=== PATIENT | male | born 1970 | race Caucasian/White ===

== ENCOUNTER 2019-03-22 09:17 | Emergency (ER) | payer BC ==
[2019-03-22] MEDS ORDERED: Sodium Chloride 0.9% 10 ML Syringe FLUSH PRN (09:53)
[2019-03-22] MEDS ORDERED: LORazepam 2 MG/ML SDV IVPUSH ONE ×3 (09:54→12:12)
[2019-03-22] MEDS ORDERED: MVI, Adult with Vitamin K 10 ML, Thiamine 200 MG, Folic Acid 1 MG, Magnesium Sulfate 2 ... IV ONE ×10 (09:54→10:00)
--- NOTE | 2019-03-22 09:57 | EDM.PDOCBH ---
ED HPI GENERAL MEDICAL PROBLEM - General Chief Complaint: Drug or Alcohol Abuse Stated Complaint: ALCOHOL WITHDRAWL Time Seen by Provider: 03/22/19 09:49 Source of Information: Reports: Patient, Family, RN Notes Reviewed History Limitations: Reports: No Limitations - History of Present Illness INITIAL COMMENTS - FREE TEXT/NARRATIVE: 48-year-old gentleman presents emergency department today asking for help with his alcohol, he quit drinking about 2 days ago he's now got tremors quite severe feels uncomfortable would like to go through detox, no nausea vomiting shortness of breath chest pain alcohol is fire ball whiskey Generalized Pain Score (Numeric/FACES): 5 - Related Data Allergies Allergy/AdvReac Type Severity Reaction Status Date / Time No Known Allergies Allergy Verified 07/19/14 08:44 Past Medical History Respiratory History: Reports: Pneumothorax Musculoskeletal History: Reports: Other (See Below) Other Musculoskeletal History: shaking unstaedy Neurological History: Reports: Other (See Below) Other Neuro History: ETOH withdrawl present Psychiatric History: Reports: Addiction, Anxiety, Other (See Below) Other Psychiatric History: ineffective coping Immunologic History: Reports: Other (See Below) Other Immunologic History: lymes? Social & Family History - Tobacco Use Smoking Status *Q: Current Every Day Smoker Years of Tobacco use: 35 Packs/Tins Daily: 1 - Caffeine Use Caffeine Use: Reports: Coffee - Alcohol Use Days Per Week of Alcohol Use: 7 Number of Drinks Per Day: 20 Total Drinks Per Week: 140 - Recreational Drug Use Recreational Drug Use: No ED ROS GENERAL - Review of Systems Review Of Systems: See Below Constitutional: Reports: Other (Tremors). Denies: Fever, Chills HEENT: Reports: No Symptoms Respiratory: Reports: No Symptoms Cardiovascular: Reports: No Symptoms GI/Abdominal: Reports: No Symptoms Neurological: Reports: Tremors ED EXAM, BEHAVIORAL HEALTH - Physical Exam Exam: See Below Exam Limited By: No Limitations General Appearance: Alert, Mild Distress Respiratory/Chest: No Respiratory Distress, Lungs Clear, Normal Breath Sounds, No Accessory Muscle Use, Chest Non-Tender Cardiovascular: Regular Rate, Rhythm, No Murmur GI/Abdominal: Soft, Tender (Generalized) COURSE, BEHAVIORAL HEALTH COMP - Course Vital Signs: Last Vital Signs Temp 97.9 F 03/22/19 09:30 Pulse 103 H 03/22/19 11:53 Resp 16 03/22/19 11:53 BP 156/81 H 03/22/19 11:53 Pulse Ox 98 03/22/19 11:53 Orders, Labs, Meds: Active Orders 24 hr Category Date Time Status Peripheral IV Care [RC] . DIRECTED Care 03/22/19 09:54 Active Lactated Ringers [Ringers, Lactated] 1,000 ml Med 03/22/19 12:24 Active IV BOLUS Sodium Chloride 0.9% [Saline Flush] Med 03/22/19 09:53 Active 10 ml FLUSH ASDIRECTED PRN Peripheral IV Insertion Adult [OM.PC] Urgent Oth 03/22/19 09:53 Ordered Medication Orders Lactated Ringer's (Ringers, Lactated) 1,000 mls @ 500 mls/hr IV BOLUS ONE Stop: 03/22/19 14:23 Last Admin: 03/22/19 12:26 Dose: 500 mls/hr Sodium Chloride (Saline Flush) 10 ml FLUSH ASDIRECTED PRN PRN Reason: Keep Vein Open Last Admin: 03/22/19 10:06 Dose: 10 ml Laboratory Tests 03/22/19 03/22/19 03/22/19 Range/Units 10:05 10:05 10:05 WBC 11.3 H (4.5-11.0) K/uL RBC 4.41 (4.30-5.90) M/uL Hgb 15.0 (12.0-15.0) g/dL Hct 42.9 (40.0-54.0) % MCV 97 (80-98) fL MCH 34 H (27-31) pg MCHC 35 (32-36) % Plt Count 78 L (150-400) K/uL Neut % (Auto) 89 H (36-66) % Lymph % (Auto) 5 L (24-44) % [place] % (Auto) 6 (2-6) % Eos % (Auto) 0 L (2-4) % Baso % (Auto) 0 (0-1) % PT (9.5-12.0) sec INR (0.80-1.20) Sodium 140 (140-148) mmol/L Potassium 3.4 L (3.6-5.2) mmol/L Chloride 100 (100-108) mmol/L Carbon Dioxide 26 (21-32) mmol/L Anion Gap 17.4 H (5.0-14.0) mmol/L BUN 6 L (7-18) mg/dL Creatinine 1.0 (0.8-1.3) mg/dL Est Cr Clr Drug Dosing 86.25 mL/min Estimated GFR (MDRD) > 60 (>60) Glucose 136 H (74-106) mg/dL Calcium 8.2 L (8.5-10.1) mg/dL Total Bilirubin 1.1 H D (0.2-1.0) mg/dL AST 69 H (15-37) U/L ALT 34 (12-78) U/L Alkaline Phosphatase 88 (46-116) U/L Total Protein 6.9 (6.4-8.2) g/dL Albumin 3.4 (3.4-5.0) g/dL Globulin 3.5 (2.3-3.5) g/dL Albumin/Globulin Ratio 1.0 L (1.2-2.2) Ethyl Alcohol 7 mg/dL 03/22/19 Range/Units 10:05 WBC (4.5-11.0) K/uL RBC (4.30-5.90) M/uL Hgb (12.0-15.0) g/dL Hct (40.0-54.0) % MCV (80-98) fL MCH (27-31) pg MCHC (32-36) % Plt Count (150-400) K/uL Neut % (Auto) (36-66) % Lymph % (Auto) (24-44) % [place] % (Auto) (2-6) % Eos % (Auto) (2-4) % Baso % (Auto) (0-1) % PT 11.0 (9.5-12.0) sec INR 1.02 (0.80-1.20) Sodium (140-148) mmol/L Potassium (3.6-5.2) mmol/L Chloride (100-108) mmol/L Carbon Dioxide (21-32) mmol/L Anion Gap (5.0-14.0) mmol/L BUN (7-18) mg/dL Creatinine (0.8-1.3) mg/dL Est Cr Clr Drug Dosing mL/min Estimated GFR (MDRD) (>60) Glucose (74-106) mg/dL Calcium (8.5-10.1) mg/dL Total Bilirubin (0.2-1.0) mg/dL AST (15-37) U/L ALT (12-78) U/L Alkaline Phosphatase (46-116) U/L Total Protein (6.4-8.2) g/dL Albumin (3.4-5.0) g/dL Globulin (2.3-3.5) g/dL Albumin/Globulin Ratio (1.2-2.2) Ethyl Alcohol mg/dL Medications Generic Name Dose Route Start Last Admin Trade Name Freq PRN Reason Stop Dose Admin Lactated Ringer's 1,000 mls @ 500 mls/hr 03/22/19 12:24 03/22/19 12:26 Ringers, Lactated IV 03/22/19 14:23 500 mls/hr BOLUS ONE Administration Sodium Chloride 10 ml 03/22/19 09:53 03/22/19 10:06 Saline Flush FLUSH 10 ml ASDIRECTED PRN Administration Keep Vein Open Discontinued Medications Generic Name Dose Route Start Last Admin Trade Name Freq PRN Reason Stop Dose Admin Multivitamins/Minerals 10 ml/ 1,016.2 mls @ 500 mls/hr 03/22/19 10:00 10:16 Thiamine HCl 200 mg/ Folic IV 03/22/19 12:01 500 mls/hr Acid 1 mg/ Magnesium Sulfate 2 ONETIME ONE Administration gm/ Dextrose/Lactated Ringer' s Lorazepam 2 mg 03/22/19 09:54 03/22/19 10:03 Ativan IVPUSH 03/22/19 09:55 2 mg ONETIME ONE Administration Lorazepam 2 mg 03/22/19 10:48 03/22/19 10:53 Ativan IVPUSH 03/22/19 10:49 2 mg ONETIME ONE Administration Lorazepam 2 mg 03/22/19 12:12 03/22/19 12:18 Ativan IVPUSH 03/22/19 12:13 2 mg ONETIME ONE Administration Departure - Departure Time of Disposition: 13:02 Disposition: DC/Tfer to Inpt Rehab Fac 62 Condition: Poor Clinical Impression: Delirium tremens, Alcohol abuse - Discharge Information Referrals: PCP,None [Primary Care Provider] - Forms: ED Department Discharge Additional Instructions: Please report to [facility] [place] facility for further treatment - My Orders Last 24 Hours: My Active Orders 03/22/19 09:53 Sodium Chloride 0.9% [Saline Flush] 10 ml FLUSH ASDIRECTED PRN Peripheral IV Insertion Adult [OM.PC] Urgent 03/22/19 09:54 Peripheral IV Care [RC] . DIRECTED 03/22/19 12:24 Lactated Ringers [Ringers, Lactated] 1,000 ml IV BOLUS - Assessment/Plan Last 24 Hours: My Active Orders 03/22/19 09:53 Sodium Chloride 0.9% [Saline Flush] 10 ml FLUSH ASDIRECTED PRN Peripheral IV Insertion Adult [OM.PC] Urgent 03/22/19 09:54 Peripheral IV Care [RC] . DIRECTED 03/22/19 12:24 Lactated Ringers [Ringers, Lactated] 1,000 ml IV BOLUS Plan: Assessment Acuity = acute Site and laterality = alcohol withdrawal with delirium tremens secondary to alcohol abuse Etiology = EtOH Manifestations = none Location of injury = Home Lab values = CBC unremarkable AST elevated 69 consistent elevated liver enzymes , INR is within normal limits alcohol is at 7 Plan His given a banana bag here in the emergency department as well as 6 mg Ativan did discuss case with the medical claims processor of the detoxification unit at [id number] recommend trial at detoxification facility before hospitalization recommend Valium, there will be transferred to [place] detoxification facility This note was dictated using [employer] voice recognition software please call with any questions on syntax or grammar.
[2019-03-22] MEDS ORDERED: Lactated Ringers 1,000 ML IV ONE ×2 (12:24→16:44)
[2019-03-22 14:31] VITALS: BP 164/86; PULSE 85
[2019-03-22] MEDS ORDERED: LORazepam 1 MG Tab PO ONE (17:27)
--- NOTE | 2019-03-22 17:47 | PCM.PN ---
- General Info Date of Service: 03/22/19 Admission Dx/Problem (Free Text): ER Visit. Brennan came today to the ER as he has been reducing his alcohol consumption and having DT's.. He was drinking 3.75 recently as trying to reduce his consumption. He normally was taking 750 Whisky daily. I had seen him this morning and couldn't walk and was not appropriate for admission to [facility] as he was unable to walk. It is now 5:30 PM and has improved so will be transferred to [facility] for treatment. Functional Status: Reports: Pain Controlled - Review of Systems General: Reports: Weakness, Fatigue HEENT: Reports: No Symptoms Pulmonary: Reports: No Symptoms Cardiovascular: Reports: No Symptoms Gastrointestinal: Reports: No Symptoms Genitourinary: Reports: No Symptoms Musculoskeletal: Reports: No Symptoms Skin: Reports: No Symptoms Neurological: Reports: No Symptoms Psychiatric: Reports: Anxiety, Other (DT's) - Patient Data Vitals - Most Recent: Last Vital Signs Temp 98.8 F 03/22/19 14:30 Pulse 85 03/22/19 14:30 Resp 16 03/22/19 11:53 BP 164/86 H 03/22/19 14:30 Pulse Ox 98 03/22/19 14:30 Weight - Most Recent: 148 lb 12.992 oz Lab Results Last 24 Hours: Laboratory Results - last 24 hr 03/22/19 03/22/19 03/22/19 Range/Units 10:05 10:05 10:05 WBC 11.3 H (4.5-11.0) K/uL RBC 4.41 (4.30-5.90) M/uL Hgb 15.0 (12.0-15.0) g/dL Hct 42.9 (40.0-54.0) % MCV 97 (80-98) fL MCH 34 H (27-31) pg MCHC 35 (32-36) % Plt Count 78 L (150-400) K/uL Neut % (Auto) 89 H (36-66) % Lymph % (Auto) 5 L (24-44) % [place] % (Auto) 6 (2-6) % Eos % (Auto) 0 L (2-4) % Baso % (Auto) 0 (0-1) % PT (9.5-12.0) sec INR (0.80-1.20) Sodium 140 (140-148) mmol/L Potassium 3.4 L (3.6-5.2) mmol/L Chloride 100 (100-108) mmol/L Carbon Dioxide 26 (21-32) mmol/L Anion Gap 17.4 H (5.0-14.0) mmol/L BUN 6 L (7-18) mg/dL Creatinine 1.0 (0.8-1.3) mg/dL Est Cr Clr Drug Dosing 86.25 mL/min Estimated GFR (MDRD) > 60 (>60) Glucose 136 H (74-106) mg/dL Calcium 8.2 L (8.5-10.1) mg/dL Total Bilirubin 1.1 H D (0.2-1.0) mg/dL AST 69 H (15-37) U/L ALT 34 (12-78) U/L Alkaline Phosphatase 88 (46-116) U/L Total Protein 6.9 (6.4-8.2) g/dL Albumin 3.4 (3.4-5.0) g/dL Globulin 3.5 (2.3-3.5) g/dL Albumin/Globulin Ratio 1.0 L (1.2-2.2) Ethyl Alcohol 7 mg/dL 03/22/19 Range/Units 10:05 WBC (4.5-11.0) K/uL RBC (4.30-5.90) M/uL Hgb (12.0-15.0) g/dL Hct (40.0-54.0) % MCV (80-98) fL MCH (27-31) pg MCHC (32-36) % Plt Count (150-400) K/uL Neut % (Auto) (36-66) % Lymph % (Auto) (24-44) % [place] % (Auto) (2-6) % Eos % (Auto) (2-4) % Baso % (Auto) (0-1) % PT 11.0 (9.5-12.0) sec INR 1.02 (0.80-1.20) Sodium (140-148) mmol/L Potassium (3.6-5.2) mmol/L Chloride (100-108) mmol/L Carbon Dioxide (21-32) mmol/L Anion Gap (5.0-14.0) mmol/L BUN (7-18) mg/dL Creatinine (0.8-1.3) mg/dL Est Cr Clr Drug Dosing mL/min Estimated GFR (MDRD) (>60) Glucose (74-106) mg/dL Calcium (8.5-10.1) mg/dL Total Bilirubin (0.2-1.0) mg/dL AST (15-37) U/L ALT (12-78) U/L Alkaline Phosphatase (46-116) U/L Total Protein (6.4-8.2) g/dL Albumin (3.4-5.0) g/dL Globulin (2.3-3.5) g/dL Albumin/Globulin Ratio (1.2-2.2) Ethyl Alcohol mg/dL Med Orders - Current: Current Medications Lactated Ringer's (Ringers, Lactated) 1,000 mls @ 125 mls/hr IV BOLUS ONE Stop: 03/23/19 00:43 Last Admin: 03/22/19 16:47 Dose: 125 mls/hr Sodium Chloride (Saline Flush) 10 ml FLUSH ASDIRECTED PRN PRN Reason: Keep Vein Open Last Admin: 03/22/19 10:06 Dose: 10 ml Discontinued Medications Diazepam (Valium) 5 mg IVPUSH ONETIME ONE Stop: 03/22/19 13:04 Last Admin: 03/22/19 13:19 Dose: 5 mg Multivitamins/Minerals 10 ml/Thiamine HCl 200 mg/ Folic Acid 1 mg/ Magnesium Sulfate 2 gm/ Dextrose/Lactated Ringer' s 1,016.2 mls @ 500 mls/hr IV ONETIME ONE Stop: 03/22/19 12:01 Last Admin: 03/22/19 10:16 Dose: 500 mls/hr Lactated Ringer's (Ringers, Lactated) 1,000 mls @ 500 mls/hr IV BOLUS ONE Stop: 03/22/19 14:23 Last Admin: 03/22/19 12:26 Dose: 500 mls/hr Lorazepam (Ativan) 2 mg IVPUSH ONETIME ONE Stop: 03/22/19 09:55 Last Admin: 03/22/19 10:03 Dose: 2 mg Lorazepam (Ativan) 2 mg IVPUSH ONETIME ONE Stop: 03/22/19 10:49 Last Admin: 03/22/19 10:53 Dose: 2 mg Lorazepam (Ativan) 2 mg IVPUSH ONETIME ONE Stop: 03/22/19 12:13 Last Admin: 03/22/19 12:18 Dose: 2 mg Lorazepam (Ativan) 2 mg PO ONETIME ONE Stop: 03/22/19 17:28 - Exam General: Alert, Oriented, Cooperative HEENT: Pupils Equal, Pupils Reactive Neck: Supple Lungs: Clear to Auscultation, Normal Respiratory Effort Cardiovascular: Regular Rate, Regular Rhythm GI/Abdominal Exam: Normal Bowel Sounds Back Exam: Normal Inspection Extremities: Normal Inspection Skin: Warm - Problem List Review Problem List Initiated/Reviewed/Updated: Yes - Plan Plan:: Assessment/Plan: #11. Alcoholism with DT's. I have arranged to have him admitted to [facility] rather than admitting him in the hospital. He has improved presently and stable. His liver is enlarged secondary to alc. #2. Thrombocytopenia: He is at 78,000. This will need to be followed until stabilized. #3. Hypertension: This needs to be followed and treated if it remains elevated.
== END 2019-03-22 18:20 ==
LOC: JP.ED 09:17
DX: F10.231 Alcohol dependence with withdrawal delirium (principal); F17.210 Nicotine dependence, cigarettes, uncomplicated
CPT/HCPCS: 36415; 80053; 85025; 85610; 96361; 96365; 96366; 96375; 96376; 99285-25; A9270-GY; G0480; J2060; J3360; J3411; J3475; J3490; J7042; J7120

== ENCOUNTER 2019-03-23 02:34 | Inpatient (IN) | payer BC ==
[~2019-03-23 02:34] MED LIST: Acetaminophen 325 MG Tab PO PRN; Acetaminophen 650 MG Supp RECTAL PRN; LORazepam 2 MG/ML SDV IM PRN; Sodium Chloride 0.9% 10 ML Syringe IV PRN; cloNIDine 0.1 MG Tab PO PRN
--- NOTE | 2019-03-23 02:42 | PCM.HP.2 ---
H&P History of Present Illness - General Date of Service: 03/23/19 Source of Information: Patient, EMS Notes Reviewed, Old Records History Limitations: Reports: Altered Mental Status, Intoxication - History of Present Illness Initial Comments - Free Text/Narative: Armaan is a 48 year old male who came to the ER yesterday and improved by 7 PM and thought he was stable enough to go the [facility]. He has fallen twice since he was there and the nurse is unable to care for him in his present state as he needs one to one care for his safety. He is being admitted for care until stable to may go into treatment. - Related Data Allergies/Adverse Reactions: Allergies Allergy/AdvReac Type Severity Reaction Status Date / Time No Known Allergies Allergy Verified 07/19/14 08:44 Home Medications: Home Meds NK [No Known Home Meds] 03/22/19 [History] Past Medical History Respiratory History: Reports: Pneumothorax Musculoskeletal History: Reports: Other (See Below) Other Musculoskeletal History: shaking unstaedy Neurological History: Reports: Other (See Below) Other Neuro History: ETOH withdrawl present Psychiatric History: Reports: Addiction, Anxiety, Other (See Below) Other Psychiatric History: ineffective coping Immunologic History: Reports: Other (See Below) Other Immunologic History: lymes? Social & Family History - Caffeine Use Caffeine Use: Reports: Coffee H&P Review of Systems - Review of Systems: Review Of Systems: See Below General: Reports: Weakness, Fatigue HEENT: Reports: No Symptoms Pulmonary: Reports: No Symptoms Cardiovascular: Reports: No Symptoms Gastrointestinal: Reports: No Symptoms Genitourinary: Reports: No Symptoms Musculoskeletal: Reports: No Symptoms Skin: Reports: No Symptoms Psychiatric: Reports: Hallucinations Neurological: Reports: Other (DT's) Hematologic/Lymphatic: Reports: No Symptoms Immunologic: Reports: No Symptoms Exam - Exam Exam: See Below - Exam General: Moderate Distress, Lethargic HEENT: PERRLA, Hearing Intact, Mucosa Moist & [place], Nares Patent, Normal Nasal Septum, Posterior Pharynx Clear, Conjunctiva Clear, EOMI, EACs Clear, TMs Clear Neck: Supple, Trachea Midline, 2 Lungs: Clear to Auscultation, Normal Respiratory Effort Cardiovascular: Regular Rate, Regular Rhythm GI/Abdominal Exam: Tender, Hepatomegaly Peripheral Pulses: 1+: Radial (L), Radial (R) Skin: Warm, Dry, Intact Neurological: Cranial Nerves Intact, Abnormal Gait Neuro Extensive - Mental Status: Inattentive Neuro Extensive - Motor, Sensory, Reflexes: CN II-XII Intact DTR: 1+: Bicep (L), Bicep (R) Psychiatric: Hallucinations, Withdrawal Symptoms Problem List Initiated/Reviewed/Updated: Yes Assessment/Plan Comment:: Assessment/Plan: #1. Alcoholism with DT's. Will admitted and monitor closely and give meds as needed. #2. HTN: Blood pressure is elevated and will monitor closely. #3. Thrombocytopenia: Will need to monitor. This is secondary to alcohol consumption.
[2019-03-23] MEDS ORDERED: Sodium Chloride 0.9% 10 ML Syringe FLUSH PRN (02:50)
[2019-03-23] MEDS ORDERED: Thiamine 200 MG/2 ML MDV IM ONE ×2 (03:45→09:00)
[2019-03-23] MEDS ORDERED: Thiamine 100 MG in Sodium Chloride 0.9% 100 ML IV ONE (03:45)
[2019-03-23] MEDS: LORazepam 2 MG/ML SDV IVPUSH PRN ×2 (04:04→06:20)
[2019-03-23] MEDS: Potassium Chloride 20 MEQ Tab.ER PO SCH ×2 (06:10→09:39)
[2019-03-23] MEDS: LORazepam 1 MG Tab PO PRN ×4 (08:08→18:50)
[2019-03-23] MEDS ORDERED: Ondansetron 4 MG Tab.DIS PO PRN (08:56)
[2019-03-23] MEDS ORDERED: Ondansetron 4 MG/2 ML SDV IVPUSH PRN (08:56)
--- NOTE | 2019-03-23 09:28 | PCM.PN ---
- General Info Date of Service: 03/23/19 Subjective Update: No acute events since admission. Patient is very somnolent at this time and does not provide any reliable history. He has been getting Ativan fairly regularly for his alcohol withdrawal. Vital signs have been stable. Nursing reports that he has been arousable and able to take pills. - Patient Data Vitals - Most Recent: Last Vital Signs Temp 36.6 C 03/23/19 02:54 Pulse Resp 16 03/23/19 06:00 BP 126/78 03/23/19 06:00 Pulse Ox 96 03/23/19 04:00 Weight - Most Recent: 72.575 kg I&O - Last 24 Hours: Intake & Output 03/22/19 03/23/19 03/23/19 22:59 06:59 14:59 Output Total 725 Balance -725 Lab Results Last 24 Hours: Laboratory Results - last 24 hr 03/23/19 03/23/19 03/23/19 Range/Units 04:15 04:15 08:53 WBC 6.4 (4.5-11.0) K/uL RBC 4.15 L (4.30-5.90) M/uL Hgb 13.9 (12.0-15.0) g/dL Hct 40.7 (40.0-54.0) % MCV 98 (80-98) fL MCH 34 H (27-31) pg MCHC 34 (32-36) % Plt Count 62 L (150-400) K/uL Neut % (Auto) 77 H (36-66) % Lymph % (Auto) 16 L (24-44) % [place] % (Auto) 7 H (2-6) % Eos % (Auto) 1 L (2-4) % Baso % (Auto) 0 (0-1) % Sodium 139 L (140-148) mmol/L Potassium 2.8 L* (3.6-5.2) mmol/L Chloride 101 (100-108) mmol/L Carbon Dioxide 28 (21-32) mmol/L Anion Gap 12.8 (5.0-14.0) mmol/L BUN 4 L (7-18) mg/dL Creatinine 0.8 (0.8-1.3) mg/dL Est Cr Clr Drug Dosing 112.92 mL/min Estimated GFR (MDRD) > 60 (>60) Glucose 123 H (74-106) mg/dL Calcium 8.3 L (8.5-10.1) mg/dL Magnesium 1.9 (1.8-2.4) mg/dL Total Bilirubin 1.1 H (0.2-1.0) mg/dL AST 59 H (15-37) U/L ALT 33 (12-78) U/L Alkaline Phosphatase 84 (46-116) U/L Total Protein 6.4 (6.4-8.2) g/dL Albumin 3.1 L (3.4-5.0) g/dL Globulin 3.3 (2.3-3.5) g/dL Albumin/Globulin Ratio 0.9 L (1.2-2.2) Med Orders - Current: Current Medications Acetaminophen (Tylenol) 650 mg PO Q4H PRN PRN Reason: Pain/Fever Clonidine HCl (Catapres) 0.2 mg PO Q2H PRN PRN Reason: BP>170/110 Gabapentin (Neurontin) 400 mg PO TID [place] Lorazepam (Ativan) 1 - 2 mg PO Q1H PRN; Protocol PRN Reason: CIWA/BP/HR Last Admin: 03/23/19 08:08 Dose: 2 mg Lorazepam (Ativan) 1 - 2 mg IVPUSH Q1H PRN; Protocol PRN Reason: CIWA/BP/HR Last Admin: 03/23/19 06:20 Dose: 2 mg Lorazepam (Ativan) 1 - 2 mg IM Q1H PRN; Protocol PRN Reason: CIWA/BP/HR Melatonin (Melatonin) 9 mg PO BEDTIME [facility] Ondansetron HCl (Zofran Odt) 4 mg PO Q4H PRN PRN Reason: Nausea/Vomiting Ondansetron HCl (Zofran) 4 mg IVPUSH Q4H PRN PRN Reason: Nausea/Vomiting Potassium Chloride (Klor-Con M20) 20 meq PO QID [facility] Stop: 03/23/19 11:00 Last Admin: 03/23/19 06:10 Dose: 20 meq Sodium Chloride (Saline Flush) 10 ml IV ASDIRECTED PRN PRN Reason: IV ACCESS Thiamine HCl (Vitamin B-1) 100 mg PO DAILY [facility] Stop: 03/25/19 09:01 Discontinued Medications Acetaminophen (Tylenol) 650 mg RECTAL Q4H PRN PRN Reason: ALCOHOL WITHDRAWAL PROTOCOL Sodium Chloride (Saline Flush) 10 ml FLUSH ASDIRECTED PRN PRN Reason: Keep Vein Open Thiamine HCl (Vitamin B-1) 100 mg IM ONETIME ONE Stop: 03/23/19 09:01 Last Admin: 03/23/19 08:31 Dose: 100 mg - Exam Quality Assessment: No: Supplemental Oxygen General: No Acute Distress, Lethargic. No: Alert Lungs: Clear to Auscultation, Normal Respiratory Effort Cardiovascular: Regular Rate, Regular Rhythm GI/Abdominal Exam: Normal Bowel Sounds, No Distention Extremities: No Pedal Edema. No: Increased Warmth Skin: Warm, Dry Psy/Mental Status: No: Alert, Agitated - Problem List Review Problem List Initiated/Reviewed/Updated: Yes - My Orders Last 24 Hours: My Active Orders 03/23/19 08:55 SCD [Sequential Compression Device] [OM.PC] Routine 03/23/19 08:56 Ondansetron [Zofran ODT] 4 mg PO Q4H PRN Ondansetron [Zofran] 4 mg IVPUSH Q4H PRN 03/23/19 09:00 Gabapentin [Neurontin] 400 mg PO TID 03/23/19 14:00 POTASSIUM,K [CHEM] Timed 03/23/19 21:00 Melatonin 9 mg PO BEDTIME 03/24/19 05:00 CBC W/O DIFF,HEMOGRAM [HEME] Timed (1) COMPREHENSIVE METABOLIC PN,CMP [CHEM] Timed - Plan Plan:: ASSESSMENT AND PLAN - Acute alcohol withdrawal with delirium tremens - currently lethargic. Receiving medications regularly. Vital signs have been stable. Thiamine and folate have been supplemented. -Continue lorazepam per the ciwaa protocol -Gabapentin 3 times daily -Melatonin at bedtime -Daily supplement of thiamine and folate -Discuss treatment options once he is more alert and interactive Hypokalemia - fairly impressive reduction in potassium, he has received some supplementation this morning. -Recheck potassium at 1400 and supplement as indicated Maintenance issues - - DVT prophylaxis - mechanical with thrombocytopenia - GI prophylaxis - PPI - Nutrition - regular diet - [place] catheter - not indicated Disposition - I would anticipate discharge home with outpatient follow-up versus inpatient treatment after the hospital stay Andrew Walker M.D.
[2019-03-23] MEDS: Gabapentin 400 MG Cap PO SCH ×3 (09:39→21:39)
[2019-03-23] MEDS: Nicotine 21 MG/24 Hr Patch TRDERM SCH (15:24)
[2019-03-23] MEDS ORDERED: Potassium Chloride 20 MEQ Tab.ER PO ONE (16:00)
[2019-03-23] MEDS ORDERED: Melatonin 3 MG Tab PO SCH (21:00)
[2019-03-24] MEDS ORDERED: Pantoprazole 40 MG Tab.CR PO SCH (07:30)
[2019-03-24 08:24] VITALS: BP 138/82; PULSE 99
[2019-03-24] MEDS ORDERED: Thiamine 100 MG Tab PO SCH (09:00)
--- NOTE | 2019-03-24 09:25 | PCM.DCSUM1 ---
Discharge Summary - Hospital Course Brief History: 48-year-old male with history of alcohol dependence and abuse who presented from detox with weakness, hallucinations and confusion. He was admitted for management of alcohol withdrawal with delirium tremens. Diagnosis: Stroke: No - Discharge Data Discharge Date: 03/24/19 Discharge Disposition: Home, Self-Care 01 Condition: Fair - Referral to Home Health Primary Care Physician: Damon Langley Sr, MD - Discharge Diagnosis/Problem(s) (1) Alcohol withdrawal delirium, acute, mixed level of activity SNOMED Code(s): 6979981, 136612219 ICD Code: F10.231 - ALCOHOL DEPENDENCE WITH WITHDRAWAL DELIRIUM Status: Acute (2) Tobacco dependence syndrome SNOMED Code(s): 97875727 ICD Code: F17.200 - NICOTINE DEPENDENCE, UNSPECIFIED, UNCOMPLICATED Status : Chronic - Patient Summary/Data Hospital Course: Armaan presented to the emergency room from detox with weakness resulting in multiple falls as well as hallucinations and confusion. He was admitted to the intensive care unit for management of delirium tremens with acute alcohol withdrawal. He received lorazepam via the protocol overnight. The morning after admission he was started on gabapentin per the alcohol withdrawal protocol. Lorazepam was continued. Throughout the day after admission he made some improvement. By the second morning after admission he is doing a fair amount better. He has not had any lorazepam in more than 12 hours. He does continue to have some tremors but has not been hallucinating. He is steady on his feet and has been up and walking around in the hallways. He has been able to tolerate a diet and feed himself. He is interested in going home at this point and I believe he is safe for outpatient management. He has a rule 25 scheduled for Friday, 6 days from now. He has family members will be checking on him and he has signed a contract with them that he will not drink and will be attending the rule 25 meeting. We did offer additional resources such as Alcoholics Anonymous and outpatient chemical dependency counseling but he is going to start with the rule 25 and go from there. Also noted during the hospital stay was hypo-kalemia which has improved with supplementation and his potassium level is now normal. - Patient Instructions Diet: Regular Diet as Tolerated Activity: As Tolerated Showering/Bathing: May Shower Notify Provider of: Increased Pain, Nausea and/or Vomiting Other/Special Instructions: 1. You have a Rule 25 assessment scheduled with [facility] [employer] on March 29 at 9 am. I strongly recommend that you attend this assessment as it will open doors for additional help as you recover from alcoholism. 2. If you are interested in quitting smoking [employer] has excellent information and you may also talk to your primary care provider. - Discharge Plan *PRESCRIPTION DRUG MONITORING PROGRAM REVIEWED*: Not Applicable *COPY OF PRESCRIPTION DRUG MONITORING REPORT IN PATIENT CIRILO: Not Applicable Home Medications: Home Meds NK [No Known Home Meds] 03/22/19 [History] Oxygen Therapy Mode: Room Air Patient Handouts: What You Need to Know About Alcohol Abuse and Dependence, Adult, Delirium Tremens - Discharge Summary/Plan Comment DC Time >30 min.: Yes - Patient Data Vitals - Most Recent: Last Vital Signs Temp 36.4 C 03/24/19 08:00 Pulse 99 03/24/19 08:00 Resp 22 H 03/24/19 08:00 BP 138/82 03/24/19 08:00 Pulse Ox 96 03/24/19 06:00 Weight - Most Recent: 72.5 kg I&O - Last 24 hours: Intake & Output 03/23/19 03/24/19 03/24/19 22:59 06:59 14:59 Intake Total 1250 750 Balance 1250 750 Lab Results - Last 24 hrs: Laboratory Results - last 24 hr 03/23/19 03/24/19 03/24/19 Range/Units 14:14 04:40 04:40 WBC 6.3 (4.5-11.0) K/uL RBC 4.43 (4.30-5.90) M/uL Hgb 14.7 (12.0-15.0) g/dL Hct 44.3 (40.0-54.0) % MCV 100 H (80-98) fL MCH 33 H (27-31) pg MCHC 33 (32-36) % Plt Count 65 L (150-400) K/uL Sodium 138 L (140-148) mmol/L Potassium 3.7 3.9 (3.6-5.2) mmol/L Chloride 104 (100-108) mmol/L Carbon Dioxide 27 (21-32) mmol/L Anion Gap 10.9 (5.0-14.0) mmol/L BUN 9 D (7-18) mg/dL Creatinine 0.9 (0.8-1.3) mg/dL Est Cr Clr Drug Dosing 100.04 mL/min Estimated GFR (MDRD) > 60 (>60) Glucose 118 H (74-106) mg/dL Calcium 9.0 (8.5-10.1) mg/dL Total Bilirubin 0.7 (0.2-1.0) mg/dL AST 53 H (15-37) U/L ALT 36 (12-78) U/L Alkaline Phosphatase 82 (46-116) U/L Total Protein 6.7 (6.4-8.2) g/dL Albumin 3.0 L (3.4-5.0) g/dL Globulin 3.7 H (2.3-3.5) g/dL Albumin/Globulin Ratio 0.8 L (1.2-2.2) Med Orders - Current: Current Medications Acetaminophen (Tylenol) 650 mg PO Q4H PRN PRN Reason: Pain/Fever Clonidine HCl (Catapres) 0.2 mg PO Q2H PRN PRN Reason: BP>170/110 Gabapentin (Neurontin) 400 mg PO TID [facility] Last Admin: 03/23/19 21:39 Dose: 400 mg Lorazepam (Ativan) 1 - 2 mg PO Q1H PRN; Protocol PRN Reason: CIWA/BP/HR Last Admin: 03/23/19 18:50 Dose: 2 mg Lorazepam (Ativan) 1 - 2 mg IVPUSH Q1H PRN; Protocol PRN Reason: CIWA/BP/HR Last Admin: 03/23/19 06:20 Dose: 2 mg Lorazepam (Ativan) 1 - 2 mg IM Q1H PRN; Protocol PRN Reason: CIWA/BP/HR Melatonin (Melatonin) 9 mg PO BEDTIME [facility] Last Admin: 03/23/19 21:39 Dose: 9 mg Nicotine (Habitrol) 21 mg TRDERM DAILY [facility] Last Admin: 03/23/19 15:24 Dose: 21 mg Ondansetron HCl (Zofran Odt) 4 mg PO Q4H PRN PRN Reason: Nausea/Vomiting Ondansetron HCl (Zofran) 4 mg IVPUSH Q4H PRN PRN Reason: Nausea/Vomiting Pantoprazole Sodium (Protonix) 40 mg PO DAILY@0730 [facility] Last Admin: 03/24/19 07:44 Dose: 40 mg Sodium Chloride (Saline Flush) 10 ml IV ASDIRECTED PRN PRN Reason: IV ACCESS Thiamine HCl (Vitamin B-1) 100 mg PO DAILY [facility] Stop: 03/25/19 09:01 Discontinued Medications Acetaminophen (Tylenol) 650 mg RECTAL Q4H PRN PRN Reason: ALCOHOL WITHDRAWAL PROTOCOL Potassium Chloride (Klor-Con M20) 20 meq PO QID [facility] Stop: 03/23/19 11:00 Last Admin: 03/23/19 09:39 Dose: 20 meq Potassium Chloride (Klor-Con M20) 40 meq PO ONETIME ONE Stop: 03/23/19 16:01 Last Admin: 03/23/19 15:24 Dose: 40 meq Sodium Chloride (Saline Flush) 10 ml FLUSH ASDIRECTED PRN PRN Reason: Keep Vein Open Thiamine HCl (Vitamin B-1) 100 mg IM ONETIME ONE Stop: 03/23/19 09:01 Last Admin: 03/23/19 08:31 Dose: 100 mg - Exam Quality Assessment: Denies: Supplemental Oxygen General: Reports: Alert, Oriented, Cooperative, No Acute Distress HEENT: Reports: Pupils Equal Lungs: Reports: Normal Respiratory Effort Cardiovascular: Reports: Regular Rate, Regular Rhythm GI/Abdominal Exam: Soft, No Distention Skin: Reports: Warm, Dry Neurological: Reports: Other (tremor) Psy/Mental Status: Reports: Alert, Normal Affect
[2019-03-24] MEDS: Gabapentin 400 MG Cap PO SCH (09:46)
[2019-03-24] MEDS: Nicotine 21 MG/24 Hr Patch TRDERM SCH (09:46)
== END 2019-03-24 10:14 | disposition home or self-care (01) | DRG 775 ==
LOC: JP.ICU 02:34
PROVIDERS: ADMIT Internal Medicine; ATTEND Internal Medicine
DX: F10.231 Alcohol dependence with withdrawal delirium (principal); F17.200 Nicotine dependence, unspecified, uncomplicated; R29.6 Repeated falls; F41.9 Anxiety disorder, unspecified; I10 Essential (primary) hypertension; D69.6 Thrombocytopenia, unspecified; E87.6 Hypokalemia
CPT/HCPCS: 36415; 80053; 83735; 84132; 85025; 85027; A9270-GY; J2060; J3411

== ENCOUNTER 2019-05-02 18:52 | Emergency (ER) | payer BC ==
[2019-05-02 19:12] VITALS: BP 145/82; PULSE 65
[2019-05-02] MEDS ORDERED: Thiamine 100 MG Tab PO ONE (19:53)
--- NOTE | 2019-05-02 19:54 | EDM.PDOC ---
ED HPI GENERAL MEDICAL PROBLEM - General Chief Complaint: Abdominal Pain Stated Complaint: FATIGUE, STOMACH & LEG CRAMPS Time Seen by Provider: 05/02/19 19:25 Source of Information: Reports: Patient, Family, Old Records, RN History Limitations: Reports: No Limitations - History of Present Illness INITIAL COMMENTS - FREE TEXT/NARRATIVE: 48 yo male was discharged from here about 5 weeks ago for DT's. When he left he was not to drink at all. He drank heavily more than once since leaving the hospital, the last time being about 3 days ago. After that day of heavy drinking he passed a black stool. Since then he has reduced his drinking considerably and his stools are loose, but not black. He has a hard time thinking straight and feels generally weak. He states he's lost 10 lbs since leaving the hospital. He is convinced that there is something wrong with him not related to his alcohol abuse so he comes here now. Onset: Gradual Duration: Day(s):, Getting Worse Location: Reports: Head (not thinking clearly), Abdomen (cramping) Quality: Reports: Other (no pain reported) Severity: Moderate Improves with: Reports: None Worsens with: Reports: Other (? additional ETOH consumption. ) Context: Reports: Other (See HPI) Associated Symptoms: Reports: Confusion (mild at times), Malaise, Weakness ( generalized), Other (loose stools, abdominal cramps, recent dark stools. ). Denies: Chest Pain, Cough, Diaphoresis, Fever/Chills, Headaches, Nausea/Vomiting , Rash, Seizure, Shortness of Breath, Syncope Treatments [employer]PUT[employer] TRA[employer]ER: Reports: Other (see below) (none) abd pain Pain Score (Numeric/FACES): 4 - Related Data Allergies Allergy/AdvReac Type Severity Reaction Status Date / Time No Known Allergies Allergy Verified 05/02/19 19:19 Home Meds: Home Meds NK [No Known Home Meds] 03/22/19 [History] Past Medical History Respiratory History: Reports: Pneumothorax Musculoskeletal History: Reports: Other (See Below) Other Musculoskeletal History: shaking unstaedy Neurological History: Reports: Other (See Below) Other Neuro History: ETOH withdrawl present Psychiatric History: Reports: Addiction, Anxiety, Other (See Below) Other Psychiatric History: ineffective coping Immunologic History: Reports: Other (See Below) Other Immunologic History: lymes? Social & Family History - Caffeine Use Caffeine Use: Reports: Coffee ED ROS GENERAL - Review of Systems Review Of Systems: See Below Constitutional: Reports: Malaise, Weakness (generalized), Weight Loss (10#) HEENT: Reports: No Symptoms Respiratory: Reports: No Symptoms Cardiovascular: Reports: Lightheadedness (at times). Denies: Chest Pain, Dyspnea on Exertion, Palpitations Endocrine: Reports: No Symptoms GI/Abdominal: Reports: Abdominal Pain (cramps), Black Stool (recent, not today) , Diarrhea (recently and today), Melena (3 days ago). Denies: Bloody Stool, Constipation, Distension, Hematemesis, Hematochezia, Nausea, Vomiting : Reports: No Symptoms Musculoskeletal: Reports: No Symptoms Skin: Reports: No Symptoms Neurological: Reports: Confusion (mild at times, memory very bad lately), Difficulty Walking (at times), Weakness (generalized). Denies: Dizziness, Headache, Numbness, Trouble Speaking, Gait Disturbance Psychiatric: Reports: No Symptoms ED EXAM, GENERAL - Physical Exam Exam: See Below Exam Limited By: No Limitations General Appearance: Alert, WD/WN Eye Exam: Bilateral Eye: Normal Inspection, PERRL Ears: Normal External Exam, Normal Canal, Hearing Grossly Normal Ear Exam: Bilateral Ear: Auricle Normal, Canal Normal, TM normal Nose: Normal Inspection, No Blood Throat/Mouth: Normal Inspection, Normal Lips, Normal Oropharynx, Normal Voice, No Airway Compromise Head: Atraumatic, Normocephalic Neck: Normal Inspection Respiratory/Chest: No Respiratory Distress, Lungs Clear, Normal Breath Sounds, No Accessory Muscle Use Cardiovascular: Regular Rate, Rhythm, No Edema GI/Abdominal: Normal Bowel Sounds, Soft, Non-Tender, No Distention, Hepatomegaly Back Exam: Normal Inspection. No: CVA Tenderness (R), CVA Tenderness (L) Extremities: Normal Inspection, Normal Range of Motion, Non-Tender, No Pedal Edema Neurological: Alert, Oriented, CN II-XII Intact, Normal Cognition, No Motor/ Sensory Deficits, Other (Has somewhat of a difficult time finishing his story for why he his here, is easily distracted, and then cannot remember what he said. ) Psychiatric: Normal Affect, Normal Mood Skin Exam: Warm, Dry, Intact, Normal Color, No Rash Course - Vital Signs Text/Narrative:: Was offered detox, he declined this offer. Last Recorded V/S: Last Vital Signs Temp 36.0 C 05/02/19 19:15 Pulse 65 05/02/19 19:15 Resp 16 05/02/19 19:15 BP 145/82 H 05/02/19 19:15 Pulse Ox 98 05/02/19 19:15 Orthostatic Blood Pressure [ 120/90 Standing] Orthostatic Blood Pressure [ 146/78 Sitting] Orthostatic Blood Pressure [ 146/85 Supine] - Orders/Labs/Meds Labs: Laboratory Tests 05/02/19 05/02/19 05/02/19 Range/Units 19:29 19:29 19:29 WBC 7.1 (4.5-11.0) K/uL RBC 4.89 (4.30-5.90) M/uL Hgb 16.1 H (12.0-15.0) g/dL Hct 46.7 (40.0-54.0) % MCV 96 (80-98) fL MCH 33 H (27-31) pg MCHC 35 (32-36) % Plt Count 138 L (150-400) K/uL Sodium 141 (140-148) mmol/L Potassium 3.8 (3.6-5.2) mmol/L Chloride 102 (100-108) mmol/L Carbon Dioxide 28 (21-32) mmol/L Anion Gap 14.8 H (5.0-14.0) mmol/L BUN 11 (7-18) mg/dL Creatinine 1.2 (0.8-1.3) mg/dL Est Cr Clr Drug Dosing 72.45 mL/min Estimated GFR (MDRD) > 60 (>60) Glucose 120 H (74-106) mg/dL Calcium 7.2 L D (8.5-10.1) mg/dL Total Bilirubin 1.5 H D (0.2-1.0) mg/dL AST 272 H D (15-37) U/L ALT 113 H (12-78) U/L Alkaline Phosphatase 110 (46-116) U/L Ammonia 32 (11-32) mmol/L Total Protein 6.4 (6.4-8.2) g/dL Albumin 2.9 L (3.4-5.0) g/dL Globulin 3.5 (2.3-3.5) g/dL Albumin/Globulin Ratio 0.8 L (1.2-2.2) TSH, Ultra Sensitive 1.856 (0.358-3.740) uIU/mL Urine Color (YELLOW) Urine Appearance (CLEAR) Urine pH (5.0-8.0) Ur Specific [place] (1.008-1.030) Urine Protein (NEGATIVE) mg/dL Urine Glucose (UA) (NEGATIVE) mg/dL Urine Ketones (NEGATIVE) mg/dL Urine Occult Blood (NEGATIVE) Urine Nitrite (NEGATIVE) Urine Bilirubin (NEGATIVE) Urine Urobilinogen (0.2-1.0) EU/dL Ur Leukocyte Esterase (NEGATIVE) Urine RBC (0-5) Urine WBC (0-5) Ur Epithelial Cells Amorphous Sediment Urine Bacteria Urine Mucus Urine Opiates Screen (NEGATIVE) Ur Oxycodone Screen (NEGATIVE) Urine Methadone Screen (NEGATIVE) Ur Propoxyphene Screen (NEGATIVE) Ur Barbiturates Screen (NEGATIVE) Ur Tricyclics Screen (NEGATIVE) Ur Phencyclidine Scrn (NEGATIVE) Ur Amphetamine Screen (NEGATIVE) U Methamphetamines Scrn (NEGATIVE) Urine MDMA Screen (NEGATIVE) U Benzodiazepines Scrn (NEGATIVE) U Cocaine Metab Screen (NEGATIVE) U Marijuana (THC) Screen (NEGATIVE) Ethyl Alcohol mg/dL 05/02/19 05/02/19 05/02/19 Range/Units 19:30 20:14 20:14 WBC (4.5-11.0) K/uL RBC (4.30-5.90) M/uL Hgb (12.0-15.0) g/dL Hct (40.0-54.0) % MCV (80-98) fL MCH (27-31) pg MCHC (32-36) % Plt Count (150-400) K/uL Sodium (140-148) mmol/L Potassium (3.6-5.2) mmol/L Chloride (100-108) mmol/L Carbon Dioxide (21-32) mmol/L Anion Gap (5.0-14.0) mmol/L BUN (7-18) mg/dL Creatinine (0.8-1.3) mg/dL Est Cr Clr Drug Dosing mL/min Estimated GFR (MDRD) (>60) Glucose (74-106) mg/dL Calcium (8.5-10.1) mg/dL Total Bilirubin (0.2-1.0) mg/dL AST (15-37) U/L ALT (12-78) U/L Alkaline Phosphatase (46-116) U/L Ammonia (11-32) mmol/L Total Protein (6.4-8.2) g/dL Albumin (3.4-5.0) g/dL Globulin (2.3-3.5) g/dL Albumin/Globulin Ratio (1.2-2.2) TSH, Ultra Sensitive (0.358-3.740) uIU/mL Urine Color Yellow (YELLOW) Urine Appearance Clear (CLEAR) Urine pH 6.5 (5.0-8.0) Ur Specific [place] 1.015 (1.008-1.030) Urine Protein Negative (NEGATIVE) mg/dL Urine Glucose (UA) Negative (NEGATIVE) mg/dL Urine Ketones Negative (NEGATIVE) mg/dL Urine Occult Blood Negative (NEGATIVE) Urine Nitrite Negative (NEGATIVE) Urine Bilirubin Negative (NEGATIVE) Urine Urobilinogen 2.0 H (0.2-1.0) EU/dL Ur Leukocyte Esterase Negative (NEGATIVE) Urine RBC Not seen (0-5) Urine WBC Not seen (0-5) Ur Epithelial Cells Rare Amorphous Sediment Not seen Urine Bacteria Rare Urine Mucus Not seen Urine Opiates Screen Negative (NEGATIVE) Ur Oxycodone Screen Negative (NEGATIVE) Urine Methadone Screen Negative (NEGATIVE) Ur Propoxyphene Screen Negative (NEGATIVE) Ur Barbiturates Screen Negative (NEGATIVE) Ur Tricyclics Screen Negative (NEGATIVE) Ur Phencyclidine Scrn Negative (NEGATIVE) Ur Amphetamine Screen Negative (NEGATIVE) U Methamphetamines Scrn Negative (NEGATIVE) Urine MDMA Screen Negative (NEGATIVE) U Benzodiazepines Scrn Negative (NEGATIVE) U Cocaine Metab Screen Negative (NEGATIVE) U Marijuana (THC) Screen Negative (NEGATIVE) Ethyl Alcohol 317 mg/dL Meds: Medications Discontinued Medications Generic Name Dose Route Start Last Admin Trade Name Freq PRN Reason Stop Dose Admin Thiamine HCl 100 mg 05/02/19 19:53 05/02/19 20:11 Vitamin B-1 PO 05/02/19 19:54 100 mg ONETIME ONE Administration Departure - Departure Time of Disposition: 21:04 Disposition: Home, Self-Care 01 Condition: Fair Clinical Impression: Chronic alcohol abuse Alcohol intoxication Qualifiers: Complication of substance-induced condition: with unspecified complication Qualified Code(s): F10.929 - Alcohol use, unspecified with intoxication, unspecified Alcoholic hepatitis Qualifiers: Ascites presence: without ascites Qualified Code(s): K70.10 - Alcoholic hepatitis without ascites - Discharge Information *PRESCRIPTION DRUG MONITORING PROGRAM REVIEWED*: No *COPY OF PRESCRIPTION DRUG MONITORING REPORT IN PATIENT CIRILO: No Instructions: Alcoholic Liver Disease, [id number] Referrals: PCP,None [Primary Care Provider] - Forms: ED Department Discharge Additional Instructions: No alcohol. Get established with a primary care provider. If you still feel like you are under the influence of alcohol even when you have not been drinking then see your doctor for an alcohol level. Return if you start having seriously ill effects from alcohol abstinence. Sepsis Event Note - Evaluation Sepsis Screening Result: No Definite Risk - Focused Exam Vital Signs: Vital Signs Temp Pulse Resp BP Pulse Ox 05/02/19 19:15 36.0 C 65 16 145/82 H 98 05/02/19 19:08 36.0 C 65 16 145/82 H 98 Date Exam was Performed: 05/02/19 Time Exam was Performed: 21:04
== END 2019-05-02 21:15 | disposition home or self-care (01) ==
LOC: JP.ED 18:52
DX: F10.229 Alcohol dependence with intoxication, unspecified (principal); Y90.8 Blood alcohol level of 240 mg/100 ml or more; K70.10 Alcoholic hepatitis without ascites
CPT/HCPCS: 36415; 80053; 80305; 80320; 81001; 82140; 84443; 85027; 99284; A9270; G0480

== ENCOUNTER 2019-07-20 19:48 | Inpatient (IN) | payer BC ==
[2019-07-20] MEDS ORDERED: LORazepam 2 MG/ML SDV IVPUSH ONE ×2 (20:13→22:12)
[2019-07-20] MEDS ORDERED: Pantoprazole 40 MG Vial IVPUSH ONE (20:27)
[2019-07-20] MEDS ORDERED: Sodium Chloride 0.9% 10 ML Syringe FLUSH PRN (20:27)
[2019-07-20] MEDS ORDERED: Lactated Ringers 1,000 ML IV ONE (20:28)
[2019-07-20] MEDS ORDERED: Ondansetron 4 MG/2 ML SDV IVPUSH ONE (20:28)
[2019-07-20] MEDS ORDERED: fentaNYL 100 MCG/2 ML SDV IVPUSH ONE (20:28)
[2019-07-20] MEDS ORDERED: Albuterol/Ipratropium 3.0-0.5 MG/3 ML Neb Soln NEB ONE (20:40)
--- NOTE | 2019-07-20 20:41 | EDM.PDOC ---
ED HPI GENERAL MEDICAL PROBLEM - General Chief Complaint: Gastrointestinal Problem Stated Complaint: VOMITING BLOOD BLACK STOOLS Time Seen by Provider: 07/20/19 20:22 Source of Information: Reports: Patient, Family, Old Records, RN Notes Reviewed History Limitations: Reports: No Limitations - History of Present Illness INITIAL COMMENTS - FREE TEXT/NARRATIVE: 48-year-old gentleman presents emergency department today complaint of vomiting blood and black tarry stools, he states he has had the symptoms for the last for 5 days significant nausea with the vomiting unable to keep any oral products down. He does have a history of extensive alcohol abuse and dependence was last admitted to hospital back in April 2019 at which time he had an EGD which demonstrated esophagitis no varices normal stomach periampullary diverticulum Lower Abdomen Pain Score (Numeric/FACES): 10 - Related Data Allergies Allergy/AdvReac Type Severity Reaction Status Date / Time No Known Allergies Allergy Verified 05/02/19 19:19 Home Meds: Home Meds Omeprazole 20 mg PO BID 07/20/19 [History] Past Medical History HEENT History: Reports: Impaired Vision Respiratory History: Reports: Pneumothorax Gastrointestinal History: Reports: Chronic Constipation, Chronic Diarrhea, Cirrhosis Musculoskeletal History: Reports: Other (See Below) Other Musculoskeletal History: shaking unstaedy Neurological History: Reports: Other (See Below) Other Neuro History: Past etoh withdrawal Psychiatric History: Reports: Addiction, Anxiety, Other (See Below) Other Psychiatric History: ineffective coping Immunologic History: Reports: Other (See Below) Other Immunologic History: lymes? - Infectious Disease History Infectious Disease History: Reports: Chicken Pox - Past Surgical History GI Surgical History: Reports: Cholecystectomy Social & Family History - Tobacco Use Smoking Status *Q: Current Every Day Smoker Years of Tobacco use: 35 Packs/Tins Daily: 1 Used Tobacco, but Quit: No Second Hand Smoke Exposure: Yes - Caffeine Use Caffeine Use: Reports: Coffee, Soda - Alcohol Use Days Per Week of Alcohol Use: 7 Number of Drinks Per Day: 15 Total Drinks Per Week: 105 - Recreational Drug Use Recreational Drug Use: No ED ROS GENERAL - Review of Systems Review Of Systems: See Below Constitutional: Reports: No Symptoms HEENT: Reports: No Symptoms Respiratory: Reports: No Symptoms Cardiovascular: Reports: Chest Pain GI/Abdominal: Reports: Abdominal Pain, Black Stool, Hematemesis, Nausea, Vomiting : Reports: No Symptoms ED EXAM, GI/ABD - Physical Exam Exam: See Below Text/Narrative:: General: Male, ill-appearing, alert and oriented x3 HEENT: head is atraumatic normocephalic, eyes pupils equal round reactive to light, sclera yellow and pale no conjunctivitis appreciated. Ears tympanic membranes clear and flores landmarks and light reflex are present bilaterally canals are clear. Nose no septal deviation, nares are clear, no blood present. Mouth mucosa is moist and pink mild erythema with candidiasis appreciated in the soft and hard palate, tongue is midline uvula is midline, dentition is intact. Neck: Supple no thyromegaly no tracheal deviation. Nodes: Cervical nodes subclavicular nodes nontender no palpable lymphadenopathy noted. Lungs: Decreased breath sounds with expiratory wheeze mid lower lung perez bilaterally CV: Regular rate and rhythm S1 and S2 appreciated no murmurs rubs or gallops noted. Abdomen: Soft, nontender, no palpable masses or organomegaly appreciated, no distention no guarding bowel sounds are present, [scars ]. Neuro: GCS 15 Skin: Warm and dry, intact Extremities: No lower extremity edema appreciated, pedal pulse is +2. Course - Vital Signs Last Recorded V/S: Last Vital Signs Temp 96.5 F L 07/20/19 20:24 Pulse 96 07/20/19 22:06 Resp 18 07/20/19 20:24 BP 150/81 H 07/20/19 22:06 Pulse Ox 98 07/20/19 20:59 - Orders/Labs/Meds Orders: Active Orders 24 hr Category Date Time Status Peripheral IV Care [RC] . DIRECTED Care 07/20/19 20:28 Active RT Aerosol Therapy [RC] ASDIRECTED Care 07/20/19 20:41 Active PATIENT RETYPE [BBK] Urgent Lab 07/20/19 20:31 Results TYPE AND SCREEN [BBK] Urgent Lab 07/20/19 20:31 Results Octreotide [SandoSTATIN] 500 mcg Med 07/20/19 22:00 Active Sodium Chloride 0.9% [Normal Saline] 497.5 ml IV Q10H Sodium Chloride 0.9% [Saline Flush] Med 07/20/19 20:27 Active 10 ml FLUSH ASDIRECTED PRN Peripheral IV Insertion Adult [OM.PC] Urgent Oth 07/20/19 20:27 Ordered Medication Orders Octreotide Acetate 500 mcg/ (Sodium Chloride) 500 mls @ 50 mls/hr IV Q10H GREYSON Last Admin: 07/20/19 22:05 Dose: 50 mcg/hr, 50 mls/hr Sodium Chloride (Saline Flush) 10 ml FLUSH ASDIRECTED PRN PRN Reason: Keep Vein Open Last Admin: 07/20/19 22:21 Dose: 10 ml Labs: Laboratory Tests 07/20/19 07/20/19 07/20/19 Range/Units 20:03 20:31 20:31 WBC 10.5 (4.5-11.0) K/uL RBC 3.89 L (4.30-5.90) M/uL Hgb 12.6 D (12.0-15.0) g/dL Hct 34.0 L (40.0-54.0) % MCV 87 (80-98) fL MCH 32 H (27-31) pg MCHC 37 H (32-36) % Plt Count 90 L (150-400) K/uL Neut % (Auto) 77 H (36-66) % Lymph % (Auto) 17 L (24-44) % [place] % (Auto) 6 (2-6) % Eos % (Auto) 0 L (2-4) % Baso % (Auto) 0 (0-1) % PT 16.2 H (9.5-12.0) sec INR 1.54 H (0.80-1.20) APTT 31.0 (27.0-36.0) sec Sodium (140-148) mmol/L Potassium (3.6-5.2) mmol/L Chloride (100-108) mmol/L Carbon Dioxide (21-32) mmol/L Anion Gap (5.0-14.0) mmol/L BUN (7-18) mg/dL Creatinine (0.8-1.3) mg/dL Est Cr Clr Drug Dosing mL/min Estimated GFR (MDRD) (>60) Glucose (74-106) mg/dL Calcium (8.5-10.1) mg/dL Total Bilirubin (0.2-1.0) mg/dL AST (15-37) U/L ALT (12-78) U/L Alkaline Phosphatase (46-116) U/L Ammonia (11-32) mmol/L Troponin I (0.000-0.056) ng/mL Total Protein (6.4-8.2) g/dL Albumin (3.4-5.0) g/dL Globulin (2.3-3.5) g/dL Albumin/Globulin Ratio (1.2-2.2) Ethyl Alcohol 64 mg/dL Blood Type Gel Antibody Screen 07/20/19 07/20/19 07/20/19 Range/Units 20:31 20:31 20:31 WBC (4.5-11.0) K/uL RBC (4.30-5.90) M/uL Hgb (12.0-15.0) g/dL Hct (40.0-54.0) % MCV (80-98) fL MCH (27-31) pg MCHC (32-36) % Plt Count (150-400) K/uL Neut % (Auto) (36-66) % Lymph % (Auto) (24-44) % [place] % (Auto) (2-6) % Eos % (Auto) (2-4) % Baso % (Auto) (0-1) % PT (9.5-12.0) sec INR (0.80-1.20) APTT (27.0-36.0) sec Sodium 132 L (140-148) mmol/L Potassium 3.4 L (3.6-5.2) mmol/L Chloride 94 L (100-108) mmol/L Carbon Dioxide 25 (21-32) mmol/L Anion Gap 16.4 H (5.0-14.0) mmol/L BUN 8 (7-18) mg/dL Creatinine 1.1 (0.8-1.3) mg/dL Est Cr Clr Drug Dosing 72.25 mL/min Estimated GFR (MDRD) > 60 (>60) Glucose 118 H (74-106) mg/dL Calcium 7.3 L (8.5-10.1) mg/dL Total Bilirubin 6.2 H D (0.2-1.0) mg/dL AST 137 H (15-37) U/L ALT 63 (12-78) U/L Alkaline Phosphatase 664 H D (46-116) U/L Ammonia 16 (11-32) mmol/L Troponin I (0.000-0.056) ng/mL Total Protein 5.9 L (6.4-8.2) g/dL Albumin 1.8 L (3.4-5.0) g/dL Globulin 4.1 H (2.3-3.5) g/dL Albumin/Globulin Ratio 0.4 L (1.2-2.2) Ethyl Alcohol mg/dL Blood Type A POSITIVE Gel Antibody Screen Negative 07/20/19 Range/Units 20:36 WBC (4.5-11.0) K/uL RBC (4.30-5.90) M/uL Hgb (12.0-15.0) g/dL Hct (40.0-54.0) % MCV (80-98) fL MCH (27-31) pg MCHC (32-36) % Plt Count (150-400) K/uL Neut % (Auto) (36-66) % Lymph % (Auto) (24-44) % [place] % (Auto) (2-6) % Eos % (Auto) (2-4) % Baso % (Auto) (0-1) % PT (9.5-12.0) sec INR (0.80-1.20) APTT (27.0-36.0) sec Sodium (140-148) mmol/L Potassium (3.6-5.2) mmol/L Chloride (100-108) mmol/L Carbon Dioxide (21-32) mmol/L Anion Gap (5.0-14.0) mmol/L BUN (7-18) mg/dL Creatinine (0.8-1.3) mg/dL Est Cr Clr Drug Dosing mL/min Estimated GFR (MDRD) (>60) Glucose (74-106) mg/dL Calcium (8.5-10.1) mg/dL Total Bilirubin (0.2-1.0) mg/dL AST (15-37) U/L ALT (12-78) U/L Alkaline Phosphatase (46-116) U/L Ammonia (11-32) mmol/L Troponin I < 0.017 (0.000-0.056) ng/mL Total Protein (6.4-8.2) g/dL Albumin (3.4-5.0) g/dL Globulin (2.3-3.5) g/dL Albumin/Globulin Ratio (1.2-2.2) Ethyl Alcohol mg/dL Blood Type Gel Antibody Screen Meds: Medications Generic Name Dose Route Start Last Admin Trade Name Osmar PRN Reason Stop Dose Admin Octreotide Acetate 500 mcg/ 500 mls @ 50 mls/hr 07/20/19 22:00 07/20/19 22:05 Sodium Chloride IV 50 mcg/hr Q10H GREYSON 50 mls/hr Administration 50 MCG/HR Sodium Chloride 10 ml 07/20/19 20:27 07/20/19 22:21 Saline Flush FLUSH 10 ml ASDIRECTED PRN Administration Keep Vein Open Discontinued Medications Generic Name Dose Route Start Last Admin Trade Name Osmar PRN Reason Stop Dose Admin Albuterol/Ipratropium 3 ml 07/20/19 20:40 07/20/19 20:55 Duoneb 3.0-0.5 Mg/3 Ml NEB 07/20/19 20:41 3 ml ONETIME ONE Administration Fentanyl 50 mcg 07/20/19 20:28 07/20/19 20:44 Sublimaze IVPUSH 07/20/19 20:29 50 mcg ONETIME ONE Administration Lactated Ringer's 1,000 mls @ 999 mls/hr 07/20/19 20:28 07/20/19 20:40 Ringers, Lactated IV 07/20/19 21:28 999 mls/hr BOLUS ONE Administration Lorazepam 1 mg 07/20/19 20:13 07/20/19 20:21 Ativan IVPUSH 07/20/19 20:14 1 mg ONETIME ONE Administration Lorazepam 1 mg 07/20/19 22:12 07/20/19 22:19 Ativan IVPUSH 07/20/19 22:13 1 mg ONETIME ONE Administration Octreotide Acetate 50 mcg 07/20/19 21:51 07/20/19 22:03 Sandostatin IVPUSH 07/20/19 21:52 50 mcg ONETIME ONE Administration Ondansetron HCl 4 mg 07/20/19 20:28 07/20/19 20:41 Zofran IVPUSH 07/20/19 20:29 4 mg ONETIME ONE Administration Pantoprazole Sodium 80 mg 07/20/19 20:27 07/20/19 20:46 Protonix Iv IVPUSH 07/20/19 20:28 80 mg .BOLUS ONE Administration Departure - Departure Time of Disposition: 22:24 Disposition: Admitted As Inpatient 66 Condition: Poor Clinical Impression: GI bleed Qualifiers: GI bleed type/associated pathology: unspecified gastrointestinal hemorrhage type Qualified Code(s): K92.2 - Gastrointestinal hemorrhage, unspecified - Discharge Information Referrals: Damon Langley Sr, MD [Primary Care Provider] - Forms: ED Department Discharge Sepsis Event Note - Evaluation Sepsis Screening Result: No Definite Risk - Focused Exam Vital Signs: Vital Signs Temp Pulse Resp BP Pulse Ox 07/20/19 22:06 96 150/81 H 07/20/19 21:40 105 H 138/85 07/20/19 20:59 137 H 151/86 H 98 07/20/19 20:24 96.5 F L 121 H 18 158/88 H 99 07/20/19 20:10 96.5 F L 121 H 18 158/88 H 99 Date Exam was Performed: 07/20/19 Time Exam was Performed: 22:22 - My Orders Last 24 Hours: My Active Orders 07/20/19 20:27 Sodium Chloride 0.9% [Saline Flush] 10 ml FLUSH ASDIRECTED PRN Peripheral IV Insertion Adult [OM.PC] Urgent 07/20/19 20:28 Peripheral IV Care [RC] . DIRECTED 07/20/19 20:31 PATIENT RETYPE [BBK] Urgent TYPE AND SCREEN [BBK] Urgent 07/20/19 20:41 RT Aerosol Therapy [RC] ASDIRECTED 07/20/19 22:00 Octreotide [SandoSTATIN] 500 mcg Sodium Chloride 0.9% [Normal Saline] 497.5 ml IV Q10H - Assessment/Plan Last 24 Hours: My Active Orders 07/20/19 20:27 Sodium Chloride 0.9% [Saline Flush] 10 ml FLUSH ASDIRECTED PRN Peripheral IV Insertion Adult [OM.PC] Urgent 07/20/19 20:28 Peripheral IV Care [RC] . DIRECTED 07/20/19 20:31 PATIENT RETYPE [BBK] Urgent TYPE AND SCREEN [BBK] Urgent 07/20/19 20:41 RT Aerosol Therapy [RC] ASDIRECTED 07/20/19 22:00 Octreotide [SandoSTATIN] 500 mcg Sodium Chloride 0.9% [Normal Saline] 497.5 ml IV Q10H Plan: Assessment Acuity = acute Site and laterality = GI bleed probable upper Etiology = probably related to EtOH Manifestations = jaundice Location of injury = Home Lab values = hemoglobin low normal at 12.6, INR elevated 1.54 sodium low at 134 consistent with hyponatremia potassium low at 3.4 consistent hypokalemia bilirubin elevated 6.2 consistent with hyperbilirubinemia AST 137 alk phos consistent with elevated liver enzymes alk phos elevated 664, troponin was negative alcohol level was 64 chest x-ray shows no acute process Plan Call discussed case Dr. Langley at [phone] he can agreed to come and evaluate the patient in the emergency department for admission This note was dictated using [employer] voice recognition software please call with any questions on syntax or grammar.
--- NOTE | 2019-07-20 21:13 | CRLCR ---
Indication: Chest pain. Technique: AP portable view of the chest. Comparison: April 17, 2016. Findings: The heart is normal in size. The lungs are clear. No infiltrate, pleural effusion, pneumothorax is identified. Impression: No acute cardiopulmonary process Dictated by Bing Payne MD @ Jul 20 2019 9:11PM Signed by Dr. Bing Payne @ Jul 20 2019 9:12PM
[2019-07-20] MEDS ORDERED: Octreotide 100 MCG/ML SDV IVPUSH ONE (21:51)
[2019-07-20] MEDS: Octreotide 500 MCG in Sodium Chloride 0.9% 497.5 ML IV SCH (22:05)
--- NOTE | 2019-07-20 22:42 | PCM.HP.2 ---
H&P History of Present Illness - General Date of Service: 07/20/19 Source of Information: Patient, Family - History of Present Illness Initial Comments - Free Text/Narative: Vomiting for 1 week and vomiting blood for 5 days. Unable to eat for 2 days. Tried alcohol this AM and through it up. Having DT's today. History daily for 3 months. Severe pain for 3 weeks. Vomiting up blood and passing black stools for 5 days. Pain has been 10/10 in the abd. Duration of Symptoms: Reports: Day(s): Location: Reports: Abdomen Associated Symptoms: Reports: Nausea/Vomiting Lower Abdomen Pain Score (Numeric/FACES): 10 - Related Data Allergies/Adverse Reactions: Allergies Allergy/AdvReac Type Severity Reaction Status Date / Time No Known Allergies Allergy Verified 07/21/19 01:05 Home Medications: Home Meds Omeprazole 20 mg PO BID 07/20/19 [History] Past Medical History HEENT History: Reports: Impaired Vision Respiratory History: Reports: Pneumothorax Gastrointestinal History: Reports: Chronic Constipation, Chronic Diarrhea, Cirrhosis Musculoskeletal History: Reports: Other (See Below) Other Musculoskeletal History: shaking unstaedy Neurological History: Reports: Other (See Below) Other Neuro History: Past etoh withdrawal Psychiatric History: Reports: Addiction, Anxiety, Other (See Below) Other Psychiatric History: ineffective coping Immunologic History: Reports: Other (See Below) Other Immunologic History: lymes? - Infectious Disease History Infectious Disease History: Reports: Chicken Pox - Past Surgical History GI Surgical History: Reports: Cholecystectomy Social & Family History - Tobacco Use Smoking Status *Q: Current Every Day Smoker Years of Tobacco use: 35 Packs/Tins Daily: 1 Used Tobacco, but Quit: No Second Hand Smoke Exposure: Yes - Caffeine Use Caffeine Use: Reports: Coffee, Soda - Alcohol Use Days Per Week of Alcohol Use: 7 Number of Drinks Per Day: 15 Total Drinks Per Week: 105 - Recreational Drug Use Recreational Drug Use: No H&P Review of Systems - Review of Systems: Review Of Systems: See Below General: Reports: Weakness, Weight Loss HEENT: Reports: No Symptoms Pulmonary: Reports: Shortness of Breath, Cough, Sputum Cardiovascular: Reports: Dyspnea on Exertion Gastrointestinal: Reports: Abdominal Pain, Decreased Appetite, Hematochezia, Melena, Nausea, Vomiting Genitourinary: Reports: No Symptoms Musculoskeletal: Reports: No Symptoms Skin: Reports: No Symptoms Psychiatric: Reports: No Symptoms Neurological: Reports: Weakness Exam - Exam Exam: See Below - Vital Signs Vital Signs: Last Vital Signs Temp 96.5 F L 07/20/19 20:24 Pulse 96 07/20/19 22:06 Resp 18 07/20/19 20:24 BP 150/81 H 07/20/19 22:06 Pulse Ox 98 07/20/19 20:59 Weight: 137 lb 2.04 oz - Exam General: Alert, Oriented, Cooperative, Moderate Distress HEENT: PERRLA, Conjunctiva Clear, Scleral Icterus Neck: Supple, Trachea Midline Lungs: Clear to Auscultation Cardiovascular: Regular Rate GI/Abdominal Exam: Guarding, Tender, Abnormal Bowel Sounds Extremities: Pedal Edema Peripheral Pulses: 1+: Radial (L), Radial (R) Neurological: Cranial Nerves Intact, Reflexes Equal Bilateral, Strength Equal Bilateral Neuro Extensive - Mental Status: Alert, Oriented x3, Normal Mood/Affect DTR: 1+: Bicep (L), Bicep (R) Psychiatric: Alert, Normal Affect - Patient Data Lab Results Last 24 hrs: Laboratory Results - last 24 hr 07/20/19 07/20/19 07/20/19 Range/Units 20:03 20:31 20:31 WBC 10.5 (4.5-11.0) K/uL RBC 3.89 L (4.30-5.90) M/uL Hgb 12.6 D (12.0-15.0) g/dL Hct 34.0 L (40.0-54.0) % MCV 87 (80-98) fL MCH 32 H (27-31) pg MCHC 37 H (32-36) % Plt Count 90 L (150-400) K/uL Neut % (Auto) 77 H (36-66) % Lymph % (Auto) 17 L (24-44) % Falls % (Auto) 6 (2-6) % Eos % (Auto) 0 L (2-4) % Baso % (Auto) 0 (0-1) % PT 16.2 H (9.5-12.0) sec INR 1.54 H (0.80-1.20) APTT 31.0 (27.0-36.0) sec Sodium (140-148) mmol/L Potassium (3.6-5.2) mmol/L Chloride (100-108) mmol/L Carbon Dioxide (21-32) mmol/L Anion Gap (5.0-14.0) mmol/L BUN (7-18) mg/dL Creatinine (0.8-1.3) mg/dL Est Cr Clr Drug Dosing mL/min Estimated GFR (MDRD) (>60) Glucose (74-106) mg/dL Calcium (8.5-10.1) mg/dL Total Bilirubin (0.2-1.0) mg/dL AST (15-37) U/L ALT (12-78) U/L Alkaline Phosphatase (46-116) U/L Ammonia (11-32) mmol/L Troponin I (0.000-0.056) ng/mL Total Protein (6.4-8.2) g/dL Albumin (3.4-5.0) g/dL Globulin (2.3-3.5) g/dL Albumin/Globulin Ratio (1.2-2.2) Ethyl Alcohol 64 mg/dL Blood Type Gel Antibody Screen 07/20/19 07/20/19 07/20/19 Range/Units 20:31 20:31 20:31 WBC (4.5-11.0) K/uL RBC (4.30-5.90) M/uL Hgb (12.0-15.0) g/dL Hct (40.0-54.0) % MCV (80-98) fL MCH (27-31) pg MCHC (32-36) % Plt Count (150-400) K/uL Neut % (Auto) (36-66) % Lymph % (Auto) (24-44) % Falls % (Auto) (2-6) % Eos % (Auto) (2-4) % Baso % (Auto) (0-1) % PT (9.5-12.0) sec INR (0.80-1.20) APTT (27.0-36.0) sec Sodium 132 L (140-148) mmol/L Potassium 3.4 L (3.6-5.2) mmol/L Chloride 94 L (100-108) mmol/L Carbon Dioxide 25 (21-32) mmol/L Anion Gap 16.4 H (5.0-14.0) mmol/L BUN 8 (7-18) mg/dL Creatinine 1.1 (0.8-1.3) mg/dL Est Cr Clr Drug Dosing 72.25 mL/min Estimated GFR (MDRD) > 60 (>60) Glucose 118 H (74-106) mg/dL Calcium 7.3 L (8.5-10.1) mg/dL Total Bilirubin 6.2 H D (0.2-1.0) mg/dL AST 137 H (15-37) U/L ALT 63 (12-78) U/L Alkaline Phosphatase 664 H D (46-116) U/L Ammonia 16 (11-32) mmol/L Troponin I (0.000-0.056) ng/mL Total Protein 5.9 L (6.4-8.2) g/dL Albumin 1.8 L (3.4-5.0) g/dL Globulin 4.1 H (2.3-3.5) g/dL Albumin/Globulin Ratio 0.4 L (1.2-2.2) Ethyl Alcohol mg/dL Blood Type A POSITIVE Gel Antibody Screen Negative 07/20/19 Range/Units 20:36 WBC (4.5-11.0) K/uL RBC (4.30-5.90) M/uL Hgb (12.0-15.0) g/dL Hct (40.0-54.0) % MCV (80-98) fL MCH (27-31) pg MCHC (32-36) % Plt Count (150-400) K/uL Neut % (Auto) (36-66) % Lymph % (Auto) (24-44) % Falls % (Auto) (2-6) % Eos % (Auto) (2-4) % Baso % (Auto) (0-1) % PT (9.5-12.0) sec INR (0.80-1.20) APTT (27.0-36.0) sec Sodium (140-148) mmol/L Potassium (3.6-5.2) mmol/L Chloride (100-108) mmol/L Carbon Dioxide (21-32) mmol/L Anion Gap (5.0-14.0) mmol/L BUN (7-18) mg/dL Creatinine (0.8-1.3) mg/dL Est Cr Clr Drug Dosing mL/min Estimated GFR (MDRD) (>60) Glucose (74-106) mg/dL Calcium (8.5-10.1) mg/dL Total Bilirubin (0.2-1.0) mg/dL AST (15-37) U/L ALT (12-78) U/L Alkaline Phosphatase (46-116) U/L Ammonia (11-32) mmol/L Troponin I < 0.017 (0.000-0.056) ng/mL Total Protein (6.4-8.2) g/dL Albumin (3.4-5.0) g/dL Globulin (2.3-3.5) g/dL Albumin/Globulin Ratio (1.2-2.2) Ethyl Alcohol mg/dL Blood Type Gel Antibody Screen Result Diagrams: 07/21/19 05:53 07/21/19 05:53 Sepsis Event Note - Evaluation Sepsis Screening Result: No Definite Risk - Focused Exam Vital Signs: Vital Signs Temp Pulse Resp BP Pulse Ox 07/20/19 22:06 96 150/81 H 07/20/19 21:40 105 H 138/85 07/20/19 20:59 137 H 151/86 H 98 07/20/19 20:24 96.5 F L 121 H 18 158/88 H 99 07/20/19 20:10 96.5 F L 121 H 18 158/88 H 99 Date Exam was Performed: 07/21/19 Time Exam was Performed: 17:58 Problem List Initiated/Reviewed/Updated: Yes Orders Last 24hrs: Active Orders 24 hr Category Date Time Status Peripheral IV Care [RC] . DIRECTED Care 07/20/19 20:28 Active RT Aerosol Therapy [RC] ASDIRECTED Care 07/20/19 20:41 Active PATIENT RETYPE [BBK] Urgent Lab 07/20/19 20:31 Results TYPE AND SCREEN [BBK] Urgent Lab 07/20/19 20:31 Results Octreotide [SandoSTATIN] 500 mcg Med 07/20/19 22:00 Active Sodium Chloride 0.9% [Normal Saline] 497.5 ml IV Q10H Sodium Chloride 0.9% [Saline Flush] Med 07/20/19 20:27 Active 10 ml FLUSH ASDIRECTED PRN Peripheral IV Insertion Adult [OM.PC] Urgent Oth 07/20/19 20:27 Ordered Medication Orders Octreotide Acetate 500 mcg/ (Sodium Chloride) 500 mls @ 50 mls/hr IV Q10H [facility] Last Admin: 07/20/19 22:05 Dose: 50 mcg/hr, 50 mls/hr Sodium Chloride (Saline Flush) 10 ml FLUSH ASDIRECTED PRN PRN Reason: Keep Vein Open Last Admin: 07/20/19 22:21 Dose: 10 ml Assessment/Plan Comment:: Assessment/Plan: #1. GI blood loss Vomiting and blood in stools. #2. 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 Alcoholism with DT's will treat. #4. Malnutrition: #5. HTN: treat if it remains elevated. #6. Nicotine addiction: Will start a patch #7. Hypo albuminemia: Will give albumin 38. Hyper bilirubinemia: Alcoholism #9. History of grade C esophagitis 04/2019 - Mortality Measure Prognosis:: Good
[2019-07-20] MEDS ORDERED: Ondansetron 4 MG Tab.DIS PO PRN (23:00)
[2019-07-20] MEDS ORDERED: Phytonadione 5 MG Tab PO ONE (23:11)
[2019-07-20] MEDS ORDERED: Albuterol/Ipratropium 3.0-0.5 MG/3 ML Neb Soln INH PRN (23:39)
[2019-07-20] MEDS ORDERED: LORazepam 2 MG/ML SDV IM PRN (23:39)
[2019-07-20] MEDS ORDERED: Aluminum Hydroxide/Magnesium Hydroxide/Simethicone Susp 30 ML Cup PO PRN (23:39)
[2019-07-21] MEDS ORDERED: Thiamine 100 MG Tab PO ONE
[2019-07-21] MEDS ORDERED: MVI, Adult with Vitamin K 10 ML in Sodium Chloride 0.9% 1,000 ML IV ONE ×2
[2019-07-21] MEDS: Nicotine 21 MG/24 Hr Patch TRDERM SCH ×2 (00:05→08:12)
[2019-07-21] MEDS: Sodium Chloride 0.9% 100 ML with Pantoprazole 80 MG IV SCH ×6 (00:48→19:58)
[2019-07-21] MEDS: LORazepam 2 MG/ML SDV IV PRN ×11 (01:32→23:47)
[2019-07-21] MEDS: Calcium Gluconate 1 GM in Sodium Chloride 0.9% 100 ML IV SCH ×3 (08:11→19:59)
[2019-07-21] MEDS: Folic Acid 1 MG Tab PO SCH (08:11)
[2019-07-21] MEDS: Sodium Chloride 0.9% 1,000 ML IV SCH ×2 (08:16→16:10)
[2019-07-21] MEDS: Octreotide 500 MCG in Sodium Chloride 0.9% 497.5 ML IV SCH ×2 (08:42→18:26)
[2019-07-21] MEDS: Multivitamins with Iron/Calcium/Folic Acid/Minerals Tab PO SCH (10:23)
[2019-07-21] MEDS: Thiamine 100 MG Tab PO SCH (10:24)
--- NOTE | 2019-07-21 18:05 | PCM.PN ---
- General Info Date of Service: 07/21/19 Functional Status: Reports: Pain Controlled - Review of Systems General: Reports: Weakness HEENT: Reports: No Symptoms Pulmonary: Reports: No Symptoms Cardiovascular: Reports: No Symptoms Gastrointestinal: Reports: Diarrhea Genitourinary: Reports: No Symptoms Musculoskeletal: Reports: No Symptoms Skin: Reports: No Symptoms Neurological: Reports: Trouble Speaking, Difficulty Walking, Weakness, Gait Disturbance Psychiatric: Reports: Agitation - Patient Data Vitals - Most Recent: Last Vital Signs Temp 97.7 F 07/21/19 08:00 Pulse 79 07/21/19 16:00 Resp 14 07/21/19 16:00 BP 134/80 07/21/19 16:00 Pulse Ox 97 07/21/19 16:00 Weight - Most Recent: 137 lb 2.04 oz I&O - Last 24 Hours: Intake & Output 07/21/19 07/21/19 07/21/19 06:59 14:59 22:59 Intake Total 1200 1340 Output Total 952 729 4908 Balance 550 370 -1000 Lab Results Last 24 Hours: Laboratory Results - last 24 hr 07/20/19 07/20/19 07/20/19 Range/Units 20:03 20:31 20:31 WBC 10.5 (4.5-11.0) K/uL RBC 3.89 L (4.30-5.90) M/uL Hgb 12.6 D (12.0-15.0) g/dL Hct 34.0 L (40.0-54.0) % MCV 87 (80-98) fL MCH 32 H (27-31) pg MCHC 37 H (32-36) % Plt Count 90 L (150-400) K/uL Neut % (Auto) 77 H (36-66) % Lymph % (Auto) 17 L (24-44) % [place] % (Auto) 6 (2-6) % Eos % (Auto) 0 L (2-4) % Baso % (Auto) 0 (0-1) % PT 16.2 H (9.5-12.0) sec INR 1.54 H (0.80-1.20) APTT 31.0 (27.0-36.0) sec Sodium (140-148) mmol/L Potassium (3.6-5.2) mmol/L Chloride (100-108) mmol/L Carbon Dioxide (21-32) mmol/L Anion Gap (5.0-14.0) mmol/L BUN (7-18) mg/dL Creatinine (0.8-1.3) mg/dL Est Cr Clr Drug Dosing mL/min Estimated GFR (MDRD) (>60) Glucose (74-106) mg/dL Calcium (8.5-10.1) mg/dL Total Bilirubin (0.2-1.0) mg/dL AST (15-37) U/L ALT (12-78) U/L Alkaline Phosphatase (46-116) U/L Ammonia (11-32) mmol/L Troponin I (0.000-0.056) ng/mL Total Protein (6.4-8.2) g/dL Albumin (3.4-5.0) g/dL Globulin (2.3-3.5) g/dL Albumin/Globulin Ratio (1.2-2.2) Ethyl Alcohol 64 mg/dL Blood Type Gel Antibody Screen 07/20/19 07/20/19 07/20/19 Range/Units 20:31 20:31 20:31 WBC (4.5-11.0) K/uL RBC (4.30-5.90) M/uL Hgb (12.0-15.0) g/dL Hct (40.0-54.0) % MCV (80-98) fL MCH (27-31) pg MCHC (32-36) % Plt Count (150-400) K/uL Neut % (Auto) (36-66) % Lymph % (Auto) (24-44) % [place] % (Auto) (2-6) % Eos % (Auto) (2-4) % Baso % (Auto) (0-1) % PT (9.5-12.0) sec INR (0.80-1.20) APTT (27.0-36.0) sec Sodium 132 L (140-148) mmol/L Potassium 3.4 L (3.6-5.2) mmol/L Chloride 94 L (100-108) mmol/L Carbon Dioxide 25 (21-32) mmol/L Anion Gap 16.4 H (5.0-14.0) mmol/L BUN 8 (7-18) mg/dL Creatinine 1.1 (0.8-1.3) mg/dL Est Cr Clr Drug Dosing 72.25 mL/min Estimated GFR (MDRD) > 60 (>60) Glucose 118 H (74-106) mg/dL Calcium 7.3 L (8.5-10.1) mg/dL Total Bilirubin 6.2 H D (0.2-1.0) mg/dL AST 137 H (15-37) U/L ALT 63 (12-78) U/L Alkaline Phosphatase 664 H D (46-116) U/L Ammonia 16 (11-32) mmol/L Troponin I (0.000-0.056) ng/mL Total Protein 5.9 L (6.4-8.2) g/dL Albumin 1.8 L (3.4-5.0) g/dL Globulin 4.1 H (2.3-3.5) g/dL Albumin/Globulin Ratio 0.4 L (1.2-2.2) Ethyl Alcohol mg/dL Blood Type A POSITIVE Gel Antibody Screen Negative 07/20/19 07/21/19 07/21/19 Range/Units 20:36 05:53 05:53 WBC 7.1 (4.5-11.0) K/uL RBC 3.23 L (4.30-5.90) M/uL Hgb 10.1 L D (12.0-15.0) g/dL Hct 28.9 L (40.0-54.0) % MCV 90 (80-98) fL MCH 31 (27-31) pg MCHC 35 (32-36) % Plt Count 63 L (150-400) K/uL Neut % (Auto) 77 H (36-66) % Lymph % (Auto) 17 L (24-44) % [place] % (Auto) 7 H (2-6) % Eos % (Auto) 0 L (2-4) % Baso % (Auto) 0 (0-1) % PT (9.5-12.0) sec INR (0.80-1.20) APTT (27.0-36.0) sec Sodium 136 L (140-148) mmol/L Potassium 3.6 (3.6-5.2) mmol/L Chloride 101 (100-108) mmol/L Carbon Dioxide 28 (21-32) mmol/L Anion Gap 10.6 (5.0-14.0) mmol/L BUN 6 L (7-18) mg/dL Creatinine 1.0 (0.8-1.3) mg/dL Est Cr Clr Drug Dosing 80.16 mL/min Estimated GFR (MDRD) > 60 (>60) Glucose 100 (74-106) mg/dL Calcium 6.7 L* (8.5-10.1) mg/dL Total Bilirubin (0.2-1.0) mg/dL AST (15-37) U/L ALT (12-78) U/L Alkaline Phosphatase (46-116) U/L Ammonia (11-32) mmol/L Troponin I < 0.017 (0.000-0.056) ng/mL Total Protein (6.4-8.2) g/dL Albumin (3.4-5.0) g/dL Globulin (2.3-3.5) g/dL Albumin/Globulin Ratio (1.2-2.2) Ethyl Alcohol mg/dL Blood Type Gel Antibody Screen 07/21/19 Range/Units 16:00 WBC (4.5-11.0) K/uL RBC (4.30-5.90) M/uL Hgb (12.0-15.0) g/dL Hct (40.0-54.0) % MCV (80-98) fL MCH (27-31) pg MCHC (32-36) % Plt Count (150-400) K/uL Neut % (Auto) (36-66) % Lymph % (Auto) (24-44) % [place] % (Auto) (2-6) % Eos % (Auto) (2-4) % Baso % (Auto) (0-1) % PT (9.5-12.0) sec INR (0.80-1.20) APTT (27.0-36.0) sec Sodium (140-148) mmol/L Potassium (3.6-5.2) mmol/L Chloride (100-108) mmol/L Carbon Dioxide (21-32) mmol/L Anion Gap (5.0-14.0) mmol/L BUN (7-18) mg/dL Creatinine (0.8-1.3) mg/dL Est Cr Clr Drug Dosing mL/min Estimated GFR (MDRD) (>60) Glucose (74-106) mg/dL Calcium 7.2 L (8.5-10.1) mg/dL Total Bilirubin (0.2-1.0) mg/dL AST (15-37) U/L ALT (12-78) U/L Alkaline Phosphatase (46-116) U/L Ammonia (11-32) mmol/L Troponin I (0.000-0.056) ng/mL Total Protein (6.4-8.2) g/dL Albumin (3.4-5.0) g/dL Globulin (2.3-3.5) g/dL Albumin/Globulin Ratio (1.2-2.2) Ethyl Alcohol mg/dL Blood Type Gel Antibody Screen [place] Results Last 24 Hours: Microbiology 07/21/19 09:17 Stool Occult Blood ([place]) - Final Stool / Feces Med Orders - Current: Current Medications Al Hydroxide/Mg Hydroxide (Mag-Al Plus) 30 ml PO Q6H PRN PRN Reason: DYSPEPSIA Albuterol/Ipratropium (Duoneb 3.0-0.5 Mg/3 Ml) 3 ml INH Q2H PRN PRN Reason: SHORTNESS OF BREATH Folic Acid (Folic Acid) 1 mg PO DAILY [facility] Last Admin: 07/21/19 08:11 Dose: 1 mg Octreotide Acetate 500 mcg/ (Sodium Chloride) 500 mls @ 50 mls/hr IV Q10H [facility] Last Admin: 07/21/19 08:42 Dose: 50 mcg/hr, 50 mls/hr Pantoprazole Sodium 80 mg/ (Sodium Chloride) 100 mls @ 10 mls/hr IV .Q10H [facility] Last Admin: 07/21/19 10:24 Dose: 10 mls/hr Sodium Chloride (Normal Saline) 1,000 mls @ 125 mls/hr IV ASDIRECTED [facility] Last Admin: 07/21/19 16:10 Dose: 125 mls/hr Multivitamins/Minerals 10 ml/ (Sodium Chloride) 1,010 mls @ 250 mls/hr IV Q24H [facility] Calcium Gluconate 1 gm/ Sodium (Chloride) 110 mls @ 100 mls/hr IV Q6H [facility] Last Admin: 07/21/19 13:11 Dose: 100 mls/hr Albumin Human (Albumin 25%) 25 gm in 100 mls @ 25 mls/hr IV ONETIME ONE Stop: 07/22/19 11:59 Lorazepam (Ativan) 0 mg PO ASDIRECTED PRN; Protocol PRN Reason: ETOH WITHDRAWAL Lorazepam (Ativan) 0 mg IV ASDIRECTED PRN; Protocol PRN Reason: ETOH WITHDRAWAL Last Admin: 07/21/19 16:51 Dose: 2 mg Lorazepam (Ativan) 0 mg IM ASDIRECTED PRN; Protocol PRN Reason: ETOH WITHDRAWAL Multivitamins/Minerals (Thera M Plus) 1 tab PO DAILY [facility] Last Admin: 07/21/19 10:23 Dose: 1 tab Nicotine (Habitrol) 21 mg TRDERM DAILY [facility] Last Admin: 07/21/19 08:12 Dose: 21 mg Ondansetron HCl (Zofran Odt) 4 mg PO Q6H PRN PRN Reason: Nausea able to take PO Last Admin: 07/21/19 13:15 Dose: 4 mg Sodium Chloride (Saline Flush) 10 ml FLUSH ASDIRECTED PRN PRN Reason: Keep Vein Open Last Admin: 07/20/19 22:21 Dose: 10 ml Thiamine HCl (Vitamin B-1) 100 mg PO DAILY [facility] Stop: 07/23/19 09:01 Last Admin: 07/21/19 10:24 Dose: 100 mg Discontinued Medications Albuterol/Ipratropium (Duoneb 3.0-0.5 Mg/3 Ml) 3 ml NEB ONETIME ONE Stop: 07/20/19 20:41 Last Admin: 07/20/19 20:55 Dose: 3 ml Fentanyl (Sublimaze) 50 mcg IVPUSH ONETIME ONE Stop: 07/20/19 20:29 Last Admin: 07/20/19 20:44 Dose: 50 mcg Lactated Ringer's (Ringers, Lactated) 1,000 mls @ 999 mls/hr IV BOLUS ONE Stop: 07/20/19 21:28 Last Admin: 07/20/19 20:40 Dose: 999 mls/hr Multivitamins/Minerals 10 ml/ (Sodium Chloride) 1,010 mls @ 250 mls/hr IV ONETIME ONE Stop: 07/21/19 04:02 Last Admin: 07/21/19 00:42 Dose: 250 mls/hr Albumin Human (Albumin 25%) 25 gm in 100 mls @ 25 mls/hr IV ONETIME ONE Stop: 07/21/19 11:59 Last Admin: 07/21/19 07:54 Dose: 25 mls/hr Lorazepam (Ativan) 1 mg IVPUSH ONETIME ONE Stop: 07/20/19 20:14 Last Admin: 07/20/19 20:21 Dose: 1 mg Lorazepam (Ativan) 1 mg IVPUSH ONETIME ONE Stop: 07/20/19 22:13 Last Admin: 07/20/19 22:19 Dose: 1 mg Octreotide Acetate (Sandostatin) 50 mcg IVPUSH ONETIME ONE Stop: 07/20/19 21:52 Last Admin: 07/20/19 22:03 Dose: 50 mcg Ondansetron HCl (Zofran) 4 mg IVPUSH ONETIME ONE Stop: 07/20/19 20:29 Last Admin: 07/20/19 20:41 Dose: 4 mg Pantoprazole Sodium (Protonix Iv) 80 mg IVPUSH .BOLUS ONE Stop: 07/20/19 20:28 Last Admin: 07/20/19 20:46 Dose: 80 mg Phytonadione (Mephyton) 10 mg PO ONETIME ONE Stop: 07/20/19 23:12 Last Admin: 07/21/19 00:47 Dose: 10 mg Thiamine HCl (Vitamin B-1) 100 mg PO ONETIME ONE Stop: 07/21/19 00:01 Last Admin: 07/21/19 00:47 Dose: 100 mg - Exam General: Oriented, Cooperative, Moderate Distress HEENT: Pupils Equal, Pupils Reactive, EOMI, Mucous Membr. Moist/[place] Neck: Supple Lungs: Clear to Auscultation Cardiovascular: Regular Rate GI/Abdominal Exam: Normal Bowel Sounds, Soft Back Exam: Normal Inspection Extremities: Normal Inspection Peripheral Pulses: 1+: Radial (L), Radial (R) Skin: Warm, Dry, Intact Psy/Mental Status: Anxious Sepsis Event Note - Evaluation Sepsis Screening Result: No Definite Risk - Focused Exam Vital Signs: Vital Signs Temp Pulse Resp BP Pulse Ox 07/21/19 16:00 79 14 134/80 97 07/21/19 14:00 88 18 140/89 07/21/19 12:00 90 18 145/91 H 96 07/21/19 10:00 76 16 148/89 H 98 07/21/19 08:00 97.7 F 92 16 127/79 98 Date Exam was Performed: 07/21/19 Time Exam was Performed: 18:00 - Problem List Review Problem List Initiated/Reviewed/Updated: Yes - My Orders Last 24 Hours: My Active Orders 07/20/19 23:00 Height and Weight [RC] DAILY Up ad [place] [RC] ASDIRECTED Up to Chair [RC] QID Ondansetron [Zofran ODT] 4 mg PO Q6H PRN Sodium Chloride 0.9% [Normal Saline] 1,000 ml IV ASDIRECTED Sodium Chloride 0.9% [Normal Saline] 100 ml Pantoprazole [ProTONIX IV] 80 mg IV 10 mls/hr Resuscitation Status Routine 07/20/19 23:01 Patient Status [ADT] Routine Oxygen Therapy [RC] PRN VTE/DVT Education [RC] Per Unit Routine Vital Signs [RC] Q2H 07/20/19 23:04 Intake and Output [RC] QSHIFT Sequential Compression Device [OM.PC] Per Unit Routine 07/20/19 23:15 Nicotine [Habitrol] 21 mg TRDERM DAILY 07/21/19 08:00 Calcium Gluconate 1 gm Sodium Chloride 0.9% [Normal Saline] 100 ml IV Q6H 07/21/19 21:00 MVI, Adult with Vitamin K [Infuvite Adult] 10 ml Sodium Chloride 0.9% [Normal Saline] 1,000 ml IV Q24H 07/21/19 Breakfast Clear Liquid Diet [DIET] 07/22/19 08:00 Albumin Human [Albumin 25%] 25 gm in 100 ml IV ONETIME - Plan Plan:: Assessment/Plan: #1. GI blood loss Vomiting No recent blood loss at the present. #2. 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 Alcoholism with DT's will treat. #4. Malnutrition: #5. HTN: continue with medicine #6. Nicotine addiction: Will continue with a patch #7. Hypo albuminemia: Will continue with albumin infusion 38. Hyper bilirubinemia: Alcoholism #9. History of grade C esophagitis 04/2019
[2019-07-21] MEDS ORDERED: MVI, Adult with Vitamin K 10 ML in Sodium Chloride 0.9% 1,000 ML IV SCH ×2 (21:00)
[2019-07-22] MEDS: LORazepam 2 MG/ML SDV IV PRN ×15 (01:07→23:16)
[2019-07-22] MEDS: Calcium Gluconate 1 GM in Sodium Chloride 0.9% 100 ML IV SCH ×2 (02:37→08:44)
[2019-07-22] MEDS: Octreotide 500 MCG in Sodium Chloride 0.9% 497.5 ML IV SCH (03:48)
[2019-07-22] MEDS: Sodium Chloride 0.9% 100 ML with Pantoprazole 80 MG IV SCH ×2 (04:57)
[2019-07-22] MEDS: Thiamine 100 MG Tab PO SCH (08:45)
[2019-07-22] MEDS: Folic Acid 1 MG Tab PO SCH (08:45)
[2019-07-22] MEDS: Multivitamins with Iron/Calcium/Folic Acid/Minerals Tab PO SCH (08:45)
[2019-07-22] MEDS: Nicotine 21 MG/24 Hr Patch TRDERM SCH (08:45)
[2019-07-22] MEDS ORDERED: Gabapentin 400 MG Cap PO ONE (10:30)
[2019-07-22] MEDS: Pantoprazole 40 MG Tab.CR PO SCH ×2 (12:01→16:13)
[2019-07-22] MEDS: Sodium Chloride 0.9% 1,000 ML IV SCH (13:26)
[2019-07-22] MEDS ORDERED: Haloperidol Lactate 5 MG/ML SDV ONE (14:30)
[2019-07-22] MEDS: Haloperidol Lactate 5 MG/ML SDV IVPUSH PRN ×3 (14:35→21:54)
--- NOTE | 2019-07-22 16:33 | PCM.PN ---
- General Info Date of Service: 07/22/19 Functional Status: Reports: Pain Controlled - Review of Systems General: Reports: No Symptoms, Weakness HEENT: Reports: No Symptoms Pulmonary: Reports: No Symptoms Cardiovascular: Reports: No Symptoms Gastrointestinal: Reports: No Symptoms Genitourinary: Reports: No Symptoms Musculoskeletal: Reports: No Symptoms Skin: Reports: No Symptoms Neurological: Reports: Confusion, Weakness Psychiatric: Reports: Confusion, Hallucinations - Patient Data Vitals - Most Recent: Last Vital Signs Temp 97.6 F 07/22/19 16:00 Pulse 75 07/22/19 16:00 Resp 15 07/22/19 16:00 BP 130/85 07/22/19 16:00 Pulse Ox 94 L 07/22/19 16:00 Weight - Most Recent: 133 lb 6 oz I&O - Last 24 Hours: Intake & Output 07/22/19 07/22/19 07/22/19 06:59 14:59 22:59 Intake Total 2279 Output Total 1125 500 600 Balance 1154 -500 -600 Lab Results Last 24 Hours: Laboratory Results - last 24 hr 07/22/19 07/22/19 Range/Units 05:30 05:30 PT 14.0 H (9.5-12.0) sec INR 1.32 H (0.80-1.20) Sodium 142 (140-148) mmol/L Potassium 3.8 (3.6-5.2) mmol/L Chloride 107 (100-108) mmol/L Carbon Dioxide 31 (21-32) mmol/L Anion Gap 3.8 L (5.0-14.0) mmol/L BUN 2 L D (7-18) mg/dL Creatinine 1.0 (0.8-1.3) mg/dL Est Cr Clr Drug Dosing 78.61 mL/min Estimated GFR (MDRD) > 60 (>60) Glucose 122 H (74-106) mg/dL Calcium 7.8 L (8.5-10.1) mg/dL Total Bilirubin 6.4 H (0.2-1.0) mg/dL AST 86 H (15-37) U/L ALT 44 (12-78) U/L Alkaline Phosphatase 471 H (46-116) U/L Total Protein 5.1 L (6.4-8.2) g/dL Albumin 1.8 L (3.4-5.0) g/dL Globulin 3.3 (2.3-3.5) g/dL Albumin/Globulin Ratio 0.6 L (1.2-2.2) Med Orders - Current: Current Medications Al Hydroxide/Mg Hydroxide (Mag-Al Plus) 30 ml PO Q6H PRN PRN Reason: DYSPEPSIA Albuterol/Ipratropium (Duoneb 3.0-0.5 Mg/3 Ml) 3 ml INH Q2H PRN PRN Reason: SHORTNESS OF BREATH Folic Acid (Folic Acid) 1 mg PO DAILY [facility] Last Admin: 07/22/19 08:45 Dose: 1 mg Gabapentin (Neurontin) 400 mg PO BID [facility] Gabapentin (Neurontin) 400 mg PO TID [facility] Haloperidol Lactate (Haldol) 2 - 5 mg IVPUSH Q2H PRN PRN Reason: Hallucinations Sodium Chloride (Normal Saline) 1,000 mls @ 125 mls/hr IV ASDIRECTED [facility] Last Admin: 07/22/19 13:26 Dose: 125 mls/hr Lorazepam (Ativan) 0 mg PO ASDIRECTED PRN; Protocol PRN Reason: ETOH WITHDRAWAL Lorazepam (Ativan) 0 mg IV ASDIRECTED PRN; Protocol PRN Reason: ETOH WITHDRAWAL Last Admin: 07/22/19 13:46 Dose: 2 mg Lorazepam (Ativan) 0 mg IM ASDIRECTED PRN; Protocol PRN Reason: ETOH WITHDRAWAL Multivitamins/Minerals (Thera M Plus) 1 tab PO DAILY [facility] Last Admin: 07/22/19 08:45 Dose: 1 tab Nicotine (Habitrol) 21 mg TRDERM DAILY [facility] Last Admin: 07/22/19 08:45 Dose: 21 mg Ondansetron HCl (Zofran Odt) 4 mg PO Q6H PRN PRN Reason: Nausea able to take PO Last Admin: 07/21/19 13:15 Dose: 4 mg Pantoprazole Sodium (Protonix) 40 mg PO BIDAC [facility] Last Admin: 07/22/19 16:13 Dose: 40 mg Sodium Chloride (Saline Flush) 10 ml FLUSH ASDIRECTED PRN PRN Reason: Keep Vein Open Last Admin: 07/20/19 22:21 Dose: 10 ml Thiamine HCl (Vitamin B-1) 100 mg PO DAILY [facility] Stop: 07/23/19 09:01 Last Admin: 07/22/19 08:45 Dose: 100 mg Discontinued Medications Albuterol/Ipratropium (Duoneb 3.0-0.5 Mg/3 Ml) 3 ml NEB ONETIME ONE Stop: 07/20/19 20:41 Last Admin: 07/20/19 20:55 Dose: 3 ml Fentanyl (Sublimaze) 50 mcg IVPUSH ONETIME ONE Stop: 07/20/19 20:29 Last Admin: 07/20/19 20:44 Dose: 50 mcg Gabapentin (Neurontin) 400 mg PO ONETIME ONE Stop: 07/22/19 10:31 Last Admin: 07/22/19 12:01 Dose: 400 mg Haloperidol Lactate (Haldol) 5 mg IVPUSH Q2H PRN PRN Reason: Hallucinations Last Admin: 07/22/19 14:36 Dose: 5 mg Haloperidol Lactate (Haldol) Confirm Administered Dose 5 mg .ROUTE .STK-MED ONE Stop: 07/22/19 14:31 Last Admin: 07/22/19 14:36 Dose: Not Given Lactated Ringer's (Ringers, Lactated) 1,000 mls @ 999 mls/hr IV BOLUS ONE Stop: 07/20/19 21:28 Last Admin: 07/20/19 20:40 Dose: 999 mls/hr Octreotide Acetate 500 mcg/ (Sodium Chloride) 500 mls @ 50 mls/hr IV Q10H [facility] Last Admin: 07/22/19 03:48 Dose: 50 mcg/hr, 50 mls/hr Pantoprazole Sodium 80 mg/ (Sodium Chloride) 100 mls @ 10 mls/hr IV .Q10H [facility] Last Admin: 07/22/19 04:57 Dose: 10 mls/hr Multivitamins/Minerals 10 ml/ (Sodium Chloride) 1,010 mls @ 250 mls/hr IV ONETIME ONE Stop: 07/21/19 04:02 Last Admin: 07/21/19 00:42 Dose: 250 mls/hr Multivitamins/Minerals 10 ml/ (Sodium Chloride) 1,010 mls @ 250 mls/hr IV Q24H [facility] Last Admin: 07/21/19 20:01 Dose: 250 mls/hr Albumin Human (Albumin 25%) 25 gm in 100 mls @ 25 mls/hr IV ONETIME ONE Stop: 07/21/19 11:59 Last Admin: 07/21/19 07:54 Dose: 25 mls/hr Calcium Gluconate 1 gm/ Sodium (Chloride) 110 mls @ 100 mls/hr IV Q6H [facility] Last Admin: 07/22/19 08:44 Dose: 100 mls/hr Albumin Human (Albumin 25%) 25 gm in 100 mls @ 25 mls/hr IV ONETIME ONE Stop: 07/22/19 11:59 Last Admin: 07/22/19 08:35 Dose: 25 mls/hr Lorazepam (Ativan) 1 mg IVPUSH ONETIME ONE Stop: 07/20/19 20:14 Last Admin: 07/20/19 20:21 Dose: 1 mg Lorazepam (Ativan) 1 mg IVPUSH ONETIME ONE Stop: 07/20/19 22:13 Last Admin: 07/20/19 22:19 Dose: 1 mg Octreotide Acetate (Sandostatin) 50 mcg IVPUSH ONETIME ONE Stop: 07/20/19 21:52 Last Admin: 07/20/19 22:03 Dose: 50 mcg Ondansetron HCl (Zofran) 4 mg IVPUSH ONETIME ONE Stop: 07/20/19 20:29 Last Admin: 07/20/19 20:41 Dose: 4 mg Pantoprazole Sodium (Protonix Iv) 80 mg IVPUSH .BOLUS ONE Stop: 07/20/19 20:28 Last Admin: 07/20/19 20:46 Dose: 80 mg Phytonadione (Mephyton) 10 mg PO ONETIME ONE Stop: 07/20/19 23:12 Last Admin: 07/21/19 00:47 Dose: 10 mg Thiamine HCl (Vitamin B-1) 100 mg PO ONETIME ONE Stop: 07/21/19 00:01 Last Admin: 07/21/19 00:47 Dose: 100 mg - Exam General: Moderate Distress, Sedated HEENT: Pupils Equal Neck: Supple Lungs: Clear to Auscultation Cardiovascular: Regular Rate GI/Abdominal Exam: Normal Bowel Sounds, Soft, No Abnormal Bruit Back Exam: Normal Inspection, Full Range of Motion Sepsis Event Note - Evaluation Sepsis Screening Result: No Definite Risk - Focused Exam Vital Signs: Vital Signs Temp Pulse Resp BP Pulse Ox 07/22/19 16:00 97.6 F 75 15 130/85 94 L 07/22/19 14:00 80 17 157/103 H 96 07/22/19 11:49 97.2 F 80 17 138/98 H 95 07/22/19 08:00 97.0 F 15 128/80 96 07/22/19 06:00 17 146/83 H 100 Date Exam was Performed: 07/22/19 Time Exam was Performed: 16:29 - Problem List Review Problem List Initiated/Reviewed/Updated: Yes - My Orders Last 24 Hours: My Active Orders 07/22/19 10:30 Pantoprazole [ProTONIX] 40 mg PO BIDAC 07/22/19 14:45 Haloperidol Lactate [Haldol] 2 - 5 mg IVPUSH Q2H PRN 07/23/19 09:00 Gabapentin [Neurontin] 400 mg PO BID 07/24/19 09:00 Gabapentin [Neurontin] 400 mg PO TID - Plan Plan:: Assessment/Plan: #1. GI blood loss Vomiting No recent blood loss at the present. #2. 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 Alcoholism with DT's will continue to treat have added Haldol. #4. Malnutrition: #5. HTN: continue with medicine #6. Nicotine addiction: Will continue with a patch #7. Hypo albuminemia: Will continue with albumin infusion 38. Hyper bilirubinemia: Alcoholism #9. History of grade C esophagitis 04/2019 Plan for an intervention tomorrow. He is in danger to himself.
[2019-07-23] MEDS: Sodium Chloride 0.9% 1,000 ML IV SCH ×2 (00:39→13:50)
[2019-07-23] MEDS: LORazepam 2 MG/ML SDV IV PRN ×8 (01:07→11:09)
[2019-07-23] MEDS: Haloperidol Lactate 5 MG/ML SDV IVPUSH PRN ×3 (03:18→10:44)
[2019-07-23] MEDS: Nicotine 21 MG/24 Hr Patch TRDERM SCH (09:40)
[2019-07-23] MEDS: Pantoprazole 40 MG Tab.CR PO SCH ×2 (10:42→17:15)
[2019-07-23] MEDS: Multivitamins with Iron/Calcium/Folic Acid/Minerals Tab PO SCH (10:43)
[2019-07-23] MEDS: Gabapentin 400 MG Cap PO SCH ×2 (10:43→20:01)
[2019-07-23] MEDS: Folic Acid 1 MG Tab PO SCH (10:43)
[2019-07-23] MEDS: Thiamine 100 MG Tab PO SCH (10:44)
--- NOTE | 2019-07-23 16:39 | PCM.PN ---
- General Info Date of Service: 07/23/19 Functional Status: Reports: Pain Controlled - Review of Systems General: Reports: Weakness HEENT: Reports: No Symptoms Pulmonary: Reports: No Symptoms Cardiovascular: Reports: No Symptoms Gastrointestinal: Reports: No Symptoms Genitourinary: Reports: No Symptoms Musculoskeletal: Reports: No Symptoms Skin: Reports: No Symptoms Neurological: Reports: Confusion, Weakness Psychiatric: Reports: Confusion, Hallucinations - Patient Data Vitals - Most Recent: Last Vital Signs Temp 97.4 F 07/23/19 15:17 Pulse 68 07/23/19 15:17 Resp 14 07/23/19 15:17 BP 110/71 07/23/19 15:17 Pulse Ox 97 07/23/19 15:17 Weight - Most Recent: 133 lb 3.437 oz I&O - Last 24 Hours: Intake & Output 07/23/19 07/23/19 07/23/19 06:59 14:59 22:59 Intake Total 1344 60 Output Total 300 300 Balance 1044 -240 Med Orders - Current: Current Medications Al Hydroxide/Mg Hydroxide (Mag-Al Plus) 30 ml PO Q6H PRN PRN Reason: DYSPEPSIA Albuterol/Ipratropium (Duoneb 3.0-0.5 Mg/3 Ml) 3 ml INH Q2H PRN PRN Reason: SHORTNESS OF BREATH Folic Acid (Folic Acid) 1 mg PO DAILY [facility] Last Admin: 07/23/19 10:43 Dose: 1 mg Gabapentin (Neurontin) 400 mg PO BID [facility] Stop: 07/23/19 22:00 Last Admin: 07/23/19 10:43 Dose: 400 mg Gabapentin (Neurontin) 400 mg PO TID [facility] Haloperidol Lactate (Haldol) 2 - 5 mg IVPUSH Q2H PRN PRN Reason: Hallucinations Last Admin: 07/23/19 10:44 Dose: 5 mg Sodium Chloride (Normal Saline) 1,000 mls @ 75 mls/hr IV ASDIRECTED [facility] Last Admin: 07/23/19 13:50 Dose: 75 mls/hr Lorazepam (Ativan) 0 mg PO ASDIRECTED PRN; Protocol PRN Reason: ETOH WITHDRAWAL Lorazepam (Ativan) 0 mg IV ASDIRECTED PRN; Protocol PRN Reason: ETOH WITHDRAWAL Last Admin: 07/23/19 11:09 Dose: 2 mg Lorazepam (Ativan) 0 mg IM ASDIRECTED PRN; Protocol PRN Reason: ETOH WITHDRAWAL Multivitamins/Minerals (Thera M Plus) 1 tab PO DAILY [facility] Last Admin: 07/23/19 10:43 Dose: 1 tab Nicotine (Habitrol) 21 mg TRDERM DAILY [facility] Last Admin: 07/23/19 09:40 Dose: 21 mg Ondansetron HCl (Zofran Odt) 4 mg PO Q6H PRN PRN Reason: Nausea able to take PO Last Admin: 07/21/19 13:15 Dose: 4 mg Pantoprazole Sodium (Protonix) 40 mg PO BIDAC [facility] Last Admin: 07/23/19 10:42 Dose: 40 mg Sodium Chloride (Saline Flush) 10 ml FLUSH ASDIRECTED PRN PRN Reason: Keep Vein Open Last Admin: 07/20/19 22:21 Dose: 10 ml Discontinued Medications Albuterol/Ipratropium (Duoneb 3.0-0.5 Mg/3 Ml) 3 ml NEB ONETIME ONE Stop: 07/20/19 20:41 Last Admin: 07/20/19 20:55 Dose: 3 ml Fentanyl (Sublimaze) 50 mcg IVPUSH ONETIME ONE Stop: 07/20/19 20:29 Last Admin: 07/20/19 20:44 Dose: 50 mcg Gabapentin (Neurontin) 400 mg PO ONETIME ONE Stop: 07/22/19 10:31 Last Admin: 07/22/19 12:01 Dose: 400 mg Haloperidol Lactate (Haldol) 5 mg IVPUSH Q2H PRN PRN Reason: Hallucinations Last Admin: 07/22/19 14:36 Dose: 5 mg Haloperidol Lactate (Haldol) Confirm Administered Dose 5 mg .ROUTE .STK-MED ONE Stop: 07/22/19 14:31 Last Admin: 07/22/19 14:36 Dose: Not Given Lactated Ringer's (Ringers, Lactated) 1,000 mls @ 999 mls/hr IV BOLUS ONE Stop: 07/20/19 21:28 Last Admin: 07/20/19 20:40 Dose: 999 mls/hr Octreotide Acetate 500 mcg/ (Sodium Chloride) 500 mls @ 50 mls/hr IV Q10H [facility] Last Admin: 07/22/19 03:48 Dose: 50 mcg/hr, 50 mls/hr Pantoprazole Sodium 80 mg/ (Sodium Chloride) 100 mls @ 10 mls/hr IV .Q10H [facility] Last Admin: 07/22/19 04:57 Dose: 10 mls/hr Sodium Chloride (Normal Saline) 1,000 mls @ 125 mls/hr IV ASDIRECTED [facility] Last Admin: 07/22/19 13:26 Dose: 125 mls/hr Multivitamins/Minerals 10 ml/ (Sodium Chloride) 1,010 mls @ 250 mls/hr IV ONETIME ONE Stop: 07/21/19 04:02 Last Admin: 07/21/19 00:42 Dose: 250 mls/hr Multivitamins/Minerals 10 ml/ (Sodium Chloride) 1,010 mls @ 250 mls/hr IV Q24H [facility] Last Admin: 07/21/19 20:01 Dose: 250 mls/hr Albumin Human (Albumin 25%) 25 gm in 100 mls @ 25 mls/hr IV ONETIME ONE Stop: 07/21/19 11:59 Last Admin: 07/21/19 07:54 Dose: 25 mls/hr Calcium Gluconate 1 gm/ Sodium (Chloride) 110 mls @ 100 mls/hr IV Q6H [facility] Last Admin: 07/22/19 08:44 Dose: 100 mls/hr Albumin Human (Albumin 25%) 25 gm in 100 mls @ 25 mls/hr IV ONETIME ONE Stop: 07/22/19 11:59 Last Admin: 07/22/19 08:35 Dose: 25 mls/hr Lorazepam (Ativan) 1 mg IVPUSH ONETIME ONE Stop: 07/20/19 20:14 Last Admin: 07/20/19 20:21 Dose: 1 mg Lorazepam (Ativan) 1 mg IVPUSH ONETIME ONE Stop: 07/20/19 22:13 Last Admin: 07/20/19 22:19 Dose: 1 mg Octreotide Acetate (Sandostatin) 50 mcg IVPUSH ONETIME ONE Stop: 07/20/19 21:52 Last Admin: 07/20/19 22:03 Dose: 50 mcg Ondansetron HCl (Zofran) 4 mg IVPUSH ONETIME ONE Stop: 07/20/19 20:29 Last Admin: 07/20/19 20:41 Dose: 4 mg Pantoprazole Sodium (Protonix Iv) 80 mg IVPUSH .BOLUS ONE Stop: 07/20/19 20:28 Last Admin: 07/20/19 20:46 Dose: 80 mg Phytonadione (Mephyton) 10 mg PO ONETIME ONE Stop: 07/20/19 23:12 Last Admin: 07/21/19 00:47 Dose: 10 mg Thiamine HCl (Vitamin B-1) 100 mg PO DAILY [facility] Stop: 07/23/19 09:01 Last Admin: 07/23/19 10:44 Dose: 100 mg Thiamine HCl (Vitamin B-1) 100 mg PO ONETIME ONE Stop: 07/21/19 00:01 Last Admin: 07/21/19 00:47 Dose: 100 mg - Exam General: Sedated HEENT: Pupils Equal, Pupils Reactive, EOMI, Mucous Membr. Moist/[place] Neck: Supple Lungs: Clear to Auscultation, Normal Respiratory Effort Cardiovascular: Regular Rate, Regular Rhythm Extremities: Normal Inspection Peripheral Pulses: 1+: Radial (L), Radial (R) Skin: Warm, Dry, Intact Psy/Mental Status: Hallucinations, Withdrawal Symptoms Sepsis Event Note - Evaluation Sepsis Screening Result: No Definite Risk - Focused Exam Vital Signs: Vital Signs Temp Pulse Resp BP Pulse Ox 07/23/19 15:17 97.4 F 68 14 110/71 97 07/23/19 14:00 70 15 111/72 97 07/23/19 12:00 97.6 F 68 15 117/76 98 07/23/19 10:00 17 90/58 L 96 07/23/19 08:20 97.2 F 77 15 127/58 L 97 07/23/19 05:00 71 15 115/82 Date Exam was Performed: 07/23/19 Time Exam was Performed: 16:34 - Problem List Review Problem List Initiated/Reviewed/Updated: Yes - My Orders Last 24 Hours: My Active Orders 07/22/19 16:40 Sodium Chloride 0.9% [Normal Saline] 1,000 ml IV ASDIRECTED 07/23/19 09:00 Gabapentin [Neurontin] 400 mg PO BID 07/24/19 09:00 Gabapentin [Neurontin] 400 mg PO TID - Plan Plan:: Assessment/Plan: #1. GI blood loss Vomiting upon admission non at present. #2. 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 Alcoholism with DT's will continue to treat have added Haldol. #4. Malnutrition: #5. HTN: continue with medicine #6. Nicotine addiction: Will continue with a patch #7. Hypo albuminemia: Will continue with albumin infusion 38. Hyper bilirubinemia: Alcoholism #9. History of grade C esophagitis 04/2019 Intervention completed. He is in danger to himself.
[2019-07-23] MEDS: LORazepam 1 MG Tab PO PRN ×2 (18:08→20:01)
[2019-07-24] MEDS: Sodium Chloride 0.9% 1,000 ML IV SCH (02:11)
[2019-07-24] MEDS: LORazepam 1 MG Tab PO PRN (02:11)
[2019-07-24] MEDS: Pantoprazole 40 MG Tab.CR PO SCH ×2 (07:50→17:14)
[2019-07-24] MEDS: Folic Acid 1 MG Tab PO SCH (08:30)
[2019-07-24] MEDS: Nicotine 21 MG/24 Hr Patch TRDERM SCH (08:31)
[2019-07-24] MEDS: Multivitamins with Iron/Calcium/Folic Acid/Minerals Tab PO SCH (08:31)
[2019-07-24] MEDS: Gabapentin 400 MG Cap PO SCH ×3 (08:31→21:09)
--- NOTE | 2019-07-24 14:02 | PCM.PN ---
- General Info Date of Service: 07/24/19 Functional Status: Reports: Pain Controlled - Review of Systems General: Reports: Weakness HEENT: Reports: No Symptoms Pulmonary: Reports: No Symptoms Cardiovascular: Reports: No Symptoms Gastrointestinal: Reports: No Symptoms Genitourinary: Reports: No Symptoms Musculoskeletal: Reports: No Symptoms Skin: Reports: No Symptoms Neurological: Reports: Trouble Speaking, Weakness Psychiatric: Reports: Confusion, Hallucinations - Patient Data Vitals - Most Recent: Last Vital Signs Temp 97.4 F 07/24/19 12:00 Pulse 96 07/24/19 12:00 Resp 19 07/24/19 12:00 BP 126/79 07/24/19 12:00 Pulse Ox 97 07/24/19 12:00 Weight - Most Recent: 133 lb 3.437 oz I&O - Last 24 Hours: Intake & Output 07/23/19 07/24/19 07/24/19 22:59 06:59 14:59 Intake Total 1295 240 Output Total 300 300 400 Balance 995 -60 -400 Lab Results Last 24 Hours: Laboratory Results - last 24 hr 07/24/19 07/24/19 Range/Units 05:40 05:40 WBC 5.8 (4.5-11.0) K/uL RBC 2.94 L (4.30-5.90) M/uL Hgb 9.3 L (12.0-15.0) g/dL Hct 27.8 L (40.0-54.0) % MCV 95 (80-98) fL MCH 32 H (27-31) pg MCHC 34 (32-36) % Plt Count 103 L (150-400) K/uL Neut % (Auto) 68 H (36-66) % Lymph % (Auto) 20 L (24-44) % [place] % (Auto) 9 H (2-6) % Eos % (Auto) 1 L (2-4) % Baso % (Auto) 1 (0-1) % Sodium 141 (140-148) mmol/L Potassium 3.2 L (3.6-5.2) mmol/L Chloride 108 (100-108) mmol/L Carbon Dioxide 28 (21-32) mmol/L Anion Gap 8.2 (5.0-14.0) mmol/L BUN 2 L (7-18) mg/dL Creatinine 1.0 (0.8-1.3) mg/dL Est Cr Clr Drug Dosing 76.37 mL/min Estimated GFR (MDRD) > 60 (>60) Glucose 110 H (74-106) mg/dL Calcium 7.4 L (8.5-10.1) mg/dL Total Bilirubin 3.0 H D (0.2-1.0) mg/dL AST 60 H (15-37) U/L ALT 42 (12-78) U/L Alkaline Phosphatase 334 H (46-116) U/L Total Protein 4.7 L (6.4-8.2) g/dL Albumin 1.8 L (3.4-5.0) g/dL Globulin 2.9 (2.3-3.5) g/dL Albumin/Globulin Ratio 0.6 L (1.2-2.2) Med Orders - Current: Current Medications Al Hydroxide/Mg Hydroxide (Mag-Al Plus) 30 ml PO Q6H PRN PRN Reason: DYSPEPSIA Albuterol/Ipratropium (Duoneb 3.0-0.5 Mg/3 Ml) 3 ml INH Q2H PRN PRN Reason: SHORTNESS OF BREATH Folic Acid (Folic Acid) 1 mg PO DAILY [facility] Last Admin: 07/24/19 08:30 Dose: 1 mg Gabapentin (Neurontin) 400 mg PO TID [facility] Last Admin: 07/24/19 08:31 Dose: 400 mg Haloperidol Lactate (Haldol) 2 - 5 mg IVPUSH Q2H PRN PRN Reason: Hallucinations Last Admin: 07/23/19 10:44 Dose: 5 mg Sodium Chloride (Normal Saline) 1,000 mls @ 75 mls/hr IV ASDIRECTED [facility] Last Admin: 07/24/19 02:11 Dose: 75 mls/hr Lorazepam (Ativan) 0 mg PO ASDIRECTED PRN; Protocol PRN Reason: ETOH WITHDRAWAL Last Admin: 07/24/19 02:11 Dose: 2 mg Lorazepam (Ativan) 0 mg IV ASDIRECTED PRN; Protocol PRN Reason: ETOH WITHDRAWAL Last Admin: 07/23/19 11:09 Dose: 2 mg Lorazepam (Ativan) 0 mg IM ASDIRECTED PRN; Protocol PRN Reason: ETOH WITHDRAWAL Multivitamins/Minerals (Thera M Plus) 1 tab PO DAILY [facility] Last Admin: 07/24/19 08:31 Dose: 1 tab Nicotine (Habitrol) 21 mg TRDERM DAILY [facility] Last Admin: 07/24/19 08:31 Dose: 21 mg Ondansetron HCl (Zofran Odt) 4 mg PO Q6H PRN PRN Reason: Nausea able to take PO Last Admin: 07/21/19 13:15 Dose: 4 mg Pantoprazole Sodium (Protonix) 40 mg PO BIDAC [facility] Last Admin: 07/24/19 07:50 Dose: 40 mg Sodium Chloride (Saline Flush) 10 ml FLUSH ASDIRECTED PRN PRN Reason: Keep Vein Open Last Admin: 07/20/19 22:21 Dose: 10 ml Discontinued Medications Albuterol/Ipratropium (Duoneb 3.0-0.5 Mg/3 Ml) 3 ml NEB ONETIME ONE Stop: 07/20/19 20:41 Last Admin: 07/20/19 20:55 Dose: 3 ml Fentanyl (Sublimaze) 50 mcg IVPUSH ONETIME ONE Stop: 07/20/19 20:29 Last Admin: 07/20/19 20:44 Dose: 50 mcg Gabapentin (Neurontin) 400 mg PO ONETIME ONE Stop: 07/22/19 10:31 Last Admin: 07/22/19 12:01 Dose: 400 mg Gabapentin (Neurontin) 400 mg PO BID [facility] Stop: 07/23/19 22:00 Last Admin: 07/23/19 20:01 Dose: 400 mg Haloperidol Lactate (Haldol) 5 mg IVPUSH Q2H PRN PRN Reason: Hallucinations Last Admin: 07/22/19 14:36 Dose: 5 mg Haloperidol Lactate (Haldol) Confirm Administered Dose 5 mg .ROUTE .STK-MED ONE Stop: 07/22/19 14:31 Last Admin: 07/22/19 14:36 Dose: Not Given Lactated Ringer's (Ringers, Lactated) 1,000 mls @ 999 mls/hr IV BOLUS ONE Stop: 07/20/19 21:28 Last Admin: 07/20/19 20:40 Dose: 999 mls/hr Octreotide Acetate 500 mcg/ (Sodium Chloride) 500 mls @ 50 mls/hr IV Q10H [facility] Last Admin: 07/22/19 03:48 Dose: 50 mcg/hr, 50 mls/hr Pantoprazole Sodium 80 mg/ (Sodium Chloride) 100 mls @ 10 mls/hr IV .Q10H [facility] Last Admin: 07/22/19 04:57 Dose: 10 mls/hr Sodium Chloride (Normal Saline) 1,000 mls @ 125 mls/hr IV ASDIRECTED [facility] Last Admin: 07/22/19 13:26 Dose: 125 mls/hr Multivitamins/Minerals 10 ml/ (Sodium Chloride) 1,010 mls @ 250 mls/hr IV ONETIME ONE Stop: 07/21/19 04:02 Last Admin: 07/21/19 00:42 Dose: 250 mls/hr Multivitamins/Minerals 10 ml/ (Sodium Chloride) 1,010 mls @ 250 mls/hr IV Q24H [facility] Last Admin: 07/21/19 20:01 Dose: 250 mls/hr Albumin Human (Albumin 25%) 25 gm in 100 mls @ 25 mls/hr IV ONETIME ONE Stop: 07/21/19 11:59 Last Admin: 07/21/19 07:54 Dose: 25 mls/hr Calcium Gluconate 1 gm/ Sodium (Chloride) 110 mls @ 100 mls/hr IV Q6H [facility] Last Admin: 07/22/19 08:44 Dose: 100 mls/hr Albumin Human (Albumin 25%) 25 gm in 100 mls @ 25 mls/hr IV ONETIME ONE Stop: 07/22/19 11:59 Last Admin: 07/22/19 08:35 Dose: 25 mls/hr Lorazepam (Ativan) 1 mg IVPUSH ONETIME ONE Stop: 07/20/19 20:14 Last Admin: 07/20/19 20:21 Dose: 1 mg Lorazepam (Ativan) 1 mg IVPUSH ONETIME ONE Stop: 07/20/19 22:13 Last Admin: 07/20/19 22:19 Dose: 1 mg Octreotide Acetate (Sandostatin) 50 mcg IVPUSH ONETIME ONE Stop: 07/20/19 21:52 Last Admin: 07/20/19 22:03 Dose: 50 mcg Ondansetron HCl (Zofran) 4 mg IVPUSH ONETIME ONE Stop: 07/20/19 20:29 Last Admin: 07/20/19 20:41 Dose: 4 mg Pantoprazole Sodium (Protonix Iv) 80 mg IVPUSH .BOLUS ONE Stop: 07/20/19 20:28 Last Admin: 07/20/19 20:46 Dose: 80 mg Phytonadione (Mephyton) 10 mg PO ONETIME ONE Stop: 07/20/19 23:12 Last Admin: 07/21/19 00:47 Dose: 10 mg Thiamine HCl (Vitamin B-1) 100 mg PO DAILY [facility] Stop: 07/23/19 09:01 Last Admin: 07/23/19 10:44 Dose: 100 mg Thiamine HCl (Vitamin B-1) 100 mg PO ONETIME ONE Stop: 07/21/19 00:01 Last Admin: 07/21/19 00:47 Dose: 100 mg - Exam General: Alert, Oriented HEENT: Pupils Equal, Pupils Reactive, EOMI, Mucous Membr. Moist/[place] Neck: Supple Lungs: Clear to Auscultation, Normal Respiratory Effort Cardiovascular: Regular Rate, Regular Rhythm GI/Abdominal Exam: Normal Bowel Sounds, Soft, Non-Tender, No Organomegaly, No Distention, No Abnormal Bruit, No Mass, Pelvis Stable Extremities: Normal Inspection, Normal Range of Motion, Non-Tender, No Pedal Edema, Normal Capillary Refill Peripheral Pulses: 1+: Radial (L), Radial (R) Skin: Warm, Dry, Intact Psy/Mental Status: Hallucinations, Withdrawal Symptoms Sepsis Event Note - Evaluation Sepsis Screening Result: No Definite Risk - Focused Exam Vital Signs: Vital Signs Temp Pulse Resp BP Pulse Ox 07/24/19 12:00 97.4 F 96 19 126/79 97 07/24/19 10:00 12 136/82 96 07/24/19 07:49 97.4 F 12 129/81 99 07/24/19 06:00 73 16 120/77 98 07/24/19 04:00 97.0 F 71 14 108/65 99 Date Exam was Performed: 07/25/19 Time Exam was Performed: 11:32 - Problem List Review Problem List Initiated/Reviewed/Updated: Yes - My Orders Last 24 Hours: My Active Orders 07/24/19 09:00 Gabapentin [Neurontin] 400 mg PO TID 07/24/19 Breakfast Soft Diet [DIET] - Plan Plan:: Assessment/Plan: #1. GI blood loss Stable without blood loss presently #2. 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 Alcoholism with DT's will continue to treat have added Haldol. #4. Malnutrition: #5. HTN: continue with medicine #6. Nicotine addiction: Will continue with a patch #7. Hypo albuminemia: Will continue with albumin infusion 38. Hyper bilirubinemia: Alcoholism #9. History of grade C esophagitis 04/2019 Intervention completed. He is in danger to himself. Will be going for treatment soon.
[2019-07-24] MEDS ORDERED: Potassium Chloride 20 MEQ Tab.ER PO ONE (14:30)
[2019-07-24] MEDS ORDERED: Sodium Chloride 0.9% 1,000 ML IV SCH (14:30)
[2019-07-25] MEDS: Pantoprazole 40 MG Tab.CR PO SCH ×2 (07:35→21:09)
[2019-07-25] MEDS: Gabapentin 400 MG Cap PO SCH ×3 (08:22→21:09)
[2019-07-25] MEDS: Nicotine 21 MG/24 Hr Patch TRDERM SCH (08:22)
[2019-07-25] MEDS: Multivitamins with Iron/Calcium/Folic Acid/Minerals Tab PO SCH (08:22)
[2019-07-25] MEDS: Folic Acid 1 MG Tab PO SCH (08:22)
--- NOTE | 2019-07-25 11:40 | PCM.PN ---
- General Info Date of Service: 07/25/19 - Patient Data Vitals - Most Recent: Last Vital Signs Temp 97.0 F 07/25/19 08:00 Pulse 75 07/25/19 10:00 Resp 14 07/25/19 10:00 BP 137/85 07/25/19 10:00 Pulse Ox 98 07/25/19 10:00 Weight - Most Recent: 133 lb 3.437 oz I&O - Last 24 Hours: Intake & Output 07/24/19 07/25/19 07/25/19 21:59 06:59 14:59 Intake Total 480 Output Total Balance 480 Med Orders - Current: Current Medications Al Hydroxide/Mg Hydroxide (Mag-Al Plus) 30 ml PO Q6H PRN PRN Reason: DYSPEPSIA Albuterol/Ipratropium (Duoneb 3.0-0.5 Mg/3 Ml) 3 ml INH Q2H PRN PRN Reason: SHORTNESS OF BREATH Folic Acid (Folic Acid) 1 mg PO DAILY [facility] Last Admin: 07/25/19 08:22 Dose: 1 mg Gabapentin (Neurontin) 400 mg PO TID [facility] Last Admin: 07/25/19 08:22 Dose: 400 mg Haloperidol Lactate (Haldol) 2 - 5 mg IVPUSH Q2H PRN PRN Reason: Hallucinations Last Admin: 07/23/19 10:44 Dose: 5 mg Sodium Chloride (Normal Saline) 1,000 mls @ 25 mls/hr IV ASDIRECTED [facility] Last Admin: 07/24/19 19:41 Dose: 25 mls/hr Albumin Human (Albumin 25%) 25 gm in 100 mls @ 25 mls/hr IV Q24H [facility] Last Admin: 07/24/19 15:13 Dose: 25 mls/hr Albumin Human (Albumin 25%) 25 gm in 100 mls @ 25 mls/hr IV Q24H [facility] Lorazepam (Ativan) 0 mg PO ASDIRECTED PRN; Protocol PRN Reason: ETOH WITHDRAWAL Last Admin: 07/24/19 02:11 Dose: 2 mg Lorazepam (Ativan) 0 mg IV ASDIRECTED PRN; Protocol PRN Reason: ETOH WITHDRAWAL Last Admin: 07/23/19 11:09 Dose: 2 mg Lorazepam (Ativan) 0 mg IM ASDIRECTED PRN; Protocol PRN Reason: ETOH WITHDRAWAL Multivitamins/Minerals (Thera M Plus) 1 tab PO DAILY [facility] Last Admin: 07/25/19 08:22 Dose: 1 tab Nicotine (Habitrol) 21 mg TRDERM DAILY [facility] Last Admin: 07/25/19 08:22 Dose: 21 mg Ondansetron HCl (Zofran Odt) 4 mg PO Q6H PRN PRN Reason: Nausea able to take PO Last Admin: 07/21/19 13:15 Dose: 4 mg Pantoprazole Sodium (Protonix) 40 mg PO BIDAC [facility] Last Admin: 07/25/19 07:35 Dose: 40 mg Sodium Chloride (Saline Flush) 10 ml FLUSH ASDIRECTED PRN PRN Reason: Keep Vein Open Last Admin: 07/20/19 22:21 Dose: 10 ml Discontinued Medications Albuterol/Ipratropium (Duoneb 3.0-0.5 Mg/3 Ml) 3 ml NEB ONETIME ONE Stop: 07/20/19 20:41 Last Admin: 07/20/19 20:55 Dose: 3 ml Fentanyl (Sublimaze) 50 mcg IVPUSH ONETIME ONE Stop: 07/20/19 20:29 Last Admin: 07/20/19 20:44 Dose: 50 mcg Gabapentin (Neurontin) 400 mg PO ONETIME ONE Stop: 07/22/19 10:31 Last Admin: 07/22/19 12:01 Dose: 400 mg Gabapentin (Neurontin) 400 mg PO BID [facility] Stop: 07/23/19 22:00 Last Admin: 07/23/19 20:01 Dose: 400 mg Haloperidol Lactate (Haldol) 5 mg IVPUSH Q2H PRN PRN Reason: Hallucinations Last Admin: 07/22/19 14:36 Dose: 5 mg Haloperidol Lactate (Haldol) Confirm Administered Dose 5 mg .ROUTE .STK-MED ONE Stop: 07/22/19 14:31 Last Admin: 07/22/19 14:36 Dose: Not Given Lactated Ringer's (Ringers, Lactated) 1,000 mls @ 999 mls/hr IV BOLUS ONE Stop: 07/20/19 21:28 Last Admin: 07/20/19 20:40 Dose: 999 mls/hr Octreotide Acetate 500 mcg/ (Sodium Chloride) 500 mls @ 50 mls/hr IV Q10H [facility] Last Admin: 07/22/19 03:48 Dose: 50 mcg/hr, 50 mls/hr Pantoprazole Sodium 80 mg/ (Sodium Chloride) 100 mls @ 10 mls/hr IV .Q10H [facility] Last Admin: 07/22/19 04:57 Dose: 10 mls/hr Sodium Chloride (Normal Saline) 1,000 mls @ 125 mls/hr IV ASDIRECTED [facility] Last Admin: 07/22/19 13:26 Dose: 125 mls/hr Multivitamins/Minerals 10 ml/ (Sodium Chloride) 1,010 mls @ 250 mls/hr IV ONETIME ONE Stop: 07/21/19 04:02 Last Admin: 07/21/19 00:42 Dose: 250 mls/hr Multivitamins/Minerals 10 ml/ (Sodium Chloride) 1,010 mls @ 250 mls/hr IV Q24H [facility] Last Admin: 07/21/19 20:01 Dose: 250 mls/hr Albumin Human (Albumin 25%) 25 gm in 100 mls @ 25 mls/hr IV ONETIME ONE Stop: 07/21/19 11:59 Last Admin: 07/21/19 07:54 Dose: 25 mls/hr Calcium Gluconate 1 gm/ Sodium (Chloride) 110 mls @ 100 mls/hr IV Q6H [facility] Last Admin: 07/22/19 08:44 Dose: 100 mls/hr Albumin Human (Albumin 25%) 25 gm in 100 mls @ 25 mls/hr IV ONETIME ONE Stop: 07/22/19 11:59 Last Admin: 07/22/19 08:35 Dose: 25 mls/hr Sodium Chloride (Normal Saline) 1,000 mls @ 75 mls/hr IV ASDIRECTED [facility] Last Admin: 07/24/19 02:11 Dose: 75 mls/hr Albumin Human (Albumin 25%) 25 gm in 100 mls @ 25 mls/hr IV Q24H [facility] Last Admin: 07/24/19 19:37 Dose: 25 mls/hr Lorazepam (Ativan) 1 mg IVPUSH ONETIME ONE Stop: 07/20/19 20:14 Last Admin: 07/20/19 20:21 Dose: 1 mg Lorazepam (Ativan) 1 mg IVPUSH ONETIME ONE Stop: 07/20/19 22:13 Last Admin: 03/03/20 22:19 Dose: 1 mg Octreotide Acetate (Sandostatin) 50 mcg IVPUSH ONETIME ONE Stop: 07/20/19 21:52 Last Admin: 07/20/19 22:03 Dose: 50 mcg Ondansetron HCl (Zofran) 4 mg IVPUSH ONETIME ONE Stop: 07/20/19 20:29 Last Admin: 07/20/19 20:41 Dose: 4 mg Pantoprazole Sodium (Protonix Iv) 80 mg IVPUSH .BOLUS ONE Stop: 07/20/19 20:28 Last Admin: 07/20/19 20:46 Dose: 80 mg Phytonadione (Mephyton) 10 mg PO ONETIME ONE Stop: 07/20/19 23:12 Last Admin: 07/21/19 00:47 Dose: 10 mg Potassium Chloride (Klor-Con M20) 20 meq PO ONETIME ONE Stop: 07/24/19 14:31 Last Admin: 07/24/19 14:50 Dose: 20 meq Thiamine HCl (Vitamin B-1) 100 mg PO DAILY [facility] Stop: 07/23/19 09:01 Last Admin: 07/23/19 10:44 Dose: 100 mg Thiamine HCl (Vitamin B-1) 100 mg PO ONETIME ONE Stop: 07/21/19 00:01 Last Admin: 07/21/19 00:47 Dose: 100 mg Sepsis Event Note - Evaluation Sepsis Screening Result: No Definite Risk - Focused Exam Vital Signs: Vital Signs Temp Pulse Resp BP Pulse Ox 07/25/19 10:00 75 14 137/85 98 07/25/19 08:00 97.0 F 84 14 148/84 H 97 07/25/19 06:00 69 17 144/83 H 07/25/19 04:00 97.9 F 81 16 148/76 H 98 07/25/19 00:00 98.0 F 81 12 130/75 Date Exam was Performed: 07/25/19 Time Exam was Performed: 11:40 - Problem List Review Problem List Initiated/Reviewed/Updated: Yes - My Orders Last 24 Hours: My Active Orders 07/24/19 14:30 Sodium Chloride 0.9% [Normal Saline] 1,000 ml IV ASDIRECTED 07/24/19 15:00 Albumin Human [Albumin 25%] 25 gm in 100 ml IV Q24H 07/25/19 10:30 Albumin Human [Albumin 25%] 25 gm in 100 ml IV Q24H 07/25/19 Breakfast Regular Diet [DIET] - Plan Plan:: Assessment/Plan: #1. GI blood loss Stable without blood loss presently #2. 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 Alcoholism with DT's will continue to treat have added Haldol. #4. Malnutrition: #5. HTN: continue with medicine #6. Nicotine addiction: Will continue with a patch #7. Hypo albuminemia: Will continue with albumin infusion 38. Hyper bilirubinemia: Alcoholism #9. History of grade C esophagitis 04/2019 Intervention completed. He is in danger to himself. Will be going for treatment soon. Will repeat blood evaluation tomorrow.
--- NOTE | 2019-07-25 11:40 | PCM.PN ---
- General Info Date of Service: 07/25/19 Functional Status: Reports: Pain Controlled - Review of Systems General: Reports: Weakness, Fatigue HEENT: Reports: No Symptoms Pulmonary: Reports: No Symptoms Cardiovascular: Reports: No Symptoms Gastrointestinal: Reports: No Symptoms Genitourinary: Reports: No Symptoms Musculoskeletal: Reports: No Symptoms Skin: Reports: No Symptoms Neurological: Reports: Tremors, Weakness, Gait Disturbance Psychiatric: Reports: Anxiety - Patient Data Vitals - Most Recent: Last Vital Signs Temp 97.0 F 07/25/19 08:00 Pulse 75 07/25/19 10:00 Resp 14 07/25/19 10:00 BP 137/85 07/25/19 10:00 Pulse Ox 98 07/25/19 10:00 Weight - Most Recent: 133 lb 3.437 oz I&O - Last 24 Hours: Intake & Output 07/24/19 07/25/19 07/25/19 21:59 06:59 14:59 Intake Total 480 Output Total Balance 480 Med Orders - Current: Current Medications Al Hydroxide/Mg Hydroxide (Mag-Al Plus) 30 ml PO Q6H PRN PRN Reason: DYSPEPSIA Albuterol/Ipratropium (Duoneb 3.0-0.5 Mg/3 Ml) 3 ml INH Q2H PRN PRN Reason: SHORTNESS OF BREATH Folic Acid (Folic Acid) 1 mg PO DAILY [facility] Last Admin: 07/25/19 08:22 Dose: 1 mg Gabapentin (Neurontin) 400 mg PO TID [facility] Last Admin: 07/25/19 08:22 Dose: 400 mg Haloperidol Lactate (Haldol) 2 - 5 mg IVPUSH Q2H PRN PRN Reason: Hallucinations Last Admin: 07/23/19 10:44 Dose: 5 mg Sodium Chloride (Normal Saline) 1,000 mls @ 25 mls/hr IV ASDIRECTED [facility] Last Admin: 07/24/19 19:41 Dose: 25 mls/hr Albumin Human (Albumin 25%) 25 gm in 100 mls @ 25 mls/hr IV Q24H [facility] Last Admin: 07/24/19 15:13 Dose: 25 mls/hr Albumin Human (Albumin 25%) 25 gm in 100 mls @ 25 mls/hr IV Q24H [facility] Lorazepam (Ativan) 0 mg PO ASDIRECTED PRN; Protocol PRN Reason: ETOH WITHDRAWAL Last Admin: 07/24/19 02:11 Dose: 2 mg Lorazepam (Ativan) 0 mg IV ASDIRECTED PRN; Protocol PRN Reason: ETOH WITHDRAWAL Last Admin: 07/23/19 11:09 Dose: 2 mg Lorazepam (Ativan) 0 mg IM ASDIRECTED PRN; Protocol PRN Reason: ETOH WITHDRAWAL Multivitamins/Minerals (Thera M Plus) 1 tab PO DAILY [facility] Last Admin: 07/25/19 08:22 Dose: 1 tab Nicotine (Habitrol) 21 mg TRDERM DAILY [facility] Last Admin: 07/25/19 08:22 Dose: 21 mg Ondansetron HCl (Zofran Odt) 4 mg PO Q6H PRN PRN Reason: Nausea able to take PO Last Admin: 07/21/19 13:15 Dose: 4 mg Pantoprazole [facility]) [facility] Last Admin: 07/25/19 07:35 Dose: 40 mg Sodium Chloride (Saline Flush) 10 ml FLUSH ASDIRECTED PRN PRN Reason: Keep Vein Open Last Admin: 07/20/19 22:21 Dose: 10 ml Discontinued Medications Albuterol/Ipratropium (Duoneb 3.0-0.5 Mg/3 Ml) 3 ml NEB ONETIME ONE Stop: 07/20/19 20:41 Last Admin: 07/20/19 20:55 Dose: 3 ml Fentanyl (Sublimaze) 50 mcg IVPUSH ONETIME ONE Stop: 07/20/19 20:29 Last Admin: 07/20/19 20:44 Dose: 50 mcg Gabapentin (Neurontin) 400 mg PO ONETIME ONE Stop: 07/22/19 10:31 Last Admin: 07/22/19 12:01 Dose: 400 mg Gabapentin (Neurontin) 400 mg PO BID [facility] Stop: 07/23/19 22:00 Last Admin: 07/23/19 20:01 Dose: 400 mg Haloperidol Lactate (Haldol) 5 mg IVPUSH Q2H PRN PRN Reason: Hallucinations Last Admin: 07/22/19 14:36 Dose: 5 mg Haloperidol Lactate (Haldol) Confirm Administered Dose 5 mg .ROUTE .STK-MED ONE Stop: 07/22/19 14:31 Last Admin: 07/22/19 14:36 Dose: Not Given Lactated Ringer's (Ringers, Lactated) 1,000 mls @ 999 mls/hr IV BOLUS ONE Stop: 07/20/19 21:28 Last Admin: 07/20/19 20:40 Dose: 999 mls/hr Octreotide Acetate 500 mcg/ (Sodium Chloride) 500 mls @ 50 mls/hr IV Q10H [facility] Last Admin: 07/22/19 03:48 Dose: 50 mcg/hr, 50 mls/hr Pantoprazole Sodium 80 mg/ (Sodium Chloride) 100 mls @ 10 mls/hr IV .Q10H [facility] Last Admin: 07/22/19 04:57 Dose: 10 mls/hr Sodium Chloride (Normal Saline) 1,000 mls @ 125 mls/hr IV ASDIRECTED [facility] Last Admin: 07/22/19 13:26 Dose: 125 mls/hr Multivitamins/Minerals 10 ml/ (Sodium Chloride) 1,010 mls @ 250 mls/hr IV ONETIME ONE Stop: 07/21/19 04:02 Last Admin: 07/21/19 00:42 Dose: 250 mls/hr Multivitamins/Minerals 10 ml/ (Sodium Chloride) 1,010 mls @ 250 mls/hr IV Q24H [facility] Last Admin: 07/21/19 20:01 Dose: 250 mls/hr Albumin Human (Albumin 25%) 25 gm in 100 mls @ 25 mls/hr IV ONETIME ONE Stop: 07/21/19 11:59 Last Admin: 07/21/19 07:54 Dose: 25 mls/hr Calcium Gluconate 1 gm/ Sodium (Chloride) 110 mls @ 100 mls/hr IV Q6H [facility] Last Admin: 07/22/19 08:44 Dose: 100 mls/hr Albumin Human (Albumin 25%) 25 gm in 100 mls @ 25 mls/hr IV ONETIME ONE Stop: 07/22/19 11:59 Last Admin: 07/22/19 08:35 Dose: 25 mls/hr Sodium Chloride (Normal Saline) 1,000 mls @ 75 mls/hr IV ASDIRECTED [facility] Last Admin: 07/24/19 02:11 Dose: 75 mls/hr Albumin Human (Albumin 25%) 25 gm in 100 mls @ 25 mls/hr IV Q24H [facility] Last Admin: 07/24/19 19:37 Dose: 25 mls/hr Lorazepam (Ativan) 1 mg IVPUSH ONETIME ONE Stop: 07/20/19 20:14 Last Admin: 07/20/19 20:21 Dose: 1 mg Lorazepam (Ativan) 1 mg IVPUSH ONETIME ONE Stop: 07/20/19 22:13 Last Admin: 07/20/19 22:19 Dose: 1 mg Octreotide Acetate (Sandostatin) 50 mcg IVPUSH ONETIME ONE Stop: 07/20/19 21:52 Last Admin: 07/20/19 22:03 Dose: 50 mcg Ondansetron HCl (Zofran) 4 mg IVPUSH ONETIME ONE Stop: 07/20/19 20:29 Last Admin: 07/20/19 20:41 Dose: 4 mg Pantoprazole Sodium (Protonix Iv) 80 mg IVPUSH .BOLUS ONE Stop: 07/20/19 20:28 Last Admin: 07/20/19 20:46 Dose: 80 mg Phytonadione (Mephyton) 10 mg PO ONETIME ONE Stop: 07/20/19 23:12 Last Admin: 07/21/19 00:47 Dose: 10 mg Potassium Chloride (Klor-Con M20) 20 meq PO ONETIME ONE Stop: 07/24/19 14:31 Last Admin: 07/24/19 14:50 Dose: 20 meq Thiamine HCl (Vitamin B-1) 100 mg PO DAILY [facility] Stop: 07/23/19 09:01 Last Admin: 07/23/19 10:44 Dose: 100 mg Thiamine HCl (Vitamin B-1) 100 mg PO ONETIME ONE Stop: 07/21/19 00:01 Last Admin: 07/21/19 00:47 Dose: 100 mg - Exam General: Oriented, Cooperative, Mild Distress HEENT: Pupils Equal, Pupils Reactive, EOMI, Mucous Membr. Moist/[place] Lungs: Clear to Auscultation, Normal Respiratory Effort Cardiovascular: Regular Rate, Regular Rhythm GI/Abdominal Exam: Normal Bowel Sounds, Soft Peripheral Pulses: 1+: Radial (L), Radial (R) Skin: Warm, Dry, Intact Psy/Mental Status: Withdrawal Symptoms Sepsis Event Note - Evaluation Sepsis Screening Result: No Definite Risk - Focused Exam Vital Signs: Vital Signs Temp Pulse Resp BP Pulse Ox 07/25/19 10:00 75 14 137/85 98 07/25/19 08:00 97.0 F 84 14 148/84 H 97 07/25/19 06:00 69 17 144/83 H 07/25/19 04:00 97.9 F 81 16 148/76 H 98 07/25/19 00:00 98.0 F 81 12 130/75 Date Exam was Performed: 07/25/19 Time Exam was Performed: 11:41 - Problem List Review Problem List Initiated/Reviewed/Updated: Yes - My Orders Last 24 Hours: My Active Orders 07/24/19 14:30 Sodium Chloride 0.9% [Normal Saline] 1,000 ml IV ASDIRECTED 07/24/19 15:00 Albumin Human [Albumin 25%] 25 gm in 100 ml IV Q24H 07/25/19 10:30 Albumin Human [Albumin 25%] 25 gm in 100 ml IV Q24H 07/25/19 Breakfast Regular Diet [DIET] - Plan Plan:: Assessment/Plan: #1. GI blood loss Stable without blood loss presently #2. 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 Alcoholism with DT's will continue to treat have added Haldol. #4. Malnutrition: #5. HTN: continue with medicine #6. Nicotine addiction: Will continue with a patch #7. Hypo albuminemia: Will continue with albumin infusion 38. Hyper bilirubinemia: Alcoholism #9. History of grade C esophagitis 04/2019 Intervention completed. He is in danger to himself. Will be going for treatment soon. Will repeat blood evaluation tomorrow.
[2019-07-26] MEDS: Nicotine 21 MG/24 Hr Patch TRDERM SCH ×2 (02:58→09:56)
[2019-07-26] MEDS: Pantoprazole 40 MG Tab.CR PO SCH ×2 (07:55→15:43)
[2019-07-26] MEDS: Gabapentin 400 MG Cap PO SCH ×3 (09:56→21:18)
[2019-07-26] MEDS: Folic Acid 1 MG Tab PO SCH (09:56)
[2019-07-26] MEDS: Multivitamins with Iron/Calcium/Folic Acid/Minerals Tab PO SCH (09:56)
--- NOTE | 2019-07-26 23:21 | PCM.PN ---
- General Info Date of Service: 07/26/19 Functional Status: Reports: Pain Controlled - Review of Systems General: Reports: Weakness HEENT: Reports: No Symptoms Pulmonary: Reports: No Symptoms Cardiovascular: Reports: No Symptoms Gastrointestinal: Reports: No Symptoms Genitourinary: Reports: No Symptoms Musculoskeletal: Reports: No Symptoms Skin: Reports: No Symptoms Neurological: Reports: Tremors, Difficulty Walking, Weakness, Gait Disturbance Psychiatric: Reports: Anxiety - Patient Data Vitals - Most Recent: Last Vital Signs Temp 100.8 F H 07/26/19 22:58 Pulse 110 H 07/26/19 22:18 Resp 16 07/26/19 22:18 BP 135/77 07/26/19 22:18 Pulse Ox 96 07/26/19 22:18 Weight - Most Recent: 133 lb 3.437 oz I&O - Last 24 Hours: Intake & Output 07/26/19 07/26/19 07/27/19 14:59 22:59 06:59 Intake Total 240 Output Total 575 775 Balance -575 -535 Lab Results Last 24 Hours: Laboratory Results - last 24 hr 07/26/19 07/26/19 Range/Units 05:20 05:20 WBC 7.0 (4.5-11.0) K/uL RBC 2.83 L (4.30-5.90) M/uL Hgb 8.7 L (12.0-15.0) g/dL Hct 27.7 L (40.0-54.0) % MCV 98 (80-98) fL MCH 31 (27-31) pg MCHC 31 L (32-36) % Plt Count 178 (150-400) K/uL Neut % (Auto) 62 (36-66) % Lymph % (Auto) 20 L (24-44) % [place] % (Auto) 15 H (2-6) % Eos % (Auto) 1 L (2-4) % Baso % (Auto) 2 H (0-1) % Sodium 143 (140-148) mmol/L Potassium 4.2 (3.6-5.2) mmol/L Chloride 105 (100-108) mmol/L Carbon Dioxide 29 (21-32) mmol/L Anion Gap 8.9 (5.0-14.0) mmol/L BUN 2 L (7-18) mg/dL Creatinine 1.0 (0.8-1.3) mg/dL Est Cr Clr Drug Dosing 76.37 mL/min Estimated GFR (MDRD) > 60 (>60) Glucose 204 H (74-106) mg/dL Calcium 8.3 L (8.5-10.1) mg/dL Total Bilirubin 1.8 H (0.2-1.0) mg/dL AST 36 (15-37) U/L ALT 35 (12-78) U/L Alkaline Phosphatase 238 H (46-116) U/L Total Protein 5.6 L (6.4-8.2) g/dL Albumin 2.9 L (3.4-5.0) g/dL Globulin 2.7 (2.3-3.5) g/dL Albumin/Globulin Ratio 1.1 L (1.2-2.2) Med Orders - Current: Current Medications Al Hydroxide/Mg Hydroxide (Mag-Al Plus) 30 ml PO Q6H PRN PRN Reason: DYSPEPSIA Albuterol/Ipratropium (Duoneb 3.0-0.5 Mg/3 Ml) 3 ml INH Q2H PRN PRN Reason: SHORTNESS OF BREATH Folic Acid (Folic Acid) 1 mg PO DAILY [facility] Last Admin: 07/26/19 09:56 Dose: 1 mg Gabapentin (Neurontin) 400 mg PO TID [facility] Last Admin: 07/26/19 21:18 Dose: 400 mg Haloperidol Lactate (Haldol) 2 - 5 mg IVPUSH Q2H PRN PRN Reason: Hallucinations Last Admin: 07/23/19 10:44 Dose: 5 mg Sodium Chloride (Normal Saline) 1,000 mls @ 25 mls/hr IV ASDIRECTED [facility] Last Admin: 07/24/19 19:41 Dose: 25 mls/hr Lorazepam (Ativan) 0 mg PO ASDIRECTED PRN; Protocol PRN Reason: ETOH WITHDRAWAL Last Admin: 07/24/19 02:11 Dose: 2 mg Lorazepam (Ativan) 0 mg IV ASDIRECTED PRN; Protocol PRN Reason: ETOH WITHDRAWAL Last Admin: 07/23/19 11:09 Dose: 2 mg Lorazepam (Ativan) 0 mg IM ASDIRECTED PRN; Protocol PRN Reason: ETOH WITHDRAWAL Multivitamins/Minerals (Thera M Plus) 1 tab PO DAILY [facility] Last Admin: 07/26/19 09:56 Dose: 1 tab Nicotine (Habitrol) 21 mg TRDERM DAILY [facility] Last Admin: 07/26/19 09:56 Dose: 21 mg Ondansetron HCl (Zofran Odt) 4 mg PO Q6H PRN PRN Reason: Nausea able to take PO Last Admin: 07/21/19 13:15 Dose: 4 mg Pantoprazole Sodium (Protonix) 40 mg PO BIDAC [facility] Last Admin: 07/26/19 15:43 Dose: 40 mg Sodium Chloride (Saline Flush) 10 ml FLUSH ASDIRECTED PRN PRN Reason: Keep Vein Open Last Admin: 07/20/19 22:21 Dose: 10 ml Discontinued Medications Albuterol/Ipratropium (Duoneb 3.0-0.5 Mg/3 Ml) 3 ml NEB ONETIME ONE Stop: 07/20/19 20:41 Last Admin: 07/20/19 20:55 Dose: 3 ml Fentanyl (Sublimaze) 50 mcg IVPUSH ONETIME ONE Stop: 07/20/19 20:29 Last Admin: 07/20/19 20:44 Dose: 50 mcg Gabapentin (Neurontin) 400 mg PO ONETIME ONE Stop: 07/22/19 10:31 Last Admin: 07/22/19 12:01 Dose: 400 mg Gabapentin (Neurontin) 400 mg PO BID [facility] Stop: 07/23/19 22:00 Last Admin: 07/23/19 20:01 Dose: 400 mg Haloperidol Lactate (Haldol) 5 mg IVPUSH Q2H PRN PRN Reason: Hallucinations Last Admin: 07/22/19 14:36 Dose: 5 mg Haloperidol Lactate (Haldol) Confirm Administered Dose 5 mg .ROUTE .STK-MED ONE Stop: 07/22/19 14:31 Last Admin: 07/22/19 14:36 Dose: Not Given Lactated Ringer's (Ringers, Lactated) 1,000 mls @ 999 mls/hr IV BOLUS ONE Stop: 07/20/19 21:28 Last Admin: 07/20/19 20:40 Dose: 999 mls/hr Octreotide Acetate 500 mcg/ (Sodium Chloride) 500 mls @ 50 mls/hr IV Q10H [facility] Last Admin: 07/22/19 03:48 Dose: 50 mcg/hr, 50 mls/hr Pantoprazole Sodium 80 mg/ (Sodium Chloride) 100 mls @ 10 mls/hr IV .Q10H [facility] Last Admin: 07/22/19 04:57 Dose: 10 mls/hr Sodium Chloride (Normal Saline) 1,000 mls @ 125 mls/hr IV ASDIRECTED [facility] Last Admin: 07/22/19 13:26 Dose: 125 mls/hr Multivitamins/Minerals 10 ml/ (Sodium Chloride) 1,010 mls @ 250 mls/hr IV ONETIME ONE Stop: 07/21/19 04:02 Last Admin: 07/21/19 00:42 Dose: 250 mls/hr Multivitamins/Minerals 10 ml/ (Sodium Chloride) 1,010 mls @ 250 mls/hr IV Q24H [facility] Last Admin: 07/21/19 20:01 Dose: 250 mls/hr Albumin Human (Albumin 25%) 25 gm in 100 mls @ 25 mls/hr IV ONETIME ONE Stop: 07/21/19 11:59 Last Admin: 07/21/19 07:54 Dose: 25 mls/hr Calcium Gluconate 1 gm/ Sodium (Chloride) 110 mls @ 100 mls/hr IV Q6H [facility] Last Admin: 07/22/19 08:44 Dose: 100 mls/hr Albumin Human (Albumin 25%) 25 gm in 100 mls @ 25 mls/hr IV ONETIME ONE Stop: 07/22/19 11:59 Last Admin: 07/22/19 08:35 Dose: 25 mls/hr Sodium Chloride (Normal Saline) 1,000 mls @ 75 mls/hr IV ASDIRECTED [facility] Last Admin: 07/24/19 02:11 Dose: 75 mls/hr Albumin Human (Albumin 25%) 25 gm in 100 mls @ 25 mls/hr IV Q24H [facility] Last Admin: 07/25/19 15:52 Dose: 25 mls/hr Albumin Human (Albumin 25%) 25 gm in 100 mls @ 25 mls/hr IV Q24H [facility] Last Admin: 07/24/19 19:37 Dose: 25 mls/hr Albumin Human (Albumin 25%) 25 gm in 100 mls @ 25 mls/hr IV Q24H [facility] Stop: 07/26/19 15:00 Last Admin: 07/26/19 09:56 Dose: 25 mls/hr Lorazepam (Ativan) 1 mg IVPUSH ONETIME ONE Stop: 07/20/19 20:14 Last Admin: 07/20/19 20:21 Dose: 1 mg Lorazepam (Ativan) 1 mg IVPUSH ONETIME ONE Stop: 07/20/19 22:13 Last Admin: 07/20/19 22:19 Dose: 1 mg Octreotide Acetate (Sandostatin) 50 mcg IVPUSH ONETIME ONE Stop: 07/20/19 21:52 Last Admin: 07/20/19 22:03 Dose: 50 mcg Ondansetron HCl (Zofran) 4 mg IVPUSH ONETIME ONE Stop: 07/20/19 20:29 Last Admin: 07/20/19 20:41 Dose: 4 mg Pantoprazole Sodium (Protonix Iv) 80 mg IVPUSH .BOLUS ONE Stop: 07/20/19 20:28 Last Admin: 07/20/19 20:46 Dose: 80 mg Phytonadione (Mephyton) 10 mg PO ONETIME ONE Stop: 07/20/19 23:12 Last Admin: 07/21/19 00:47 Dose: 10 mg Potassium Chloride (Klor-Con M20) 20 meq PO ONETIME ONE Stop: 07/24/19 14:31 Last Admin: 07/24/19 14:50 Dose: 20 meq Thiamine HCl (Vitamin B-1) 100 mg PO DAILY [facility] Stop: 07/23/19 09:01 Last Admin: 07/23/19 10:44 Dose: 100 mg Thiamine HCl (Vitamin B-1) 100 mg PO ONETIME ONE Stop: 07/21/19 00:01 Last Admin: 07/21/19 00:47 Dose: 100 mg - Exam General: Alert, Oriented HEENT: Pupils Equal, Pupils Reactive, EOMI, Mucous Membr. Moist/[place] Neck: Supple Lungs: Clear to Auscultation, Normal Respiratory Effort Cardiovascular: Regular Rate, Regular Rhythm GI/Abdominal Exam: Soft Back Exam: Normal Inspection, Full Range of Motion Extremities: Normal Inspection Skin: Warm, Dry, Intact Psy/Mental Status: Withdrawal Symptoms Sepsis Event Note - Evaluation Sepsis Screening Result: No Definite Risk - Focused Exam Vital Signs: Vital Signs Temp Pulse Resp BP Pulse Ox 07/26/19 22:58 100.8 F H 07/26/19 22:18 101.3 F H 110 H 16 135/77 96 07/26/19 18:46 98.9 F 102 H 16 143/88 H 94 L 07/26/19 15:40 98.0 F 97 16 128/78 100 07/26/19 15:00 98.6 F 99 15 131/77 99 07/26/19 12:00 98.7 F 12 112/65 97 Date Exam was Performed: 07/26/19 Time Exam was Performed: 23:16 - Problem List Review Problem List Initiated/Reviewed/Updated: Yes - My Orders Last 24 Hours: My Active Orders 07/26/19 13:07 Consult to Physical Therapy [PT Evaluation and Treatment] [CONS] Routine 07/26/19 13:09 Transfer Patient (Change bed) [ADT] Routine - Plan Plan:: Assessment/Plan: #1. GI blood loss Stable without blood loss presently- Resolved blood loss but still has anemia #2. 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 Alcoholism with DT's improving. #4. Malnutrition: #5. HTN: continue with medicine #6. Nicotine addiction: Will continue with a patch #7. Hypo albuminemia: Will continue with albumin infusion 38. Hyper bilirubinemia: Alcoholism #9. History of grade C esophagitis 04/2019 Intervention completed. He is in danger to himself. a rule 25 was done today and my advice from social security specialist is that if he leaves and does not go into treatment then he'll be forced into treatment by the court system. I'll be discharging him as soon as I feel that he is medically stable. He understands that if he does start to consume alcohol that will force him into treatment immediately and it will be a commitment.
[2019-07-27] MEDS: Pantoprazole 40 MG Tab.CR PO SCH (07:28)
[2019-07-27] MEDS: Folic Acid 1 MG Tab PO SCH (09:31)
[2019-07-27] MEDS: Nicotine 21 MG/24 Hr Patch TRDERM SCH (09:31)
[2019-07-27] MEDS: Multivitamins with Iron/Calcium/Folic Acid/Minerals Tab PO SCH (09:32)
[2019-07-27] MEDS: Gabapentin 400 MG Cap PO SCH ×2 (09:32→13:24)
[2019-07-27 12:20] VITALS: BP 115/65; PULSE 93
--- NOTE | 2019-07-27 14:11 | PCM.PN ---
- General Info Date of Service: 07/27/19 Functional Status: Reports: Pain Controlled - Review of Systems General: Reports: Weakness HEENT: Reports: No Symptoms Pulmonary: Reports: No Symptoms Cardiovascular: Reports: No Symptoms Gastrointestinal: Reports: No Symptoms Genitourinary: Reports: No Symptoms Musculoskeletal: Reports: No Symptoms Skin: Reports: No Symptoms Neurological: Reports: No Symptoms, Difficulty Walking, Weakness Psychiatric: Reports: No Symptoms - Patient Data Vitals - Most Recent: Last Vital Signs Temp 97.5 F 07/27/19 12:20 Pulse 93 07/27/19 12:20 Resp 16 07/27/19 12:20 BP 115/65 07/27/19 12:20 Pulse Ox 100 07/27/19 12:20 Weight - Most Recent: 128 lb 11.2 oz I&O - Last 24 Hours: Intake & Output 07/26/19 07/27/19 07/27/19 22:59 06:59 14:59 Intake Total 240 240 Output Total 775 300 Balance -535 -60 Med Orders - Current: Current Medications Al Hydroxide/Mg Hydroxide (Mag-Al Plus) 30 ml PO Q6H PRN PRN Reason: DYSPEPSIA Albuterol/Ipratropium (Duoneb 3.0-0.5 Mg/3 Ml) 3 ml INH Q2H PRN PRN Reason: SHORTNESS OF BREATH Folic Acid (Folic Acid) 1 mg PO DAILY [facility] Last Admin: 07/27/19 09:31 Dose: 1 mg Gabapentin (Neurontin) 400 mg PO TID [facility] Last Admin: 07/27/19 13:24 Dose: 400 mg Haloperidol Lactate (Haldol) 2 - 5 mg IVPUSH Q2H PRN PRN Reason: Hallucinations Last Admin: 07/23/19 10:44 Dose: 5 mg Lorazepam (Ativan) 0 mg PO ASDIRECTED PRN; Protocol PRN Reason: ETOH WITHDRAWAL Last Admin: 07/24/19 02:11 Dose: 2 mg Lorazepam (Ativan) 0 mg IV ASDIRECTED PRN; Protocol PRN Reason: ETOH WITHDRAWAL Last Admin: 07/23/19 11:09 Dose: 2 mg Lorazepam (Ativan) 0 mg IM ASDIRECTED PRN; Protocol PRN Reason: ETOH WITHDRAWAL Multivitamins/Minerals (Thera M Plus) 1 tab PO DAILY [facility] Last Admin: 07/27/19 09:32 Dose: 1 tab Nicotine (Habitrol) 21 mg TRDERM DAILY [facility] Last Admin: 07/27/19 09:31 Dose: 21 mg Ondansetron HCl (Zofran Odt) 4 mg PO Q6H PRN PRN Reason: Nausea able to take PO Last Admin: 07/21/19 13:15 Dose: 4 mg Pantoprazole Sodium (Protonix) 40 mg PO BIDAC [facility] Last Admin: 07/27/19 07:28 Dose: 40 mg Sodium Chloride (Saline Flush) 10 ml FLUSH ASDIRECTED PRN PRN Reason: Keep Vein Open Last Admin: 07/20/19 22:21 Dose: 10 ml Discontinued Medications Albuterol/Ipratropium (Duoneb 3.0-0.5 Mg/3 Ml) 3 ml NEB ONETIME ONE Stop: 07/20/19 20:41 Last Admin: 07/20/19 20:55 Dose: 3 ml Fentanyl (Sublimaze) 50 mcg IVPUSH ONETIME ONE Stop: 07/20/19 20:29 Last Admin: 07/20/19 20:44 Dose: 50 mcg Gabapentin (Neurontin) 400 mg PO ONETIME ONE Stop: 07/22/19 10:31 Last Admin: 07/22/19 12:01 Dose: 400 mg Gabapentin (Neurontin) 400 mg PO BID [facility] Stop: 07/23/19 22:00 Last Admin: 07/23/19 20:01 Dose: 400 mg Haloperidol Lactate (Haldol) 5 mg IVPUSH Q2H PRN PRN Reason: Hallucinations Last Admin: 07/22/19 14:36 Dose: 5 mg Haloperidol Lactate (Haldol) Confirm Administered Dose 5 mg .ROUTE .STK-MED ONE Stop: 07/22/19 14:31 Last Admin: 07/22/19 14:36 Dose: Not Given Lactated Ringer's (Ringers, Lactated) 1,000 mls @ 999 mls/hr IV BOLUS ONE Stop: 07/20/19 21:28 Last Admin: 07/20/19 20:40 Dose: 999 mls/hr Octreotide Acetate 500 mcg/ (Sodium Chloride) 500 mls @ 50 mls/hr IV Q10H [facility] Last Admin: 07/22/19 03:48 Dose: 50 mcg/hr, 50 mls/hr Pantoprazole Sodium 80 mg/ (Sodium Chloride) 100 mls @ 10 mls/hr IV .Q10H [facility] Last Admin: 07/22/19 04:57 Dose: 10 mls/hr Sodium Chloride (Normal Saline) 1,000 mls @ 125 mls/hr IV ASDIRECTED [facility] Last Admin: 07/22/19 13:26 Dose: 125 mls/hr Multivitamins/Minerals 10 ml/ (Sodium Chloride) 1,010 mls @ 250 mls/hr IV ONETIME ONE Stop: 07/21/19 04:02 Last Admin: 07/21/19 00:42 Dose: 250 mls/hr Multivitamins/Minerals 10 ml/ (Sodium Chloride) 1,010 mls @ 250 mls/hr IV Q24H [facility] Last Admin: 07/21/19 20:01 Dose: 250 mls/hr Albumin Human (Albumin 25%) 25 gm in 100 mls @ 25 mls/hr IV ONETIME ONE Stop: 07/21/19 11:59 Last Admin: 07/21/19 07:54 Dose: 25 mls/hr Calcium Gluconate 1 gm/ Sodium (Chloride) 110 mls @ 100 mls/hr IV Q6H [facility] Last Admin: 07/22/19 08:44 Dose: 100 mls/hr Albumin Human (Albumin 25%) 25 gm in 100 mls @ 25 mls/hr IV ONETIME ONE Stop: 07/22/19 11:59 Last Admin: 07/22/19 08:35 Dose: 25 mls/hr Sodium Chloride (Normal Saline) 1,000 mls @ 75 mls/hr IV ASDIRECTED [facility] Last Admin: 07/24/19 02:11 Dose: 75 mls/hr Sodium Chloride (Normal Saline) 1,000 mls @ 25 mls/hr IV ASDIRECTED [facility] Last Admin: 07/24/19 19:41 Dose: 25 mls/hr Albumin Human (Albumin 25%) 25 gm in 100 mls @ 25 mls/hr IV Q24H [facility] Last Admin: 07/25/19 15:52 Dose: 25 mls/hr Albumin Human (Albumin 25%) 25 gm in 100 mls @ 25 mls/hr IV Q24H [facility] Last Admin: 07/24/19 19:37 Dose: 25 mls/hr Albumin Human (Albumin 25%) 25 gm in 100 mls @ 25 mls/hr IV Q24H [facility] Stop: 07/26/19 15:00 Last Admin: 07/26/19 09:56 Dose: 25 mls/hr Lorazepam (Ativan) 1 mg IVPUSH ONETIME ONE Stop: 07/20/19 20:14 Last Admin: 07/20/19 20:21 Dose: 1 mg Lorazepam (Ativan) 1 mg IVPUSH ONETIME ONE Stop: 07/20/19 22:13 Last Admin: 07/20/19 22:19 Dose: 1 mg Octreotide Acetate (Sandostatin) 50 mcg IVPUSH ONETIME ONE Stop: 07/20/19 21:52 Last Admin: 07/20/19 22:03 Dose: 50 mcg Ondansetron HCl (Zofran) 4 mg IVPUSH ONETIME ONE Stop: 07/20/19 20:29 Last Admin: 07/20/19 20:41 Dose: 4 mg Pantoprazole Sodium (Protonix Iv) 80 mg IVPUSH .BOLUS ONE Stop: 07/20/19 20:28 Last Admin: 07/20/19 20:46 Dose: 80 mg Phytonadione (Mephyton) 10 mg PO ONETIME ONE Stop: 07/20/19 23:12 Last Admin: 07/21/19 00:47 Dose: 10 mg Potassium Chloride (Klor-Con M20) 20 meq PO ONETIME ONE Stop: 07/24/19 14:31 Last Admin: 07/24/19 14:50 Dose: 20 meq Thiamine HCl (Vitamin B-1) 100 mg PO DAILY [facility] Stop: 07/23/19 09:01 Last Admin: 07/23/19 10:44 Dose: 100 mg Thiamine HCl (Vitamin B-1) 100 mg PO ONETIME ONE Stop: 07/21/19 00:01 Last Admin: 07/21/19 00:47 Dose: 100 mg - Exam General: Alert, Oriented HEENT: Pupils Equal, Pupils Reactive, EOMI, Mucous Membr. Moist/[place] Neck: Supple Lungs: Clear to Auscultation, Normal Respiratory Effort Cardiovascular: Regular Rate, Regular Rhythm GI/Abdominal Exam: Normal Bowel Sounds, Soft, Non-Tender, No Organomegaly, No Distention, No Abnormal Bruit, No Mass, Pelvis Stable (Male) Exam: No Hernia, Normal Inspection, Normal Prostate, Circumcised Back Exam: Normal Inspection, Full Range of Motion Extremities: Normal Inspection, Normal Range of Motion, Non-Tender, No Pedal Edema, Normal Capillary Refill Peripheral Pulses: 1+: Radial (L), Radial (R) Skin: Warm, Dry, Intact Neurological: No New Focal Deficit Psy/Mental Status: Alert, Normal Affect, Normal Mood Sepsis Event Note - Evaluation Sepsis Screening Result: No Definite Risk - Focused Exam Vital Signs: Vital Signs Temp Pulse Resp BP Pulse Ox 07/27/19 12:20 97.5 F 93 16 115/65 100 07/27/19 07:37 96.6 F L 92 18 95/55 L 95 07/27/19 02:21 98.4 F 93 16 118/69 96 Date Exam was Performed: 07/27/19 Time Exam was Performed: 14:06 - Problem List Review Problem List Initiated/Reviewed/Updated: Yes - My Orders Last 24 Hours: My Active Orders 07/26/19 13:07 Consult to Physical Therapy [PT Evaluation and Treatment] [CONS] Routine 07/26/19 13:09 Transfer Patient (Change bed) [ADT] Routine - Plan Plan:: Assessment/Plan: #1. GI blood loss Stable without blood loss presently- Resolved blood loss but still has anemia #2. 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 Alcoholism with DT's improving. #4. Malnutrition: #5. HTN: continue with medicine #6. Nicotine addiction: Will continue with a patch #7. Hypo albuminemia: Will continue with albumin infusion 38. Hyper bilirubinemia: Alcoholism #9. History of grade C esophagitis 04/2019 Intervention completed. He is in danger to himself. a rule 25 was done. If he does not go into treatment or uses alcohol then he'll be forced into treatment by the court system. Home today.
--- NOTE | 2019-07-27 14:18 | PCM.DCSUM1 ---
Discharge Summary - Hospital Course Free Text/Narrative:: Admitted from [facility] having DT's. He has a history of alcohol use in the past. Brief History: Alc. usuage and in DT's. Diagnosis: Stroke: No - Discharge Data Discharge Date: 07/27/19 Discharge Disposition: Home, Self-Care 01 Condition: Stable - Referral to Home Health Primary Care Physician: Damon Langley Sr, MD - Patient Summary/Data Consults: Consultations 07/26/19 13:07 Consult to Physical Therapy [PT Evaluation and Treatment] [CONS] Routine Please Evaluate and Treat. PT Reason for Consult: Strengthening Special Instructions: weakness following gi bleed and etoh withdrawal This query below is only for informational purposes and is not editable. Admission Diagnosis/Problem: Bleeding Hospital Course: Had a prolonged treatment for DT's requiring medication including Haldol to help him with withdrawals. A commitment has been filed and a rule 25 is completed. - Patient Instructions Diet: Heart Healthy Diet Diet, Other: No alc. Activity: As Tolerated - Discharge Plan *PRESCRIPTION DRUG MONITORING PROGRAM REVIEWED*: No *COPY OF PRESCRIPTION DRUG MONITORING REPORT IN PATIENT CIRILO: No Prescriptions/Med Rec: Gabapentin [Neurontin] 200 mg PO DAILY 3 Days #3 ml Home Medications: Home Meds Gabapentin [Neurontin] 200 mg PO DAILY 3 Days #3 ml 07/27/19 [Rx] Forms: ED Department Discharge Referrals: Damon Langley Sr, MD [Primary Care Provider] - - Discharge Summary/Plan Comment DC Time >30 min.: No Discharge Summary/Plan Comment: Assessment/Plan: #1. GI blood loss Stable without blood loss presently- Resolved blood loss but still has anemia #2. 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 Alcoholism with DT's improving. #4. Malnutrition: #5. HTN: continue with medicine #6. Nicotine addiction: Will continue with a patch #7. Hypo albuminemia: Will continue with albumin infusion 38. Hyper bilirubinemia: Alcoholism #9. History of grade C esophagitis 04/2019 Intervention completed. He is in danger to himself. a rule 25 was done. If he does not go into treatment or uses alcohol then he'll be forced into treatment by the court system. Home today. - Patient Data Vitals - Most Recent: Last Vital Signs Temp 97.5 F 07/27/19 12:20 Pulse 93 07/27/19 12:20 Resp 16 07/27/19 12:20 BP 115/65 07/27/19 12:20 Pulse Ox 100 07/27/19 12:20 Weight - Most Recent: 128 lb 11.2 oz I&O - Last 24 hours: Intake & Output 07/26/19 07/27/19 07/27/19 22:59 06:59 14:59 Intake Total 240 240 Output Total 775 300 Balance -535 -60 Med Orders - Current: Current Medications Al Hydroxide/Mg Hydroxide (Mag-Al Plus) 30 ml PO Q6H PRN PRN Reason: DYSPEPSIA Albuterol/Ipratropium (Duoneb 3.0-0.5 Mg/3 Ml) 3 ml INH Q2H PRN PRN Reason: SHORTNESS OF BREATH Folic Acid (Folic Acid) 1 mg PO DAILY [facility] Last Admin: 07/27/19 09:31 Dose: 1 mg Gabapentin (Neurontin) 400 mg PO TID [facility] Last Admin: 07/27/19 13:24 Dose: 400 mg Haloperidol Lactate (Haldol) 2 - 5 mg IVPUSH Q2H PRN PRN Reason: Hallucinations Last Admin: 07/23/19 10:44 Dose: 5 mg Lorazepam (Ativan) 0 mg PO ASDIRECTED PRN; Protocol PRN Reason: ETOH WITHDRAWAL Last Admin: 07/24/19 02:11 Dose: 2 mg Lorazepam (Ativan) 0 mg IV ASDIRECTED PRN; Protocol PRN Reason: ETOH WITHDRAWAL Last Admin: 07/23/19 11:09 Dose: 2 mg Lorazepam (Ativan) 0 mg IM ASDIRECTED PRN; Protocol PRN Reason: ETOH WITHDRAWAL Multivitamins/Minerals (Thera M Plus) 1 tab PO DAILY [facility] Last Admin: 07/27/19 09:32 Dose: 1 tab Nicotine (Habitrol) 21 mg TRDERM DAILY [facility] Last Admin: 07/27/19 09:31 Dose: 21 mg Ondansetron HCl (Zofran Odt) 4 mg PO Q6H PRN PRN Reason: Nausea able to take PO Last Admin: 07/21/19 13:15 Dose: 4 mg Pantoprazole Sodium (Protonix) 40 mg PO BIDAC [facility] Last Admin: 07/27/19 07:28 Dose: 40 mg Sodium Chloride (Saline Flush) 10 ml FLUSH ASDIRECTED PRN PRN Reason: Keep Vein Open Last Admin: 07/20/19 22:21 Dose: 10 ml Discontinued Medications Albuterol/Ipratropium (Duoneb 3.0-0.5 Mg/3 Ml) 3 ml NEB ONETIME ONE Stop: 07/20/19 20:41 Last Admin: 07/20/19 20:55 Dose: 3 ml Fentanyl (Sublimaze) 50 mcg IVPUSH ONETIME ONE Stop: 07/20/19 20:29 Last Admin: 07/20/19 20:44 Dose: 50 mcg Gabapentin (Neurontin) 400 mg PO ONETIME ONE Stop: 07/22/19 10:31 Last Admin: 07/22/19 12:01 Dose: 400 mg Gabapentin (Neurontin) 400 mg PO BID [facility] Stop: 07/23/19 22:00 Last Admin: 07/23/19 20:01 Dose: 400 mg Haloperidol Lactate (Haldol) 5 mg IVPUSH Q2H PRN PRN Reason: Hallucinations Last Admin: 07/22/19 14:36 Dose: 5 mg Haloperidol Lactate (Haldol) Confirm Administered Dose 5 mg .ROUTE .STK-MED ONE Stop: 07/22/19 14:31 Last Admin: 07/22/19 14:36 Dose: Not Given Lactated Ringer's (Ringers, Lactated) 1,000 mls @ 999 mls/hr IV BOLUS ONE Stop: 07/20/19 21:28 Last Admin: 07/20/19 20:40 Dose: 999 mls/hr Octreotide Acetate 500 mcg/ (Sodium Chloride) 500 mls @ 50 mls/hr IV Q10H [facility] Last Admin: 07/22/19 03:48 Dose: 50 mcg/hr, 50 mls/hr Pantoprazole Sodium 80 mg/ (Sodium Chloride) 100 mls @ 10 mls/hr IV .Q10H [facility] Last Admin: 07/22/19 04:57 Dose: 10 mls/hr Sodium Chloride (Normal Saline) 1,000 mls @ 125 mls/hr IV ASDIRECTED [facility] Last Admin: 07/22/19 13:26 Dose: 125 mls/hr Multivitamins/Minerals 10 ml/ (Sodium Chloride) 1,010 mls @ 250 mls/hr IV ONETIME ONE Stop: 07/21/19 04:02 Last Admin: 07/21/19 00:42 Dose: 250 mls/hr Multivitamins/Minerals 10 ml/ (Sodium Chloride) 1,010 mls @ 250 mls/hr IV Q24H [facility] Last Admin: 07/21/19 20:01 Dose: 250 mls/hr Albumin Human (Albumin 25%) 25 gm in 100 mls @ 25 mls/hr IV ONETIME ONE Stop: 07/21/19 11:59 Last Admin: 07/21/19 07:54 Dose: 25 mls/hr Calcium Gluconate 1 gm/ Sodium (Chloride) 110 mls @ 100 mls/hr IV Q6H [facility] Last Admin: 07/22/19 08:44 Dose: 100 mls/hr Albumin Human (Albumin 25%) 25 gm in 100 mls @ 25 mls/hr IV ONETIME ONE Stop: 07/22/19 11:59 Last Admin: 07/22/19 08:35 Dose: 25 mls/hr Sodium Chloride (Normal Saline) 1,000 mls @ 75 mls/hr IV ASDIRECTED [facility] Last Admin: 07/24/19 02:11 Dose: 75 mls/hr Sodium Chloride (Normal Saline) 1,000 mls @ 25 mls/hr IV ASDIRECTED [facility] Last Admin: 07/24/19 19:41 Dose: 25 mls/hr Albumin Human (Albumin 25%) 25 gm in 100 mls @ 25 mls/hr IV Q24H [facility] Last Admin: 07/25/19 15:52 Dose: 25 mls/hr Albumin Human (Albumin 25%) 25 gm in 100 mls @ 25 mls/hr IV Q24H [facility] Last Admin: 07/24/19 19:37 Dose: 25 mls/hr Albumin Human (Albumin 25%) 25 gm in 100 mls @ 25 mls/hr IV Q24H [facility] Stop: 07/26/19 15:00 Last Admin: 07/26/19 09:56 Dose: 25 mls/hr Lorazepam (Ativan) 1 mg IVPUSH ONETIME ONE Stop: 07/20/19 20:14 Last Admin: 07/20/19 20:21 Dose: 1 mg Lorazepam (Ativan) 1 mg IVPUSH ONETIME ONE Stop: 07/20/19 22:13 Last Admin: 07/20/19 22:19 Dose: 1 mg Octreotide Acetate (Sandostatin) 50 mcg IVPUSH ONETIME ONE Stop: 07/20/19 21:52 Last Admin: 07/20/19 22:03 Dose: 50 mcg Ondansetron HCl (Zofran) 4 mg IVPUSH ONETIME ONE Stop: 07/20/19 20:29 Last Admin: 07/20/19 20:41 Dose: 4 mg Pantoprazole Sodium (Protonix Iv) 80 mg IVPUSH .BOLUS ONE Stop: 07/20/19 20:28 Last Admin: 07/20/19 20:46 Dose: 80 mg Phytonadione (Mephyton) 10 mg PO ONETIME ONE Stop: 07/20/19 23:12 Last Admin: 07/21/19 00:47 Dose: 10 mg Potassium Chloride (Klor-Con M20) 20 meq PO ONETIME ONE Stop: 07/24/19 14:31 Last Admin: 07/24/19 14:50 Dose: 20 meq Thiamine HCl (Vitamin B-1) 100 mg PO DAILY [facility] Stop: 07/23/19 09:01 Last Admin: 07/23/19 10:44 Dose: 100 mg Thiamine HCl (Vitamin B-1) 100 mg PO ONETIME ONE Stop: 07/21/19 00:01 Last Admin: 07/21/19 00:47 Dose: 100 mg
== END 2019-07-27 14:30 | disposition home or self-care (01) | DRG 775 ==
LOC: JP.ED 19:48 → JP.ICU 23:00 → JP.MS 07-26 15:46
PROVIDERS: ADMIT Internal Medicine; ATTEND Internal Medicine
DX: F10.231 Alcohol dependence with withdrawal delirium (principal); K92.2 Gastrointestinal hemorrhage, unspecified; H54.7 Unspecified visual loss; F41.9 Anxiety disorder, unspecified; F17.210 Nicotine dependence, cigarettes, uncomplicated; K70.40 Alcoholic hepatic failure without coma; K92.1 Melena; E87.6 Hypokalemia; E87.1 Hypo-osmolality and hyponatremia; E46 Unspecified protein-calorie malnutrition; I10 Essential (primary) hypertension; E80.6 Other disorders of bilirubin metabolism; E88.09 Other disorders of plasma-protein metabolism, not elsewhere classified; D50.0 Iron deficiency anemia secondary to blood loss (chronic); K70.30 Alcoholic cirrhosis of liver without ascites; Z90.49 Acquired absence of other specified parts of digestive tract; Z79.899 Other long term (current) drug therapy; Z68.1 Body mass index [BMI] 19.9 or less, adult
CPT/HCPCS: 36415; 71045; 80048; 80053; 80307; 82140; 82272; 82310; 84484; 85025; 85610; 85730; 86850; 86900; 86901; 94640; 96361; 96374; 96375; 96376; 99285-25; A9270-GY; C9113; J0610; J1630; J2060; J2354; J2405; J3010; J7030; J7040; J7050; J7120; J7620-GY; P9047

== ENCOUNTER 2019-08-05 11:49 | Inpatient (IN) | payer BC ==
--- NOTE | 2019-08-05 12:27 | PCM.HP.2 ---
H&P History of Present Illness - General Date of Service: 08/05/19 Admit Problem/Dx: Admission Diagnosis/Problem Admission Diagnosis/Problem Delirium Source of Information: Patient, Family History Limitations: Reports: No Limitations - History of Present Illness Initial Comments - Free Text/Narative: Brennan has been drinking alc. for the last 5 days. Today he started to vomit blood. His girlfriend called and admitted him to the ICU as he goes into DT's and difficult to withdraw without extended time and high dose of medicine. Last time we had to use Haldol, Valium and Ativan. Onset of Symptoms: Reports: Gradual Duration of Symptoms: Reports: Day(s): Location: Reports: Generalized Associated Symptoms: Reports: Weakness - Related Data Allergies/Adverse Reactions: Allergies Allergy/AdvReac Type Severity Reaction Status Date / Time No Known Allergies Allergy Verified 07/21/19 01:05 Home Medications: Home Meds Gabapentin [Neurontin] 200 mg PO DAILY 3 Days #3 ml 07/27/19 [Rx] Past Medical History HEENT History: Reports: Impaired Vision Respiratory History: Reports: Pneumothorax Gastrointestinal History: Reports: Chronic Constipation, Chronic Diarrhea, Cirrhosis Other Gastrointestinal History: diverticulitis Musculoskeletal History: Reports: Other (See Below) Other Musculoskeletal History: shaking unstaedy Neurological History: Reports: Other (See Below) Other Neuro History: Past etoh withdrawal Psychiatric History: Reports: Addiction, Anxiety, Other (See Below) Other Psychiatric History: ineffective coping Hematologic History: Reports: Anemia Immunologic History: Reports: Other (See Below) Other Immunologic History: lymes? - Infectious Disease History Infectious Disease History: Reports: Chicken Pox - Past Surgical History GI Surgical History: Reports: Cholecystectomy Social & Family History - Tobacco Use Smoking Status *Q: Current Every Day Smoker Years of Tobacco use: 35 Packs/Tins Daily: 1 Used Tobacco, but Quit: No Second Hand Smoke Exposure: No - Caffeine Use Caffeine Use: Reports: Coffee - Alcohol Use Days Per Week of Alcohol Use: 7 Number of Drinks Per Day: 6 Total Drinks Per Week: 42 Date of Last Drink: 08/05/19 Time of Last Drink: 12:00 - Recreational Drug Use Recreational Drug Use: No H&P Review of Systems - Review of Systems: Review Of Systems: See Below General: Reports: Weakness HEENT: Reports: No Symptoms Pulmonary: Reports: No Symptoms Cardiovascular: Reports: No Symptoms Gastrointestinal: Reports: No Symptoms Genitourinary: Reports: No Symptoms Musculoskeletal: Reports: No Symptoms Skin: Reports: No Symptoms Exam - Exam Exam: See Below - Vital Signs Vital Signs: Last Vital Signs Temp 97.4 F 08/05/19 12:04 Pulse 93 08/05/19 12:04 Resp 11 L 08/05/19 12:04 BP 125/62 08/05/19 12:04 Pulse Ox 100 08/05/19 12:04 Weight: 288 lb 12.889 oz - Exam General: Alert, Oriented, 4 HEENT: PERRLA, Hearing Intact, Mucosa Moist & [place], Nares Patent, Normal Nasal Septum, Posterior Pharynx Clear, Conjunctiva Clear, EOMI, EACs Clear, TMs Clear Neck: Supple, Trachea Midline, 2 Lungs: Clear to Auscultation, Normal Respiratory Effort GI/Abdominal Exam: Normal Bowel Sounds, Soft, Non-Tender, No Organomegaly, No Distention, No Abnormal Bruit, No Mass, Pelvis Stable Back Exam: Normal Inspection, Full Range of Motion, NT Extremities: Normal Inspection Peripheral Pulses: 1+: Radial (L), Radial (R) Skin: Warm, Dry, Intact Neuro Extensive - Mental Status: Alert, Oriented x3 DTR: 1+: Bicep (L), Bicep (R) Psychiatric: Alert, Normal Affect, Normal Mood Sepsis Event Note - Focused Exam Vital Signs: Vital Signs Temp Pulse Resp BP Pulse Ox 08/05/19 12:04 97.4 F 93 11 L 125/62 100 Date Exam was Performed: 08/05/19 Time Exam was Performed: 12:21 Problem List Initiated/Reviewed/Updated: Yes Orders Last 24hrs: Active Orders 24 hr Category Date Time Status Patient Status [ADT] Routine ADT 08/05/19 12:06 Ordered Cardiac Monitoring [RC] .As Directed Care 08/05/19 12:17 Ordered Intake and Output [RC] QSHIFT Care 08/05/19 12:17 Ordered Oxygen Therapy [RC] PRN Care 08/05/19 12:06 Ordered Up to Chair [RC] QID Care 08/05/19 12:05 Ordered VTE/DVT Education [RC] Per Unit Routine Care 08/05/19 12:06 Ordered Vital Signs [RC] Q4H Care 08/05/19 12:06 Ordered Regular Diet [DIET] Diet 08/05/19 Dinner Ordered Chest 2V [CR] Routine Exams 08/05/19 12:05 Ordered CBC WITH AUTO DIFF [HEME] Routine Lab 08/05/19 12:05 Ordered COMPREHENSIVE METABOLIC PN,CMP [CHEM] Routine Lab 08/05/19 12:05 Ordered INR,PT,PROTHROMBIN TIME [COAG] Routine Lab 08/05/19 12:05 Ordered UA W/MICROSCOPIC [URIN] Routine Lab 08/05/19 12:05 Ordered Resuscitation Status Routine Resus Stat 08/05/19 12:05 Ordered Assessment/Plan Comment:: Assessment/Plan: #1. Alcoholism with impending DT's. Will start on medication will give meds as needed. #2. GI blood loss: Plt drop with the alcohol intake. Blood evaluation pending. #3. Nicotine addiction: Will start a patch. #4. Thrombocytopenia: Count pending,. #5. Hyper bilirubinemia; Secondary to alc. intake with liver dysfunction. #6. Hepatitis C: #7. HTN:
[2019-08-05] MEDS ORDERED: Sodium Chloride 0.9% 10 ML Syringe FLUSH PRN ×2 (12:51)
[2019-08-05] MEDS: Nicotine 21 MG/24 Hr Patch TRDERM SCH (12:59)
[2019-08-05] MEDS: Gabapentin 400 MG Cap PO SCH ×2 (12:59→20:29)
[2019-08-05] MEDS ORDERED: LORazepam 2 MG/ML SDV IV PRN (13:00)
[2019-08-05] MEDS: LORazepam 1 MG Tab PO PRN ×5 (13:40→21:40)
[2019-08-05] MEDS: Thiamine 100 MG Tab PO SCH (14:18)
[2019-08-05] MEDS: Folic Acid 1 MG Tab PO SCH (14:18)
[2019-08-05] MEDS: Pantoprazole 40 MG Tab.CR PO SCH (16:40)
[2019-08-05] MEDS: Carbamide Peroxide 6.5% Otic Soln 15 ML Bottle EARBOTH SCH (20:30)
[2019-08-05] MEDS ORDERED: Haloperidol Lactate 5 MG/ML SDV IVPUSH PRN (23:15)
[2019-08-05] MEDS: Haloperidol Lactate 5 MG/ML SDV IVPUSH PRN (23:27)
[2019-08-06] MEDS: Haloperidol Lactate 5 MG/ML SDV IVPUSH PRN (05:12)
[2019-08-06] MEDS: Pantoprazole 40 MG Tab.CR PO SCH (08:25)
[2019-08-06] MEDS: Thiamine 100 MG Tab PO SCH (08:30)
[2019-08-06] MEDS: Gabapentin 400 MG Cap PO SCH ×3 (08:30→21:49)
[2019-08-06] MEDS: Nicotine 21 MG/24 Hr Patch TRDERM SCH (08:31)
[2019-08-06] MEDS: LORazepam 1 MG Tab PO PRN ×5 (08:31→23:25)
[2019-08-06] MEDS: Folic Acid 1 MG Tab PO SCH (08:31)
[2019-08-06] MEDS: Carbamide Peroxide 6.5% Otic Soln 15 ML Bottle EARBOTH SCH ×2 (08:32→21:49)
--- NOTE | 2019-08-06 10:05 | CR ---
CHEST: 2 view CLINICAL HISTORY:Check for infiltrate COMPARISON:07/20/2019 FINDINGS: There is a small defined density near the cardiac apex on the PA film.. There is some density in the infrahilar region posteriorly as well as over the cardiac silhouette on the lateral. Impression: New left lower lung density may represent the left lower lobe or lingular infiltrate. Short-term follow-up recommended until clear
[2019-08-06] MEDS: cefTRIAXone 1 GM in Sodium Chloride 0.9% 50 ML IV SCH (11:06)
--- NOTE | 2019-08-06 17:20 | PCM.PN ---
- General Info Date of Service: 08/06/19 Functional Status: Reports: Pain Controlled - Review of Systems General: Reports: Weakness HEENT: Reports: No Symptoms Pulmonary: Reports: No Symptoms Cardiovascular: Reports: No Symptoms Gastrointestinal: Reports: No Symptoms Genitourinary: Reports: No Symptoms Musculoskeletal: Reports: No Symptoms Neurological: Reports: Difficulty Walking, Weakness, Gait Disturbance Psychiatric: Reports: Hallucinations - Patient Data Vitals - Most Recent: Last Vital Signs Temp 98.2 F 08/06/19 16:00 Pulse 109 H 08/06/19 16:00 Resp 17 08/06/19 16:00 BP 136/80 08/06/19 16:00 Pulse Ox 98 08/06/19 16:00 Weight - Most Recent: 288 lb 12.889 oz I&O - Last 24 Hours: Intake & Output 08/06/19 08/06/19 08/06/19 06:59 14:59 22:59 Intake Total 770 240 Output Total 750 Balance 770 -510 Lab Results Last 24 Hours: Laboratory Results - last 24 hr 08/05/19 08/06/19 08/06/19 Range/Units 21:54 06:00 06:00 WBC 7.7 (4.5-11.0) K/uL RBC 3.10 L (4.30-5.90) M/uL Hgb 9.8 L (12.0-15.0) g/dL Hct 30.2 L (40.0-54.0) % MCV 97 (80-98) fL MCH 32 H (27-31) pg MCHC 33 (32-36) % Plt Count 462 H (150-400) K/uL Sodium 139 L (140-148) mmol/L Potassium 3.7 (3.6-5.2) mmol/L Chloride 105 (100-108) mmol/L Carbon Dioxide 24 (21-32) mmol/L Anion Gap 13.7 (5.0-14.0) mmol/L BUN 8 (7-18) mg/dL Creatinine 1.1 (0.8-1.3) mg/dL Est Cr Clr Drug Dosing 81.23 mL/min Estimated GFR (MDRD) > 60 (>60) Glucose 91 (74-106) mg/dL Calcium 7.4 L (8.5-10.1) mg/dL Total Bilirubin 0.8 (0.2-1.0) mg/dL AST 52 H (15-37) U/L ALT 40 (12-78) U/L Alkaline Phosphatase 138 H (46-116) U/L Total Protein 5.4 L (6.4-8.2) g/dL Albumin 2.3 L (3.4-5.0) g/dL Globulin 3.1 (2.3-3.5) g/dL Albumin/Globulin Ratio 0.7 L (1.2-2.2) Urine Color Yellow (YELLOW) Urine Appearance Slightly cloudy A (CLEAR) Urine pH 8.0 (5.0-8.0) Ur Specific [place] 1.020 (1.008-1.030) Urine Protein 30 H (NEGATIVE) mg/dL Urine Glucose (UA) Negative (NEGATIVE) mg/dL Urine Ketones Negative (NEGATIVE) mg/dL Urine Occult Blood Negative (NEGATIVE) Urine Nitrite Negative (NEGATIVE) Urine Bilirubin Negative (NEGATIVE) Urine Urobilinogen 1.0 (0.2-1.0) EU/dL Ur Leukocyte Esterase Negative (NEGATIVE) Urine RBC 0-5 (0-5) Urine WBC 0-5 (0-5) Ur Epithelial Cells Not seen Amorphous Sediment Not seen Urine Bacteria Few Urine Mucus Many Med Orders - Current: Current Medications Carbamide Perox/Anhydrous Glycerin (Debrox 6.5% Otic Soln) 0 ml EARBOTH BID [facility] Last Admin: 08/06/19 08:32 Dose: 1 drop Folic Acid (Folic Acid) 1 mg PO DAILY [facility] Last Admin: 08/06/19 08:31 Dose: 1 mg Gabapentin (Neurontin) 400 mg PO TID [facility] Last Admin: 08/06/19 13:47 Dose: 400 mg Haloperidol Lactate (Haldol) 1 - 3 mg IVPUSH Q1H PRN PRN Reason: Anxiety Last Admin: 08/06/19 05:12 Dose: 2 mg Ceftriaxone Sodium 1 gm/ (Sodium Chloride) 50 mls @ 100 mls/hr IV Q24H [facility] Last Admin: 08/06/19 11:06 Dose: 100 mls/hr Lorazepam (Ativan) 0 mg IV ASDIRECTED PRN; Protocol PRN Reason: ETOH WITHDRAWAL Last Admin: 08/06/19 00:14 Dose: 1 mg Lorazepam (Ativan) 0 mg PO ASDIRECTED PRN; Protocol PRN Reason: ETOH WITHDRAWAL Last Admin: 08/06/19 16:09 Dose: 1 mg Nicotine (Habitrol) 21 mg TRDERM DAILY [facility] Last Admin: 08/06/19 08:31 Dose: 21 mg Pantoprazole Sodium (Protonix) 40 mg PO DAILY@0730 [facility] Last Admin: 08/06/19 08:25 Dose: 40 mg Sodium Chloride (Saline Flush) 10 ml FLUSH ASDIRECTED PRN PRN Reason: Keep Vein Open Last Admin: 08/05/19 13:41 Dose: 10 ml Thiamine HCl (Vitamin B-1) 100 mg PO DAILY [facility] Last Admin: 08/06/19 08:30 Dose: 100 mg Discontinued Medications Haloperidol Lactate (Haldol) 103 mg IVPUSH Q1H PRN PRN Reason: Anxiety Sepsis Event Note - Evaluation Sepsis Screening Result: No Definite Risk - Focused Exam Vital Signs: Vital Signs Temp Pulse Resp BP Pulse Ox 08/06/19 16:00 98.2 F 109 H 17 136/80 98 08/06/19 14:00 98.2 F 101 H 18 140/81 99 08/06/19 12:00 99.2 F 93 14 125/67 98 08/06/19 10:00 93 16 120/67 91 L 08/06/19 08:00 98.7 F 101 H 15 115/65 99 08/06/19 06:00 92 16 132/80 97 Date Exam was Performed: 08/06/19 Time Exam was Performed: 17:16 - Problem List Review Problem List Initiated/Reviewed/Updated: Yes - My Orders Last 24 Hours: My Active Orders 08/05/19 18:00 Vital Signs [RC] Q2H 08/05/19 21:00 Carbamide Peroxide [Debrox 6.5% Otic Soln] 0 ml EARBOTH BID 08/05/19 23:18 Haloperidol Lactate [Haldol] 1 - 3 mg IVPUSH Q1H PRN 08/05/19 Dinner Regular Diet [DIET] 08/06/19 10:25 Dietary Supplements [RC] BIDMEALS 08/06/19 11:00 cefTRIAXone [Rocephin] 1 gm Sodium Chloride 0.9% [Normal Saline] 50 ml IV Q24H - Plan Plan:: Assessment/Plan: #1. Alcoholism with DT's. Will continue with Meds for Dt's #2. GI blood loss: Hb drop with the alcohol intake. #3. Nicotine addiction: Will continue with a patch. #4. Thrombocytopenia: Not low this visit. Was elevted yesterday and is dropping presently. #5. Hyper bilirubinemia; Secondary to alc. intake with liver dysfunction. #6. Hepatitis C: #7. HTN:
[2019-08-07] MEDS: Pantoprazole 40 MG Tab.CR PO SCH (09:20)
[2019-08-07] MEDS: Carbamide Peroxide 6.5% Otic Soln 15 ML Bottle EARBOTH SCH ×2 (09:20→21:33)
[2019-08-07] MEDS: Gabapentin 400 MG Cap PO SCH ×3 (09:21→21:33)
[2019-08-07] MEDS: Nicotine 21 MG/24 Hr Patch TRDERM SCH ×2 (09:21→11:31)
[2019-08-07] MEDS: Thiamine 100 MG Tab PO SCH (09:21)
[2019-08-07] MEDS: Folic Acid 1 MG Tab PO SCH (09:21)
[2019-08-07] MEDS: cefTRIAXone 1 GM in Sodium Chloride 0.9% 50 ML IV SCH (11:02)
[2019-08-07] MEDS: LORazepam 1 MG Tab PO PRN ×3 (12:12→21:33)
[2019-08-08] MEDS: LORazepam 1 MG Tab PO PRN (05:16)
[2019-08-08 06:04] VITALS: PULSE 88
[2019-08-08] MEDS: Pantoprazole 40 MG Tab.CR PO SCH (07:40)
[2019-08-08] MEDS: Folic Acid 1 MG Tab PO SCH (09:04)
[2019-08-08] MEDS: Gabapentin 400 MG Cap PO SCH (09:04)
[2019-08-08] MEDS: Carbamide Peroxide 6.5% Otic Soln 15 ML Bottle EARBOTH SCH (09:04)
[2019-08-08] MEDS: Nicotine 21 MG/24 Hr Patch TRDERM SCH (09:05)
[2019-08-08] MEDS: Thiamine 100 MG Tab PO SCH (09:05)
[2019-08-08 10:09] VITALS: BP 130/81
--- NOTE | 2019-08-08 10:59 | PCM.PN ---
- General Info Date of Service: 08/07/19 Functional Status: Reports: Pain Controlled - Review of Systems General: Reports: Weakness HEENT: Reports: No Symptoms Pulmonary: Reports: No Symptoms Cardiovascular: Reports: No Symptoms Gastrointestinal: Reports: No Symptoms Genitourinary: Reports: No Symptoms Musculoskeletal: Reports: No Symptoms Skin: Reports: No Symptoms Neurological: Reports: Weakness Psychiatric: Reports: Anxiety - Patient Data Vitals - Most Recent: Last Vital Signs Temp 98 F 08/08/19 07:51 Pulse 88 08/08/19 05:55 Resp 16 08/08/19 10:00 BP 130/81 08/08/19 10:00 Pulse Ox 98 08/08/19 07:51 Weight - Most Recent: 288 lb 12.889 oz I&O - Last 24 Hours: Intake & Output 08/07/19 08/08/19 08/08/19 22:59 06:59 14:59 Output Total 300 Balance -300 Med Orders - Current: Current Medications Carbamide Perox/Anhydrous Glycerin (Debrox 6.5% Otic Soln) 0 ml EARBOTH BID [facility] Last Admin: 08/08/19 09:04 Dose: 1 drop Folic Acid (Folic Acid) 1 mg PO DAILY [facility] Last Admin: 08/08/19 09:04 Dose: 1 mg Gabapentin (Neurontin) 400 mg PO TID [facility] Last Admin: 08/08/19 09:04 Dose: 400 mg Haloperidol Lactate (Haldol) 1 - 3 mg IVPUSH Q1H PRN PRN Reason: Anxiety Last Admin: 08/06/19 05:12 Dose: 2 mg Ceftriaxone Sodium 1 gm/ (Sodium Chloride) 50 mls @ 100 mls/hr IV Q24H [facility] Last Admin: 08/07/19 11:02 Dose: 100 mls/hr Lorazepam (Ativan) 0 mg IV ASDIRECTED PRN; Protocol PRN Reason: ETOH WITHDRAWAL Last Admin: 08/06/19 00:14 Dose: 1 mg Lorazepam (Ativan) 0 mg PO ASDIRECTED PRN; Protocol PRN Reason: ETOH WITHDRAWAL Last Admin: 08/08/19 05:16 Dose: 1 mg Nicotine (Habitrol) 21 mg TRDERM DAILY [facility] Last Admin: 08/08/19 09:05 Dose: 21 mg Pantoprazole Sodium (Protonix) 40 mg PO DAILY@0730 [facility] Last Admin: 08/08/19 07:40 Dose: 40 mg Sodium Chloride (Saline Flush) 10 ml FLUSH ASDIRECTED PRN PRN Reason: Keep Vein Open Last Admin: 08/05/19 13:41 Dose: 10 ml Thiamine HCl (Vitamin B-1) 100 mg PO DAILY [facility] Last Admin: 08/08/19 09:05 Dose: 100 mg Discontinued Medications Haloperidol Lactate (Haldol) 103 mg IVPUSH Q1H PRN PRN Reason: Anxiety - Exam General: Alert, Oriented HEENT: Pupils Equal, Pupils Reactive, EOMI, Mucous Membr. Moist/[place] Neck: Supple Lungs: Clear to Auscultation, Normal Respiratory Effort Cardiovascular: Regular Rate, Regular Rhythm GI/Abdominal Exam: Normal Bowel Sounds, Soft, Non-Tender, No Organomegaly, No Distention, No Abnormal Bruit, No Mass, Pelvis Stable Back Exam: Normal Inspection, Full Range of Motion Extremities: No Pedal Edema Peripheral Pulses: 1+: Radial (L), Radial (R) Skin: Warm, Dry, Intact Neurological: No New Focal Deficit Psy/Mental Status: Withdrawal Symptoms Sepsis Event Note - Evaluation Sepsis Screening Result: No Definite Risk - Focused Exam Vital Signs: Vital Signs Temp Pulse Resp BP Pulse Ox 08/08/19 10:00 16 130/81 08/08/19 07:51 98 F 16 134/84 98 08/08/19 05:55 88 21 H 125/80 97 08/08/19 04:00 83 14 112/72 98 08/08/19 02:00 97.9 F 93 20 133/81 97 08/08/19 00:00 87 13 121/75 99 Date Exam was Performed: 08/08/19 Time Exam was Performed: 10:53 - Problem List Review Problem List Initiated/Reviewed/Updated: Yes - Plan Plan:: Assessment/Plan: #1. Alcoholism with DT's. Will continue with Meds for Dt's #2. GI blood loss: Hb drop with the alcohol intake. #3. Nicotine addiction: Will continue with a patch. #4. Thrombocytopenia: Not low this visit. Was elevated yesterday and is dropping presently. #5. Hyper bilirubinemia; Secondary to alc. intake with liver dysfunction. #6. Hepatitis C: #7. HTN: elevated today 130's.. #8. Pneumonia: There is a new infiltrate on the left lung which is new from last week. I started him on Rocephin yesterday.
[2019-08-08] MEDS ORDERED: Azithromycin 250 MG Tab PO SCH (11:30)
--- NOTE | 2019-08-08 11:48 | PCM.PN ---
- General Info Date of Service: 08/08/19 Functional Status: Reports: Pain Controlled - Review of Systems General: Reports: Weakness HEENT: Reports: No Symptoms Pulmonary: Reports: No Symptoms Cardiovascular: Reports: No Symptoms Gastrointestinal: Reports: No Symptoms Genitourinary: Reports: No Symptoms Musculoskeletal: Reports: No Symptoms Skin: Reports: No Symptoms Neurological: Reports: No Symptoms Psychiatric: Reports: No Symptoms - Patient Data Vitals - Most Recent: Last Vital Signs Temp 98 F 08/08/19 07:51 Pulse 88 08/08/19 05:55 Resp 16 08/08/19 10:00 BP 130/81 08/08/19 10:00 Pulse Ox 98 08/08/19 07:51 Weight - Most Recent: 288 lb 12.889 oz I&O - Last 24 Hours: Intake & Output 08/07/19 08/08/19 08/08/19 22:59 06:59 14:59 Output Total 300 Balance -300 Lab Results Last 24 Hours: Laboratory Results - last 24 hr 08/08/19 08/08/19 Range/Units 11:02 11:02 WBC 9.0 (4.5-11.0) K/uL RBC 3.60 L (4.30-5.90) M/uL Hgb 11.2 L (12.0-15.0) g/dL Hct 36.0 L (40.0-54.0) % MCV 100 H (80-98) fL MCH 31 (27-31) pg MCHC 31 L (32-36) % Plt Count 359 (150-400) K/uL Neut % (Auto) 70 H (36-66) % Lymph % (Auto) 22 L (24-44) % [place] % (Auto) 5 (2-6) % Eos % (Auto) 3 (2-4) % Baso % (Auto) 0 (0-1) % Sodium 141 (140-148) mmol/L Potassium 4.3 (3.6-5.2) mmol/L Chloride 104 (100-108) mmol/L Carbon Dioxide 26 (21-32) mmol/L Anion Gap 10.6 (5.0-14.0) mmol/L BUN 7 (7-18) mg/dL Creatinine 1.0 (0.8-1.3) mg/dL Est Cr Clr Drug Dosing 89.36 mL/min Estimated GFR (MDRD) > 60 (>60) Glucose 129 H (74-106) mg/dL Calcium 8.1 L (8.5-10.1) mg/dL Total Bilirubin 0.7 (0.2-1.0) mg/dL AST 32 (15-37) U/L ALT 35 (12-78) U/L Alkaline Phosphatase 157 H (46-116) U/L Total Protein 6.6 (6.4-8.2) g/dL Albumin 2.6 L (3.4-5.0) g/dL Globulin 4.0 H (2.3-3.5) g/dL Albumin/Globulin Ratio 0.7 L (1.2-2.2) Med Orders - Current: Current Medications Carbamide Perox/Anhydrous Glycerin (Debrox 6.5% Otic Soln) 0 ml EARBOTH BID [facility] Last Admin: 08/08/19 09:04 Dose: 1 drop Folic Acid (Folic Acid) 1 mg PO DAILY [facility] Last Admin: 08/08/19 09:04 Dose: 1 mg Gabapentin (Neurontin) 400 mg PO TID [facility] Last Admin: 08/08/19 09:04 Dose: 400 mg Haloperidol Lactate (Haldol) 1 - 3 mg IVPUSH Q1H PRN PRN Reason: Anxiety Last Admin: 08/06/19 05:12 Dose: 2 mg Ceftriaxone Sodium 1 gm/ (Sodium Chloride) 50 mls @ 100 mls/hr IV Q24H [facility] Last Admin: 08/07/19 11:02 Dose: 100 mls/hr Lorazepam (Ativan) 0 mg IV ASDIRECTED PRN; Protocol PRN Reason: ETOH WITHDRAWAL Last Admin: 08/06/19 00:14 Dose: 1 mg Lorazepam (Ativan) 0 mg PO ASDIRECTED PRN; Protocol PRN Reason: ETOH WITHDRAWAL Last Admin: 08/08/19 05:16 Dose: 1 mg Nicotine (Habitrol) 21 mg TRDERM DAILY [facility] Last Admin: 08/08/19 09:05 Dose: 21 mg Pantoprazole Sodium (Protonix) 40 mg PO DAILY@0730 [facility] Last Admin: 08/08/19 07:40 Dose: 40 mg Sodium Chloride (Saline Flush) 10 ml FLUSH ASDIRECTED PRN PRN Reason: Keep Vein Open Last Admin: 08/05/19 13:41 Dose: 10 ml Thiamine HCl (Vitamin B-1) 100 mg PO DAILY [facility] Last Admin: 08/08/19 09:05 Dose: 100 mg Discontinued Medications Haloperidol Lactate (Haldol) 103 mg IVPUSH Q1H PRN PRN Reason: Anxiety - Exam General: Alert, Oriented HEENT: Pupils Equal, Pupils Reactive, EOMI, Mucous Membr. Moist/[place] Neck: Supple Lungs: Clear to Auscultation, Normal Respiratory Effort Cardiovascular: Regular Rate, Regular Rhythm GI/Abdominal Exam: Normal Bowel Sounds, Soft, Non-Tender, No Organomegaly, No Distention, No Abnormal Bruit, No Mass, Pelvis Stable (Male) Exam: No Hernia, Normal Inspection, Normal Prostate, Circumcised Back Exam: Normal Inspection, Full Range of Motion Extremities: Normal Inspection, Normal Range of Motion, Non-Tender, No Pedal Edema, Normal Capillary Refill Peripheral Pulses: 1+: Radial (L), Radial (R) Skin: Warm, Dry, Intact Neurological: No New Focal Deficit Psy/Mental Status: Alert, Anxious Sepsis Event Note - Evaluation Sepsis Screening Result: No Definite Risk - Focused Exam Vital Signs: Vital Signs Temp Pulse Resp BP Pulse Ox 08/08/19 10:00 16 130/81 08/08/19 07:51 98 F 16 134/84 98 08/08/19 05:55 88 21 H 125/80 97 08/08/19 04:00 83 14 112/72 98 08/08/19 02:00 97.9 F 93 20 133/81 97 08/08/19 00:00 87 13 121/75 99 Date Exam was Performed: 08/08/19 Time Exam was Performed: 11:43 - Problem List Review Problem List Initiated/Reviewed/Updated: Yes - My Orders Last 24 Hours: My Active Orders 08/08/19 11:42 Ready for Discharge [RC] PER UNIT ROUTINE - Plan Plan:: Assessment/Plan: #1. Alcoholism with DT's. Dt's resolved will discharge home. #2. GI blood loss: Hb stable 11.2. #3. Nicotine addiction: #4. Thrombocytopenia: Normal at time of discharge 359,000. #5. Hyper bilirubinemia; Normal at 0.7. #6. Hepatitis C: #7. HTN: elevated today 130's.. #8. Pneumonia: There is a new infiltrate on the left lung which is new from last week. I started him on Zithromax Z-cristela. Home today. He understands that if he drinks his girl friend will call the police and I will sign a commitment as he is in danger to himself.
[2019-08-08] MEDS: cefTRIAXone 1 GM in Sodium Chloride 0.9% 50 ML IV SCH (11:54)
--- NOTE | 2019-08-08 11:55 | PCM.DCSUM1 ---
Discharge Summary - Hospital Course Brief History: History of alcohol consumption and started to vomit blood today and came in for detox as he has been drinking a significant amount of alcohol. Diagnosis: Stroke: No - Discharge Data Discharge Date: 08/08/19 Discharge Disposition: Home, Self-Care 01 Condition: Good - Referral to Home Health Primary Care Physician: Damon Langley Sr, MD - Patient Summary/Data Hospital Course: He was given medicine to help him as he was in DT's. He brought up blood only for the first day. His plts. were elevated this visit. Hb stabilized at 11.2 at the time of discharge. - Patient Instructions Diet: Heart Healthy Diet Activity: As Tolerated - Discharge Plan *PRESCRIPTION DRUG MONITORING PROGRAM REVIEWED*: No *COPY OF PRESCRIPTION DRUG MONITORING REPORT IN PATIENT CIRILO: No Home Medications: Home Meds NK [No Known Home Meds] 08/05/19 [History] Patient Handouts: Gastrointestinal Bleeding, [id number] - Discharge Summary/Plan Comment DC Time >30 min.: No Discharge Summary/Plan Comment: Assessment/Plan: #1. Alcoholism with DT's. Dt's resolved will discharge home. #2. GI blood loss: Hb stable 11.2. #3. Nicotine addiction: #4. Thrombocytopenia: Normal at time of discharge 359,000. #5. Hyper bilirubinemia; Normal at 0.7. #6. Hepatitis C: #7. HTN: elevated today 130's.. #8. Pneumonia: There is a new infiltrate on the left lung which is new from last week. I started him on Zithromax Z-cristela. Home today. He understands that if he drinks his girl friend will call the police and I will sign a commitment as he is in danger to himself. - General Info Date of Service: 08/08/19 Functional Status: Reports: Pain Controlled - Review of Systems General: Reports: Weakness HEENT: Reports: No Symptoms Pulmonary: Reports: No Symptoms Cardiovascular: Reports: No Symptoms Gastrointestinal: Reports: No Symptoms Genitourinary: Reports: No Symptoms Musculoskeletal: Reports: No Symptoms Skin: Reports: No Symptoms Neurological: Reports: No Symptoms Psychiatric: Reports: No Symptoms - Patient Data Vitals - Most Recent: Last Vital Signs Temp 98 F 08/08/19 07:51 Pulse 88 08/08/19 05:55 Resp 16 08/08/19 10:00 BP 130/81 08/08/19 10:00 Pulse Ox 98 08/08/19 07:51 Weight - Most Recent: 288 lb 12.889 oz I&O - Last 24 hours: Intake & Output 08/07/19 08/08/19 08/08/19 22:59 06:59 14:59 Output Total 300 Balance -300 Lab Results - Last 24 hrs: Laboratory Results - last 24 hr 08/08/19 08/08/19 Range/Units 11:02 11:02 WBC 9.0 (4.5-11.0) K/uL RBC 3.60 L (4.30-5.90) M/uL Hgb 11.2 L (12.0-15.0) g/dL Hct 36.0 L (40.0-54.0) % MCV 100 H (80-98) fL MCH 31 (27-31) pg MCHC 31 L (32-36) % Plt Count 359 (150-400) K/uL Neut % (Auto) 70 H (36-66) % Lymph % (Auto) 22 L (24-44) % [place] % (Auto) 5 (2-6) % Eos % (Auto) 3 (2-4) % Baso % (Auto) 0 (0-1) % Sodium 141 (140-148) mmol/L Potassium 4.3 (3.6-5.2) mmol/L Chloride 104 (100-108) mmol/L Carbon Dioxide 26 (21-32) mmol/L Anion Gap 10.6 (5.0-14.0) mmol/L BUN 7 (7-18) mg/dL Creatinine 1.0 (0.8-1.3) mg/dL Est Cr Clr Drug Dosing 89.36 mL/min Estimated GFR (MDRD) > 60 (>60) Glucose 129 H (74-106) mg/dL Calcium 8.1 L (8.5-10.1) mg/dL Total Bilirubin 0.7 (0.2-1.0) mg/dL AST 32 (15-37) U/L ALT 35 (12-78) U/L Alkaline Phosphatase 157 H (46-116) U/L Total Protein 6.6 (6.4-8.2) g/dL Albumin 2.6 L (3.4-5.0) g/dL Globulin 4.0 H (2.3-3.5) g/dL Albumin/Globulin Ratio 0.7 L (1.2-2.2) Med Orders - Current: Current Medications Carbamide Perox/Anhydrous Glycerin (Debrox 6.5% Otic Soln) 0 ml EARBOTH BID [facility] Last Admin: 08/08/19 09:04 Dose: 1 drop Folic Acid (Folic Acid) 1 mg PO DAILY [facility] Last Admin: 08/08/19 09:04 Dose: 1 mg Gabapentin (Neurontin) 400 mg PO TID [facility] Last Admin: 08/08/19 09:04 Dose: 400 mg Haloperidol Lactate (Haldol) 1 - 3 mg IVPUSH Q1H PRN PRN Reason: Anxiety Last Admin: 08/06/19 05:12 Dose: 2 mg Ceftriaxone Sodium 1 gm/ (Sodium Chloride) 50 mls @ 100 mls/hr IV Q24H [facility] Last Admin: 08/07/19 11:02 Dose: 100 mls/hr Lorazepam (Ativan) 0 mg IV ASDIRECTED PRN; Protocol PRN Reason: ETOH WITHDRAWAL Last Admin: 08/06/19 00:14 Dose: 1 mg Lorazepam (Ativan) 0 mg PO ASDIRECTED PRN; Protocol PRN Reason: ETOH WITHDRAWAL Last Admin: 08/08/19 05:16 Dose: 1 mg Nicotine (Habitrol) 21 mg TRDERM DAILY [facility] Last Admin: 08/08/19 09:05 Dose: 21 mg Pantoprazole Sodium (Protonix) 40 mg PO DAILY@0730 [facility] Last Admin: 08/08/19 07:40 Dose: 40 mg Sodium Chloride (Saline Flush) 10 ml FLUSH ASDIRECTED PRN PRN Reason: Keep Vein Open Last Admin: 08/05/19 13:41 Dose: 10 ml Thiamine HCl (Vitamin B-1) 100 mg PO DAILY [facility] Last Admin: 08/08/19 09:05 Dose: 100 mg Discontinued Medications Haloperidol Lactate (Haldol) 103 mg IVPUSH Q1H PRN PRN Reason: Anxiety - Exam General: Reports: Alert, Oriented HEENT: Reports: Pupils Equal, Pupils Reactive, EOMI, Mucous Membr. Moist/[place] Neck: Reports: Supple Lungs: Reports: Clear to Auscultation, Normal Respiratory Effort Cardiovascular: Reports: Regular Rate, Regular Rhythm GI/Abdominal Exam: Normal Bowel Sounds, Soft, Non-Tender, No Organomegaly, No Distention, No Abnormal Bruit, No Mass, Pelvis Stable Back Exam: Reports: Normal Inspection Extremities: Normal Inspection, Normal Range of Motion, Non-Tender, No Pedal Edema, Normal Capillary Refill Skin: Reports: Warm, Dry, Intact Neurological: Reports: No New Focal Deficit Psy/Mental Status: Reports: Alert, Anxious
== END 2019-08-08 11:55 | disposition home or self-care (01) | DRG 775 ==
LOC: JP.ICU 11:49
PROVIDERS: ADMIT Internal Medicine; ATTEND Internal Medicine
DX: F10.231 Alcohol dependence with withdrawal delirium (principal); J18.9 Pneumonia, unspecified organism; H54.7 Unspecified visual loss; K59.09 Other constipation; K52.9 Noninfective gastroenteritis and colitis, unspecified; K74.60 Unspecified cirrhosis of liver; F41.9 Anxiety disorder, unspecified; D64.9 Anemia, unspecified; F17.210 Nicotine dependence, cigarettes, uncomplicated; D69.6 Thrombocytopenia, unspecified; I10 Essential (primary) hypertension; B19.20 Unspecified viral hepatitis C without hepatic coma; K92.2 Gastrointestinal hemorrhage, unspecified; Z90.49 Acquired absence of other specified parts of digestive tract
CPT/HCPCS: 36415; 71046; 71046-26; 80053; 81001; 85025; 85027; 85610; A9270-GY; J0696; J1630; J2060; J7050

== ENCOUNTER 2019-08-27 11:17 | Inpatient (IN) | payer BC ==
[2019-08-27] MEDS ORDERED: Thiamine 100 MG Tab PO ONE (12:25)
--- NOTE | 2019-08-27 13:56 | PCM.HP.2 ---
H&P History of Present Illness - General Date of Service: 08/27/19 Admit Problem/Dx: Admission Diagnosis/Problem Admission Diagnosis/Problem Abdominal pain Source of Information: Patient History Limitations: Reports: No Limitations - History of Present Illness Onset of Symptoms: Reports: Gradual Symptom Onset Date: 08/23/19 Location: Reports: Abdomen Severity: Moderate Worsens with: Reports: Eating Associated Symptoms: Reports: Nausea/Vomiting 4 Pain Score (Numeric/FACES): 3 - Related Data Allergies/Adverse Reactions: Allergies Allergy/AdvReac Type Severity Reaction Status Date / Time No Known Allergies Allergy Verified 08/27/19 11:41 Home Medications: Home Meds NK [No Known Home Meds] 08/05/19 [History] Past Medical History HEENT History: Reports: Impaired Vision Respiratory History: Reports: Pneumothorax Other Respiratory History: pneumonia Gastrointestinal History: Reports: Chronic Constipation, Chronic Diarrhea, Cirrhosis Other Gastrointestinal History: diverticulitis Musculoskeletal History: Reports: Other (See Below) Other Musculoskeletal History: shaking unstaedy Neurological History: Reports: Other (See Below) Other Neuro History: Past etoh withdrawal Psychiatric History: Reports: Addiction, Anxiety, Other (See Below) Other Psychiatric History: ineffective coping Hematologic History: Reports: Anemia Immunologic History: Reports: Other (See Below) Other Immunologic History: lymes? - Infectious Disease History Infectious Disease History: Reports: Chicken Pox - Past Surgical History GI Surgical History: Reports: Cholecystectomy Social & Family History - Tobacco Use Smoking Status *Q: Current Every Day Smoker Years of Tobacco use: 35 Packs/Tins Daily: 1 Used Tobacco, but Quit: No Second Hand Smoke Exposure: No - Caffeine Use Caffeine Use: Reports: Coffee - Alcohol Use Days Per Week of Alcohol Use: 7 Number of Drinks Per Day: 7 Total Drinks Per Week: 49 Date of Last Drink: 08/26/19 Time of Last Drink: 23:00 - Recreational Drug Use Recreational Drug Use: No H&P Review of Systems - Review of Systems: Review Of Systems: See Below General: Reports: Weakness, Weight Loss HEENT: Reports: No Symptoms Pulmonary: Reports: No Symptoms Cardiovascular: Reports: No Symptoms Gastrointestinal: Reports: Abdominal Pain, Nausea, Vomiting Genitourinary: Reports: No Symptoms Musculoskeletal: Reports: No Symptoms Skin: Reports: No Symptoms Psychiatric: Reports: Anxiety Exam - Exam Exam: See Below - Vital Signs Vital Signs: Last Vital Signs Temp 98.1 F 08/27/19 13:31 Pulse 66 08/27/19 13:12 Resp 16 08/27/19 13:31 BP 139/76 08/27/19 13:31 Pulse Ox 99 08/27/19 13:31 Weight: 133 lb 9.6 oz - Exam General: Alert, Oriented, 4 HEENT: PERRLA, Hearing Intact, Mucosa Moist & Narciso Pena, Nares Patent, Normal Nasal Septum, Posterior Pharynx Clear, Conjunctiva Clear, EOMI, EACs Clear, TMs Clear Neck: Supple, Trachea Midline, 2 Cardiovascular: Regular Rate, Regular Rhythm GI/Abdominal Exam: Tender, Other (Pain to palpation over the pancreas area.) Extremities: Normal Inspection, Normal Range of Motion, Non-Tender, No Pedal Edema, Normal Capillary Refill Peripheral Pulses: 1+: Radial (L), Radial (R) - Patient Data Lab Results Last 24 hrs: Laboratory Results - last 24 hr 08/27/19 08/27/19 08/27/19 Range/Units 12:33 12:33 12:33 WBC 6.5 (4.5-11.0) K/uL RBC 4.28 L (4.30-5.90) M/uL Hgb 12.8 (12.0-15.0) g/dL Hct 39.7 L (40.0-54.0) % MCV 93 (80-98) fL MCH 30 (27-31) pg MCHC 32 (32-36) % Plt Count 319 (150-400) K/uL Sodium 140 (140-148) mmol/L Potassium 3.5 L (3.6-5.2) mmol/L Chloride 103 (100-108) mmol/L Carbon Dioxide 25 (21-32) mmol/L Anion Gap 15.5 H (5.0-14.0) mmol/L BUN 6 L (7-18) mg/dL Creatinine 1.0 (0.8-1.3) mg/dL Est Cr Clr Drug Dosing 77.39 mL/min Estimated GFR (MDRD) > 60 (>60) Glucose 137 H (74-106) mg/dL Calcium 7.4 L (8.5-10.1) mg/dL Total Bilirubin 0.5 (0.2-1.0) mg/dL AST 68 H D (15-37) U/L ALT 52 (12-78) U/L Alkaline Phosphatase 114 (46-116) U/L Total Protein 5.9 L (6.4-8.2) g/dL Albumin 2.4 L (3.4-5.0) g/dL Globulin 3.5 (2.3-3.5) g/dL Albumin/Globulin Ratio 0.7 L (1.2-2.2) Ethyl Alcohol 249 mg/dL Result Diagrams: 08/27/19 12:33 08/27/19 12:33 Sepsis Event Note - Evaluation Sepsis Screening Result: No Definite Risk - Focused Exam Vital Signs: Vital Signs Temp Pulse Pulse Resp BP BP Pulse Ox 08/27/19 13:31 98.1 F 16 139/76 99 08/27/19 13:12 66 17 139/76 99 08/27/19 11:58 98.9 F 93 14 145/93 H 97 Date Exam was Performed: 08/27/19 Time Exam was Performed: 14:09 Problem List Initiated/Reviewed/Updated: Yes Orders Last 24hrs: Active Orders 24 hr Category Date Time Status Patient Status [ADT] Routine ADT 08/27/19 13:43 Ordered Cardiac Monitoring [RC] .As Directed Care 08/27/19 13:45 Ordered Height and Weight [RC] DAILY Care 08/27/19 13:43 Ordered Intake and Output [RC] QSHIFT Care 08/27/19 13:45 Ordered May Shower [RC] ASDIRECTED Care 08/27/19 13:43 Ordered Oxygen Therapy [RC] PRN Care 08/27/19 13:43 Ordered Up ad Mackenzie [RC] ASDIRECTED Care 08/27/19 13:43 Ordered Up to Chair [RC] QID Care 08/27/19 13:43 Ordered VTE/DVT Education [RC] Per Unit Routine Care 08/27/19 13:43 Ordered Vital Signs [RC] Q4H Care 08/27/19 13:43 Ordered Abdomen w wo Cont [CT] Routine Exams 08/27/19 13:48 Ordered AMYLASE [CHEM] Routine Lab 08/27/19 13:40 Ordered INR,PT,PROTHROMBIN TIME [COAG] Routine Lab 08/27/19 13:43 Ordered LIPASE [CHEM] Routine Lab 08/27/19 13:40 Ordered Resuscitation Status Routine Resus Stat 08/27/19 13:43 Ordered Assessment/Plan Comment:: Assessment/Plan: #1. Abdominal Pain: Expect Acute pancreatitis labs and x- rays pending. Will hold NPO until Dx. complete. #2. Alcoholism with DT's: Will treat with Meds to control. Alc. level 2.49 #3. Nicotine dependence: Will begin a patch #4. History of Thrombopenia. Count pending.
[2019-08-27] MEDS ORDERED: LORazepam 2 MG/ML SDV IV SCH (14:00)
[2019-08-27] MEDS ORDERED: Iopamidol 612 MG/ML 100 ML Bottle IV PRN (14:05)
[2019-08-27] MEDS ORDERED: Sodium Chloride 0.9% 10 ML Syringe FLUSH PRN (14:05)
[2019-08-27] MEDS: Sodium Chloride 0.9% 1,000 ML IV SCH ×2 (14:29→22:46)
[2019-08-27] MEDS: Acetaminophen/HYDROcodone 325-5 MG Tab PO PRN (14:34)
[2019-08-27] MEDS: LORazepam 1 MG Tab PO SCH ×2 (14:34→22:45)
[2019-08-27] MEDS: Nicotine 21 MG/24 Hr Patch TRDERM SCH (14:34)
--- NOTE | 2019-08-27 15:08 | CT ---
Abdomen w wo Cont CLINICAL HISTORY: Abdominal pain, rule out pancreatitis COMPARISON: None TECHNIQUE: Transverse scans were obtained from the base of the lungs to the iliac crest repeat images obtained before and following IV infusion of iodinated contrast. Auto dose reduction and iteritive recontruction technique enployed. FINDINGS: The lung bases are clear. The liver shows no mass or biliary dilatation there is a subcapsular low-attenuation area along the medial margin of the right lobe of the liver. This measures 2.7 x 1.6 x 4.1 cm. This could represent a subcapsular fluid collection. Mass is felt less likely. Patient has had a previous cholecystectomy. The spleen has a normal size and shape. The pancreas contains a low-attenuation focus in the pancreatic tail. This measures 1.5 1.2 x 1.3 cm. This is nonspecific. Solid neoplasm is not excluded. The adrenal glands appear normal bilaterally. The kidneys show no mass stones or hydronephrosis. The ureters have normal contour. The aorta has a normal contour. There is no suspicious retroperitoneal adenopathy. There is generalized small bowel distention. There is some small bowel thickening in the left abdomen with some small bowel wall enhancement. This is felt to represent some enteritis. IMPRESSION: 1.5 x 1.2 x 1.3 cm low-attenuation lesion in the tail of the pancreas. This may represent solid neoplasm or complex cyst. Curvilinear subcapsular low-attenuation collection in the medial right lobe of the liver. This may be from old subcapsular fluid collection possibly hematoma. Generalized small bowel distention with some small bowel wall thickening in the left abdomen. Abdominal ultrasound is recommended on a nonemergent basis to evaluate the pancreas and subcapsular collection in the right lobe of the liver
[2019-08-28] MEDS: Acetaminophen/HYDROcodone 325-5 MG Tab PO PRN ×4 (01:43→22:44)
[2019-08-28] MEDS: Sodium Chloride 0.9% 1,000 ML IV SCH ×2 (06:26→13:51)
[2019-08-28] MEDS: Nicotine 21 MG/24 Hr Patch TRDERM SCH (08:08)
[2019-08-28] MEDS: LORazepam 1 MG Tab PO SCH ×2 (08:08→22:44)
--- NOTE | 2019-08-28 09:52 | PCM.PN ---
- General Info Date of Service: 08/28/19 Functional Status: Reports: Pain Controlled - Review of Systems General: Reports: Weakness Pulmonary: Reports: No Symptoms Gastrointestinal: Reports: Abdominal Pain, Diarrhea Genitourinary: Reports: No Symptoms Musculoskeletal: Reports: No Symptoms Skin: Reports: No Symptoms - Patient Data Vitals - Most Recent: Last Vital Signs Temp 98.2 F 08/28/19 08:00 Pulse 78 08/28/19 08:00 Resp 14 08/28/19 08:00 BP 145/87 H 08/28/19 08:00 Pulse Ox 99 08/28/19 08:00 Weight - Most Recent: 133 lb 9.6 oz I&O - Last 24 Hours: Intake & Output 08/27/19 08/28/19 08/28/19 22:59 06:59 14:59 Intake Total 418 3388 Output Total 800 175 Balance 418 2588 -175 Lab Results Last 24 Hours: Laboratory Results - last 24 hr 08/27/19 08/27/19 08/27/19 Range/Units 12:16 12:33 12:33 WBC 6.5 (4.5-11.0) K/uL RBC 4.28 L (4.30-5.90) M/uL Hgb 12.8 (12.0-15.0) g/dL Hct 39.7 L (40.0-54.0) % MCV 93 (80-98) fL MCH 30 (27-31) pg MCHC 32 (32-36) % Plt Count 319 (150-400) K/uL PT (9.5-12.0) sec INR (0.80-1.20) Sodium 140 (140-148) mmol/L Potassium 3.5 L (3.6-5.2) mmol/L Chloride 103 (100-108) mmol/L Carbon Dioxide 25 (21-32) mmol/L Anion Gap 15.5 H (5.0-14.0) mmol/L BUN 6 L (7-18) mg/dL Creatinine 1.0 (0.8-1.3) mg/dL Est Cr Clr Drug Dosing 77.39 mL/min Estimated GFR (MDRD) > 60 (>60) Glucose 137 H (74-106) mg/dL Calcium 7.4 L (8.5-10.1) mg/dL Total Bilirubin 0.5 (0.2-1.0) mg/dL AST 68 H D (15-37) U/L ALT 52 (12-78) U/L Alkaline Phosphatase 114 (46-116) U/L Total Protein 5.9 L (6.4-8.2) g/dL Albumin 2.4 L (3.4-5.0) g/dL Globulin 3.5 (2.3-3.5) g/dL Albumin/Globulin Ratio 0.7 L (1.2-2.2) Amylase 39 (25-115) U/L Lipase 51 L (73-393) U/L Ethyl Alcohol mg/dL 08/27/19 08/27/19 Range/Units 12:33 13:52 WBC (4.5-11.0) K/uL RBC (4.30-5.90) M/uL Hgb (12.0-15.0) g/dL Hct (40.0-54.0) % MCV (80-98) fL MCH (27-31) pg MCHC (32-36) % Plt Count (150-400) K/uL PT 14.5 H (9.5-12.0) sec INR 1.37 H (0.80-1.20) Sodium (140-148) mmol/L Potassium (3.6-5.2) mmol/L Chloride (100-108) mmol/L Carbon Dioxide (21-32) mmol/L Anion Gap (5.0-14.0) mmol/L BUN (7-18) mg/dL Creatinine (0.8-1.3) mg/dL Est Cr Clr Drug Dosing mL/min Estimated GFR (MDRD) (>60) Glucose (74-106) mg/dL Calcium (8.5-10.1) mg/dL Total Bilirubin (0.2-1.0) mg/dL AST (15-37) U/L ALT (12-78) U/L Alkaline Phosphatase (46-116) U/L Total Protein (6.4-8.2) g/dL Albumin (3.4-5.0) g/dL Globulin (2.3-3.5) g/dL Albumin/Globulin Ratio (1.2-2.2) Amylase (25-115) U/L Lipase (73-393) U/L Ethyl Alcohol 249 mg/dL Med Orders - Current: Current Medications Hydrocodone Bitart/Acetaminophen ([place]aty 325-5 Mg) 1 tab PO Q6H PRN PRN Reason: Abdominal Pain Last Admin: 08/28/19 08:08 Dose: 1 tab Sodium Chloride (Normal Saline) 1,000 mls @ 125 mls/hr IV ASDIRECTED [facility] Last Admin: 08/28/19 06:26 Dose: 125 mls/hr Lorazepam (Ativan) 0 mg IV ASDIRECTED [facility]; Protocol Lorazepam (Ativan) 0 mg PO ASDIRECTED [facility]; Protocol Last Admin: 08/28/19 08:08 Dose: 1 mg Nicotine (Habitrol) 21 mg TRDERM DAILY [facility] Last Admin: 08/28/19 08:08 Dose: 21 mg Discontinued Medications Sodium Chloride (Normal Saline) 70 mls @ 3 mls/sec IV ONETIME ONE Stop: 08/27/19 14:06 Last Admin: 08/27/19 19:47 Dose: 3 mls/sec Iopamidol (Isovue-300 (61%)) 90 ml IV . DIRECTED PRN PRN Reason: RADIOLOGY EXAM Stop: 08/27/19 14:06 Sodium Chloride (Saline Flush) 10 ml FLUSH ONETIME PRN PRN Reason: PER RADIOLOGY PROTOCOL Stop: 08/27/19 14:06 Thiamine HCl (Vitamin B-1) 100 mg PO ONETIME ONE Stop: 08/27/19 12:26 Last Admin: 08/27/19 14:47 Dose: Not Given - Exam General: Alert, Oriented HEENT: Pupils Equal, Pupils Reactive, EOMI, Mucous Membr. Moist/[place] Lungs: Clear to Auscultation, Normal Respiratory Effort Cardiovascular: Regular Rate, Regular Rhythm GI/Abdominal Exam: Normal Bowel Sounds, Soft, No Organomegaly, No Distention, No Abnormal Bruit, No Mass, Pelvis Stable, Other (Mild pain over the pancreas area) Sepsis Event Note - Evaluation Sepsis Screening Result: No Definite Risk - Focused Exam Vital Signs: Vital Signs Temp Pulse Resp BP Pulse Ox 08/28/19 08:00 98.2 F 78 14 145/87 H 99 08/28/19 06:00 97.7 F 14 140/86 99 08/28/19 04:00 18 162/72 H 96 08/28/19 02:00 17 135/79 92 L 08/28/19 00:00 98.1 F 17 137/80 08/27/19 22:00 18 139/79 90 L Date Exam was Performed: 08/28/19 Time Exam was Performed: 09:46 - Problem List Review Problem List Initiated/Reviewed/Updated: Yes - My Orders Last 24 Hours: My Active Orders 08/27/19 13:43 Patient Status [ADT] Routine Height and Weight [RC] DAILY May Shower [RC] ASDIRECTED Oxygen Therapy [RC] PRN Up ad Mackenzie [RC] ASDIRECTED Up to Chair [RC] QID Vital Signs [RC] Q2H Resuscitation Status Routine 08/27/19 13:45 Cardiac Monitoring [RC] Q6H Intake and Output [RC] QSHIFT 08/27/19 13:56 Notify Provider [RC] PRN 08/27/19 14:00 LORazepam [Ativan] See Protocol IV ASDIRECTED LORazepam [Ativan] See Protocol PO ASDIRECTED 08/27/19 14:11 Acetaminophen/HYDROcodone [[place]aty 325-5 MG] 1 tab PO Q6H PRN 08/27/19 14:15 Nicotine [Habitrol] 21 mg TRDERM DAILY Sodium Chloride 0.9% [Normal Saline] 1,000 ml IV ASDIRECTED 08/27/19 Dinner Regular Diet [DIET] - Plan Plan:: Assessment/Plan: #1. Abdominal Pain: Acute pancreatitis not confirmed. There is a area of concern in the pancreas. Will do an ultrasound later. #2. Alcoholism with DT's: Will continue with meds and add Gabapentin. #3. Nicotine dependence: Will begin a patch .
[2019-08-28] MEDS: Lisinopril 10 MG Tab PO SCH (10:24)
[2019-08-28] MEDS: Gabapentin 100 MG Cap PO SCH ×2 (13:20→21:31)
--- NOTE | 2019-08-29 08:48 | PCM.PN ---
- General Info Date of Service: 08/29/19 Functional Status: Reports: Pain Controlled - Review of Systems General: Reports: Weakness HEENT: Reports: No Symptoms Pulmonary: Reports: No Symptoms Cardiovascular: Reports: No Symptoms Gastrointestinal: Reports: Abdominal Pain, Other (pain 07/26) Genitourinary: Reports: No Symptoms Musculoskeletal: Reports: No Symptoms Psychiatric: Reports: Anxiety - Patient Data Vitals - Most Recent: Last Vital Signs Temp 98.2 F 08/29/19 08:00 Pulse 78 08/28/19 08:00 Resp 15 08/29/19 08:00 BP 142/92 H 08/29/19 08:00 Pulse Ox 99 08/29/19 08:00 Weight - Most Recent: 133 lb 9.6 oz I&O - Last 24 Hours: Intake & Output 08/28/19 08/29/19 08/29/19 22:59 06:59 14:59 Intake Total 1535 640 Output Total 950 300 225 Balance 585 340 -225 Med Orders - Current: Current Medications Hydrocodone Bitart/Acetaminophen ([place] 325-5 Mg) 1 tab PO Q6H PRN PRN Reason: Abdominal Pain Last Admin: 08/28/19 22:44 Dose: 1 tab Gabapentin (Neurontin) 100 mg PO TID [facility] Last Admin: 08/28/19 21:31 Dose: 100 mg Lisinopril (Prinivil) 10 mg PO DAILY [facility] Last Admin: 08/28/19 10:24 Dose: Not Given Lorazepam (Ativan) 0 mg IV ASDIRECTED [facility]; Protocol Lorazepam (Ativan) 0 mg PO ASDIRECTED [facility]; Protocol Last Admin: 08/28/19 22:44 Dose: 1 mg Nicotine (Habitrol) 21 mg TRDERM DAILY [facility] Last Admin: 08/28/19 08:08 Dose: 21 mg Discontinued Medications Sodium Chloride (Normal Saline) 70 mls @ 3 mls/sec IV ONETIME ONE Stop: 08/27/19 14:06 Last Admin: 08/27/19 19:47 Dose: 3 mls/sec Sodium Chloride (Normal Saline) 1,000 mls @ 125 mls/hr IV ASDIRECTED [facility] Last Admin: 08/28/19 13:51 Dose: 125 mls/hr Iopamidol (Isovue-300 (61%)) 90 ml IV . DIRECTED PRN PRN Reason: RADIOLOGY EXAM Stop: 08/27/19 14:06 Sodium Chloride (Saline Flush) 10 ml FLUSH ONETIME PRN PRN Reason: PER RADIOLOGY PROTOCOL Stop: 08/27/19 14:06 Thiamine HCl (Vitamin B-1) 100 mg PO ONETIME ONE Stop: 08/27/19 12:26 Last Admin: 08/27/19 14:47 Dose: Not Given - Exam General: Alert HEENT: Pupils Equal, Pupils Reactive, EOMI, Mucous Membr. Moist/[place] Neck: Supple Lungs: Clear to Auscultation, Normal Respiratory Effort Cardiovascular: Regular Rate, Regular Rhythm GI/Abdominal Exam: Tender Peripheral Pulses: 1+: Radial (L), Radial (R) Skin: Warm, Dry, Intact Neurological: No New Focal Deficit Sepsis Event Note - Evaluation Sepsis Screening Result: No Definite Risk - Focused Exam Vital Signs: Vital Signs Temp Resp BP Pulse Ox 08/29/19 08:00 98.2 F 15 142/92 H 99 08/29/19 06:00 98.1 F 13 126/85 08/29/19 04:00 14 124/81 95 08/29/19 02:00 13 140/90 96 08/29/19 00:00 98 F 12 145/96 H 97 08/28/19 22:00 17 150/65 H 97 Date Exam was Performed: 08/29/19 Time Exam was Performed: 08:45 - Problem List Review Problem List Initiated/Reviewed/Updated: Yes - My Orders Last 24 Hours: My Active Orders 08/28/19 10:00 lisinopriL [Prinivil] 10 mg PO DAILY 08/28/19 14:00 Gabapentin [Neurontin] 100 mg PO TID 08/28/19 18:11 Convert IV to Saline Lock [OM.PC] Routine - Plan Plan:: Assessment/Plan: #1. Abdominal Pain: Acute pancreatitis not confirmed. There is a area of concern in the pancreas. Will do an ultrasound tomorrow. #2. Alcoholism with DT's: Will continue with meds. #3. Nicotine dependence: Will continue with the patch. .
[2019-08-29] MEDS: Lisinopril 10 MG Tab PO SCH (08:51)
[2019-08-29] MEDS: Gabapentin 100 MG Cap PO SCH ×3 (08:51→21:17)
[2019-08-29] MEDS: Nicotine 21 MG/24 Hr Patch TRDERM SCH (08:51)
--- NOTE | 2019-08-29 10:40 | CRLUS ---
INDICATION: Abdominal pain. COMPARISON: CT abdomen and pelvis 08/27/2019 TECHNIQUE: Ultrasound images of the right upper quadrant were obtained. FINDINGS: Liver: In the right lobe of the liver, there is a well-circumscribed echogenic mass, with isoechoic through transmission and measures 1.9 x 1.4 x 2.1 centimeters consistent with a benign cavernous hemangioma. In the posterior right lobe of the liver, there is a well-circumscribed hypoechoic mass, with increased through transmission and measures 1.9 x 2.1 x 2.2 centimeters, consistent with a cyst, seen on the prior CT. Remaining portion of the liver demonstrate normal echotexture. Gallbladder: Surgically absent. Common bile duct: 4 mm. Pancreas: In the tail of the pancreas is a 1.5 x 1.7 x 1.5 centimeter hypoechoic mass. This corresponds to a low-attenuation mass seen on the prior CT 08/27/2019. There is no evidence of pancreatic duct dilatation. Right kidney: There is no hydronephrosis or mass. IMPRESSION: 1. Hypoechoic well-circumscribed mass in the tail of pancreas, 1.7 centimeters. This is the mass previously seen on CT 08/27/2019. Differential diagnosis includes adenocarcinoma, as well as scarring or postinflammatory change. 2. Benign cavernous hemangioma right lobe of the liver. 3. Benign cyst right lobe of the liver. Dictated by Osito Pillai MD @ Aug 29 2019 10:30AM Signed by Dr. Osito Pillai @ Aug 29 2019 10:38AM
[2019-08-29] MEDS: Acetaminophen/HYDROcodone 325-5 MG Tab PO PRN ×2 (13:55→21:57)
[2019-08-29] MEDS: LORazepam 1 MG Tab PO SCH ×2 (16:54→21:57)
[2019-08-30 07:58] VITALS: PULSE 83
[2019-08-30] MEDS: Nicotine 21 MG/24 Hr Patch TRDERM SCH (08:31)
[2019-08-30] MEDS: Lisinopril 10 MG Tab PO SCH (08:33)
[2019-08-30 08:34] VITALS: BP 128/62
[2019-08-30] MEDS: Gabapentin 100 MG Cap PO SCH (08:34)
--- NOTE | 2019-08-30 10:36 | PCM.PN ---
- General Info Date of Service: 08/30/19 Subjective Update: He has no complaints and wants to go home. Functional Status: Reports: Pain Controlled - Review of Systems General: Reports: Weakness HEENT: Reports: No Symptoms Pulmonary: Reports: No Symptoms Cardiovascular: Reports: No Symptoms Gastrointestinal: Reports: No Symptoms Genitourinary: Reports: No Symptoms Musculoskeletal: Reports: No Symptoms Skin: Reports: No Symptoms Neurological: Reports: No Symptoms Psychiatric: Reports: No Symptoms - Patient Data Vitals - Most Recent: Last Vital Signs Temp 97.6 F 08/30/19 07:57 Pulse 83 08/30/19 07:57 Resp 15 08/30/19 07:57 BP 128/62 08/30/19 08:33 Pulse Ox 97 08/30/19 06:00 Weight - Most Recent: 133 lb 9.602 oz I&O - Last 24 Hours: Intake & Output 08/29/19 08/30/19 08/30/19 22:59 06:59 14:59 Intake Total 1800 Output Total 100 Balance 1700 Med Orders - Current: Current Medications Hydrocodone Bitart/Acetaminophen ([place] 325-5 Mg) 1 tab PO Q6H PRN PRN Reason: Abdominal Pain Last Admin: 08/29/19 21:57 Dose: 1 tab Gabapentin (Neurontin) 100 mg PO TID [facility] Last Admin: 08/30/19 08:34 Dose: 100 mg Lisinopril (Prinivil) 10 mg PO DAILY [facility] Last Admin: 08/30/19 08:33 Dose: 10 mg Lorazepam (Ativan) 0 mg IV ASDIRECTED [facility]; Protocol Lorazepam (Ativan) 0 mg PO ASDIRECTED [facility]; Protocol Last Admin: 08/29/19 21:57 Dose: 1 mg Nicotine (Habitrol) 21 mg TRDERM DAILY [facility] Last Admin: 08/30/19 08:31 Dose: 21 mg Discontinued Medications Sodium Chloride (Normal Saline) 70 mls @ 3 mls/sec IV ONETIME ONE Stop: 08/27/19 14:06 Last Admin: 08/27/19 19:47 Dose: 3 mls/sec Sodium Chloride (Normal Saline) 1,000 mls @ 125 mls/hr IV ASDIRECTED [facility] Last Admin: 08/28/19 13:51 Dose: 125 mls/hr Iopamidol (Isovue-300 (61%)) 90 ml IV . DIRECTED PRN PRN Reason: RADIOLOGY EXAM Stop: 08/27/19 14:06 Sodium Chloride (Saline Flush) 10 ml FLUSH ONETIME PRN PRN Reason: PER RADIOLOGY PROTOCOL Stop: 08/27/19 14:06 Thiamine HCl (Vitamin B-1) 100 mg PO ONETIME ONE Stop: 08/27/19 12:26 Last Admin: 08/27/19 14:47 Dose: Not Given - Exam General: Alert, Oriented HEENT: Pupils Equal, Pupils Reactive, EOMI, Mucous Membr. Moist/[place] Neck: Supple Lungs: Clear to Auscultation, Normal Respiratory Effort Cardiovascular: Regular Rate, Regular Rhythm GI/Abdominal Exam: Tender Back Exam: Normal Inspection, Full Range of Motion Extremities: Normal Inspection, Normal Range of Motion, Non-Tender, No Pedal Edema, Normal Capillary Refill Sepsis Event Note - Evaluation Sepsis Screening Result: No Definite Risk - Focused Exam Vital Signs: Vital Signs Temp Pulse Resp BP BP Pulse Ox 08/30/19 08:33 128/62 08/30/19 07:57 97.6 F 83 15 08/30/19 06:00 17 126/82 97 08/30/19 04:00 97.8 F 14 111/71 98 08/30/19 02:00 13 115/74 08/30/19 00:00 14 119/81 98 Date Exam was Performed: 08/30/19 Time Exam was Performed: 10:25 - Problem List Review Problem List Initiated/Reviewed/Updated: Yes - Plan Plan:: Assessment/Plan: #1. Abdominal Pain: Acute pancreatitis not confirmed. Areas in pancreas is a cyst. #2. Alcoholism with DT's: resolved. #3. Nicotine dependence: Will continue with the patch. Will discharge home. Would like him to go to therapy but he has a deductible and he refuses to pay the money for treatment. .
--- NOTE | 2019-08-30 10:43 | PCM.DCSUM1 ---
Discharge Summary - Hospital Course Brief History: Started to drink alcohol again and came in because of abd pain with neasea and vomiting. Diagnosis: Stroke: No Modified [place] Scale: No Symptoms at All Modified [place] Scale Score: 0 - Discharge Data Discharge Date: 08/30/19 Discharge Disposition: Home, Self-Care 01 Condition: Stable - Referral to Home Health Primary Care Physician: Damon Langley Sr, MD - Patient Summary/Data Hospital Course: Medicine was given for DT's. The abd pain caused by alcohol and has a cyst in the liver and pancreas. DT's have resolved and will be discharged home today. - Patient Instructions Diet: Heart Healthy Diet Diet, Other: No ALCOHOL Activity: As Tolerated - Discharge Plan Home Medications: Home Meds lisinopriL [Prinivil] 10 mg PO DAILY tablet 08/30/19 [Rx] Forms: ED Department Discharge Referrals: Damon Langley Sr, MD [Primary Care Provider] - - Discharge Summary/Plan Comment DC Time >30 min.: Yes - General Info Date of Service: 08/30/19 Functional Status: Reports: Pain Controlled - Review of Systems General: Reports: No Symptoms HEENT: Reports: No Symptoms Pulmonary: Reports: No Symptoms Cardiovascular: Reports: No Symptoms Gastrointestinal: Reports: No Symptoms Genitourinary: Reports: No Symptoms Musculoskeletal: Reports: No Symptoms Skin: Reports: No Symptoms Neurological: Reports: No Symptoms Psychiatric: Reports: Anxiety - Patient Data Vitals - Most Recent: Last Vital Signs Temp 97.6 F 08/30/19 07:57 Pulse 83 08/30/19 07:57 Resp 15 08/30/19 07:57 BP 128/62 08/30/19 08:33 Pulse Ox 97 08/30/19 06:00 Weight - Most Recent: 133 lb 9.602 oz I&O - Last 24 hours: Intake & Output 08/29/19 08/30/19 08/30/19 22:59 06:59 14:59 Intake Total 1800 Output Total 100 Balance 1700 Med Orders - Current: Current Medications Hydrocodone Bitart/Acetaminophen ([place] 325-5 Mg) 1 tab PO Q6H PRN PRN Reason: Abdominal Pain Last Admin: 08/29/19 21:57 Dose: 1 tab Gabapentin (Neurontin) 100 mg PO TID [facility] Last Admin: 08/30/19 08:34 Dose: 100 mg Lisinopril (Prinivil) 10 mg PO DAILY [facility] Last Admin: 08/30/19 08:33 Dose: 10 mg Lorazepam (Ativan) 0 mg IV ASDIRECTED [facility]; Protocol Lorazepam (Ativan) 0 mg PO ASDIRECTED [facility]; Protocol Last Admin: 08/29/19 21:57 Dose: 1 mg Nicotine (Habitrol) 21 mg TRDERM DAILY [facility] Last Admin: 08/30/19 08:31 Dose: 21 mg Discontinued Medications Sodium Chloride (Normal Saline) 70 mls @ 3 mls/sec IV ONETIME ONE Stop: 08/27/19 14:06 Last Admin: 08/27/19 19:47 Dose: 3 mls/sec Sodium Chloride (Normal Saline) 1,000 mls @ 125 mls/hr IV ASDIRECTED [facility] Last Admin: 08/28/19 13:51 Dose: 125 mls/hr Iopamidol (Isovue-300 (61%)) 90 ml IV . DIRECTED PRN PRN Reason: RADIOLOGY EXAM Stop: 08/27/19 14:06 Sodium Chloride (Saline Flush) 10 ml FLUSH ONETIME PRN PRN Reason: PER RADIOLOGY PROTOCOL Stop: 08/27/19 14:06 Thiamine HCl (Vitamin B-1) 100 mg PO ONETIME ONE Stop: 08/27/19 12:26 Last Admin: 08/27/19 14:47 Dose: Not Given - Exam General: Reports: Alert, Oriented HEENT: Reports: Pupils Equal, Pupils Reactive, EOMI, Mucous Membr. Moist/[place] Neck: Reports: Supple Lungs: Reports: Clear to Auscultation, Normal Respiratory Effort Cardiovascular: Reports: Regular Rate, Regular Rhythm GI/Abdominal Exam: Normal Bowel Sounds, Soft, Non-Tender, No Organomegaly, No Distention, No Abnormal Bruit, No Mass, Pelvis Stable Back Exam: Reports: Normal Inspection, Full Range of Motion Extremities: Normal Inspection, Normal Range of Motion, Non-Tender, No Pedal Edema, Normal Capillary Refill Skin: Reports: Warm, Dry, Intact Neurological: Reports: No New Focal Deficit Psy/Mental Status: Reports: Alert, Normal Affect, Normal Mood
== END 2019-08-30 11:09 | disposition home or self-care (01) | DRG 775 ==
LOC: JP.ED 11:17 → JP.ICU 12:37
PROVIDERS: ADMIT Internal Medicine; ATTEND Internal Medicine
DX: F10.231 Alcohol dependence with withdrawal delirium (principal); K76.89 Other specified diseases of liver; K86.2 Cyst of pancreas; H54.7 Unspecified visual loss; K59.09 Other constipation; F41.9 Anxiety disorder, unspecified; F17.210 Nicotine dependence, cigarettes, uncomplicated; Y90.8 Blood alcohol level of 240 mg/100 ml or more; Z87.01 Personal history of pneumonia (recurrent); Z90.49 Acquired absence of other specified parts of digestive tract
CPT/HCPCS: 36415; 74170; 74170-26; 76705; 80053; 80307; 82150; 83690; 85027; 85610; 99284-25; A9270-GY; J7030; J7050

== ENCOUNTER 2019-10-03 13:34 | Inpatient (IN) | payer BC ==
--- NOTE | 2019-10-03 14:21 | PCM.HP.2 ---
H&P History of Present Illness - General Date of Service: 10/03/19 Source of Information: Patient History Limitations: Reports: No Limitations - History of Present Illness Initial Comments - Free Text/Narative: Had 30 days of sobriety and started drinking after a golf game and now can't stop. He has a history of seizures and called and wanted admission to stop alc. consumption again. Onset of Symptoms: Reports: Gradual Duration of Symptoms: Reports: Chronic - Related Data Allergies/Adverse Reactions: Allergies Allergy/AdvReac Type Severity Reaction Status Date / Time No Known Allergies Allergy Verified 08/27/19 11:41 Home Medications: Home Meds lisinopriL [Prinivil] 10 mg PO DAILY tablet 08/30/19 [Rx] Past Medical History HEENT History: Reports: Impaired Vision Respiratory History: Reports: Pneumothorax Other Respiratory History: pneumonia Gastrointestinal History: Reports: Chronic Constipation, Chronic Diarrhea, Cirrhosis Other Gastrointestinal History: diverticulitis Musculoskeletal History: Reports: Other (See Below) Other Musculoskeletal History: shaking unsteady Neurological History: Reports: Other (See Below) Other Neuro History: Past etoh withdrawal Psychiatric History: Reports: Addiction, Anxiety, Other (See Below) Other Psychiatric History: ineffective coping Hematologic History: Reports: Anemia Immunologic History: Reports: Other (See Below) Other Immunologic History: lymes? - Infectious Disease History Infectious Disease History: Reports: Other (See Below) Other Infectious Disease History: alcoholic hepatitis - Past Surgical History HEENT Surgical History: Reports: None Respiratory Surgical History: Reports: None GI Surgical History: Reports: Cholecystectomy Social & Family History - Tobacco Use Smoking Status *Q: Current Every Day Smoker Years of Tobacco use: 30 Packs/Tins Daily: 1 - Caffeine Use Caffeine Use: Reports: Coffee - Alcohol Use Days Per Week of Alcohol Use: 7 Number of Drinks Per Day: 10 Total Drinks Per Week: 70 - Recreational Drug Use Recreational Drug Use: No H&P Review of Systems - Review of Systems: Review Of Systems: See Below General: Reports: Weakness, Other (tremors secondary to alcohol) HEENT: Reports: No Symptoms Pulmonary: Reports: No Symptoms Cardiovascular: Reports: No Symptoms Gastrointestinal: Reports: Nausea Genitourinary: Reports: No Symptoms Musculoskeletal: Reports: No Symptoms Skin: Reports: No Symptoms Psychiatric: Reports: Other (withdrawls) Hematologic/Lymphatic: Reports: No Symptoms Immunologic: Reports: No Symptoms Exam - Exam Exam: See Below - Vital Signs Vital Signs: Last Vital Signs Temp 97.8 F 10/03/19 13:56 Pulse Resp 16 10/03/19 13:56 BP 119/66 10/03/19 13:56 Pulse Ox 99 10/03/19 13:56 Weight: 145 lb - Exam General: Alert, Oriented, 4 HEENT: PERRLA, Hearing Intact, Mucosa Moist & [place], Nares Patent, Normal Nasal Septum, Posterior Pharynx Clear, Conjunctiva Clear, EOMI, EACs Clear, TMs Clear Neck: Supple Lungs: Clear to Auscultation Cardiovascular: Regular Rate, Regular Rhythm GI/Abdominal Exam: Normal Bowel Sounds, Soft, Non-Tender, No Organomegaly, No Distention, No Abnormal Bruit, No Mass, Pelvis Stable (Male) Exam: No Hernia, Normal Inspection, Normal Prostate, Circumcised Extremities: Normal Inspection, Normal Range of Motion, Non-Tender, No Pedal Edema, Normal Capillary Refill Peripheral Pulses: 1+: Radial (L), Radial (R) Skin: Warm, Dry, Intact Neuro Extensive - Mental Status: Alert, Oriented x3, Memory Intact DTR: 1+: Bicep (L), Bicep (R) Psychiatric: Alert, Normal Mood, Anxious Sepsis Event Note - Focused Exam Vital Signs: Vital Signs Temp Resp BP Pulse Ox 10/03/19 13:56 97.8 F 16 119/66 99 Date Exam was Performed: 10/03/19 Time Exam was Performed: 14:16 Problem List Initiated/Reviewed/Updated: Yes Assessment/Plan Comment:: Assessment/Plan: #1. Alcoholism with emending seizures. Will start the protocol for alc. with Ativan and Folic acid vit. supplement. #2. History of HTN: Stable presently. Will start meds if pressure elevates. #3. History of pancreatitis: Stable presently. Labs pending.
[2019-10-03] MEDS ORDERED: LORazepam 2 MG/ML SDV IV PRN (14:30)
[2019-10-03] MEDS: Dextrose 5%-0.9% NaCl 1,000 ML IV SCH ×2 (14:30→22:05)
[2019-10-03] MEDS: Gabapentin 400 MG Cap PO SCH ×2 (15:34→22:02)
[2019-10-03] MEDS: Folic Acid 1 MG Tab PO SCH (15:34)
[2019-10-03] MEDS: Thiamine 100 MG Tab PO SCH (15:35)
[2019-10-03] MEDS: Pantoprazole 40 MG Tab.CR PO SCH (15:57)
[2019-10-03] MEDS: Nicotine 21 MG/24 Hr Patch TRDERM PRN (18:27)
[2019-10-03] MEDS: LORazepam 1 MG Tab PO PRN ×2 (18:27→22:02)
[2019-10-04] MEDS: LORazepam 1 MG Tab PO PRN ×6 (02:48→22:00)
[2019-10-04] MEDS: Gabapentin 400 MG Cap PO SCH ×3 (05:38→22:00)
[2019-10-04] MEDS: Dextrose 5%-0.9% NaCl 1,000 ML IV SCH ×2 (05:46→13:31)
[2019-10-04] MEDS: Nicotine 21 MG/24 Hr Patch TRDERM PRN (07:24)
[2019-10-04] MEDS: Folic Acid 1 MG Tab PO SCH ×2 (07:25→09:16)
[2019-10-04] MEDS: Thiamine 100 MG Tab PO SCH ×2 (07:25→09:16)
[2019-10-04] MEDS: Pantoprazole 40 MG Tab.CR PO SCH (07:25)
[2019-10-04] MEDS ORDERED: Nicotine 14 MG/24 Hr Patch TRDERM SCH (09:00)
--- NOTE | 2019-10-04 11:41 | PCM.PN ---
- General Info Date of Service: 10/04/19 Functional Status: Reports: Pain Controlled - Review of Systems General: Reports: Weakness Neurological: Reports: Confusion, Gait Disturbance Psychiatric: Reports: Hallucinations - Patient Data Vitals - Most Recent: Last Vital Signs Temp 98.2 F 10/04/19 10:00 Pulse 91 10/04/19 10:00 Resp 21 H 10/04/19 10:00 BP 148/92 H 10/04/19 10:00 Pulse Ox 97 10/04/19 10:00 Weight - Most Recent: 145 lb I&O - Last 24 Hours: Intake & Output 10/03/19 10/04/19 10/04/19 22:59 06:59 14:59 Intake Total 694 2718 Output Total 200 1350 750 Balance 494 1368 -750 Lab Results Last 24 Hours: Laboratory Results - last 24 hr 10/03/19 10/03/19 10/03/19 Range/Units 14:25 14:25 14:25 WBC 6.4 (4.5-11.0) K/uL RBC 4.33 (4.30-5.90) M/uL Hgb 13.2 (12.0-15.0) g/dL Hct 39.6 L (40.0-54.0) % MCV 92 (80-98) fL MCH 31 (27-31) pg MCHC 33 (32-36) % Plt Count 96 L (150-400) K/uL Neut % (Auto) 64 (36-66) % Lymph % (Auto) 27 (24-44) % [place] % (Auto) 8 H (2-6) % Eos % (Auto) 0 L (2-4) % Baso % (Auto) 0 (0-1) % PT 11.6 (9.5-12.0) sec INR 1.08 (0.80-1.20) Sodium 139 L (140-148) mmol/L Potassium 3.5 L (3.6-5.2) mmol/L Chloride 99 L (100-108) mmol/L Carbon Dioxide 24 (21-32) mmol/L Anion Gap 19.5 H (5.0-14.0) mmol/L BUN 8 (7-18) mg/dL Creatinine 0.9 (0.8-1.3) mg/dL Est Cr Clr Drug Dosing 92.36 mL/min Estimated GFR (MDRD) > 60 (>60) Glucose 100 (74-106) mg/dL Calcium 7.6 L (8.5-10.1) mg/dL Magnesium 1.8 (1.8-2.4) mg/dL Total Bilirubin 0.7 (0.2-1.0) mg/dL AST 184 H D (15-37) U/L ALT 91 H (12-78) U/L Alkaline Phosphatase 123 H (46-116) U/L Total Protein 6.4 (6.4-8.2) g/dL Albumin 3.1 L (3.4-5.0) g/dL Globulin 3.3 (2.3-3.5) g/dL Albumin/Globulin Ratio 0.9 L (1.2-2.2) Amylase 44 (25-115) U/L Lipase 56 L (73-393) U/L Urine Color (YELLOW) Urine Appearance (CLEAR) Urine pH (5.0-8.0) Ur Specific [place] (1.008-1.030) Urine Protein (NEGATIVE) mg/dL Urine Glucose (UA) (NEGATIVE) mg/dL Urine Ketones (NEGATIVE) mg/dL Urine Occult Blood (NEGATIVE) Urine Nitrite (NEGATIVE) Urine Bilirubin (NEGATIVE) Urine Urobilinogen (0.2-1.0) EU/dL Ur Leukocyte Esterase (NEGATIVE) Urine RBC (0-5) Urine WBC (0-5) Ur Epithelial Cells Amorphous Sediment Urine Bacteria Urine Mucus Ethyl Alcohol mg/dL 10/03/19 10/03/19 Range/Units 14:25 23:02 WBC (4.5-11.0) K/uL RBC (4.30-5.90) M/uL Hgb (12.0-15.0) g/dL Hct (40.0-54.0) % MCV (80-98) fL MCH (27-31) pg MCHC (32-36) % Plt Count (150-400) K/uL Neut % (Auto) (36-66) % Lymph % (Auto) (24-44) % [place] % (Auto) (2-6) % Eos % (Auto) (2-4) % Baso % (Auto) (0-1) % PT (9.5-12.0) sec INR (0.80-1.20) Sodium (140-148) mmol/L Potassium (3.6-5.2) mmol/L Chloride (100-108) mmol/L Carbon Dioxide (21-32) mmol/L Anion Gap (5.0-14.0) mmol/L BUN (7-18) mg/dL Creatinine (0.8-1.3) mg/dL Est Cr Clr Drug Dosing mL/min Estimated GFR (MDRD) (>60) Glucose (74-106) mg/dL Calcium (8.5-10.1) mg/dL Magnesium (1.8-2.4) mg/dL Total Bilirubin (0.2-1.0) mg/dL AST (15-37) U/L ALT (12-78) U/L Alkaline Phosphatase (46-116) U/L Total Protein (6.4-8.2) g/dL Albumin (3.4-5.0) g/dL Globulin (2.3-3.5) g/dL Albumin/Globulin Ratio (1.2-2.2) Amylase (25-115) U/L Lipase (73-393) U/L Urine Color Yellow (YELLOW) Urine Appearance Clear (CLEAR) Urine pH 6.5 (5.0-8.0) Ur Specific [place] 1.025 (1.008-1.030) Urine Protein 30 H (NEGATIVE) mg/dL Urine Glucose (UA) Negative (NEGATIVE) mg/dL Urine Ketones Trace H (NEGATIVE) mg/dL Urine Occult Blood Negative (NEGATIVE) Urine Nitrite Negative (NEGATIVE) Urine Bilirubin Negative (NEGATIVE) Urine Urobilinogen 1.0 (0.2-1.0) EU/dL Ur Leukocyte Esterase Negative (NEGATIVE) Urine RBC 0-5 (0-5) Urine WBC 0-5 (0-5) Ur Epithelial Cells Few Amorphous Sediment Few Urine Bacteria Few Urine Mucus Few Ethyl Alcohol 397 mg/dL Med Orders - Current: Current Medications Folic Acid (Folic Acid) 1 mg PO DAILY [facility] Last Admin: 10/04/19 09:16 Dose: Not Given Gabapentin (Neurontin) 400 mg PO Q8H [facility] Stop: 10/07/19 14:01 Last Admin: 10/04/19 05:38 Dose: 400 mg Dextrose/Sodium Chloride (Dextrose 5%-Normal Saline) 1,000 mls @ 125 mls/hr IV ASDIRECTED [facility] Last Admin: 10/04/19 05:46 Dose: 125 mls/hr Lorazepam (Ativan) 0 mg IV ASDIRECTED PRN; Protocol PRN Reason: ETOH WITHDRAWAL Lorazepam (Ativan) 0 mg PO ASDIRECTED PRN; Protocol PRN Reason: ETOH WITHDRAWAL Last Admin: 10/04/19 10:03 Dose: 1 mg Nicotine (Habitrol) 21 mg TRDERM DAILY PRN PRN Reason: NICOTINE WITHDRAWAL Last Admin: 10/04/19 07:24 Dose: 21 mg Pantoprazole Sodium (Protonix) 40 mg PO DAILY@0730 [facility] Last Admin: 10/04/19 07:25 Dose: 40 mg Thiamine HCl (Vitamin B-1) 100 mg PO DAILY [facility] Last Admin: 10/04/19 09:16 Dose: Not Given - Exam General: Alert, Oriented Neck: Supple Lungs: Clear to Auscultation, Normal Respiratory Effort Cardiovascular: Regular Rate, Regular Rhythm GI/Abdominal Exam: Normal Bowel Sounds, Soft, Non-Tender, No Organomegaly, No Distention, No Abnormal Bruit, No Mass, Pelvis Stable Extremities: Normal Inspection, Normal Range of Motion, Non-Tender, No Pedal Edema, Normal Capillary Refill Peripheral Pulses: 1+: Radial (L), Radial (R) Skin: Warm, Dry, Intact Psy/Mental Status: Hallucinations, Withdrawal Symptoms Sepsis Event Note - Evaluation Sepsis Screening Result: No Definite Risk - Focused Exam Vital Signs: Vital Signs Temp Pulse Resp BP Pulse Ox 10/04/19 10:00 98.2 F 91 21 H 148/92 H 97 10/04/19 07:16 98.1 F 97 18 156/90 H 95 10/04/19 06:00 19 150/92 H 98 10/04/19 04:00 98.6 F 18 146/85 H 98 10/04/19 02:00 18 141/81 H 96 10/04/19 00:00 98.1 F 17 142/81 H 96 Date Exam was Performed: 10/04/19 Time Exam was Performed: 11:36 - Problem List Review Problem List Initiated/Reviewed/Updated: Yes - My Orders Last 24 Hours: My Active Orders 10/03/19 14:00 Gabapentin [Neurontin] 400 mg PO Q8H 10/03/19 14:19 CIWAA Assessment [RC] Q1H Cardiac Monitoring [RC] Q6H Notify Provider [RC] PRN Seizure Precautions [OM.PC] Routine 10/03/19 14:25 Resuscitation Status Routine 10/03/19 14:26 Patient Status [ADT] Routine Vital Signs [RC] Q2H 10/03/19 14:27 Intake and Output [RC] QSHIFT 10/03/19 14:30 Dextrose 5%-0.9% NaCl [Dextrose 5%-Normal Saline] 1,000 ml IV ASDIRECTED Folic Acid 1 mg PO DAILY LORazepam [Ativan] See Protocol IV ASDIRECTED PRN LORazepam [Ativan] See Protocol PO ASDIRECTED PRN Nicotine [Habitrol] 21 mg TRDERM DAILY PRN Pantoprazole [ProTONIX] 40 mg PO DAILY@0730 Thiamine [Vitamin B-1] 100 mg PO DAILY 10/03/19 Dinner Regular Diet [DIET] - Plan Plan:: Assessment/Plan: #1. Alcoholism with emending seizures. Continues with alc. withdraw. Liver test elevated. Lipase normal #2. History of HTN: Stable presently. Will start meds if pressure elevates. #3. History of pancreatitis: Stable presently. Lipase normal.
[2019-10-04] MEDS: Potassium Chloride 20 MEQ Tab.ER PO SCH (13:20)
[2019-10-05] MEDS: Gabapentin 400 MG Cap PO SCH (05:45)
[2019-10-05] MEDS: Pantoprazole 40 MG Tab.CR PO SCH (08:00)
[2019-10-05] MEDS: Thiamine 100 MG Tab PO SCH (08:00)
[2019-10-05] MEDS: Potassium Chloride 20 MEQ Tab.ER PO SCH (08:00)
[2019-10-05] MEDS: Folic Acid 1 MG Tab PO SCH (08:00)
--- NOTE | 2019-10-05 10:48 | PCM.PN ---
- General Info Date of Service: 10/05/19 Functional Status: Reports: Pain Controlled - Review of Systems General: Reports: Weakness HEENT: Reports: No Symptoms Pulmonary: Reports: No Symptoms Cardiovascular: Reports: No Symptoms Gastrointestinal: Reports: Abdominal Pain Genitourinary: Reports: No Symptoms Musculoskeletal: Reports: No Symptoms Skin: Reports: No Symptoms Neurological: Reports: No Symptoms Psychiatric: Reports: No Symptoms - Patient Data Vitals - Most Recent: Last Vital Signs Temp 96.6 F L 10/05/19 08:00 Pulse 102 H 10/05/19 08:00 Resp 16 10/05/19 08:00 BP 143/95 H 10/05/19 08:00 Pulse Ox 99 10/05/19 08:00 Weight - Most Recent: 145 lb I&O - Last 24 Hours: Intake & Output 10/04/19 10/05/19 10/05/19 22:59 06:59 14:59 Intake Total 1250 1080 Output Total 750 1625 160 Balance 500 -545 -160 Lab Results Last 24 Hours: Laboratory Results - last 24 hr 10/05/19 10/05/19 Range/Units 05:00 05:00 WBC 5.9 (4.5-11.0) K/uL RBC 4.11 L (4.30-5.90) M/uL Hgb 12.3 (12.0-15.0) g/dL Hct 38.8 L (40.0-54.0) % MCV 94 (80-98) fL MCH 30 (27-31) pg MCHC 32 (32-36) % Plt Count 50 L (150-400) K/uL Neut % (Auto) 74 H (36-66) % Lymph % (Auto) 18 L (24-44) % [place] % (Auto) 6 (2-6) % Eos % (Auto) 2 (2-4) % Baso % (Auto) 0 (0-1) % Sodium 137 L (140-148) mmol/L Potassium 3.3 L (3.6-5.2) mmol/L Chloride 100 (100-108) mmol/L Carbon Dioxide 29 (21-32) mmol/L Anion Gap 11.3 (5.0-14.0) mmol/L BUN 2 L D (7-18) mg/dL Creatinine 0.9 (0.8-1.3) mg/dL Est Cr Clr Drug Dosing 92.36 mL/min Estimated GFR (MDRD) > 60 (>60) Glucose 113 H (74-106) mg/dL Calcium 8.6 (8.5-10.1) mg/dL Total Bilirubin 0.7 (0.2-1.0) mg/dL AST 180 H (15-37) U/L ALT 113 H (12-78) U/L Alkaline Phosphatase 125 H (46-116) U/L Total Protein 6.4 (6.4-8.2) g/dL Albumin 2.9 L (3.4-5.0) g/dL Globulin 3.5 (2.3-3.5) g/dL Albumin/Globulin Ratio 0.8 L (1.2-2.2) Med Orders - Current: Current Medications Folic Acid (Folic Acid) 1 mg PO DAILY [facility] Last Admin: 10/05/19 08:00 Dose: 1 mg Gabapentin (Neurontin) 400 mg PO Q8H [facility] Stop: 10/07/19 14:01 Last Admin: 10/05/19 05:45 Dose: 400 mg Lorazepam (Ativan) 0 mg IV ASDIRECTED PRN; Protocol PRN Reason: ETOH WITHDRAWAL Lorazepam (Ativan) 0 mg PO ASDIRECTED PRN; Protocol PRN Reason: ETOH WITHDRAWAL Last Admin: 10/04/19 22:00 Dose: 1 mg Nicotine (Habitrol) 21 mg TRDERM DAILY PRN PRN Reason: NICOTINE WITHDRAWAL Last Admin: 10/04/19 07:24 Dose: 21 mg Pantoprazole Sodium (Protonix) 40 mg PO DAILY@0730 [facility] Last Admin: 10/05/19 08:00 Dose: 40 mg Potassium Chloride (Klor-Con M20) 20 meq PO DAILY [facility] Last Admin: 10/05/19 08:00 Dose: 20 meq Thiamine HCl (Vitamin B-1) 100 mg PO DAILY [facility] Last Admin: 10/05/19 08:00 Dose: 100 mg Discontinued Medications Dextrose/Sodium Chloride (Dextrose 5%-Normal Saline) 1,000 mls @ 125 mls/hr IV ASDIRECTED [facility] Last Admin: 10/04/19 13:31 Dose: 125 mls/hr - Exam General: Alert, Oriented HEENT: Pupils Equal, Pupils Reactive, EOMI, Mucous Membr. Moist/[place] Neck: Supple Lungs: Clear to Auscultation, Normal Respiratory Effort Cardiovascular: Regular Rate, Regular Rhythm GI/Abdominal Exam: Tender Back Exam: Normal Inspection, Full Range of Motion Extremities: Normal Inspection, Normal Range of Motion, Non-Tender, No Pedal Edema, Normal Capillary Refill Peripheral Pulses: 1+: Radial (L), Radial (R) Skin: Warm, Dry, Intact Neurological: No New Focal Deficit Sepsis Event Note - Evaluation Sepsis Screening Result: No Definite Risk - Focused Exam Vital Signs: Vital Signs Temp Pulse Resp BP Pulse Ox 10/05/19 08:00 96.6 F L 102 H 16 143/95 H 99 10/05/19 06:00 16 150/91 H 98 10/05/19 04:00 97.1 F 16 139/99 H 97 10/05/19 02:00 15 121/67 98 10/05/19 00:00 98.1 F 20 134/86 98 Date Exam was Performed: 10/05/19 Time Exam was Performed: 10:45 - Problem List Review Problem List Initiated/Reviewed/Updated: Yes - My Orders Last 24 Hours: My Active Orders 10/04/19 11:45 Potassium Chloride [Klor-Con M20] 20 meq PO DAILY 10/05/19 10:44 Ready for Discharge [RC] PER UNIT ROUTINE - Plan Plan:: Assessment/Plan: #1. Alcoholism Stable presently. Will discharge home. #2. History of HTN: Stable presently. Continue with meds as home. #3. History of pancreatitis: Stable presently. Lipase normal. Will discharge home one meds including K+
--- NOTE | 2019-10-05 10:53 | PCM.DCSUM1 ---
Discharge Summary - Hospital Course Brief History: History of alc. use again with a history of seizures. Admitted for treatment. Diagnosis: Stroke: No - Discharge Data Discharge Date: 10/05/19 Discharge Disposition: Home, Self-Care 01 Condition: Good - Referral to Home Health Primary Care Physician: Damon Langley Sr, MD - Patient Summary/Data Hospital Course: Meds given for withdrawal and did well however did have hallucinations while in the ICU. - Patient Instructions Diet: Heart Healthy Diet Diet, Other: No alcohol Activity: As Tolerated - Discharge Plan *PRESCRIPTION DRUG MONITORING PROGRAM REVIEWED*: No *COPY OF PRESCRIPTION DRUG MONITORING REPORT IN PATIENT CIRILO: No Home Medications: Home Meds lisinopriL [Prinivil] 10 mg PO DAILY tablet 08/30/19 [Rx] Potassium Chloride [Klor-Con M20] 20 meq PO DAILY tab.er 10/05/19 [Rx] - Discharge Summary/Plan Comment DC Time >30 min.: Yes Discharge Summary/Plan Comment: Assessment/Plan: #1. Alcoholism Stable presently. Will discharge home. #2. History of HTN: Stable presently. Continue with meds as home. #3. History of pancreatitis: Stable presently. Lipase normal. Will discharge home one meds including K+ - General Info Date of Service: 10/05/19 Subjective Update: Doing well off alcohol and wanting to go home. Functional Status: Reports: Pain Controlled - Review of Systems General: Reports: Weakness HEENT: Reports: No Symptoms Pulmonary: Reports: No Symptoms Cardiovascular: Reports: No Symptoms Gastrointestinal: Reports: Abdominal Pain Genitourinary: Reports: No Symptoms Musculoskeletal: Reports: No Symptoms Skin: Reports: No Symptoms Neurological: Reports: No Symptoms Psychiatric: Reports: No Symptoms - Patient Data Vitals - Most Recent: Last Vital Signs Temp 96.6 F L 10/05/19 08:00 Pulse 102 H 10/05/19 08:00 Resp 16 10/05/19 08:00 BP 143/95 H 10/05/19 08:00 Pulse Ox 99 10/05/19 08:00 Weight - Most Recent: 145 lb I&O - Last 24 hours: Intake & Output 10/04/19 10/05/19 10/05/19 22:59 06:59 14:59 Intake Total 1250 1080 Output Total 750 1625 160 Balance 500 -545 -160 Lab Results - Last 24 hrs: Laboratory Results - last 24 hr 10/05/19 10/05/19 Range/Units 05:00 05:00 WBC 5.9 (4.5-11.0) K/uL RBC 4.11 L (4.30-5.90) M/uL Hgb 12.3 (12.0-15.0) g/dL Hct 38.8 L (40.0-54.0) % MCV 94 (80-98) fL MCH 30 (27-31) pg MCHC 32 (32-36) % Plt Count 50 L (150-400) K/uL Neut % (Auto) 74 H (36-66) % Lymph % (Auto) 18 L (24-44) % [place] % (Auto) 6 (2-6) % Eos % (Auto) 2 (2-4) % Baso % (Auto) 0 (0-1) % Sodium 137 L (140-148) mmol/L Potassium 3.3 L (3.6-5.2) mmol/L Chloride 100 (100-108) mmol/L Carbon Dioxide 29 (21-32) mmol/L Anion Gap 11.3 (5.0-14.0) mmol/L BUN 2 L D (7-18) mg/dL Creatinine 0.9 (0.8-1.3) mg/dL Est Cr Clr Drug Dosing 92.36 mL/min Estimated GFR (MDRD) > 60 (>60) Glucose 113 H (74-106) mg/dL Calcium 8.6 (8.5-10.1) mg/dL Total Bilirubin 0.7 (0.2-1.0) mg/dL AST 180 H (15-37) U/L ALT 113 H (12-78) U/L Alkaline Phosphatase 125 H (46-116) U/L Total Protein 6.4 (6.4-8.2) g/dL Albumin 2.9 L (3.4-5.0) g/dL Globulin 3.5 (2.3-3.5) g/dL Albumin/Globulin Ratio 0.8 L (1.2-2.2) Med Orders - Current: Current Medications Folic Acid (Folic Acid) 1 mg PO DAILY [facility] Last Admin: 10/05/19 08:00 Dose: 1 mg Gabapentin (Neurontin) 400 mg PO Q8H [facility] Stop: 10/07/19 14:01 Last Admin: 10/05/19 05:45 Dose: 400 mg Lorazepam (Ativan) 0 mg IV ASDIRECTED PRN; Protocol PRN Reason: ETOH WITHDRAWAL Lorazepam (Ativan) 0 mg PO ASDIRECTED PRN; Protocol PRN Reason: ETOH WITHDRAWAL Last Admin: 10/04/19 22:00 Dose: 1 mg Nicotine (Habitrol) 21 mg TRDERM DAILY PRN PRN Reason: NICOTINE WITHDRAWAL Last Admin: 10/04/19 07:24 Dose: 21 mg Pantoprazole Sodium (Protonix) 40 mg PO DAILY@0730 [facility] Last Admin: 10/05/19 08:00 Dose: 40 mg Potassium Chloride (Klor-Con M20) 20 meq PO DAILY [facility] Last Admin: 10/05/19 08:00 Dose: 20 meq Thiamine HCl (Vitamin B-1) 100 mg PO DAILY [facility] Last Admin: 10/05/19 08:00 Dose: 100 mg Discontinued Medications Dextrose/Sodium Chloride (Dextrose 5%-Normal Saline) 1,000 mls @ 125 mls/hr IV ASDIRECTED [facility] Last Admin: 10/04/19 13:31 Dose: 125 mls/hr - Exam General: Reports: Alert, Oriented HEENT: Reports: Pupils Equal, Pupils Reactive, EOMI, Mucous Membr. Moist/[place] Neck: Reports: Supple Lungs: Reports: Clear to Auscultation, Normal Respiratory Effort Cardiovascular: Reports: Regular Rate, Regular Rhythm GI/Abdominal Exam: Tender Extremities: Normal Inspection, Normal Range of Motion, Non-Tender, No Pedal Edema, Normal Capillary Refill Skin: Reports: Warm, Dry, Intact Neurological: Reports: No New Focal Deficit
[2019-10-05 12:28] VITALS: BP 131/94; PULSE 97
== END 2019-10-05 12:00 | disposition home or self-care (01) | DRG 775 ==
LOC: JP.ICU 13:34
PROVIDERS: ADMIT Internal Medicine; ATTEND Internal Medicine
DX: F10.239 Alcohol dependence with withdrawal, unspecified (principal); R44.3 Hallucinations, unspecified; I10 Essential (primary) hypertension; K59.09 Other constipation; F17.200 Nicotine dependence, unspecified, uncomplicated; F41.9 Anxiety disorder, unspecified; D64.9 Anemia, unspecified; R56.9 Unspecified convulsions; Z79.899 Other long term (current) drug therapy; Z87.01 Personal history of pneumonia (recurrent)
CPT/HCPCS: 36415; 80053; 80307; 81001; 82150; 83690; 83735; 85025; 85610; A9270-GY

== ENCOUNTER 2020-01-07 17:59 | Inpatient (IN) | payer SELFPAY ==
--- NOTE | 2020-01-07 18:56 | PCM.HP.2 ---
H&P History of Present Illness - General Date of Service: 01/07/20 Admit Problem/Dx: Admission Diagnosis/Problem Admission Diagnosis/Problem Alcoholism Source of Information: Patient History Limitations: Reports: No Limitations - History of Present Illness Initial Comments - Free Text/Narative: Has started to drink alcohol 2 weeks ago 750 daily then started to to have GI b lood loss for the last 2 days. He has a history of alcoholism with DT's in the past. His last drink was just before coming to the hospital. Duration of Symptoms: Reports: Day(s): Associated Symptoms: Reports: Weakness - Related Data Allergies/Adverse Reactions: Allergies Allergy/AdvReac Type Severity Reaction Status Date / Time No Known Allergies Allergy Verified 08/27/19 11:41 Home Medications: Home Meds lisinopriL [Prinivil] 10 mg PO DAILY tablet 08/30/19 [Rx] Potassium Chloride [Klor-Con M20] 20 meq PO DAILY tab.er 10/05/19 [Rx] Past Medical History HEENT History: Reports: Impaired Vision Respiratory History: Reports: Pneumothorax Other Respiratory History: pneumonia Gastrointestinal History: Reports: Chronic Constipation, Chronic Diarrhea, Cirrhosis Other Gastrointestinal History: diverticulitis Musculoskeletal History: Reports: Other (See Below) Other Musculoskeletal History: shaking unsteady Neurological History: Reports: Other (See Below) Other Neuro History: Past etoh withdrawal Psychiatric History: Reports: Addiction, Anxiety, Other (See Below) Other Psychiatric History: ineffective coping Hematologic History: Reports: Anemia Immunologic History: Reports: Other (See Below) Other Immunologic History: lymes? - Infectious Disease History Infectious Disease History: Reports: Other (See Below) Other Infectious Disease History: alcoholic hepatitis - Past Surgical History HEENT Surgical History: Reports: None Respiratory Surgical History: Reports: None GI Surgical History: Reports: Cholecystectomy Social & Family History - Caffeine Use Caffeine Use: Reports: Coffee H&P Review of Systems - Review of Systems: Review Of Systems: See Below General: Reports: Weakness Pulmonary: Reports: Shortness of Breath Cardiovascular: Reports: Dyspnea on Exertion Gastrointestinal: Reports: Decreased Appetite, Hematochezia Genitourinary: Reports: No Symptoms Musculoskeletal: Reports: No Symptoms Neurological: Reports: Confusion, Trouble Speaking, Difficulty Walking, Weakness, Gait Disturbance Exam - Exam Exam: See Below - Exam General: Oriented, Cooperative, Moderate Distress HEENT: PERRLA, Hearing Intact, Mucosa Moist & [place], Nares Patent, Normal Nasal Septum, Posterior Pharynx Clear, Conjunctiva Clear, EOMI, EACs Clear, TMs Clear Neck: Supple, Trachea Midline, 2 Lungs: Clear to Auscultation, Normal Respiratory Effort Cardiovascular: Regular Rate, Regular Rhythm GI/Abdominal Exam: Normal Bowel Sounds, Soft, Non-Tender, No Organomegaly, No Distention, No Abnormal Bruit, No Mass, Pelvis Stable Peripheral Pulses: 1+: Radial (L), Radial (R) Skin: Warm, Dry, Intact Neurological: Cranial Nerves Intact, Reflexes Equal Bilateral, Strength Equal Bilateral Neuro Extensive - Mental Status: Oriented x3 Neuro Extensive - Motor, Sensory, Reflexes: CN II-XII Intact DTR: 1+: Bicep (L), Bicep (R) Psychiatric: Withdrawal Symptoms Problem List Initiated/Reviewed/Updated: Yes Orders Last 24hrs: Active Orders 24 hr Category Date Time Status Patient Status [ADT] Routine ADT 01/07/20 18:37 Ordered Ambulate [RC] ASDIRECTED Care 01/07/20 18:37 Ordered CIWAA Assessment [RC] Q1H Care 01/07/20 18:47 Ordered Cardiac Monitoring [RC] .As Directed Care 01/07/20 18:40 Ordered Cardiac Monitoring [RC] .As Directed Care 01/07/20 18:47 Ordered Height and Weight [RC] DAILY Care 01/07/20 18:37 Ordered Intake and Output [RC] QSHIFT Care 01/07/20 18:40 Ordered Notify Provider [RC] PRN Care 01/07/20 18:47 Ordered Oxygen Therapy [RC] PRN Care 01/07/20 18:37 Ordered Up ad Mackenzie [RC] ASDIRECTED Care 01/07/20 18:37 Ordered VTE/DVT Education [RC] Per Unit Routine Care 01/07/20 18:37 Ordered Vital Signs [RC] Q4H Care 01/07/20 18:37 Ordered AMMONIA VENOUS [CHEM] Routine Lab 01/07/20 18:47 Ordered Blood Alcohol [ETHANOL BLOOD MEDICAL] [CHEM] Stat Lab 01/07/20 18:28 Received CBC WITH AUTO DIFF [HEME] Stat Lab 01/07/20 18:28 Received COMPREHENSIVE METABOLIC PN,CMP [CHEM] Stat Lab 01/07/20 18:28 Received Dextrose 5%-Normal Saline with KCl 20 mEq @ 150 mL/Hr ( Med 01/07/20 18:45 Ordered 1000 mL) Dextrose 5%-0.9% NaCl with KCl [D5 NS with 20 mEq KCl] 1,000 ml IV ASDIRECTED Folic Acid Med 01/08/20 09:00 Ordered 1 mg PO DAILY Gabapentin [Neurontin] Med 01/07/20 19:00 Ordered 400 mg PO Q8H LORazepam [Ativan] Med 01/07/20 19:00 Ordered See Protocol IV ASDIRECTED LORazepam [Ativan] Med 01/07/20 19:00 Ordered See Protocol PO ASDIRECTED Pantoprazole [ProTONIX IV] Med 01/08/20 09:00 Ordered 40 mg IV DAILY Thiamine [Vitamin B-1] Med 01/08/20 09:00 Ordered 100 mg PO DAILY Resuscitation Status Routine Resus Stat 01/07/20 18:37 Ordered Medication Orders Potassium Chloride/Dextrose/Sod Cl (D5 Ns With 20 Meq Kcl) 1,000 mls @ 150 mls/hr IV ASDIRECTED [facility] Stop: 01/08/20 02:46 Assessment/Plan Comment:: Assessment/Plan: #1. Alcoholism with Delirium Tremors: Will start on the protocol with Ativan and routine meds. Alc. level 472 #2. Dehydration: Will give IV Fluids #3. Hypokalemia: K 3.4 will replace with IV K+ #4. Alc. liver disease: AST 131
[2020-01-07] MEDS: Dextrose 5%-0.9% NaCl with KCl 1,000 ML IV SCH (19:04)
[2020-01-07] MEDS: LORazepam 2 MG/ML SDV IV SCH ×2 (19:53→22:49)
[2020-01-07] MEDS: Gabapentin 400 MG Cap PO SCH (20:01)
[2020-01-07] MEDS: Nicotine 21 MG/24 Hr Patch TRDERM SCH (20:49)
[2020-01-07] MEDS: LORazepam 1 MG Tab PO SCH (21:24)
[2020-01-08] MEDS: LORazepam 2 MG/ML SDV IV SCH ×10 (01:05→21:41)
[2020-01-08] MEDS: Dextrose 5%-0.9% NaCl with KCl 1,000 ML IV SCH ×2 (01:41→14:09)
[2020-01-08] MEDS: Gabapentin 400 MG Cap PO SCH ×3 (04:16→18:03)
[2020-01-08] MEDS: Folic Acid 1 MG Tab PO SCH (08:04)
[2020-01-08] MEDS: Nicotine 21 MG/24 Hr Patch TRDERM SCH (08:04)
[2020-01-08] MEDS: Pantoprazole 40 MG Vial IV SCH (08:05)
[2020-01-08] MEDS: Thiamine 100 MG Tab PO SCH (08:06)
--- NOTE | 2020-01-08 09:00 | PCM.PN ---
- General Info Date of Service: 01/08/20 Functional Status: Reports: Pain Controlled - Review of Systems General: Reports: Weakness HEENT: Reports: No Symptoms Pulmonary: Reports: No Symptoms Cardiovascular: Reports: No Symptoms Gastrointestinal: Reports: Abdominal Pain Genitourinary: Reports: No Symptoms Musculoskeletal: Reports: No Symptoms Psychiatric: Reports: Anxiety - Patient Data Vitals - Most Recent: Last Vital Signs Temp 98.5 F 01/08/20 08:00 Pulse 96 01/08/20 08:00 Resp 22 H 01/08/20 08:00 BP 135/78 01/08/20 08:00 Pulse Ox 93 L 01/08/20 08:00 Weight - Most Recent: 137 lb 12.623 oz I&O - Last 24 Hours: Intake & Output 01/07/20 01/08/20 01/08/20 22:59 06:59 14:59 Intake Total 1462 Output Total 300 Balance 1162 Lab Results Last 24 Hours: Laboratory Results - last 24 hr 01/07/20 01/07/20 01/07/20 Range/Units 18:28 18:28 18:28 WBC 7.8 (4.5-11.0) K/uL RBC 4.70 (4.30-5.90) M/uL Hgb 14.6 D (12.0-15.0) g/dL Hct 44.6 (40.0-54.0) % MCV 95 (80-98) fL MCH 31 (27-31) pg MCHC 33 (32-36) % Plt Count 120 L (150-400) K/uL Neut % (Auto) 69 H (36-66) % Lymph % (Auto) 23 L (24-44) % [place] % (Auto) 8 H (2-6) % Eos % (Auto) 0 L (2-4) % Baso % (Auto) 1 (0-1) % Sodium 142 (140-148) mmol/L Potassium 3.4 L (3.6-5.2) mmol/L Chloride 103 (100-108) mmol/L Carbon Dioxide 24 (21-32) mmol/L Anion Gap 18.4 H (5.0-14.0) mmol/L BUN 6 L D (7-18) mg/dL Creatinine 0.9 (0.8-1.3) mg/dL Est Cr Clr Drug Dosing TNP Estimated GFR (MDRD) > 60 (>60) Glucose 101 (74-106) mg/dL Calcium 7.9 L (8.5-10.1) mg/dL Total Bilirubin 0.5 (0.2-1.0) mg/dL AST 131 H (15-37) U/L ALT 50 (12-78) U/L Alkaline Phosphatase 187 H (46-116) U/L Ammonia (11-32) mmol/L Total Protein 7.0 (6.4-8.2) g/dL Albumin 3.2 L (3.4-5.0) g/dL Globulin 3.8 H (2.3-3.5) g/dL Albumin/Globulin Ratio 0.8 L (1.2-2.2) Ethyl Alcohol 472 mg/dL 01/07/20 Range/Units 18:54 WBC (4.5-11.0) K/uL RBC (4.30-5.90) M/uL Hgb (12.0-15.0) g/dL Hct (40.0-54.0) % MCV (80-98) fL MCH (27-31) pg MCHC (32-36) % Plt Count (150-400) K/uL Neut % (Auto) (36-66) % Lymph % (Auto) (24-44) % [place] % (Auto) (2-6) % Eos % (Auto) (2-4) % Baso % (Auto) (0-1) % Sodium (140-148) mmol/L Potassium (3.6-5.2) mmol/L Chloride (100-108) mmol/L Carbon Dioxide (21-32) mmol/L Anion Gap (5.0-14.0) mmol/L BUN (7-18) mg/dL Creatinine (0.8-1.3) mg/dL Est Cr Clr Drug Dosing Estimated GFR (MDRD) (>60) Glucose (74-106) mg/dL Calcium (8.5-10.1) mg/dL Total Bilirubin (0.2-1.0) mg/dL AST (15-37) U/L ALT (12-78) U/L Alkaline Phosphatase (46-116) U/L Ammonia 10 L (11-32) mmol/L Total Protein (6.4-8.2) g/dL Albumin (3.4-5.0) g/dL Globulin (2.3-3.5) g/dL Albumin/Globulin Ratio (1.2-2.2) Ethyl Alcohol mg/dL Med Orders - Current: Current Medications Folic Acid (Folic Acid) 1 mg PO DAILY [facility] Last Admin: 01/08/20 08:04 Dose: 1 mg Documented by: Gabapentin (Neurontin) 400 mg PO Q8H [facility] Stop: 01/11/20 19:01 Last Admin: 01/08/20 04:16 Dose: Not Given Documented by: Potassium Chloride/Dextrose/Sod Cl (D5 Ns With 20 Meq Kcl) 1,000 mls @ 100 mls/hr IV ASDIRECTED [facility] Lorazepam (Ativan) 0 mg PO ASDIRECTED [facility]; Protocol Last Admin: 01/07/20 21:24 Dose: 1 mg Documented by: Lorazepam (Ativan) 0 mg IV ASDIRECTED [facility]; Protocol Last Admin: 01/08/20 07:55 Dose: 2 mg Documented by: Nicotine (Habitrol) 21 mg TRDERM DAILY [facility] Last Admin: 01/08/20 08:04 Dose: 21 mg Documented by: Pantoprazole Sodium (Protonix Iv) 40 mg IV DAILY [facility] Last Admin: 01/08/20 08:05 Dose: 40 mg Documented by: Thiamine HCl (Vitamin B-1) 100 mg PO DAILY [facility] Last Admin: 01/08/20 08:06 Dose: 100 mg Documented by: Discontinued Medications Potassium Chloride/Dextrose/Sod Cl (D5 Ns With 20 Meq Kcl) 1,000 mls @ 150 mls/hr IV ASDIRECTED [facility] Stop: 01/08/20 02:46 Last Admin: 01/08/20 01:41 Dose: 100 mls/hr Documented by: - Exam General: Oriented, Cooperative, Mild Distress HEENT: Pupils Equal, Pupils Reactive, EOMI, Mucous Membr. Moist/[place] Neck: Supple Lungs: Clear to Auscultation, Normal Respiratory Effort Cardiovascular: Regular Rate, Regular Rhythm GI/Abdominal Exam: Tender Back Exam: Normal Inspection, Full Range of Motion Peripheral Pulses: 1+: Radial (L), Radial (R) Skin: Warm, Dry, Intact Psy/Mental Status: Alert, Normal Affect, Normal Mood Sepsis Event Note - Evaluation Sepsis Screening Result: No Definite Risk - Focused Exam Vital Signs: Vital Signs Temp Pulse Resp BP Pulse Ox 01/08/20 08:00 98.5 F 96 22 H 135/78 93 L 01/08/20 06:00 100 22 H 133/76 01/08/20 05:00 88 15 139/85 92 L 01/08/20 04:00 88 14 130/81 92 L 01/08/20 03:00 97.7 F 87 16 122/77 92 L 01/08/20 02:00 85 14 120/72 91 L 01/08/20 01:00 85 16 134/85 94 L 01/08/20 00:00 88 14 126/67 89 L 01/07/20 23:00 97.4 F 86 15 130/74 89 L 01/07/20 22:00 84 16 128/78 94 L - Problem List Review Problem List Initiated/Reviewed/Updated: Yes - My Orders Last 24 Hours: My Active Orders 01/07/20 18:37 Patient Status [ADT] Routine Ambulate [RC] ASDIRECTED Height and Weight [RC] DAILY Oxygen Therapy [RC] PRN Up ad Mackenzie [RC] ASDIRECTED VTE/DVT Education [RC] Per Unit Routine Vital Signs [RC] Q1H Resuscitation Status Routine 01/07/20 18:40 Cardiac Monitoring [RC] Q6H Intake and Output [RC] QSHIFT 01/07/20 18:47 CIWAA Assessment [RC] Q1H Notify Provider [RC] PRN 01/07/20 19:00 Gabapentin [Neurontin] 400 mg PO Q8H LORazepam [Ativan] See Protocol IV ASDIRECTED LORazepam [Ativan] See Protocol PO ASDIRECTED 01/07/20 20:15 Nicotine [Habitrol] 21 mg TRDERM DAILY 01/08/20 07:45 Dextrose 5%-0.9% NaCl with KCl [D5 NS with 20 mEq KCl] 1,000 ml IV ASDIRECTED 01/08/20 08:59 CBC WITH AUTO DIFF [HEME] Routine COMPREHENSIVE METABOLIC PN,CMP [CHEM] Routine 01/08/20 09:00 Folic Acid 1 mg PO DAILY Pantoprazole [ProTONIX IV] 40 mg IV DAILY Thiamine [Vitamin B-1] 100 mg PO DAILY - Plan Plan:: Assessment/Plan: #1. Alcoholism with Delirium Tremors: Will continue with Ativan etc. #2. Dehydration: hydrated. #3. Hypokalemia: K 3.6 will replace with IV K+ #4. Alc. liver disease: AST 116 from 131 yesterday.
[2020-01-09] MEDS: LORazepam 2 MG/ML SDV IV SCH ×11 (00:07→22:26)
[2020-01-09] MEDS: Dextrose 5%-0.9% NaCl with KCl 1,000 ML IV SCH ×2 (00:10→14:30)
[2020-01-09] MEDS: Gabapentin 400 MG Cap PO SCH ×3 (03:01→18:05)
[2020-01-09] MEDS: Pantoprazole 40 MG Vial IV SCH (08:06)
[2020-01-09] MEDS: Folic Acid 1 MG Tab PO SCH (08:07)
[2020-01-09] MEDS: Thiamine 100 MG Tab PO SCH (08:07)
[2020-01-09] MEDS: Nicotine 21 MG/24 Hr Patch TRDERM SCH (08:14)
--- NOTE | 2020-01-09 08:20 | PCM.HP.2 ---
H&P History of Present Illness - General Date of Service: 01/07/20 Admit Problem/Dx: Admission Diagnosis/Problem Admission Diagnosis/Problem Alcoholism Source of Information: Patient History Limitations: Reports: No Limitations - Related Data Allergies/Adverse Reactions: Allergies Allergy/AdvReac Type Severity Reaction Status Date / Time No Known Allergies Allergy Verified 08/27/19 11:41 Home Medications: Home Meds lisinopriL [Prinivil] 10 mg PO DAILY tablet 08/30/19 [Rx] Potassium Chloride [Klor-Con M20] 20 meq PO DAILY tab.er 10/05/19 [Rx] Past Medical History HEENT History: Reports: Impaired Vision Respiratory History: Reports: Pneumothorax Other Respiratory History: pneumonia Gastrointestinal History: Reports: Chronic Constipation, Chronic Diarrhea, Cirrhosis Other Gastrointestinal History: diverticulitis Musculoskeletal History: Reports: Other (See Below) Other Musculoskeletal History: shaking unsteady Neurological History: Reports: Other (See Below) Other Neuro History: Past etoh withdrawal Psychiatric History: Reports: Addiction, Anxiety, Other (See Below) Other Psychiatric History: ineffective coping Hematologic History: Reports: Anemia Immunologic History: Reports: Other (See Below) Other Immunologic History: lymes? - Infectious Disease History Infectious Disease History: Reports: Other (See Below) Other Infectious Disease History: alcoholic hepatitis - Past Surgical History HEENT Surgical History: Reports: None Respiratory Surgical History: Reports: None GI Surgical History: Reports: Cholecystectomy Social & Family History - Tobacco Use Smoking Status *Q: Current Every Day Smoker Years of Tobacco use: 25 Packs/Tins Daily: 1 - Caffeine Use Caffeine Use: Reports: Coffee - Alcohol Use Days Per Week of Alcohol Use: 7 Number of Drinks Per Day: 10 Total Drinks Per Week: 70 Date of Last Drink: 01/07/20 Time of Last Drink: 17:00 - Recreational Drug Use Recreational Drug Use: No Exam - Exam Exam: See Below - Vital Signs Vital Signs: Last Vital Signs Temp 99.1 F 01/08/20 20:00 Pulse 88 01/09/20 06:00 Resp 13 01/09/20 06:00 BP 134/90 01/09/20 06:00 Pulse Ox 98 01/09/20 06:00 Weight: 137 lb 12.623 oz - Exam General: Oriented, Moderate Distress HEENT: PERRLA, EOMI Neck: Supple, Trachea Midline, 2 - Patient Data Lab Results Last 24 hrs: Laboratory Results - last 24 hr 01/08/20 01/08/20 Range/Units 09:15 09:15 WBC 7.0 (4.5-11.0) K/uL RBC 4.19 L (4.30-5.90) M/uL Hgb 13.3 (12.0-15.0) g/dL Hct 40.2 (40.0-54.0) % MCV 96 (80-98) fL MCH 32 H (27-31) pg MCHC 33 (32-36) % Plt Count 85 L (150-400) K/uL Neut % (Auto) 83 H (36-66) % Lymph % (Auto) 9 L (24-44) % [place] % (Auto) 8 H (2-6) % Eos % (Auto) 0 L (2-4) % Baso % (Auto) 0 (0-1) % Sodium 142 (140-148) mmol/L Potassium 3.6 (3.6-5.2) mmol/L Chloride 107 (100-108) mmol/L Carbon Dioxide 27 (21-32) mmol/L Anion Gap 7.7 (5.0-14.0) mmol/L BUN 7 (7-18) mg/dL Creatinine 0.8 (0.8-1.3) mg/dL Est Cr Clr Drug Dosing 98.74 mL/min Estimated GFR (MDRD) > 60 (>60) Glucose 151 H (74-106) mg/dL Calcium 7.7 L (8.5-10.1) mg/dL Total Bilirubin 0.5 (0.2-1.0) mg/dL AST 116 H (15-37) U/L ALT 43 (12-78) U/L Alkaline Phosphatase 164 H (46-116) U/L Total Protein 5.9 L (6.4-8.2) g/dL Albumin 2.7 L (3.4-5.0) g/dL Globulin 3.2 (2.3-3.5) g/dL Albumin/Globulin Ratio 0.8 L (1.2-2.2) Result Diagrams: 01/08/20 09:15 01/08/20 09:15 Sepsis Event Note - Evaluation Sepsis Screening Result: No Definite Risk - Focused Exam Vital Signs: Vital Signs Pulse Resp BP Pulse Ox 01/09/20 06:00 88 13 134/90 98 01/09/20 05:00 88 16 142/91 H 99 01/09/20 04:00 85 18 131/90 99 01/09/20 03:00 92 18 134/102 H 100 01/09/20 02:00 87 15 144/98 H 100 01/09/20 01:00 91 16 149/95 H 99 01/09/20 00:00 98 19 149/95 H 99 01/08/20 23:00 104 H 21 H 155/99 H 99 01/08/20 22:00 107 H 155/105 H 01/08/20 21:00 104 H 22 H 135/87 99 Orders Last 24hrs: Active Orders 24 hr Category Date Time Status Dextrose 5%-0.9% NaCl with KCl [D5 NS with 20 mEq KCl] Med 01/08/20 07:45 Active 1,000 ml IV ASDIRECTED Folic Acid Med 01/08/20 09:00 Active 1 mg PO DAILY Pantoprazole [ProTONIX IV] Med 01/08/20 09:00 Active 40 mg IV DAILY Thiamine [Vitamin B-1] Med 01/08/20 09:00 Active 100 mg PO DAILY Medication Orders Folic Acid (Folic Acid) 1 mg PO DAILY [facility] Last Admin: 01/09/20 08:07 Dose: 1 mg Documented by: Admin: 01/08/20 08:04 Dose: 1 mg Documented by: SUZANNE Gabapentin (Neurontin) 400 mg PO Q8H [facility] Stop: 01/11/20 19:01 Last Admin: 01/09/20 03:01 Dose: 400 mg Documented by: ANN-MARIE Admin: 01/08/20 18:03 Dose: 400 mg Documented by: Admin: 01/08/20 10:00 Dose: 400 mg Documented by: Admin: 01/08/20 04:16 Dose: Not Given Documented by: ANN-MARIE Admin: 01/07/20 20:01 Dose: 400 mg Documented by: ANN-MARIE Potassium Chloride/Dextrose/Sod Cl (D5 Ns With 20 Meq Kcl) 1,000 mls @ 100 mls/hr IV ASDIRECTED [facility] Last Admin: 01/09/20 00:10 Dose: 100 mls/hr Documented by: ANN-MARIE Infusion: 01/09/20 00:09 Dose: 100 mls/hr Documented by: ANN-MARIE Admin: 01/08/20 14:09 Dose: 100 mls/hr Documented by: SUZANNE Lorazepam (Ativan) 0 mg PO ASDIRECTED [facility]; Protocol Last Admin: 01/07/20 21:24 Dose: 1 mg Documented by: ANN-MARIE Lorazepam (Ativan) 0 mg IV ASDIRECTED [facility]; Protocol Last Admin: 01/09/20 05:00 Dose: 2 mg Documented by: ANN-MARIE Admin: 01/09/20 03:02 Dose: 2 mg Documented by: ANN-MARIE Admin: 01/09/20 00:07 Dose: 2 mg Documented by: ANN-MARIE Admin: 01/08/20 21:41 Dose: 2 mg Documented by: ANN-MARIE Admin: 01/08/20 19:23 Dose: 2 mg Documented by: ANN-MARIE Admin: 01/08/20 15:36 Dose: 2 mg Documented by: Admin: 01/08/20 14:09 Dose: 2 mg Documented by: Admin: 01/08/20 11:49 Dose: 2 mg Documented by: Admin: 01/08/20 07:55 Dose: 2 mg Documented by: Admin: 01/08/20 05:38 Dose: 2 mg Documented by: ANN-MARIE Admin: 01/08/20 03:09 Dose: 2 mg Documented by: ANN-MARIE Admin: 01/08/20 01:05 Dose: 2 mg Documented by: ANN-MARIE Admin: 01/07/20 22:49 Dose: 2 mg Documented by: Admin: 01/07/20 19:53 Dose: 2 mg Documented by: ANN-MARIE Nicotine (Habitrol) 21 mg TRDERM DAILY [facility] Last Admin: 01/09/20 08:14 Dose: 21 mg Documented by: Admin: 01/08/20 08:04 Dose: 21 mg Documented by: Admin: 01/07/20 20:49 Dose: 21 mg Documented by: ANN-MARIE Pantoprazole Sodium (Protonix Iv) 40 mg IV DAILY [facility] Last Admin: 01/09/20 08:06 Dose: 40 mg Documented by: Admin: 01/08/20 08:05 Dose: 40 mg Documented by: SUZANNE Thiamine HCl (Vitamin B-1) 100 mg PO DAILY [facility] Last Admin: 01/09/20 08:07 Dose: 100 mg Documented by: Admin: 01/08/20 08:06 Dose: 100 mg Documented by: SUZANNE Assessment/Plan Comment:: Assessment/Plan: #1. Alcoholism with Delirium Tremors: Will start on the protocol with Ativan and routine meds. Alc. level 472 #2. Dehydration: Will give IV Fluids #3. Hypokalemia: K 3.4 will replace with IV K+ #4. Alc. liver disease: AST 131
--- NOTE | 2020-01-09 08:31 | PCM.PN ---
- General Info Date of Service: 01/09/20 Functional Status: Reports: Pain Controlled - Review of Systems General: Reports: Weakness, Fatigue HEENT: Reports: No Symptoms Pulmonary: Reports: No Symptoms Cardiovascular: Reports: No Symptoms Gastrointestinal: Reports: Abdominal Pain Genitourinary: Reports: No Symptoms Musculoskeletal: Reports: No Symptoms Skin: Reports: No Symptoms Neurological: Reports: No Symptoms Psychiatric: Reports: No Symptoms - Patient Data Vitals - Most Recent: Last Vital Signs Temp 99.1 F 01/08/20 20:00 Pulse 88 01/09/20 06:00 Resp 13 01/09/20 06:00 BP 134/90 01/09/20 06:00 Pulse Ox 98 01/09/20 06:00 Weight - Most Recent: 137 lb 12.623 oz I&O - Last 24 Hours: Intake & Output 01/08/20 01/09/20 01/09/20 22:59 06:59 14:59 Intake Total 1170 1620 Output Total 1225 1750 Balance -55 -130 Lab Results Last 24 Hours: Laboratory Results - last 24 hr 01/08/20 01/08/20 Range/Units 09:15 09:15 WBC 7.0 (4.5-11.0) K/uL RBC 4.19 L (4.30-5.90) M/uL Hgb 13.3 (12.0-15.0) g/dL Hct 40.2 (40.0-54.0) % MCV 96 (80-98) fL MCH 32 H (27-31) pg MCHC 33 (32-36) % Plt Count 85 L (150-400) K/uL Neut % (Auto) 83 H (36-66) % Lymph % (Auto) 9 L (24-44) % [place] % (Auto) 8 H (2-6) % Eos % (Auto) 0 L (2-4) % Baso % (Auto) 0 (0-1) % Sodium 142 (140-148) mmol/L Potassium 3.6 (3.6-5.2) mmol/L Chloride 107 (100-108) mmol/L Carbon Dioxide 27 (21-32) mmol/L Anion Gap 7.7 (5.0-14.0) mmol/L BUN 7 (7-18) mg/dL Creatinine 0.8 (0.8-1.3) mg/dL Est Cr Clr Drug Dosing 98.74 mL/min Estimated GFR (MDRD) > 60 (>60) Glucose 151 H (74-106) mg/dL Calcium 7.7 L (8.5-10.1) mg/dL Total Bilirubin 0.5 (0.2-1.0) mg/dL AST 116 H (15-37) U/L ALT 43 (12-78) U/L Alkaline Phosphatase 164 H (46-116) U/L Total Protein 5.9 L (6.4-8.2) g/dL Albumin 2.7 L (3.4-5.0) g/dL Globulin 3.2 (2.3-3.5) g/dL Albumin/Globulin Ratio 0.8 L (1.2-2.2) Med Orders - Current: Current Medications Folic Acid (Folic Acid) 1 mg PO DAILY [facility] Last Admin: 01/09/20 08:07 Dose: 1 mg Documented by: Gabapentin (Neurontin) 400 mg PO Q8H [facility] Stop: 01/11/20 19:01 Last Admin: 01/09/20 03:01 Dose: 400 mg Documented by: Potassium Chloride/Dextrose/Sod Cl (D5 Ns With 20 Meq Kcl) 1,000 mls @ 100 mls/hr IV ASDIRECTED [facility] Last Admin: 01/09/20 00:10 Dose: 100 mls/hr Documented by: Lorazepam (Ativan) 0 mg PO ASDIRECTED [facility]; Protocol Last Admin: 01/07/20 21:24 Dose: 1 mg Documented by: Lorazepam (Ativan) 0 mg IV ASDIRECTED [facility]; Protocol Last Admin: 01/09/20 05:00 Dose: 2 mg Documented by: Nicotine (Habitrol) 21 mg TRDERM DAILY [facility] Last Admin: 01/09/20 08:14 Dose: 21 mg Documented by: Pantoprazole Sodium (Protonix Iv) 40 mg IV DAILY [facility] Last Admin: 01/09/20 08:06 Dose: 40 mg Documented by: Thiamine HCl (Vitamin B-1) 100 mg PO DAILY [facility] Last Admin: 01/09/20 08:07 Dose: 100 mg Documented by: Discontinued Medications Potassium Chloride/Dextrose/Sod Cl (D5 Ns With 20 Meq Kcl) 1,000 mls @ 150 mls/hr IV ASDIRECTED [facility] Stop: 01/08/20 02:46 Last Admin: 01/08/20 01:41 Dose: 100 mls/hr Documented by: - Exam General: Oriented, Cooperative, Moderate Distress HEENT: Pupils Equal, Pupils Reactive, EOMI, Mucous Membr. Moist/[place] Neck: Supple Lungs: Clear to Auscultation, Normal Respiratory Effort Cardiovascular: Regular Rate, Regular Rhythm GI/Abdominal Exam: Tender (Male) Exam: No Hernia, Normal Inspection, Normal Prostate, Circumcised Back Exam: Normal Inspection, Full Range of Motion Peripheral Pulses: 1+: Radial (L), Radial (R) Skin: Warm, Dry, Intact Psy/Mental Status: Alert, Normal Affect, Normal Mood Sepsis Event Note - Evaluation Sepsis Screening Result: No Definite Risk - Focused Exam Vital Signs: Vital Signs Pulse Resp BP Pulse Ox 01/09/20 06:00 88 13 134/90 98 01/09/20 05:00 88 16 142/91 H 99 01/09/20 04:00 85 18 131/90 99 01/09/20 03:00 92 18 134/102 H 100 01/09/20 02:00 87 15 144/98 H 100 01/09/20 01:00 91 16 149/95 H 99 01/09/20 00:00 98 19 149/95 H 99 01/08/20 23:00 104 H 21 H 155/99 H 99 01/08/20 22:00 107 H 155/105 H 01/08/20 21:00 104 H 22 H 135/87 99 - Problem List Review Problem List Initiated/Reviewed/Updated: Yes - My Orders Last 24 Hours: My Active Orders 01/08/20 07:45 Dextrose 5%-0.9% NaCl with KCl [D5 NS with 20 mEq KCl] 1,000 ml IV ASDIRECTED 01/08/20 09:00 Folic Acid 1 mg PO DAILY Pantoprazole [ProTONIX IV] 40 mg IV DAILY Thiamine [Vitamin B-1] 100 mg PO DAILY - Plan Plan:: Assessment/Plan: #1. Alcoholism with Delirium Tremors: Will continue with Ativan etc. #2. Dehydration: hydrated. #3. Hypokalemia: replacing #4. Alc. liver disease: AST 116 yesterday improving will repeat tomorrow.
[2020-01-09] MEDS ORDERED: Dextrose 5%-Lactated Ringers 1,000 ML IV SCH (10:30)
[2020-01-10] MEDS: Dextrose 5%-0.9% NaCl with KCl 1,000 ML IV SCH (00:47)
[2020-01-10] MEDS: LORazepam 1 MG Tab PO SCH ×4 (02:08→23:51)
[2020-01-10] MEDS: Gabapentin 400 MG Cap PO SCH ×3 (02:08→20:15)
[2020-01-10] MEDS: LORazepam 2 MG/ML SDV IV SCH (05:35)
[2020-01-10] MEDS: Thiamine 100 MG Tab PO SCH (08:10)
[2020-01-10] MEDS: Nicotine 21 MG/24 Hr Patch TRDERM SCH (08:10)
[2020-01-10] MEDS: Pantoprazole 40 MG Vial IV SCH (08:10)
[2020-01-10] MEDS: Folic Acid 1 MG Tab PO SCH (08:10)
[2020-01-10] MEDS ORDERED: Potassium Chloride 20 MEQ Tab.ER PO SCH (09:00)
[2020-01-10] MEDS: Potassium Chloride 20 MEQ Tab.ER PO SCH ×2 (09:01→17:02)
--- NOTE | 2020-01-10 19:50 | PCM.PN ---
- General Info Date of Service: 01/10/20 Functional Status: Reports: Pain Controlled - Review of Systems General: Reports: Weakness HEENT: Reports: No Symptoms Pulmonary: Reports: No Symptoms Cardiovascular: Reports: No Symptoms Gastrointestinal: Reports: Abdominal Pain Genitourinary: Reports: No Symptoms Musculoskeletal: Reports: No Symptoms Skin: Reports: No Symptoms Neurological: Reports: No Symptoms Psychiatric: Reports: No Symptoms, Anxiety - Patient Data Vitals - Most Recent: Last Vital Signs Temp 98 F 01/10/20 16:00 Pulse 102 H 01/10/20 01:00 Resp 20 01/10/20 18:00 BP 126/87 01/10/20 18:00 Pulse Ox 98 01/10/20 18:00 Weight - Most Recent: 135 lb 9.349 oz I&O - Last 24 Hours: Intake & Output 01/10/20 01/10/20 01/10/20 06:59 14:59 22:59 Intake Total 2024 Output Total 750 Balance 1274 Lab Results Last 24 Hours: Laboratory Results - last 24 hr 01/10/20 01/10/20 Range/Units 04:35 04:35 WBC 5.8 (4.5-11.0) K/uL RBC 4.09 L (4.30-5.90) M/uL Hgb 13.1 (12.0-15.0) g/dL Hct 39.4 L (40.0-54.0) % MCV 96 (80-98) fL MCH 32 H (27-31) pg MCHC 33 (32-36) % Plt Count 69 L (150-400) K/uL Neut % (Auto) 75 H (36-66) % Lymph % (Auto) 16 L (24-44) % [place] % (Auto) 7 H (2-6) % Eos % (Auto) 2 (2-4) % Baso % (Auto) 0 (0-1) % Sodium 136 L (140-148) mmol/L Potassium 3.6 (3.6-5.2) mmol/L Chloride 103 (100-108) mmol/L Carbon Dioxide 27 (21-32) mmol/L Anion Gap 9.6 (5.0-14.0) mmol/L BUN 2 L D (7-18) mg/dL Creatinine 0.8 (0.8-1.3) mg/dL Est Cr Clr Drug Dosing 97.16 mL/min Estimated GFR (MDRD) > 60 (>60) Glucose 157 H (74-106) mg/dL Calcium 8.4 L (8.5-10.1) mg/dL Total Bilirubin 0.9 D (0.2-1.0) mg/dL AST 75 H (15-37) U/L ALT 44 (12-78) U/L Alkaline Phosphatase 178 H (46-116) U/L Total Protein 6.3 L (6.4-8.2) g/dL Albumin 2.7 L (3.4-5.0) g/dL Globulin 3.6 H (2.3-3.5) g/dL Albumin/Globulin Ratio 0.8 L (1.2-2.2) Med Orders - Current: Current Medications Folic Acid (Folic Acid) 1 mg PO DAILY [facility] Last Admin: 01/10/20 08:10 Dose: 1 mg Documented by: Gabapentin (Neurontin) 400 mg PO Q8H [facility] Stop: 01/11/20 19:01 Last Admin: 01/10/20 11:09 Dose: 400 mg Documented by: Potassium Chloride/Dextrose/Sod Cl (D5 Ns With 20 Meq Kcl) 1,000 mls @ 75 mls/hr IV ASDIRECTED [facility] Last Admin: 01/10/20 00:47 Dose: 75 mls/hr Documented by: Lorazepam (Ativan) 0 mg PO ASDIRECTED [facility]; Protocol Last Admin: 01/10/20 17:02 Dose: 2 mg Documented by: Lorazepam (Ativan) 0 mg IV ASDIRECTED [facility]; Protocol Last Admin: 01/10/20 05:35 Dose: 2 mg Documented by: Nicotine (Habitrol) 21 mg TRDERM DAILY [facility] Last Admin: 01/10/20 08:10 Dose: 21 mg Documented by: Pantoprazole Sodium (Protonix) 40 mg PO ACBREAKFAST [facility] Potassium Chloride (Klor-Con M20) 20 meq PO BIDMEALS [facility] Last Admin: 01/10/20 17:02 Dose: 20 meq Documented by: Thiamine HCl (Vitamin B-1) 100 mg PO DAILY [facility] Last Admin: 01/10/20 08:10 Dose: 100 mg Documented by: Discontinued Medications Potassium Chloride/Dextrose/Sod Cl (D5 Ns With 20 Meq Kcl) 1,000 mls @ 150 mls/hr IV ASDIRECTED [facility] Stop: 01/08/20 02:46 Last Admin: 01/08/20 01:41 Dose: 100 mls/hr Documented by: Potassium Chloride/Dextrose/Sod Cl (D5 Ns With 20 Meq Kcl) 1,000 mls @ 100 mls/hr IV ASDIRECTED [facility] Last Admin: 01/09/20 00:10 Dose: 100 mls/hr Documented by: Pantoprazole Sodium (Protonix Iv) 40 mg IV DAILY [facility] Last Admin: 01/10/20 08:10 Dose: 40 mg Documented by: - Exam General: Alert, Oriented HEENT: Pupils Equal, Pupils Reactive, EOMI, Mucous Membr. Moist/[place] Neck: Supple Lungs: Clear to Auscultation, Normal Respiratory Effort Cardiovascular: Regular Rate, Regular Rhythm GI/Abdominal Exam: Tender (Male) Exam: No Hernia, Normal Inspection, Normal Prostate, Circumcised Extremities: Normal Inspection, Normal Range of Motion, Non-Tender, No Pedal Edema, Normal Capillary Refill Peripheral Pulses: 1+: Radial (L), Radial (R) Skin: Warm, Dry, Intact Psy/Mental Status: Withdrawal Symptoms Sepsis Event Note - Evaluation Sepsis Screening Result: No Definite Risk - Focused Exam Vital Signs: Vital Signs Temp Resp BP Pulse Ox 01/10/20 18:00 20 126/87 98 01/10/20 16:00 98 F 20 143/93 H 95 01/10/20 14:00 12 131/83 98 01/10/20 12:00 98 F 18 130/88 99 01/10/20 10:00 14 130/89 98 01/10/20 08:00 98.6 F 16 133/86 98 - Problem List Review Problem List Initiated/Reviewed/Updated: Yes - My Orders Last 24 Hours: My Active Orders 01/10/20 Breakfast Advance Diet Instructions [DIET] 01/10/20 09:00 Potassium Chloride [Klor-Con M20] 20 meq PO BIDMEALS 01/11/20 05:11 BASIC METABOLIC PANEL,BMP [CHEM] Routine 01/11/20 07:30 Pantoprazole [ProTONIX] 40 mg PO ACBREAKFAST - Plan Plan:: Assessment/Plan: #1. Alcoholism with Delirium Tremors: Will continue with Ativan etc. #2. Dehydration: hydrated. #3. Hypokalemia: replacing #4. Alc. liver disease: AST 116 yesterday improving will repeat tomorrow.Plan home in the morning. K 3.6 today. will recheck in the morning.
[2020-01-11] MEDS: Gabapentin 400 MG Cap PO SCH (03:22)
[2020-01-11] MEDS ORDERED: Pantoprazole 40 MG Tab.CR PO SCH (07:30)
[2020-01-11] MEDS: Potassium Chloride 20 MEQ Tab.ER PO SCH (07:47)
[2020-01-11] MEDS: Thiamine 100 MG Tab PO SCH (08:00)
[2020-01-11] MEDS: Nicotine 21 MG/24 Hr Patch TRDERM SCH (08:00)
[2020-01-11] MEDS: Folic Acid 1 MG Tab PO SCH (08:00)
--- NOTE | 2020-01-11 08:05 | PCM.PN ---
- General Info Date of Service: 01/11/20 - Review of Systems General: Reports: Weakness HEENT: Reports: No Symptoms Pulmonary: Reports: No Symptoms Cardiovascular: Reports: No Symptoms Gastrointestinal: Reports: No Symptoms Genitourinary: Reports: No Symptoms Musculoskeletal: Reports: No Symptoms Neurological: Reports: No Symptoms Psychiatric: Reports: No Symptoms - Patient Data Vitals - Most Recent: Last Vital Signs Temp 97.8 F 01/11/20 00:00 Pulse 102 H 01/10/20 01:00 Resp 16 01/11/20 04:00 BP 147/91 H 01/11/20 04:00 Pulse Ox 98 01/11/20 04:00 Weight - Most Recent: 135 lb 9.349 oz I&O - Last 24 Hours: Intake & Output 01/10/20 01/11/20 01/11/20 22:59 06:59 14:59 Intake Total 840 Output Total 250 850 Balance -250 -10 Lab Results Last 24 Hours: Laboratory Results - last 24 hr 01/11/20 Range/Units 04:18 Sodium 139 L (140-148) mmol/L Potassium 4.2 (3.6-5.2) mmol/L Chloride 104 (100-108) mmol/L Carbon Dioxide 23 (21-32) mmol/L Anion Gap 16.2 H (5.0-14.0) mmol/L BUN 5 L D (7-18) mg/dL Creatinine 1.0 (0.8-1.3) mg/dL Est Cr Clr Drug Dosing 77.73 mL/min Estimated GFR (MDRD) > 60 (>60) Glucose 144 H (74-106) mg/dL Calcium 8.8 (8.5-10.1) mg/dL Med Orders - Current: Current Medications Folic Acid (Folic Acid) 1 mg PO DAILY [facility] Last Admin: 01/11/20 08:00 Dose: 1 mg Documented by: Gabapentin (Neurontin) 400 mg PO Q8H [facility] Stop: 01/11/20 19:01 Last Admin: 01/11/20 03:22 Dose: 400 mg Documented by: Potassium Chloride/Dextrose/Sod Cl (D5 Ns With 20 Meq Kcl) 1,000 mls @ 75 mls/hr IV ASDIRECTED [facility] Last Admin: 01/10/20 00:47 Dose: 75 mls/hr Documented by: Lorazepam (Ativan) 0 mg PO ASDIRECTED [facility]; Protocol Last Admin: 01/10/20 23:51 Dose: 2 mg Documented by: Lorazepam (Ativan) 0 mg IV ASDIRECTED [facility]; Protocol Last Admin: 01/10/20 05:35 Dose: 2 mg Documented by: Nicotine (Habitrol) 21 mg TRDERM DAILY [facility] Last Admin: 01/11/20 08:00 Dose: 21 mg Documented by: Pantoprazole Sodium (Protonix) 40 mg PO ACBREAKFAST [facility] Last Admin: 01/11/20 07:30 Dose: 40 mg Documented by: Potassium Chloride (Klor-Con M20) 20 meq PO BIDMEALS [facility] Last Admin: 01/11/20 07:47 Dose: 20 meq Documented by: Thiamine HCl (Vitamin B-1) 100 mg PO DAILY [facility] Last Admin: 01/11/20 08:00 Dose: 100 mg Documented by: Discontinued Medications Potassium Chloride/Dextrose/Sod Cl (D5 Ns With 20 Meq Kcl) 1,000 mls @ 150 mls/hr IV ASDIRECTED [facility] Stop: 01/08/20 02:46 Last Admin: 01/08/20 01:41 Dose: 100 mls/hr Documented by: Potassium Chloride/Dextrose/Sod Cl (D5 Ns With 20 Meq Kcl) 1,000 mls @ 100 mls/hr IV ASDIRECTED [facility] Last Admin: 01/09/20 00:10 Dose: 100 mls/hr Documented by: Pantoprazole Sodium (Protonix Iv) 40 mg IV DAILY [facility] Last Admin: 01/10/20 08:10 Dose: 40 mg Documented by: - Exam General: Alert, Oriented HEENT: Pupils Equal, Pupils Reactive, EOMI, Mucous Membr. Moist/[place] Neck: Supple Lungs: Clear to Auscultation, Normal Respiratory Effort Cardiovascular: Regular Rate, Regular Rhythm GI/Abdominal Exam: Tender (Male) Exam: No Hernia, Normal Inspection, Normal Prostate, Circumcised Back Exam: Normal Inspection, Full Range of Motion Extremities: Normal Inspection, Normal Range of Motion, Non-Tender, No Pedal Edema, Normal Capillary Refill Peripheral Pulses: 1+: Radial (L), Radial (R) Skin: Warm, Dry, Intact Neurological: No New Focal Deficit Psy/Mental Status: Withdrawal Symptoms Sepsis Event Note - Evaluation Sepsis Screening Result: No Definite Risk - Focused Exam Vital Signs: Vital Signs Temp Resp BP Pulse Ox 01/11/20 04:00 16 147/91 H 98 01/11/20 02:00 16 136/89 98 01/11/20 00:00 97.8 F 16 147/99 H 98 01/10/20 22:00 17 141/94 H 96 - Problem List Review Problem List Initiated/Reviewed/Updated: Yes - My Orders Last 24 Hours: My Active Orders 01/10/20 Breakfast Advance Diet Instructions [DIET] 01/10/20 09:00 Potassium Chloride [Klor-Con M20] 20 meq PO BIDMEALS 01/11/20 07:30 Pantoprazole [ProTONIX] 40 mg PO ACBREAKFAST 01/11/20 08:01 Ready for Discharge [RC] PER UNIT ROUTINE - Plan Plan:: Assessment/Plan: #1. Alcoholism with Delirium Tremors: Plan home today #2. Dehydration: Resolved #3. Hypokalemia: Resolved. #4. Alc. liver disease: Improving. K 4.2
--- NOTE | 2020-01-11 08:09 | PCM.DCSUM1 ---
Discharge Summary - Hospital Course HPI Initial Comments: Started drinking and then started to vomit blood and came in again to stop the DT's Diagnosis: Stroke: No - Discharge Data Discharge Date: 01/11/20 Discharge Disposition: Home, Self-Care 01 Condition: Good - Referral to Home Health Primary Care Physician: Damon Langley Sr, MD - Patient Summary/Data Hospital Course: Gradual improvement with Ativan and Neurontin to control the alc withdraw symptoms - Patient Instructions Diet: Heart Healthy Diet Activity: As Tolerated - Discharge Plan *PRESCRIPTION DRUG MONITORING PROGRAM REVIEWED*: No *COPY OF PRESCRIPTION DRUG MONITORING REPORT IN PATIENT CIRILO: No Home Medications: Home Meds lisinopriL [Prinivil] 10 mg PO DAILY tablet 08/30/19 [Rx] Potassium Chloride [Klor-Con M20] 20 meq PO DAILY [facility] 10/05/19 [Rx] - Discharge Summary/Plan Comment DC Time >30 min.: Yes Discharge Summary/Plan Comment: Assessment/Plan: #1. Alcoholism with Delirium Tremors: Plan home today #2. Dehydration: Resolved #3. Hypokalemia: Resolved. #4. Alc. liver disease: Improving. K 4.2 #5. HTN: Will restart Lisinopril - General Info Functional Status: Reports: Pain Controlled - Review of Systems General: Reports: Weakness HEENT: Reports: No Symptoms Pulmonary: Reports: No Symptoms Cardiovascular: Reports: No Symptoms Gastrointestinal: Reports: No Symptoms Genitourinary: Reports: No Symptoms Musculoskeletal: Reports: No Symptoms Skin: Reports: No Symptoms Neurological: Reports: Difficulty Walking, Weakness, Gait Disturbance - Patient Data Vitals - Most Recent: Last Vital Signs Temp 97.8 F 01/11/20 00:00 Pulse 102 H 01/10/20 01:00 Resp 16 01/11/20 04:00 BP 147/91 H 01/11/20 04:00 Pulse Ox 98 01/11/20 04:00 Weight - Most Recent: 135 lb 9.349 oz I&O - Last 24 hours: Intake & Output 01/10/20 01/11/20 01/11/20 22:59 06:59 14:59 Intake Total 840 Output Total 250 850 Balance -250 -10 Lab Results - Last 24 hrs: Laboratory Results - last 24 hr 01/11/20 Range/Units 04:18 Sodium 139 L (140-148) mmol/L Potassium 4.2 (3.6-5.2) mmol/L Chloride 104 (100-108) mmol/L Carbon Dioxide 23 (21-32) mmol/L Anion Gap 16.2 H (5.0-14.0) mmol/L BUN 5 L D (7-18) mg/dL Creatinine 1.0 (0.8-1.3) mg/dL Est Cr Clr Drug Dosing 77.73 mL/min Estimated GFR (MDRD) > 60 (>60) Glucose 144 H (74-106) mg/dL Calcium 8.8 (8.5-10.1) mg/dL Med Orders - Current: Current Medications Folic Acid (Folic Acid) 1 mg PO DAILY [facility] Last Admin: 01/11/20 08:00 Dose: 1 mg Documented by: Gabapentin (Neurontin) 400 mg PO Q8H [facility] Stop: 01/11/20 19:01 Last Admin: 01/11/20 03:22 Dose: 400 mg Documented by: Potassium Chloride/Dextrose/Sod Cl (D5 Ns With 20 Meq Kcl) 1,000 mls @ 75 mls/hr IV ASDIRECTED [facility] Last Admin: 01/10/20 00:47 Dose: 75 mls/hr Documented by: Lorazepam (Ativan) 0 mg PO ASDIRECTED [facility]; Protocol Last Admin: 01/10/20 23:51 Dose: 2 mg Documented by: Lorazepam (Ativan) 0 mg IV ASDIRECTED [facility]; Protocol Last Admin: 01/10/20 05:35 Dose: 2 mg Documented by: Nicotine (Habitrol) 21 mg TRDERM DAILY [facility] Last Admin: 01/11/20 08:00 Dose: 21 mg Documented by: Pantoprazole Sodium (Protonix) 40 mg PO ACBREAKFAST [facility] Last Admin: 01/11/20 07:30 Dose: 40 mg Documented by: Potassium Chloride (Klor-Con M20) 20 meq PO BIDMEALS [facility] Last Admin: 01/11/20 07:47 Dose: 20 meq Documented by: Thiamine HCl (Vitamin B-1) 100 mg PO DAILY [facility] Last Admin: 01/11/20 08:00 Dose: 100 mg Documented by: Discontinued Medications Potassium Chloride/Dextrose/Sod Cl (D5 Ns With 20 Meq Kcl) 1,000 mls @ 150 mls/hr IV ASDIRECTED [facility] Stop: 01/08/20 02:46 Last Admin: 01/08/20 01:41 Dose: 100 mls/hr Documented by: Potassium Chloride/Dextrose/Sod Cl (D5 Ns With 20 Meq Kcl) 1,000 mls @ 100 mls/hr IV ASDIRECTED [facility] Last Admin: 01/09/20 00:10 Dose: 100 mls/hr Documented by: Pantoprazole Sodium (Protonix Iv) 40 mg IV DAILY [facility] Last Admin: 01/10/20 08:10 Dose: 40 mg Documented by: - Exam General: Reports: Alert, Oriented HEENT: Reports: Pupils Equal, Pupils Reactive, EOMI, Mucous Membr. Moist/[place] Neck: Reports: Supple Lungs: Reports: Clear to Auscultation, Normal Respiratory Effort Cardiovascular: Reports: Regular Rate, Regular Rhythm GI/Abdominal Exam: Tender (Male) Exam: No Hernia, Normal Inspection, Normal Prostate, Circumcised Rectal (Males) Exam: Normal Exam, Normal Rectal Tone, Prostate Normal Back Exam: Reports: Normal Inspection, Full Range of Motion Extremities: Normal Inspection, Normal Range of Motion, Non-Tender, No Pedal Edema, Normal Capillary Refill Skin: Reports: Warm, Dry, Intact Wound/Incisions: Reports: Healing Well Neurological: Reports: No New Focal Deficit Psy/Mental Status: Reports: Withdrawal Symptoms
[2020-01-11 08:41] VITALS: BP 134/89; PULSE 83
== END 2020-01-11 09:10 | disposition home or self-care (01) | DRG 897 ==
LOC: JP.ICU 17:59
PROVIDERS: ADMIT Internal Medicine; ATTEND Internal Medicine
DX: F10.231 Alcohol dependence with withdrawal delirium (principal); E86.0 Dehydration; E87.6 Hypokalemia; K70.9 Alcoholic liver disease, unspecified; I10 Essential (primary) hypertension; H54.7 Unspecified visual loss; K59.09 Other constipation; K52.9 Noninfective gastroenteritis and colitis, unspecified; K74.60 Unspecified cirrhosis of liver; F41.9 Anxiety disorder, unspecified; D64.9 Anemia, unspecified; Z79.899 Other long term (current) drug therapy; Z90.49 Acquired absence of other specified parts of digestive tract
CPT/HCPCS: 36415; 80048; 80053; 80307; 82140; 85025; A9270-GY; C9113; J2060; J3480

== ENCOUNTER 2020-02-17 12:49 | Inpatient (IN) | payer SELFPAY ==
[2020-02-17] MEDS: Dextrose 5%-0.9% NaCl 1,000 ML IV SCH ×2 (14:30→23:12)
[2020-02-17] MEDS: Folic Acid 1 MG Tab PO SCH (15:30)
[2020-02-17] MEDS: Thiamine 100 MG Tab PO SCH (15:31)
[2020-02-17] MEDS: LORazepam 2 MG/ML SDV IV PRN ×4 (15:31→21:40)
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
[2020-02-18] MEDS: LORazepam 2 MG/ML SDV IV PRN ×11 (01:18→22:28)
[2020-02-18] MEDS: Dextrose 5%-0.9% NaCl 1,000 ML IV SCH ×2 (07:03→16:13)
[2020-02-18] MEDS: Haloperidol Lactate 5 MG/ML SDV IVPUSH PRN (07:56)
[2020-02-18] MEDS: Folic Acid 1 MG Tab PO SCH (09:42)
[2020-02-18] MEDS: Thiamine 100 MG Tab PO SCH (09:42)
[2020-02-18] MEDS: Potassium Chloride 20 MEQ, Lidocaine 1% 2 ML in Sodium Chloride 0.9% 100 ML IV SCH ×2 (09:58→11:47)
--- NOTE | 2020-02-18 13:58 | PCM.PN ---
- General Info Date of Service: 02/18/20 Functional Status: Reports: Pain Controlled - Review of Systems General: Reports: Weakness HEENT: Reports: No Symptoms Pulmonary: Reports: No Symptoms Cardiovascular: Reports: No Symptoms Gastrointestinal: Reports: Abdominal Pain Genitourinary: Reports: No Symptoms Musculoskeletal: Reports: No Symptoms Skin: Reports: No Symptoms Neurological: Reports: No Symptoms Psychiatric: Reports: No Symptoms - Patient Data Vitals - Most Recent: Last Vital Signs Temp 99.5 F 02/18/20 12:00 Pulse 85 02/18/20 12:00 Resp 14 02/18/20 12:00 BP 157/87 H 02/18/20 12:00 Pulse Ox 99 02/18/20 12:00 Weight - Most Recent: 136 lb 7.458 oz I&O - Last 24 Hours: Intake & Output 02/17/20 02/18/20 02/18/20 22:59 06:59 14:59 Intake Total 1168 1710 1220 Output Total 301 111 9815 Balance 1018 810 -305 Lab Results Last 24 Hours: Laboratory Results - last 24 hr 02/17/20 02/17/20 02/17/20 Range/Units 14:56 14:56 14:56 WBC 4.5 (4.5-11.0) K/uL RBC 4.17 L (4.30-5.90) M/uL Hgb 12.9 (12.0-15.0) g/dL Hct 38.9 L (40.0-54.0) % MCV 93 (80-98) fL MCH 31 (27-31) pg MCHC 33 (32-36) % Plt Count 97 L (150-400) K/uL Neut % (Auto) 71 H (36-66) % Lymph % (Auto) 17 L (24-44) % [place] % (Auto) 10 H (2-6) % Eos % (Auto) 0 L (2-4) % Baso % (Auto) 1 (0-1) % Sodium 142 (140-148) mmol/L Potassium 3.1 L (3.6-5.2) mmol/L Chloride 102 (100-108) mmol/L Carbon Dioxide 28 (21-32) mmol/L Anion Gap 15.1 H (5.0-14.0) mmol/L BUN 8 D (7-18) mg/dL Creatinine 1.0 (0.8-1.3) mg/dL Est Cr Clr Drug Dosing 78.23 mL/min Estimated GFR (MDRD) > 60 (>60) Glucose 111 H (74-106) mg/dL Calcium 8.0 L (8.5-10.1) mg/dL Total Bilirubin 0.3 D (0.2-1.0) mg/dL AST 158 H D (15-37) U/L ALT 72 (12-78) U/L Alkaline Phosphatase 156 H (46-116) U/L Total Protein 6.6 (6.4-8.2) g/dL Albumin 3.1 L (3.4-5.0) g/dL Globulin 3.5 (2.3-3.5) g/dL Albumin/Globulin Ratio 0.9 L (1.2-2.2) Ethyl Alcohol 411 mg/dL Med Orders - Current: Current Medications Folic Acid (Folic Acid) 1 mg PO DAILY [facility] Last Admin: 02/18/20 09:42 Dose: 1 mg Documented by: Haloperidol Lactate (Haldol) 2.5 mg IVPUSH Q4H PRN PRN Reason: Agitation Last Admin: 02/18/20 07:56 Dose: 2.5 mg Documented by: Dextrose/Sodium Chloride (Dextrose 5%-Normal Saline) 1,000 mls @ 75 mls/hr IV ASDIRECTED [facility] Last Admin: 02/18/20 07:03 Dose: 125 mls/hr Documented by: Potassium Chloride 20 meq/Lidocaine HCl 2 ml/ Sodium Chloride 112 mls @ 56 mls/hr IV Q2H [facility] Stop: 02/18/20 13:59 Last Admin: 02/18/20 11:47 Dose: 56 mls/hr Documented by: Lorazepam (Ativan) 0 mg IV ASDIRECTED PRN; Protocol PRN Reason: ETOH WITHDRAWAL Last Admin: 02/18/20 13:24 Dose: 2 mg Documented by: Lorazepam (Ativan) 0 mg PO ASDIRECTED PRN; Protocol PRN Reason: ETOH WITHDRAWAL Thiamine HCl (Vitamin B-1) 100 mg PO DAILY [facility] Last Admin: 02/18/20 09:42 Dose: 100 mg Documented by: - Exam General: Alert, Oriented HEENT: Pupils Equal, Pupils Reactive, EOMI, Mucous Membr. Moist/[place] Neck: Supple Lungs: Clear to Auscultation, Normal Respiratory Effort Cardiovascular: Regular Rate, Regular Rhythm GI/Abdominal Exam: Normal Bowel Sounds, Soft, Non-Tender, No Organomegaly, No Distention, No Abnormal Bruit, No Mass, Pelvis Stable Back Exam: Normal Inspection, Full Range of Motion Extremities: Normal Inspection, Normal Range of Motion, Non-Tender, No Pedal Edema, Normal Capillary Refill Skin: Warm, Dry, Intact Wound/Incisions: Healing Well Neurological: No New Focal Deficit Psy/Mental Status: Alert, Normal Affect, Normal Mood Sepsis Event Note - Evaluation Sepsis Screening Result: No Definite Risk - Focused Exam Vital Signs: Vital Signs Temp Pulse Resp BP Pulse Ox 02/18/20 12:00 99.5 F 85 14 157/87 H 99 02/18/20 10:00 96 16 135/84 98 02/18/20 08:00 99.3 F 96 16 151/82 H 98 02/18/20 06:00 98 19 151/87 H 99 02/18/20 04:00 97.6 F 113 H 17 150/84 H 99 02/18/20 02:00 108 H 21 H 147/86 H 98 - Problem List Review Problem List Initiated/Reviewed/Updated: Yes - My Orders Last 24 Hours: My Active Orders 02/17/20 14:00 Admission Status [Patient Status] [ADT] Routine 02/17/20 14:34 Haloperidol Lactate [Haldol] 2.5 mg IVPUSH Q4H PRN 02/17/20 14:40 Cardiac Monitoring [RC] Q6H Notify Provider [RC] PRN Seizure Precautions [OM.PC] Routine 02/17/20 14:45 Dextrose 5%-0.9% NaCl [Dextrose 5%-Normal Saline] 1,000 ml IV ASDIRECTED Folic Acid 1 mg PO DAILY LORazepam [Ativan] See Protocol IV ASDIRECTED PRN Thiamine [Vitamin B-1] 100 mg PO DAILY 02/17/20 14:50 Notify Provider [RC] PRN 02/17/20 15:00 CIWAA Assessment [RC] Q1H LORazepam [Ativan] See Protocol PO ASDIRECTED PRN 02/17/20 Dinner Regular Diet [DIET] 02/18/20 10:00 Potassium Chloride 20 meq Lidocaine 1% [Xylocaine 1%] 2 ml Sodium Chloride 0.9% [Normal Saline] 100 ml IV Q2H 02/19/20 05:00 BASIC METABOLIC PANEL,BMP [CHEM] Routine - Plan Plan:: Assessment/Plan: #1. Alcoholism with impending DT's. Stable on medication #2. Liver dysfunction: #3. First degree burn on penis and upper leg. #4. Hykolemia Treating.
[2020-02-18] MEDS: LORazepam 1 MG Tab PO PRN (18:35)
[2020-02-19] MEDS: LORazepam 2 MG/ML SDV IV PRN ×4 (01:10→10:13)
[2020-02-19] MEDS: Dextrose 5%-0.9% NaCl 1,000 ML IV SCH (04:55)
[2020-02-19] MEDS: Haloperidol Lactate 5 MG/ML SDV IVPUSH PRN (07:55)
[2020-02-19] MEDS: Folic Acid 1 MG Tab PO SCH (08:00)
[2020-02-19] MEDS: Thiamine 100 MG Tab PO SCH (08:00)
[2020-02-19] MEDS ORDERED: Azithromycin 250 MG Tab PO ONE (09:15)
[2020-02-19] MEDS: Silver Sulfadiazine 1% Crm 50 GM Tube TOP SCH ×2 (09:19→21:06)
[2020-02-19] MEDS: LORazepam 1 MG Tab PO PRN ×3 (13:54→21:10)
[2020-02-19] MEDS: Potassium Chloride 20 MEQ Tab.ER PO SCH ×2 (13:55→21:05)
--- NOTE | 2020-02-19 21:36 | PCM.PN ---
- General Info Date of Service: 02/19/20 Functional Status: Reports: Pain Controlled - Review of Systems General: Reports: Weakness HEENT: Reports: No Symptoms Pulmonary: Reports: No Symptoms Cardiovascular: Reports: No Symptoms Gastrointestinal: Reports: No Symptoms Genitourinary: Reports: No Symptoms Musculoskeletal: Reports: Leg Pain Skin: Reports: Rash Neurological: Reports: Difficulty Walking, Weakness Psychiatric: Reports: Hallucinations - Patient Data Vitals - Most Recent: Last Vital Signs Temp 97.2 F 02/19/20 16:00 Pulse 82 02/19/20 20:00 Resp 14 02/19/20 20:00 BP 116/70 02/19/20 20:00 Pulse Ox 97 02/19/20 20:00 Weight - Most Recent: 136 lb 7.458 oz I&O - Last 24 Hours: Intake & Output 02/19/20 02/19/20 02/19/20 06:59 14:59 22:59 Intake Total 879 880 772 Output Total 800 625 500 Balance 79 255 272 Lab Results Last 24 Hours: Laboratory Results - last 24 hr 02/19/20 Range/Units 04:45 Sodium 136 L (140-148) mmol/L Potassium 3.7 (3.6-5.2) mmol/L Chloride 101 (100-108) mmol/L Carbon Dioxide 27 (21-32) mmol/L Anion Gap 11.7 (5.0-14.0) mmol/L BUN 2 L D (7-18) mg/dL Creatinine 0.9 (0.8-1.3) mg/dL Est Cr Clr Drug Dosing 86.93 mL/min Estimated GFR (MDRD) > 60 (>60) Glucose 125 H (74-106) mg/dL Calcium 8.9 (8.5-10.1) mg/dL Med Orders - Current: Current Medications Azithromycin (Zithromax) 250 mg PO DAILY [facility] Stop: 02/23/20 09:01 Folic Acid (Folic Acid) 1 mg PO DAILY [facility] Last Admin: 02/19/20 08:00 Dose: 1 mg Documented by: Haloperidol Lactate (Haldol) 2.5 mg IVPUSH Q4H PRN PRN Reason: Agitation Last Admin: 02/19/20 07:55 Dose: 2.5 mg Documented by: Dextrose/Sodium Chloride (Dextrose 5%-Normal Saline) 1,000 mls @ 0 mls/hr IV ASDIRECTED [facility] Last Infusion: 02/19/20 12:50 Dose: 25 mls/hr Documented by: Lorazepam (Ativan) 0 mg IV ASDIRECTED PRN; Protocol PRN Reason: ETOH WITHDRAWAL Last Admin: 02/19/20 10:13 Dose: 2 mg Documented by: Lorazepam (Ativan) 0 mg PO ASDIRECTED PRN; Protocol PRN Reason: ETOH WITHDRAWAL Last Admin: 02/19/20 21:10 Dose: 2 mg Documented by: Potassium Chloride (Klor-Con M20) 20 meq PO BID [facility] Last Admin: 02/19/20 21:05 Dose: 20 meq Documented by: Silver Sulfadiazine (Silvadene 1% Cream 50 Gm) 0 gm TOP BID [facility] Last Admin: 02/19/20 21:06 Dose: 1 applic Documented by: Thiamine HCl (Vitamin B-1) 100 mg PO DAILY [facility] Last Admin: 02/19/20 08:00 Dose: 100 mg Documented by: Discontinued Medications Azithromycin (Zithromax) 500 mg PO ONETIME ONE Stop: 02/19/20 09:16 Last Admin: 02/19/20 09:20 Dose: 500 mg Documented by: Potassium Chloride 20 meq/Lidocaine HCl 2 ml/ Sodium Chloride 112 mls @ 56 mls /hr IV Q2H [facility] Stop: 02/18/20 13:59 Last Admin: 02/18/20 11:47 Dose: 56 mls/hr Documented by: - Exam General: Oriented, Cooperative, Mild Distress HEENT: Pupils Equal, Pupils Reactive, EOMI, Mucous Membr. Moist/[place] Neck: Supple Lungs: Clear to Auscultation, Normal Respiratory Effort Cardiovascular: Regular Rate, Regular Rhythm GI/Abdominal Exam: Normal Bowel Sounds, Soft, No Distention (Male) Exam: No Hernia, Normal Inspection, Normal Prostate, Circumcised, Other (is a burn on his penis as well as his upper leg these are healing) Back Exam: Normal Inspection, Full Range of Motion Extremities: Redness Peripheral Pulses: 1+: Radial (L), Radial (R) Skin: Warm, Dry, Intact Wound/Incisions: Healing Well Neurological: No New Focal Deficit Psy/Mental Status: Withdrawal Symptoms Sepsis Event Note - Evaluation Sepsis Screening Result: No Definite Risk - Focused Exam Vital Signs: Vital Signs Temp Pulse Resp BP Pulse Ox 02/19/20 20:00 82 14 116/70 97 02/19/20 18:00 98 15 141/90 H 98 02/19/20 16:00 97.2 F 99 18 147/87 H 96 02/19/20 13:53 110 H 17 135/85 100 02/19/20 12:00 97.6 F 106 H 16 146/92 H 99 02/19/20 10:00 108 H 18 128/90 100 - Problem List Review Problem List Initiated/Reviewed/Updated: Yes - My Orders Last 24 Hours: My Active Orders 02/19/20 09:15 Silver Sulfadiazine [Silvadene 1% Cream 50 GM] 0 gm TOP BID 02/19/20 12:45 Potassium Chloride [Klor-Con M20] 20 meq PO BID 02/20/20 05:11 COMPREHENSIVE METABOLIC PN,CMP [CHEM] Routine 02/20/20 09:00 Azithromycin [Zithromax] 250 mg PO DAILY - Plan Plan:: Assessment/Plan: #1. Alcoholism with impending DT's. Stable on medication he is having hallucinations controlled by medicine. #2. Liver dysfunction: we'll repeat blood tomorrow #3. First degree burn on penis and upper leg. Will start using Silvadene on the lesions #4. Hypokalemia resolved with potassium 3.7 today.I have given extra potassium to get it up to 4 and we'll plan to discharge tomorrow if he is stable. I also decreased the IV as he is eating well and taking fluids.
[2020-02-20] MEDS: Dextrose 5%-0.9% NaCl 1,000 ML IV SCH (04:38)
[2020-02-20] MEDS: LORazepam 1 MG Tab PO PRN ×4 (07:56→20:35)
[2020-02-20] MEDS: Folic Acid 1 MG Tab PO SCH (08:02)
[2020-02-20] MEDS: Potassium Chloride 20 MEQ Tab.ER PO SCH ×2 (08:02→20:17)
[2020-02-20] MEDS: Thiamine 100 MG Tab PO SCH (08:03)
[2020-02-20] MEDS: Silver Sulfadiazine 1% Crm 50 GM Tube TOP SCH ×2 (08:03→20:17)
[2020-02-20] MEDS: Azithromycin 250 MG Tab PO SCH (08:03)
--- NOTE | 2020-02-20 08:05 | PCM.PN ---
- General Info Date of Service: 02/20/20 Subjective Update: Wanting to go home but very unsteady and just had Ativan 2 mg 2 hrs. ago. - Review of Systems General: Reports: Weakness HEENT: Reports: No Symptoms Pulmonary: Reports: No Symptoms Cardiovascular: Reports: No Symptoms Gastrointestinal: Reports: No Symptoms Genitourinary: Reports: No Symptoms Musculoskeletal: Reports: No Symptoms Skin: Reports: No Symptoms Neurological: Reports: Trouble Speaking, Difficulty Walking, Weakness, Gait Disturbance Psychiatric: Reports: Hallucinations - Patient Data Vitals - Most Recent: Last Vital Signs Temp 97.5 F 02/20/20 04:00 Pulse 79 02/20/20 06:00 Resp 15 02/20/20 06:00 BP 167/112 H 02/20/20 06:00 Pulse Ox 99 02/19/20 22:00 Weight - Most Recent: 136 lb 7.458 oz I&O - Last 24 Hours: Intake & Output 02/19/20 02/20/20 02/20/20 22:59 06:59 14:59 Intake Total 772 496 Output Total 500 400 Balance 272 96 Lab Results Last 24 Hours: Laboratory Results - last 24 hr 02/20/20 Range/Units 05:14 Sodium 139 L (140-148) mmol/L Potassium 3.8 (3.6-5.2) mmol/L Chloride 104 (100-108) mmol/L Carbon Dioxide 26 (21-32) mmol/L Anion Gap 12.8 (5.0-14.0) mmol/L BUN 3 L (7-18) mg/dL Creatinine 0.8 (0.8-1.3) mg/dL Est Cr Clr Drug Dosing 97.79 mL/min Estimated GFR (MDRD) > 60 (>60) Glucose 116 H (74-106) mg/dL Calcium 8.9 (8.5-10.1) mg/dL Total Bilirubin 0.8 D (0.2-1.0) mg/dL AST 111 H (15-37) U/L ALT 80 H (12-78) U/L Alkaline Phosphatase 159 H (46-116) U/L Total Protein 7.0 (6.4-8.2) g/dL Albumin 3.1 L (3.4-5.0) g/dL Globulin 3.9 H (2.3-3.5) g/dL Albumin/Globulin Ratio 0.8 L (1.2-2.2) Med Orders - Current: Current Medications Azithromycin (Zithromax) 250 mg PO DAILY [facility] Stop: 02/23/20 09:01 Folic Acid (Folic Acid) 1 mg PO DAILY [facility] Last Admin: 02/19/20 08:00 Dose: 1 mg Documented by: Haloperidol Lactate (Haldol) 2.5 mg IVPUSH Q4H PRN PRN Reason: Agitation Last Admin: 02/19/20 07:55 Dose: 2.5 mg Documented by: Dextrose/Sodium Chloride (Dextrose 5%-Normal Saline) 1,000 mls @ 0 mls/hr IV ASDIRECTED [facility] Last Admin: 02/20/20 04:38 Dose: 25 mls/hr Documented by: Lorazepam (Ativan) 0 mg IV ASDIRECTED PRN; Protocol PRN Reason: ETOH WITHDRAWAL Last Admin: 02/19/20 10:13 Dose: 2 mg Documented by: Lorazepam (Ativan) 0 mg PO ASDIRECTED PRN; Protocol PRN Reason: ETOH WITHDRAWAL Last Admin: 02/19/20 21:10 Dose: 2 mg Documented by: Potassium Chloride (Klor-Con M20) 20 meq PO BID [facility] Last Admin: 02/19/20 21:05 Dose: 20 meq Documented by: Silver Sulfadiazine (Silvadene 1% Cream 50 Gm) 0 gm TOP BID [facility] Last Admin: 02/19/20 21:06 Dose: 1 applic Documented by: Thiamine HCl (Vitamin B-1) 100 mg PO DAILY [facility] Last Admin: 02/19/20 08:00 Dose: 100 mg Documented by: Discontinued Medications Azithromycin (Zithromax) 500 mg PO ONETIME ONE Stop: 02/19/20 09:16 Last Admin: 02/19/20 09:20 Dose: 500 mg Documented by: Potassium Chloride 20 meq/Lidocaine HCl 2 ml/ Sodium Chloride 112 mls @ 56 mls/hr IV Q2H [facility] Stop: 02/18/20 13:59 Last Admin: 02/18/20 11:47 Dose: 56 mls/hr Documented by: - Exam General: Oriented, Mild Distress HEENT: Pupils Equal, Pupils Reactive, EOMI, Mucous Membr. Moist/[place] Lungs: Clear to Auscultation Cardiovascular: Regular Rate, Regular Rhythm Extremities: Normal Inspection, Normal Range of Motion, Non-Tender, No Pedal Edema, Normal Capillary Refill Peripheral Pulses: 1+: Radial (L), Radial (R) Skin: Warm, Dry Wound/Incisions: Healing Well Psy/Mental Status: Anxious, Agitated Sepsis Event Note - Evaluation Sepsis Screening Result: No Definite Risk - Focused Exam Vital Signs: Vital Signs Temp Pulse Resp BP Pulse Ox 02/20/20 06:00 79 15 167/112 H 02/20/20 04:00 97.5 F 93 18 113/83 02/20/20 02:00 73 117/71 02/20/20 00:00 97.6 F 89 13 134/84 02/19/20 22:00 92 15 149/92 H 99 - Problem List Review Problem List Initiated/Reviewed/Updated: Yes - My Orders Last 24 Hours: My Active Orders 02/19/20 09:15 Silver Sulfadiazine [Silvadene 1% Cream 50 GM] 0 gm TOP BID 02/19/20 12:45 Potassium Chloride [Klor-Con M20] 20 meq PO BID 02/20/20 09:00 Azithromycin [Zithromax] 250 mg PO DAILY - Plan Plan:: Assessment/Plan: #1. Alcoholism with DT's. Not stable to go home. Will continue with meds. #2. Liver dysfunction: Elevated #3. First degree burn on penis and upper leg. Stable #4. Hypokalemia resolved with potassium 3.8 today.I have given extra potassium to get it up to 4 and we'll plan to discharge when stable.
[2020-02-20] MEDS: Haloperidol Lactate 5 MG/ML SDV IVPUSH PRN (11:32)
[2020-02-21 07:17] VITALS: BP 138/91; PULSE 92
[2020-02-21] MEDS: Folic Acid 1 MG Tab PO SCH (08:15)
[2020-02-21] MEDS: Potassium Chloride 20 MEQ Tab.ER PO SCH (08:15)
[2020-02-21] MEDS: Thiamine 100 MG Tab PO SCH (08:15)
[2020-02-21] MEDS: Azithromycin 250 MG Tab PO SCH (08:16)
[2020-02-21] MEDS: Silver Sulfadiazine 1% Crm 50 GM Tube TOP SCH (08:16)
--- NOTE | 2020-02-21 08:58 | PCM.PN ---
- General Info Date of Service: 02/21/20 Admission Dx/Problem (Free Text): Feeling well and walking without difficulty and wanting to go home. Mentally alert - Review of Systems General: Reports: Weakness HEENT: Reports: No Symptoms Pulmonary: Reports: No Symptoms Cardiovascular: Reports: No Symptoms Gastrointestinal: Reports: No Symptoms Genitourinary: Reports: No Symptoms Musculoskeletal: Reports: No Symptoms Skin: Reports: No Symptoms Neurological: Reports: No Symptoms Psychiatric: Reports: No Symptoms - Patient Data Vitals - Most Recent: Last Vital Signs Temp 97.5 F 02/21/20 07:16 Pulse 92 02/21/20 07:16 Resp 15 02/21/20 07:16 BP 138/91 H 02/21/20 07:16 Pulse Ox 98 02/21/20 07:16 Weight - Most Recent: 136 lb 7.458 oz I&O - Last 24 Hours: Intake & Output 02/20/20 02/21/20 02/21/20 22:59 06:59 14:59 Intake Total 275 240 Output Total 175 Balance 100 240 Med Orders - Current: Current Medications Azithromycin (Zithromax) 250 mg PO DAILY [facility] Stop: 02/23/20 09:01 Last Admin: 02/21/20 08:16 Dose: 250 mg Documented by: Folic Acid (Folic Acid) 1 mg PO DAILY [facility] Last Admin: 02/21/20 08:15 Dose: 1 mg Documented by: Haloperidol Lactate (Haldol) 2.5 mg IVPUSH Q4H PRN PRN Reason: Agitation Last Admin: 02/20/20 11:32 Dose: 2.5 mg Documented by: Dextrose/Sodium Chloride (Dextrose 5%-Normal Saline) 1,000 mls @ 0 mls/hr IV ASDIRECTED [facility] Last Admin: 02/20/20 04:38 Dose: 25 mls/hr Documented by: Lorazepam (Ativan) 0 mg IV ASDIRECTED PRN; Protocol PRN Reason: ETOH WITHDRAWAL Last Admin: 02/19/20 10:13 Dose: 2 mg Documented by: Lorazepam (Ativan) 0 mg PO ASDIRECTED PRN; Protocol PRN Reason: ETOH WITHDRAWAL Last Admin: 02/20/20 20:35 Dose: 2 mg Documented by: Potassium Chloride (Klor-Con M20) 20 meq PO BID [facility] Last Admin: 10/05/20 08:15 Dose: 20 meq Documented by: Silver Sulfadiazine (Silvadene 1% Cream 50 Gm) 0 gm TOP BID [facility] Last Admin: 02/21/20 08:16 Dose: 1 applic Documented by: Thiamine HCl (Vitamin B-1) 100 mg PO DAILY [facility] Last Admin: 02/21/20 08:15 Dose: 100 mg Documented by: Discontinued Medications Azithromycin (Zithromax) 500 mg PO ONETIME ONE Stop: 02/19/20 09:16 Last Admin: 02/19/20 09:20 Dose: 500 mg Documented by: Potassium Chloride 20 meq/Lidocaine HCl 2 ml/ Sodium Chloride 112 mls @ 56 mls/hr IV Q2H [facility] Stop: 02/18/20 13:59 Last Admin: 02/18/20 11:47 Dose: 56 mls/hr Documented by: - Exam General: Alert, Oriented HEENT: Pupils Equal, Pupils Reactive, EOMI, Mucous Membr. Moist/[place] Neck: Supple Lungs: Clear to Auscultation, Normal Respiratory Effort Cardiovascular: Regular Rate, Regular Rhythm (Male) Exam: No Hernia, Normal Inspection, Normal Prostate, Circumcised Back Exam: Normal Inspection, Full Range of Motion Extremities: Normal Inspection, Normal Range of Motion, Non-Tender, No Pedal Edema, Normal Capillary Refill Peripheral Pulses: 1+: Radial (L), Radial (R) Skin: Warm Wound/Incisions: Healing Well Neurological: No New Focal Deficit Psy/Mental Status: Alert, Normal Affect, Normal Mood Sepsis Event Note - Evaluation Sepsis Screening Result: No Definite Risk - Focused Exam Vital Signs: Vital Signs Temp Pulse Resp BP Pulse Ox 02/21/20 07:16 97.5 F 92 15 138/91 H 98 02/21/20 06:00 87 14 126/81 02/21/20 04:00 97.6 F 71 14 122/74 02/21/20 02:00 80 11 L 119/81 02/21/20 00:00 97.5 F 76 13 121/75 02/20/20 22:00 97 15 145/96 H 98 - Problem List Review Problem List Initiated/Reviewed/Updated: Yes - My Orders Last 24 Hours: My Active Orders 02/20/20 09:00 Azithromycin [Zithromax] 250 mg PO DAILY - Plan Plan:: Assessment/Plan: #1. Alcoholism with DT's. Stable to go home. #2. Liver dysfunction: Secondary to alc. consumption. #3. First degree burn on penis and upper leg almost healer #4. Hypokalemia resolved Home today.
--- NOTE | 2020-02-21 08:59 | PCM.DCSUM1 ---
Discharge Summary - Hospital Course Brief History: Admitted after his girlfriend called and requested help as he was drinking again and was starting to go into DT's This has been a recurrent problem of alcohol consumption. Diagnosis: Stroke: No Modified [place] Scale: No Symptoms at All Modified [place] Scale Score: 0 - Discharge Data Discharge Date: 02/21/20 Discharge Disposition: Home, Self-Care 01 Condition: Good - Referral to Home Health Primary Care Physician: Damon Langley Sr, - Patient Summary/Data Hospital Course: Admitted having DT's after consumption of alcohol for 1-2 weeks. While in the hospital gave him Ativan and Haldol and he responded well with the meds and is stable for discharge. He has liver dysfunction as noted with AST and ALT elevated. K was low and was corrected. - Patient Instructions Diet: Heart Healthy Diet Activity: As Tolerated - Discharge Plan Home Medications: Home Meds NK [No Known Home Meds] 02/17/20 [History] - Discharge Summary/Plan Comment DC Time >30 min.: No Discharge Summary/Plan Comment: Assessment/Plan: #1. Alcoholism with DT's. Stable to go home. #2. Liver dysfunction: Secondary to alc. consumption. #3. First degree burn on penis and upper leg almost healer #4. Hypokalemia resolved Home today. - General Info Date of Service: 02/21/20 Functional Status: Reports: Pain Controlled - Review of Systems General: Reports: No Symptoms HEENT: Reports: No Symptoms Pulmonary: Reports: No Symptoms Cardiovascular: Reports: No Symptoms Gastrointestinal: Reports: No Symptoms Genitourinary: Reports: No Symptoms Musculoskeletal: Reports: No Symptoms Skin: Reports: No Symptoms Neurological: Reports: No Symptoms Psychiatric: Reports: No Symptoms - Patient Data Vitals - Most Recent: Last Vital Signs Temp 97.5 F 02/21/20 07:16 Pulse 92 02/21/20 07:16 Resp 15 02/21/20 07:16 BP 138/91 H 02/21/20 07:16 Pulse Ox 98 02/21/20 07:16 Weight - Most Recent: 136 lb 7.458 oz I&O - Last 24 hours: Intake & Output 02/20/20 02/21/20 02/21/20 22:59 06:59 14:59 Intake Total 275 240 Output Total 175 Balance 100 240 Med Orders - Current: Current Medications Azithromycin (Zithromax) 250 mg PO DAILY [facility] Stop: 02/23/20 09:01 Last Admin: 02/21/20 08:16 Dose: 250 mg Documented by: Folic Acid (Folic Acid) 1 mg PO DAILY [facility] Last Admin: 02/21/20 08:15 Dose: 1 mg Documented by: Haloperidol Lactate (Haldol) 2.5 mg IVPUSH Q4H PRN PRN Reason: Agitation Last Admin: 02/20/20 11:32 Dose: 2.5 mg Documented by: Dextrose/Sodium Chloride (Dextrose 5%-Normal Saline) 1,000 mls @ 0 mls/hr IV ASDIRECTED [facility] Last Admin: 02/20/20 04:38 Dose: 25 mls/hr Documented by: Lorazepam (Ativan) 0 mg IV ASDIRECTED PRN; Protocol PRN Reason: ETOH WITHDRAWAL Last Admin: 02/19/20 10:13 Dose: 2 mg Documented by: Lorazepam (Ativan) 0 mg PO ASDIRECTED PRN; Protocol PRN Reason: ETOH WITHDRAWAL Last Admin: 02/20/20 20:35 Dose: 2 mg Documented by: Potassium Chloride (Klor-Con M20) 20 meq PO BID [facility] Last Admin: 02/21/20 08:15 Dose: 20 meq Documented by: Silver Sulfadiazine (Silvadene 1% Cream 50 Gm) 0 gm TOP BID [facility] Last Admin: 02/21/20 08:16 Dose: 1 applic Documented by: Thiamine HCl (Vitamin B-1) 100 mg PO DAILY [facility] Last Admin: 02/21/20 08:15 Dose: 100 mg Documented by: Discontinued Medications Azithromycin (Zithromax) 500 mg PO ONETIME ONE Stop: 02/19/20 09:16 Last Admin: 02/19/20 09:20 Dose: 500 mg Documented by: Potassium Chloride 20 meq/Lidocaine HCl 2 ml/ Sodium Chloride 112 mls @ 56 mls/hr IV Q2H [facility] Stop: 02/18/20 13:59 Last Admin: 02/18/20 11:47 Dose: 56 mls/hr Documented by: - Exam General: Reports: Alert, Oriented HEENT: Reports: Pupils Equal, Pupils Reactive, EOMI, Mucous Membr. Moist/[place] Neck: Reports: Supple Lungs: Reports: Clear to Auscultation, Normal Respiratory Effort Cardiovascular: Reports: Regular Rate, Regular Rhythm GI/Abdominal Exam: Normal Bowel Sounds, Soft, Non-Tender, No Organomegaly, No Distention, No Abnormal Bruit, No Mass, Pelvis Stable (Male) Exam: No Hernia, Normal Inspection, Normal Prostate, Circumcised Extremities: Normal Inspection, Normal Range of Motion, Non-Tender, No Pedal Edema, Normal Capillary Refill Skin: Reports: Warm, Dry, Intact Wound/Incisions: Reports: Healing Well Neurological: Reports: No New Focal Deficit Psy/Mental Status: Reports: Alert, Normal Affect, Normal Mood
== END 2020-02-21 09:30 | disposition home or self-care (01) | DRG 897 ==
LOC: JP.ICU 12:49
PROVIDERS: ADMIT Internal Medicine; ATTEND Internal Medicine
DX: F10.20 Alcohol dependence, uncomplicated (principal); K76.89 Other specified diseases of liver; E87.6 Hypokalemia; T21.1 Burn of first degree of trunk; T24.10 Burn of first degree of unspecified site of lower limb, except ankle and foot; H54.7 Unspecified visual loss; R41.0 Disorientation, unspecified
CPT/HCPCS: 36415; 80048; 80053; 80307; 85025; A9270-GY; J1630; J2001; J2060; J3480; J7050

== ENCOUNTER 2020-04-07 04:00 | Emergency (ER) | payer SELFPAY ==
--- NOTE | 2020-04-07 04:42 | EDM.PDOCBH ---
<Kaitlynn Lew - Last Filed: 04/07/20 06:26> ED HPI GENERAL MEDICAL PROBLEM - General Chief Complaint: Drug or Alcohol Abuse Stated Complaint: WITHDRAWL Time Seen by Provider: 04/07/20 04:41 Source of Information: Reports: Patient History Limitations: Reports: No Limitations - History of Present Illness INITIAL COMMENTS - FREE TEXT/NARRATIVE: pt arrived with tremors . She has numbness in the both hands and feet. He has been drinking 3/4 liter on a daily basis. Onset: Today, Other (pt began having the numbness. ) Duration: Hour(s): Location: Reports: Generalized Associated Symptoms: Reports: Weakness abd Pain Score (Numeric/FACES): 3 - Related Data Allergies Allergy/AdvReac Type Severity Reaction Status Date / Time No Known Allergies Allergy Verified 04/07/20 04:14 Home Meds: Home Meds Gabapentin [Neurontin] 300 mg PO TID #11 cap 04/07/20 [Rx] Past Medical History HEENT History: Reports: Impaired Vision Respiratory History: Reports: Pneumothorax Other Respiratory History: pneumonia Gastrointestinal History: Reports: Chronic Constipation, Chronic Diarrhea, Cirrhosis, Other (See Below) Other Gastrointestinal History: diverticulitis Musculoskeletal History: Reports: Other (See Below) Other Musculoskeletal History: shaking unsteady Neurological History: Reports: Other (See Below) Other Neuro History: Past etoh withdrawal Psychiatric History: Reports: Addiction, Anxiety, Other (See Below) Other Psychiatric History: ineffective coping Hematologic History: Reports: Anemia Immunologic History: Reports: Other (See Below) Other Immunologic History: lymes - Infectious Disease History Infectious Disease History: Reports: Chicken Pox, Other (See Below) Other Infectious Disease History: alcoholic hepatitis - Past Surgical History Respiratory Surgical History: Reports: Other (See Below) Other Respiratory Surgeries/Procedures: nodule in one lung per patient report. GI Surgical History: Reports: Cholecystectomy Social & Family History - Tobacco Use Tobacco Use Status *Q: Current Every Day Tobacco User Years of Tobacco use: 40 Packs/Tins Daily: 1 - Caffeine Use Caffeine Use: Reports: Coffee - Alcohol Use Date of Last Drink: 04/06/20 Time of Last Drink: 22:00 - Recreational Drug Use Recreational Drug Use: No ED ROS GENERAL - Review of Systems Review Of Systems: See Below Constitutional: Reports: Malaise, Weakness HEENT: Reports: No Symptoms Respiratory: Reports: No Symptoms Cardiovascular: Reports: No Symptoms Endocrine: Reports: No Symptoms GI/Abdominal: Reports: No Symptoms : Reports: No Symptoms Musculoskeletal: Reports: Other (numbness in all extremities. ) ED EXAM, BEHAVIORAL HEALTH - Physical Exam Exam: See Below Text/Narrative:: pt has a high etoh level and is very shakey at this time. He is complaining of upper abdomanl pain. He has a history of pancreatitis. He is complaining of numbness in his extremities. Exam Limited By: No Limitations General Appearance: Alert, Moderate Distress Ears: Normal TMs Nose: Normal Inspection Throat/Mouth: Normal Inspection Head: Atraumatic Neck: Normal Inspection Respiratory/Chest: No Accessory Muscle Use Cardiovascular: Regular Rate, Rhythm, Tachycardia GI/Abdominal: Tender, Other (pt is tender in the epigastric area. ) (Male) Exam: Deferred Rectal (Males) Exam: Deferred Back Exam: Normal Inspection Extremities: Normal Inspection Neurological: Alert, Normal Cognition, Oriented x 3 Psychiatric: Alert, Oriented COURSE, BEHAVIORAL HEALTH COMP - Course Medical Clearance: 04/07/20 06:23 pt is oeiented. He has elevated lipase. His ca is on the low side. He has a etoh of almost 3. He is being hydrated with 2 liters of fluid. 04/07/20 06:26 Departure - Departure Disposition: Home, Self-Care 01 Clinical Impression: Alcoholism, chronic Pancreatitis, alcoholic, acute Qualifiers: Acute pancreatitis complication: unspecified Qualified Code(s): K85.20 - Alcohol induced acute pancreatitis without necrosis or infection - Discharge Information Prescriptions: Gabapentin [Neurontin] 300 mg PO TID #11 cap Instructions: Alcohol Use Disorder, Pancreatitis Eating Plan Referrals: Damon Langley Sr, MD [Primary Care Provider] - Forms: ED Department Discharge Additional Instructions: Use your Ativan as needed for withdrawal symptoms, try the gabapentin you will take 300 mg 3 times a day for 3 days and then 300 mg twice a day on the fourth day this medication has been faxed to [facility], if your withdrawal plan does not work out please return to the emergency department for further treatment Sepsis Event Note (ED) - Evaluation Sepsis Screening Result: No Definite Risk <OfficerCale - Last Filed: 04/07/20 07:40> COURSE, BEHAVIORAL HEALTH COMP - Course Vital Signs: Last Vital Signs Temp 98.1 F 04/07/20 04:17 Pulse 90 04/07/20 06:08 Resp 14 04/07/20 06:08 BP 149/88 H 04/07/20 06:08 Pulse Ox 99 04/07/20 06:08 Orders, Labs, Meds: Active Orders 24 hr Category Date Time Status Sodium Chloride 0.9% [Normal Saline] 1,000 ml Med 04/07/20 05:00 Active IV ASDIRECTED Sodium Chloride 0.9% [Normal Saline] 1,000 ml Med 04/07/20 05:45 Active IV ASDIRECTED Medication Orders Sodium Chloride (Normal Saline) 1,000 mls @ 999 mls/hr IV ASDIRECTED GREYSON Last Admin: 04/07/20 05:08 Dose: 999 mls/hr Documented by: PAZ Sodium Chloride (Normal Saline) 1,000 mls @ 999 mls/hr IV ASDIRECTED GREYSON Last Admin: 04/07/20 06:09 Dose: 999 mls/hr Documented by: DAYANARA Laboratory Tests 04/07/20 04/07/20 04/07/20 Range/Units 04:50 04:50 04:50 WBC 6.1 (4.5-11.0) K/uL RBC 3.97 L (4.30-5.90) M/uL Hgb 12.7 (12.0-15.0) g/dL Hct 37.0 L (40.0-54.0) % MCV 93 (80-98) fL MCH 32 H (27-31) pg MCHC 34 (32-36) % Plt Count 60 L (150-400) K/uL Neut % (Auto) 82 H (36-66) % Lymph % (Auto) 7 L (24-44) % [place] % (Auto) 10 H (2-6) % Eos % (Auto) 0 L (2-4) % Baso % (Auto) 1 (0-1) % Sodium 139 L (140-148) mmol/L Potassium 3.4 L (3.6-5.2) mmol/L Chloride 101 (100-108) mmol/L Carbon Dioxide 25 (21-32) mmol/L Anion Gap 16.4 H (5.0-14.0) mmol/L BUN 7 D (7-18) mg/dL Creatinine 0.9 (0.8-1.3) mg/dL Est Cr Clr Drug Dosing 89.18 mL/min Estimated GFR (MDRD) > 60 (>60) Glucose 132 H (74-106) mg/dL Calcium 7.6 L (8.5-10.1) mg/dL Magnesium 1.8 (1.8-2.4) mg/dL Total Bilirubin 0.8 (0.2-1.0) mg/dL AST 99 H (15-37) U/L ALT 45 (12-78) U/L Alkaline Phosphatase 153 H (46-116) U/L Total Protein 6.0 L (6.4-8.2) g/dL Albumin 2.9 L (3.4-5.0) g/dL Globulin 3.1 (2.3-3.5) g/dL Albumin/Globulin Ratio 0.9 L (1.2-2.2) Amylase (25-115) U/L Lipase (73-393) U/L Urine Color (YELLOW) Urine Appearance (CLEAR) Urine pH (5.0-8.0) Ur Specific [place] (1.008-1.030) Urine Protein (NEGATIVE) mg/dL Urine Glucose (UA) (NEGATIVE) mg/dL Urine Ketones (NEGATIVE) mg/dL Urine Occult Blood (NEGATIVE) Urine Nitrite (NEGATIVE) Urine Bilirubin (NEGATIVE) Urine Urobilinogen (0.2-1.0) EU/dL Ur Leukocyte Esterase (NEGATIVE) Urine RBC (0-5) Urine WBC (0-5) Ur Epithelial Cells Amorphous Sediment Urine Bacteria Urine Mucus Ethyl Alcohol mg/dL 04/07/20 04/07/20 04/07/20 Range/Units 04:50 04:50 04:55 WBC (4.5-11.0) K/uL RBC (4.30-5.90) M/uL Hgb (12.0-15.0) g/dL Hct (40.0-54.0) % MCV (80-98) fL MCH (27-31) pg MCHC (32-36) % Plt Count (150-400) K/uL Neut % (Auto) (36-66) % Lymph % (Auto) (24-44) % [place] % (Auto) (2-6) % Eos % (Auto) (2-4) % Baso % (Auto) (0-1) % Sodium (140-148) mmol/L Potassium (3.6-5.2) mmol/L Chloride (100-108) mmol/L Carbon Dioxide (21-32) mmol/L Anion Gap (5.0-14.0) mmol/L BUN (7-18) mg/dL Creatinine (0.8-1.3) mg/dL Est Cr Clr Drug Dosing mL/min Estimated GFR (MDRD) (>60) Glucose (74-106) mg/dL Calcium (8.5-10.1) mg/dL Magnesium (1.8-2.4) mg/dL Total Bilirubin (0.2-1.0) mg/dL AST (15-37) U/L ALT (12-78) U/L Alkaline Phosphatase (46-116) U/L Total Protein (6.4-8.2) g/dL Albumin (3.4-5.0) g/dL Globulin (2.3-3.5) g/dL Albumin/Globulin Ratio (1.2-2.2) Amylase 177 H D (25-115) U/L Lipase 1152 H (73-393) U/L Urine Color (YELLOW) Urine Appearance (CLEAR) Urine pH (5.0-8.0) Ur Specific [place] (1.008-1.030) Urine Protein (NEGATIVE) mg/dL Urine Glucose (UA) (NEGATIVE) mg/dL Urine Ketones (NEGATIVE) mg/dL Urine Occult Blood (NEGATIVE) Urine Nitrite (NEGATIVE) Urine Bilirubin (NEGATIVE) Urine Urobilinogen (0.2-1.0) EU/dL Ur Leukocyte Esterase (NEGATIVE) Urine RBC (0-5) Urine WBC (0-5) Ur Epithelial Cells Amorphous Sediment Urine Bacteria Urine Mucus Ethyl Alcohol 283 mg/dL 04/07/20 Range/Units 06:36 WBC (4.5-11.0) K/uL RBC (4.30-5.90) M/uL Hgb (12.0-15.0) g/dL Hct (40.0-54.0) % MCV (80-98) fL MCH (27-31) pg MCHC (32-36) % Plt Count (150-400) K/uL Neut % (Auto) (36-66) % Lymph % (Auto) (24-44) % [place] % (Auto) (2-6) % Eos % (Auto) (2-4) % Baso % (Auto) (0-1) % Sodium (140-148) mmol/L Potassium (3.6-5.2) mmol/L Chloride (100-108) mmol/L Carbon Dioxide (21-32) mmol/L Anion Gap (5.0-14.0) mmol/L BUN (7-18) mg/dL Creatinine (0.8-1.3) mg/dL Est Cr Clr Drug Dosing mL/min Estimated GFR (MDRD) (>60) Glucose (74-106) mg/dL Calcium (8.5-10.1) mg/dL Magnesium (1.8-2.4) mg/dL Total Bilirubin (0.2-1.0) mg/dL AST (15-37) U/L ALT (12-78) U/L Alkaline Phosphatase (46-116) U/L Total Protein (6.4-8.2) g/dL Albumin (3.4-5.0) g/dL Globulin (2.3-3.5) g/dL Albumin/Globulin Ratio (1.2-2.2) Amylase (25-115) U/L Lipase (73-393) U/L Urine Color Yellow (YELLOW) Urine Appearance Slightly cloudy A (CLEAR) Urine pH 7.0 (5.0-8.0) Ur Specific [place] 1.020 (1.008-1.030) Urine Protein 30 H (NEGATIVE) mg/dL Urine Glucose (UA) Negative (NEGATIVE) mg/dL Urine Ketones Negative (NEGATIVE) mg/dL Urine Occult Blood Small H (NEGATIVE) Urine Nitrite Negative (NEGATIVE) Urine Bilirubin Negative (NEGATIVE) Urine Urobilinogen 1.0 (0.2-1.0) EU/dL Ur Leukocyte Esterase Negative (NEGATIVE) Urine RBC 0-5 (0-5) Urine WBC Not seen (0-5) Ur Epithelial Cells Not seen Amorphous Sediment Not seen Urine Bacteria Not seen Urine Mucus Not seen Ethyl Alcohol mg/dL Medications Generic Name Dose Route Start Last Admin Trade Name Freq PRN Reason Stop Dose Admin Sodium Chloride 1,000 mls @ 999 mls/hr 04/07/20 05:00 04/07/20 05:08 Normal Saline IV 999 mls/hr ASDIRECTED GREYSON Administration Sodium Chloride 1,000 mls @ 999 mls/hr 04/07/20 05:45 04/07/20 06:09 Normal Saline IV 999 mls/hr ASDIRECTED [facility] Administration Discontinued Medications Generic Name Dose Route Start Last Admin Trade Name Osmar PRN Reason Stop Dose Admin Hydromorphone HCl 0.5 mg 04/07/20 06:21 04/07/20 06:32 Dilaudid IVPUSH 04/07/20 06:22 0.5 mg ONETIME ONE Administration Lorazepam 0.5 mg 04/07/20 04:52 04/07/20 05:08 Ativan IVPUSH 04/07/20 04:53 0.5 mg ONETIME ONE Administration Lorazepam 1 mg 04/07/20 06:17 04/07/20 06:31 Ativan IVPUSH 04/07/20 06:18 1 mg ONETIME ONE Administration Lorazepam 2 mg 04/07/20 07:32 Ativan IVPUSH 04/07/20 07:33 ONETIME ONE Departure - Departure Time of Disposition: 07:38 Condition: Poor Sepsis Event Note (ED) - Focused Exam Vital Signs: Vital Signs Temp Pulse Resp BP Pulse Ox 04/07/20 06:08 90 14 149/88 H 99 04/07/20 04:17 98.1 F 84 18 146/91 H 99 04/07/20 04:14 98.1 F 84 18 146/91 H 99 - Assessment/Plan Plan: Took over care from Dr. Lew at 7 AM Assessment Acuity = acute Site and laterality = pancreatitis complicated patient with extensive history of alcohol abuse and dependence Etiology = EtOH Manifestations = tremors Location of injury = Home Lab values = platelets low at 60 consistent with thrombocytopenia potassium low at 3.4 consistent hypokalemia calcium low 10.6 consistent with hypocalcemia albumin low 2.9 consistent hypoalbuminemia lipase elevated 1152 consistent with pancreatitis type picture alcohol at 283 consistent with intoxication Plan Plan for this gentleman was admission for pancreatitis however the hospital is a red alert he does not want to be transferred anywhere he has decided to go home he says gabapentin has helped him in the past as well as Ativan therefore prescription for Ativan 1 mg p.o. 3 times daily as needed total #10 and also gabapentin protocol 300 mg p.o. 3 times daily x3 days and then on the fourth day twice daily 300 mg dosing this medication was faxed to [facility] he will receive a loading dose now. He states he is going to refrain from alcohol use This note was dictated using [employer] voice recognition software please call with any questions on syntax or grammar.
[2020-04-07] MEDS ORDERED: LORazepam 2 MG/ML SDV IVPUSH ONE ×3 (04:52→07:32)
[2020-04-07] MEDS ORDERED: Sodium Chloride 0.9% 1,000 ML IV SCH ×2 (05:00→05:45)
[2020-04-07] MEDS ORDERED: HYDROmorphone 0.5 MG/0.5 ML Syringe IVPUSH ONE (06:21)
[2020-04-07] MEDS ORDERED: Gabapentin 300 MG Cap PO ONE (07:38)
[2020-04-07 08:16] VITALS: BP 154/77; PULSE 91
== END 2020-04-07 08:17 | disposition home or self-care (01) ==
LOC: JP.ED 04:00
DX: K85.20 Alcohol induced acute pancreatitis without necrosis or infection (principal); F10.20 Alcohol dependence, uncomplicated; F17.210 Nicotine dependence, cigarettes, uncomplicated; R00.0 Tachycardia, unspecified; Y90.8 Blood alcohol level of 240 mg/100 ml or more
CPT/HCPCS: 36415; 80053; 80307; 81001; 82150; 83690; 83735; 85025; 96374; 96375; 96376; 99284; J1170; J2060; J7030

== ENCOUNTER 2020-06-24 17:07 | Inpatient (IN) | payer SELFPAY ==
[2020-06-24] MEDS ORDERED: LORazepam 1 MG Tab PO ONE (18:39)
--- NOTE | 2020-06-24 18:44 | EDM.PDOCBH ---
ED HPI GENERAL MEDICAL PROBLEM - General Chief Complaint: Drug or Alcohol Abuse Stated Complaint: VOMITING FOR 4 DAYS Time Seen by Provider: 06/24/20 18:25 Source of Information: Reports: Patient, Old Records History Limitations: Reports: No Limitations - History of Present Illness INITIAL COMMENTS - FREE TEXT/NARRATIVE: 49 yo male patient of Dr. Langley's presents with a complaint of alcohol withdrawal. Has not been able to keep anything down for about 4 days. Thinks his last ETOH was about 2 days ago. [place]itos has some blood in his sputum. Has known alcoholic liver dz. Says he has drank heavily since age 40 when his left him. No recent fevers or bloody stools/diarrhea. Has a small "growth" on his R testicle that he discovered a couple days ago that he is concerned about. Has shared none of this with Dr. Langley. Onset: Gradual Onset Date: 06/20/20 Duration: Day(s): (4), Getting Worse Location: Reports: Abdomen Quality: Reports: Other (no pain reported) Severity: Moderate Improves with: Reports: None Worsens with: Reports: Other (time) Context: Reports: Other (See HPI) Associated Symptoms: Reports: Cough, Nausea/Vomiting, Other (hemoptysis). 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 (see below) (none) - Related Data Allergies Allergy/AdvReac Type Severity Reaction Status Date / Time No Known Allergies Allergy Verified 06/24/20 17:31 Home Meds: Home Meds NK [No Known Home Meds] 06/24/20 [History] Past Medical History HEENT History: Reports: Impaired Vision Respiratory History: Reports: Pneumothorax Other Respiratory History: pneumonia Gastrointestinal History: Reports: Chronic Constipation, Chronic Diarrhea, Cirrhosis, Other (See Below) Other Gastrointestinal History: diverticulitis Musculoskeletal History: Reports: Other (See Below) Other Musculoskeletal History: shaking unsteady Neurological History: Reports: Other (See Below) Other Neuro History: Past etoh withdrawal Psychiatric History: Reports: Addiction, Anxiety, Other (See Below) Other Psychiatric History: ineffective coping Hematologic History: Reports: Anemia Immunologic History: Reports: Other (See Below) Other Immunologic History: lymes - Infectious Disease History Infectious Disease History: Reports: Chicken Pox, Other (See Below) Other Infectious Disease History: alcoholic hepatitis - Past Surgical History HEENT Surgical History: Reports: None Respiratory Surgical History: Reports: Other (See Below) Other Respiratory Surgeries/Procedures: nodule in one lung per patient report. GI Surgical History: Reports: Cholecystectomy Social & Family History - Tobacco Use Tobacco Use Status *Q: Current Every Day Tobacco User Years of Tobacco use: 25 Packs/Tins Daily: 1 - Caffeine Use Caffeine Use: Reports: Coffee ED ROS GENERAL - Review of Systems Review Of Systems: See Below Constitutional: Reports: No Symptoms HEENT: Reports: No Symptoms Respiratory: Reports: Cough, Hemoptysis. Denies: Shortness of Breath, Wheezing, Pleuritic Chest Pain Cardiovascular: Reports: No Symptoms Endocrine: Reports: No Symptoms GI/Abdominal: Reports: Nausea, Vomiting. Denies: Abdominal Pain, Black Stool, Bloody Stool, Constipation, Diarrhea, Distension, Flatus, Hematemesis, Hematochezia, Melena : Reports: No Symptoms, Other (? lump on R testicle) Musculoskeletal: Reports: No Symptoms Skin: Reports: No Symptoms Neurological: Reports: No Symptoms, Confusion, Dizziness, Headache, Tremors Psychiatric: Reports: Anxiety ED EXAM, BEHAVIORAL HEALTH - Physical Exam Exam: See Below Exam Limited By: No Limitations General Appearance: Alert, WD/WN, Mild Distress Eye Exam: Bilateral Eye: Conjunctival Injection, Normal Inspection Ears: Normal External Exam, Normal Canal, Hearing Grossly Normal, Normal TMs Nose: Normal Inspection, No Blood Throat/Mouth: Normal Inspection, Normal Lips, Normal Oropharynx, Normal Voice, No Airway Compromise Head: Atraumatic, Normocephalic Neck: Normal Inspection Respiratory/Chest: No Respiratory Distress, Lungs Clear, Normal Breath Sounds, No Accessory Muscle Use Cardiovascular: Regular Rate, Rhythm, No Edema GI/Abdominal: Normal Bowel Sounds, Soft, No Distention, Tender (RUQ mild). No: Non-Tender, Distended Back Exam: Normal Inspection. No: CVA Tenderness (R), CVA Tenderness (L) Extremities: Normal Inspection, Normal Range of Motion, Non-Tender, No Pedal Edema Neurological: Alert, Normal Mood/Affect, CN II-XII Intact, Normal Cognition, No Motor/Sensory Deficits, Oriented x 3, Tremor Psychiatric: Alert, Normal Affect, Normal Cognition, Normal Mood, Oriented Skin Exam: Warm, Dry, Intact, Normal color, No rash COURSE, BEHAVIORAL HEALTH COMP - Course Vital Signs: Last Vital Signs Temp 36.8 C 06/25/20 00:00 Pulse 99 06/25/20 04:00 Resp 16 06/25/20 04:00 BP 182/95 H 06/25/20 04:00 Pulse Ox 97 06/25/20 04:00 Orders, Labs, Meds: Active Orders 24 hr Category Date Time Status Chest 2V [CR] Stat Exams 06/24/20 18:42 Taken MVI, Adult with Vitamin K [Infuvite Adult] 10 ml Med 06/24/20 18:45 Active Thiamine [Vitamin B-1] 100 mg Folic Acid 1 mg Magnesium Sulfate [Magnesium Sulfate 50%] 3 gm Sodium Chloride 0.9% [Normal Saline] 1,000 ml IV ASDIRECTED Medication Orders Folic Acid (Folic Acid) 1 mg PO DAILY [facility] Gabapentin (Neurontin) 400 mg PO Q8H [facility] Last Admin: 06/25/20 05:34 Dose: 400 mg Documented by: Admin: 06/24/20 22:12 Dose: 400 mg Documented by: PAZ Multivitamins/Minerals 10 ml/Thiamine HCl 100 mg/ Folic Acid 1 mg/ Magnesium Sulfate 3 gm/ Sodium Chloride 1,017.2 mls @ 500 mls/hr IV ASDIRECTED [facility] Last Admin: 06/24/20 19:29 Dose: 500 mls/hr Documented by: DAYANARA Sodium Chloride (Normal Saline) 1,000 mls @ 125 mls/hr IV ASDIRECTED [facility] Last Admin: 06/24/20 22:00 Dose: 125 mls/hr Documented by: PAZ Lorazepam (Ativan) 1 - 3 mg IV ASDIRECTED PRN; Protocol PRN Reason: [facility] PROTOCOL Last Admin: 06/25/20 05:34 Dose: 2 mg Documented by: Admin: 06/25/20 03:19 Dose: 2 mg Documented by: Admin: 06/25/20 01:41 Dose: 2 mg Documented by: Admin: 06/24/20 23:25 Dose: 2 mg Documented by: PAZ Lorazepam (Ativan) 1 - 3 mg PO ASDIRECTED PRN; Protocol PRN Reason: [facility] PROTOC[facility] Last Admin: 06/24/20 22:11 Dose: 2 mg Documented by: PAZ Sodium Chloride (Saline Flush) 10 ml FLUSH ASDIRECTED PRN PRN Reason: Keep Vein Open Thiamine HCl (Vitamin B-1) 100 mg PO DAILY [facility] Laboratory Tests 06/24/20 06/24/20 06/24/20 Range/Units 18:48 18:51 18:51 WBC 9.0 (4.5-11.0) K/uL RBC 5.07 (4.30-5.90) M/uL Hgb 15.2 H D (12.0-15.0) g/dL Hct 45.1 (40.0-54.0) % MCV 89 (80-98) fL MCH 30 (27-31) pg MCHC 34 (32-36) % Plt Count 90 L (150-400) K/uL Sodium 142 (140-148) mmol/L Potassium 3.3 L (3.6-5.2) mmol/L Chloride 99 L (100-108) mmol/L Carbon Dioxide 28 (21-32) mmol/L Anion Gap 18.3 H (5.0-14.0) mmol/L BUN 12 D (7-18) mg/dL Creatinine 1.0 (0.8-1.3) mg/dL Est Cr Clr Drug Dosing 84.27 mL/min Estimated GFR (MDRD) > 60 (>60) Glucose 112 H (74-106) mg/dL Calcium 8.4 L (8.5-10.1) mg/dL Magnesium 2.0 (1.8-2.4) mg/dL Total Bilirubin 0.6 (0.2-1.0) mg/dL AST 64 H (15-37) U/L ALT 43 (12-78) U/L Alkaline Phosphatase 141 H (46-116) U/L Total Protein 7.1 (6.4-8.2) g/dL Albumin 3.4 (3.4-5.0) g/dL Globulin 3.7 H (2.3-3.5) g/dL Albumin/Globulin Ratio 0.9 L (1.2-2.2) Urine Color (YELLOW) Urine Appearance (CLEAR) Urine pH (5.0-8.0) Ur Specific [place] (1.008-1.030) Urine Protein (NEGATIVE) mg/dL Urine Glucose (UA) (NEGATIVE) mg/dL Urine Ketones (NEGATIVE) mg/dL Urine Occult Blood (NEGATIVE) Urine Nitrite (NEGATIVE) Urine Bilirubin (NEGATIVE) Urine Urobilinogen (0.2-1.0) EU/dL Ur Leukocyte Esterase (NEGATIVE) Urine RBC (0-5) Urine WBC (0-5) Ur Epithelial Cells Amorphous Sediment Urine Bacteria Urine Mucus Urine Opiates Screen (NEGATIVE) Ur Oxycodone Screen (NEGATIVE) Urine Methadone Screen (NEGATIVE) Ur Propoxyphene Screen (NEGATIVE) Ur Barbiturates Screen (NEGATIVE) Ur Tricyclics Screen (NEGATIVE) Ur Phencyclidine Scrn (NEGATIVE) Ur Amphetamine Screen (NEGATIVE) U Methamphetamines Scrn (NEGATIVE) Urine MDMA Screen (NEGATIVE) U Benzodiazepines Scrn (NEGATIVE) U Cocaine Metab Screen (NEGATIVE) U Marijuana (THC) Screen (NEGATIVE) 06/24/20 06/24/20 Range/Units 20:51 20:51 WBC (4.5-11.0) K/uL RBC (4.30-5.90) M/uL Hgb (12.0-15.0) g/dL Hct (40.0-54.0) % MCV (80-98) fL MCH (27-31) pg MCHC (32-36) % Plt Count (150-400) K/uL Sodium (140-148) mmol/L Potassium (3.6-5.2) mmol/L Chloride (100-108) mmol/L Carbon Dioxide (21-32) mmol/L Anion Gap (5.0-14.0) mmol/L BUN (7-18) mg/dL Creatinine (0.8-1.3) mg/dL Est Cr Clr Drug Dosing mL/min Estimated GFR (MDRD) (>60) Glucose (74-106) mg/dL Calcium (8.5-10.1) mg/dL Magnesium (1.8-2.4) mg/dL Total Bilirubin (0.2-1.0) mg/dL AST (15-37) U/L ALT (12-78) U/L Alkaline Phosphatase (46-116) U/L Total Protein (6.4-8.2) g/dL Albumin (3.4-5.0) g/dL Globulin (2.3-3.5) g/dL Albumin/Globulin Ratio (1.2-2.2) Urine Color Yellow (YELLOW) Urine Appearance Clear (CLEAR) Urine pH 7.0 (5.0-8.0) Ur Specific [place] 1.025 (1.008-1.030) Urine Protein 100 H (NEGATIVE) mg/dL Urine Glucose (UA) Negative (NEGATIVE) mg/dL Urine Ketones Trace H (NEGATIVE) mg/dL Urine Occult Blood Small H (NEGATIVE) Urine Nitrite Negative (NEGATIVE) Urine Bilirubin Negative (NEGATIVE) Urine Urobilinogen 1.0 (0.2-1.0) EU/dL Ur Leukocyte Esterase Negative (NEGATIVE) Urine RBC 0-5 (0-5) Urine WBC Not seen (0-5) Ur Epithelial Cells Rare Amorphous Sediment Occasional Urine Bacteria Rare Urine Mucus Occasional Urine Opiates Screen Negative (NEGATIVE) Ur Oxycodone Screen Negative (NEGATIVE) Urine Methadone Screen Negative (NEGATIVE) Ur Propoxyphene Screen Negative (NEGATIVE) Ur Barbiturates Screen Negative (NEGATIVE) Ur Tricyclics Screen Negative (NEGATIVE) Ur Phencyclidine Scrn Negative (NEGATIVE) Ur Amphetamine Screen Negative (NEGATIVE) U Methamphetamines Scrn Negative (NEGATIVE) Urine MDMA Screen Negative (NEGATIVE) U Benzodiazepines Scrn Negative (NEGATIVE) U Cocaine Metab Screen Negative (NEGATIVE) U Marijuana (THC) Screen Negative (NEGATIVE) Medications Generic Name Dose Route Start Last Admin Trade Name Freq PRN Reason Stop Dose Admin Folic Acid 1 mg 06/25/20 09:00 Folic Acid PO DAILY [facility] Gabapentin 400 mg 06/24/20 22:00 06/25/20 05:34 Neurontin PO 400 mg Q8H [facility] Administration Multivitamins/Minerals 10 ml/ 1,017.2 mls @ 500 mls/hr 06/24/20 18:45 06/24/20 19:29 Thiamine HCl 100 mg/ Folic IV 500 mls/hr Acid 1 mg/ Magnesium Sulfate 3 ASDIRECTED [facility] Administration gm/ Sodium Chloride Sodium Chloride 1,000 mls @ 125 mls/hr 06/24/20 21:15 06/24/20 22:00 Normal Saline IV 125 mls/hr ASDIRECTED [facility] Administration Lorazepam 1 - 3 mg 06/24/20 22:00 06/25/20 05:34 Ativan IV 2 mg ASDIRECTED PRN Administration [facility] PROTOCOL Protocol Lorazepam 1 - 3 mg 06/24/20 22:00 06/24/20 22:11 Ativan PO 2 mg ASDIRECTED PRN Administration [facility] PROTOCOL Protocol Sodium Chloride 10 ml 06/24/20 21:06 Saline Flush FLUSH ASDIRECTED PRN Keep Vein Open Thiamine HCl 100 mg 06/25/20 09:00 Vitamin B-1 PO DAILY [facility] Discontinued Medications Generic Name Dose Route Start Last Admin Trade Name Luisq PRN Reason Stop Dose Admin Lorazepam 1 mg 06/24/20 18:39 06/24/20 19:08 Ativan PO 06/24/20 18:40 1 mg ONETIME ONE Administration Lorazepam 1 mg 06/24/20 21:30 Ativan IV ASDIRECTED [facility] Protocol Lorazepam 0 mg 06/24/20 21:30 Ativan PO ASDIRECTED [facility] Protocol Potassium Chloride 20 meq 06/24/20 19:29 06/24/20 19:38 Klor-Con M20 PO 06/24/20 19:30 20 meq ONETIME ONE Administration Departure - Departure Time of Disposition: 21:00 Disposition: Admitted As Inpatient 66 Clinical Impression: Chronic alcohol abuse, Tobacco abuse, Hypokalemia, Thrombocytopenia Alcohol withdrawal Qualifiers: Complication of substance-induced condition: with unspecified complication Qualified Code(s): F10.239 - Alcohol dependence with withdrawal, unspecified - Discharge Information *PRESCRIPTION DRUG MONITORING PROGRAM REVIEWED*: Not Applicable *COPY OF PRESCRIPTION DRUG MONITORING REPORT IN PATIENT CIRILO: Not Applicable Sepsis Event Note (ED) - Evaluation Sepsis Screening Result: No Definite Risk - Focused Exam Vital Signs: Vital Signs Temp Pulse Resp BP Pulse Ox 06/24/20 20:17 36.9 C 96 16 150/86 H 96 06/24/20 17:41 36.4 C 100 16 162/94 H 97 - My Orders Last 24 Hours: My Active Orders 06/24/20 18:42 Chest 2V [CR] Stat 06/24/20 18:45 MVI, Adult with Vitamin K [Infuvite Adult] 10 ml Thiamine [Vitamin B-1] 100 mg Folic Acid 1 mg Magnesium Sulfate [Magnesium Sulfate 50%] 3 gm Sodium Chloride 0.9% [Normal Saline] 1,000 ml IV ASDIRECTED - Assessment/Plan Last 24 Hours: My Active Orders 06/24/20 18:42 Chest 2V [CR] Stat 06/24/20 18:45 MVI, Adult with Vitamin K [Infuvite Adult] 10 ml Thiamine [Vitamin B-1] 100 mg Folic Acid 1 mg Magnesium Sulfate [Magnesium Sulfate 50%] 3 gm Sodium Chloride 0.9% [Normal Saline] 1,000 ml IV ASDIRECTED
[2020-06-24] MEDS ORDERED: MVI, Adult with Vitamin K 10 ML, Thiamine 100 MG, Folic Acid 1 MG, Magnesium Sulfate 3 ... IV SCH ×5 (18:45)
[2020-06-24] MEDS ORDERED: Potassium Chloride 20 MEQ Tab.ER PO ONE (19:29)
[2020-06-24] MEDS ORDERED: Sodium Chloride 0.9% 10 ML Syringe FLUSH PRN (21:06)
--- NOTE | 2020-06-24 21:21 | PCM.HP.2 ---
H&P History of Present Illness - General Date of Service: 06/24/20 Admit Problem/Dx: Admission Diagnosis/Problem Admission Diagnosis/Problem Alcoholism Source of Information: Patient, EMS History Limitations: Reports: No Limitations - History of Present Illness Onset of Symptoms: Reports: Gradual Duration of Symptoms: Reports: Day(s): Associated Symptoms: Reports: Nausea/Vomiting, Weakness - Related Data Allergies/Adverse Reactions: Allergies Allergy/AdvReac Type Severity Reaction Status Date / Time No Known Allergies Allergy Verified 06/24/20 17:31 Home Medications: Home Meds NK [No Known Home Meds] 06/24/20 [History] Past Medical History HEENT History: Reports: Impaired Vision Respiratory History: Reports: Pneumothorax Other Respiratory History: pneumonia Gastrointestinal History: Reports: Chronic Constipation, Chronic Diarrhea, Cirrhosis, Other (See Below) Other Gastrointestinal History: diverticulitis Musculoskeletal History: Reports: Other (See Below) Other Musculoskeletal History: shaking unsteady Neurological History: Reports: Other (See Below) Other Neuro History: Past etoh withdrawal Psychiatric History: Reports: Addiction, Anxiety, Other (See Below) Other Psychiatric History: ineffective coping Hematologic History: Reports: Anemia Immunologic History: Reports: Other (See Below) Other Immunologic History: lymes - Infectious Disease History Infectious Disease History: Reports: Chicken Pox, Other (See Below) Other Infectious Disease History: alcoholic hepatitis - Past Surgical History HEENT Surgical History: Reports: None Respiratory Surgical History: Reports: Other (See Below) Other Respiratory Surgeries/Procedures: nodule in one lung per patient report. GI Surgical History: Reports: Cholecystectomy Social & Family History - Tobacco Use Tobacco Use Status *Q: Current Every Day Tobacco User Years of Tobacco use: 25 Packs/Tins Daily: 1 - Caffeine Use Caffeine Use: Reports: Coffee H&P Review of Systems - Review of Systems: Review Of Systems: See Below General: Reports: Weakness HEENT: Reports: No Symptoms Pulmonary: Reports: No Symptoms Cardiovascular: Reports: No Symptoms Gastrointestinal: Reports: Nausea, Vomiting Genitourinary: Reports: No Symptoms Musculoskeletal: Reports: No Symptoms Skin: Reports: No Symptoms Psychiatric: Reports: No Symptoms Neurological: Reports: Difficulty Walking, Weakness Hematologic/Lymphatic: Reports: No Symptoms Immunologic: Reports: No Symptoms Exam - Exam Exam: See Below - Vital Signs Vital Signs: Last Vital Signs Temp 98.4 F 06/24/20 20:17 Pulse 96 06/24/20 20:17 Resp 16 02/06/21 20:17 BP 150/86 H 06/24/20 20:17 Pulse Ox 96 06/24/20 20:17 Weight: 147 lb - Exam General: Alert, Oriented, 4 HEENT: PERRLA, Hearing Intact, Mucosa Moist & [place], Nares Patent, Normal Nasal Septum, Posterior Pharynx Clear, Conjunctiva Clear, EOMI, EACs Clear, TMs Clear Neck: Supple, Trachea Midline, 2 Lungs: Clear to Auscultation, Normal Respiratory Effort Cardiovascular: Regular Rate, Regular Rhythm GI/Abdominal Exam: Normal Bowel Sounds, Soft, Non-Tender, No Organomegaly, No Distention, No Abnormal Bruit, No Mass, Pelvis Stable (Male) Exam: Scrotum Tenderness (R) Back Exam: Normal Inspection, Full Range of Motion, NT Extremities: Normal Inspection, Normal Range of Motion, Non-Tender, No Pedal Edema, Normal Capillary Refill Peripheral Pulses: 1+: Radial (L), Radial (R) Skin: Warm, Dry, Intact Neuro Extensive - Mental Status: Alert, Oriented x3, Normal Mood/Affect, Normal Cognition Psychiatric: Withdrawal Symptoms - Patient Data Lab Results Last 24 hrs: Laboratory Results - last 24 hr 06/24/20 06/24/20 06/24/20 Range/Units 18:48 18:51 18:51 WBC 9.0 (4.5-11.0) K/uL RBC 5.07 (4.30-5.90) M/uL Hgb 15.2 H D (12.0-15.0) g/dL Hct 45.1 (40.0-54.0) % MCV 89 (80-98) fL MCH 30 (27-31) pg MCHC 34 (32-36) % Plt Count 90 L (150-400) K/uL Sodium 142 (140-148) mmol/L Potassium 3.3 L (3.6-5.2) mmol/L Chloride 99 L (100-108) mmol/L Carbon Dioxide 28 (21-32) mmol/L Anion Gap 18.3 H (5.0-14.0) mmol/L BUN 12 D (7-18) mg/dL Creatinine 1.0 (0.8-1.3) mg/dL Est Cr Clr Drug Dosing 84.27 mL/min Estimated GFR (MDRD) > 60 (>60) Glucose 112 H (74-106) mg/dL Calcium 8.4 L (8.5-10.1) mg/dL Magnesium 2.0 (1.8-2.4) mg/dL Total Bilirubin 0.6 (0.2-1.0) mg/dL AST 64 H (15-37) U/L ALT 43 (12-78) U/L Alkaline Phosphatase 141 H (46-116) U/L Total Protein 7.1 (6.4-8.2) g/dL Albumin 3.4 (3.4-5.0) g/dL Globulin 3.7 H (2.3-3.5) g/dL Albumin/Globulin Ratio 0.9 L (1.2-2.2) Urine Color (YELLOW) Urine Appearance (CLEAR) Urine pH (5.0-8.0) Ur Specific [place] (1.008-1.030) Urine Protein (NEGATIVE) mg/dL Urine Glucose (UA) (NEGATIVE) mg/dL Urine Ketones (NEGATIVE) mg/dL Urine Occult Blood (NEGATIVE) Urine Nitrite (NEGATIVE) Urine Bilirubin (NEGATIVE) Urine Urobilinogen (0.2-1.0) EU/dL Ur Leukocyte Esterase (NEGATIVE) Urine RBC (0-5) Urine WBC (0-5) Ur Epithelial Cells Amorphous Sediment Urine Bacteria Urine Mucus Urine Opiates Screen (NEGATIVE) Ur Oxycodone Screen (NEGATIVE) Urine Methadone Screen (NEGATIVE) Ur Propoxyphene Screen (NEGATIVE) Ur Barbiturates Screen (NEGATIVE) Ur Tricyclics Screen (NEGATIVE) Ur Phencyclidine Scrn (NEGATIVE) Ur Amphetamine Screen (NEGATIVE) U Methamphetamines Scrn (NEGATIVE) Urine MDMA Screen (NEGATIVE) U Benzodiazepines Scrn (NEGATIVE) U Cocaine Metab Screen (NEGATIVE) U Marijuana (THC) Screen (NEGATIVE) 06/24/20 06/24/20 Range/Units 20:51 20:51 WBC (4.5-11.0) K/uL RBC (4.30-5.90) M/uL Hgb (12.0-15.0) g/dL Hct (40.0-54.0) % MCV (80-98) fL MCH (27-31) pg MCHC (32-36) % Plt Count (150-400) K/uL Sodium (140-148) mmol/L Potassium (3.6-5.2) mmol/L Chloride (100-108) mmol/L Carbon Dioxide (21-32) mmol/L Anion Gap (5.0-14.0) mmol/L BUN (7-18) mg/dL Creatinine (0.8-1.3) mg/dL Est Cr Clr Drug Dosing mL/min Estimated GFR (MDRD) (>60) Glucose (74-106) mg/dL Calcium (8.5-10.1) mg/dL Magnesium (1.8-2.4) mg/dL Total Bilirubin (0.2-1.0) mg/dL AST (15-37) U/L ALT (12-78) U/L Alkaline Phosphatase (46-116) U/L Total Protein (6.4-8.2) g/dL Albumin (3.4-5.0) g/dL Globulin (2.3-3.5) g/dL Albumin/Globulin Ratio (1.2-2.2) Urine Color Yellow (YELLOW) Urine Appearance Clear (CLEAR) Urine pH 7.0 (5.0-8.0) Ur Specific [place] 1.025 (1.008-1.030) Urine Protein 100 H (NEGATIVE) mg/dL Urine Glucose (UA) Negative (NEGATIVE) mg/dL Urine Ketones Trace H (NEGATIVE) mg/dL Urine Occult Blood Small H (NEGATIVE) Urine Nitrite Negative (NEGATIVE) Urine Bilirubin Negative (NEGATIVE) Urine Urobilinogen 1.0 (0.2-1.0) EU/dL Ur Leukocyte Esterase Negative (NEGATIVE) Urine RBC 0-5 (0-5) Urine WBC Not seen (0-5) Ur Epithelial Cells Rare Amorphous Sediment Occasional Urine Bacteria Rare Urine Mucus Occasional Urine Opiates Screen Negative (NEGATIVE) Ur Oxycodone Screen Negative (NEGATIVE) Urine Methadone Screen Negative (NEGATIVE) Ur Propoxyphene Screen Negative (NEGATIVE) Ur Barbiturates Screen Negative (NEGATIVE) Ur Tricyclics Screen Negative (NEGATIVE) Ur Phencyclidine Scrn Negative (NEGATIVE) Ur Amphetamine Screen Negative (NEGATIVE) U Methamphetamines Scrn Negative (NEGATIVE) Urine MDMA Screen Negative (NEGATIVE) U Benzodiazepines Scrn Negative (NEGATIVE) U Cocaine Metab Screen Negative (NEGATIVE) U Marijuana (THC) Screen Negative (NEGATIVE) Result Diagrams: 06/25/20 05:38 06/25/20 05:38 Sepsis Event Note - Evaluation Sepsis Screening Result: No Definite Risk - Focused Exam Vital Signs: Vital Signs Temp Pulse Resp BP Pulse Ox 06/24/20 20:17 98.4 F 96 16 150/86 H 96 06/24/20 17:41 97.6 F 100 16 162/94 H 97 06/24/20 17:25 97.6 F 100 16 162/94 H 97 Problem List Initiated/Reviewed/Updated: Yes Orders Last 24hrs: Active Orders 24 hr Category Date Time Status Patient Status [ADT] Routine ADT 06/24/20 21:14 Ordered Height and Weight [RC] DAILY Care 06/24/20 21:06 Ordered Intake and Output [RC] QSHIFT Care 06/24/20 21:16 Ordered Oxygen Therapy [RC] PRN Care 06/24/20 21:14 Ordered Peripheral IV Care [RC] . DIRECTED Care 06/24/20 21:18 Ordered Up With Assistance [RC] ASDIRECTED Care 06/24/20 21:06 Ordered VTE/DVT Education [RC] Per Unit Routine Care 06/24/20 21:14 Ordered Vital Signs [RC] Q4H Care 06/24/20 21:14 Ordered Regular Diet [DIET] Diet 06/25/20 Breakfast Ordered Chest 2V [CR] Stat Exams 06/24/20 18:42 Taken CBC WITH AUTO DIFF [HEME] AM Lab 06/25/20 05:11 Ordered COMPREHENSIVE METABOLIC PN,CMP [CHEM] AM Lab 06/25/20 05:11 Ordered MVI, Adult with Vitamin K [Infuvite Adult] 10 ml Med 06/24/20 18:45 Active Thiamine [Vitamin B-1] 100 mg Folic Acid 1 mg Magnesium Sulfate [Magnesium Sulfate 50%] 3 gm Sodium Chloride 0.9% [Normal Saline] 1,000 ml IV ASDIRECTED Sodium Chloride 0.9% @ 125 MLS/HR (1000ml) Med 06/24/20 21:15 Ordered Sodium Chloride 0.9% [Normal Saline] 1,000 ml IV ASDIRECTED Sodium Chloride 0.9% [Saline Flush] Med 06/24/20 21:06 Ordered 10 ml FLUSH ASDIRECTED PRN Peripheral IV Insertion Adult [OM.PC] Routine Oth 06/24/20 21:06 Ordered Resuscitation Status Routine Resus Stat 06/24/20 21:06 Ordered Medication Orders Multivitamins/Minerals 10 ml/Thiamine HCl 100 mg/ Folic Acid 1 mg/ Magnesium Sulfate 3 gm/ Sodium Chloride 1,017.2 mls @ 500 mls/hr IV ASDIRECTED [facility] Last Admin: 06/24/20 19:29 Dose: 500 mls/hr Documented by: DAYANARA Assessment/Plan Comment:: Assessment/Plan: #1. Alcoholism: Will admit to the DT's and Treat with Alc. protocol - Ativan #2. 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 #3. Thrombocytopenia: Will monitor and treat as indicated. #4. Nicotine dependence: #5. Swelling right testicle. Will get an ultrasound. I expect no acute problem other than epididymitis. #6. Dehydration: Will hydrate slowly. - Mortality Measure Prognosis:: Good
[2020-06-24] MEDS ORDERED: LORazepam 2 MG/ML SDV IV SCH (21:30)
[2020-06-24] MEDS ORDERED: LORazepam 1 MG Tab PO SCH (21:30)
[2020-06-24] MEDS: Sodium Chloride 0.9% 1,000 ML IV SCH (22:00)
[2020-06-24] MEDS: LORazepam 1 MG Tab PO PRN (22:11)
[2020-06-24] MEDS: Gabapentin 400 MG Cap PO SCH (22:12)
[2020-06-24] MEDS: LORazepam 2 MG/ML SDV IV PRN (23:25)
[2020-06-25] MEDS: LORazepam 2 MG/ML SDV IV PRN ×3 (01:41→05:34)
[2020-06-25] MEDS: Gabapentin 400 MG Cap PO SCH ×3 (05:34→21:34)
[2020-06-25] MEDS: Sodium Chloride 0.9% 1,000 ML IV SCH (05:38)
[2020-06-25] MEDS: Folic Acid 1 MG Tab PO SCH (08:13)
[2020-06-25] MEDS: LORazepam 1 MG Tab PO PRN ×4 (08:13→21:34)
[2020-06-25] MEDS: Thiamine 100 MG Tab PO SCH (08:13)
--- NOTE | 2020-06-25 13:40 | PCM.PN ---
- General Info Date of Service: 06/25/20 - Review of Systems General: Reports: Weakness Pulmonary: Reports: No Symptoms Cardiovascular: Reports: No Symptoms Gastrointestinal: Reports: Nausea, Vomiting Genitourinary: Reports: No Symptoms Musculoskeletal: Reports: No Symptoms Skin: Reports: No Symptoms Neurological: Reports: Weakness, Gait Disturbance Psychiatric: Reports: Other (Withdrawls dur to alc.) - Patient Data Vitals - Most Recent: Last Vital Signs Temp 97 F 06/25/20 12:00 Pulse 103 H 06/25/20 06:00 Resp 12 06/25/20 12:00 BP 152/85 H 06/25/20 12:00 Pulse Ox 99 06/25/20 12:00 Weight - Most Recent: 146 lb I&O - Last 24 Hours: Intake & Output 06/24/20 06/25/20 06/25/20 22:59 06:59 14:59 Intake Total 400 Output Total 1700 Balance -1300 Lab Results Last 24 Hours: Laboratory Results - last 24 hr 06/24/20 06/24/20 06/24/20 Range/Units 18:48 18:51 18:51 WBC 9.0 (4.5-11.0) K/uL RBC 5.07 (4.30-5.90) M/uL Hgb 15.2 H D (12.0-15.0) g/dL Hct 45.1 (40.0-54.0) % MCV 89 (80-98) fL MCH 30 (27-31) pg MCHC 34 (32-36) % Plt Count 90 L (150-400) K/uL Neut % (Auto) (36-66) % Lymph % (Auto) (24-44) % [place] % (Auto) (2-6) % Eos % (Auto) (2-4) % Baso % (Auto) (0-1) % Sodium 142 (140-148) mmol/L Potassium 3.3 L (3.6-5.2) mmol/L Chloride 99 L (100-108) mmol/L Carbon Dioxide 28 (21-32) mmol/L Anion Gap 18.3 H (5.0-14.0) mmol/L BUN 12 D (7-18) mg/dL Creatinine 1.0 (0.8-1.3) mg/dL Est Cr Clr Drug Dosing 84.27 mL/min Estimated GFR (MDRD) > 60 (>60) Glucose 112 H (74-106) mg/dL Calcium 8.4 L (8.5-10.1) mg/dL Magnesium 2.0 (1.8-2.4) mg/dL Total Bilirubin 0.6 (0.2-1.0) mg/dL AST 64 H (15-37) U/L ALT 43 (12-78) U/L Alkaline Phosphatase 141 H (46-116) U/L Total Protein 7.1 (6.4-8.2) g/dL Albumin 3.4 (3.4-5.0) g/dL Globulin 3.7 H (2.3-3.5) g/dL Albumin/Globulin Ratio 0.9 L (1.2-2.2) Urine Color (YELLOW) Urine Appearance (CLEAR) Urine pH (5.0-8.0) Ur Specific [place] (1.008-1.030) Urine Protein (NEGATIVE) mg/dL Urine Glucose (UA) (NEGATIVE) mg/dL Urine Ketones (NEGATIVE) mg/dL Urine Occult Blood (NEGATIVE) Urine Nitrite (NEGATIVE) Urine Bilirubin (NEGATIVE) Urine Urobilinogen (0.2-1.0) EU/dL Ur Leukocyte Esterase (NEGATIVE) Urine RBC (0-5) Urine WBC (0-5) Ur Epithelial Cells Amorphous Sediment Urine Bacteria Urine Mucus Urine Opiates Screen (NEGATIVE) Ur Oxycodone Screen (NEGATIVE) Urine Methadone Screen (NEGATIVE) Ur Propoxyphene Screen (NEGATIVE) Ur Barbiturates Screen (NEGATIVE) Ur Tricyclics Screen (NEGATIVE) Ur Phencyclidine Scrn (NEGATIVE) Ur Amphetamine Screen (NEGATIVE) U Methamphetamines Scrn (NEGATIVE) Urine MDMA Screen (NEGATIVE) U Benzodiazepines Scrn (NEGATIVE) U Cocaine Metab Screen (NEGATIVE) U Marijuana (THC) Screen (NEGATIVE) 06/24/20 06/24/20 06/25/20 Range/Units 20:51 20:51 05:38 WBC 8.9 (4.5-11.0) K/uL RBC 3.96 L (4.30-5.90) M/uL Hgb 12.2 D (12.0-15.0) g/dL Hct 35.7 L (40.0-54.0) % MCV 90 (80-98) fL MCH 31 (27-31) pg MCHC 34 (32-36) % Plt Count 59 L (150-400) K/uL Neut % (Auto) 79 H (36-66) % Lymph % (Auto) 14 L (24-44) % [place]y % (Auto) 7 H (2-6) % Eos % (Auto) 0 L (2-4) % Baso % (Auto) 0 (0-1) % Sodium (140-148) mmol/L Potassium (3.6-5.2) mmol/L Chloride (100-108) mmol/L Carbon Dioxide (21-32) mmol/L Anion Gap (5.0-14.0) mmol/L BUN (7-18) mg/dL Creatinine (0.8-1.3) mg/dL Est Cr Clr Drug Dosing mL/min Estimated GFR (MDRD) (>60) Glucose (74-106) mg/dL Calcium (8.5-10.1) mg/dL Magnesium (1.8-2.4) mg/dL Total Bilirubin (0.2-1.0) mg/dL AST (15-37) U/L ALT (12-78) U/L Alkaline Phosphatase (46-116) U/L Total Protein (6.4-8.2) g/dL Albumin (3.4-5.0) g/dL Globulin (2.3-3.5) g/dL Albumin/Globulin Ratio (1.2-2.2) Urine Color Yellow (YELLOW) Urine Appearance Clear (CLEAR) Urine pH 7.0 (5.0-8.0) Ur Specific [place] 1.025 (1.008-1.030) Urine Protein 100 H (NEGATIVE) mg/dL Urine Glucose (UA) Negative (NEGATIVE) mg/dL Urine Ketones Trace H (NEGATIVE) mg/dL Urine Occult Blood Small H (NEGATIVE) Urine Nitrite Negative (NEGATIVE) Urine Bilirubin Negative (NEGATIVE) Urine Urobilinogen 1.0 (0.2-1.0) EU/dL Ur Leukocyte Esterase Negative (NEGATIVE) Urine RBC 0-5 (0-5) Urine WBC Not seen (0-5) Ur Epithelial Cells Rare Amorphous Sediment Occasional Urine Bacteria Rare Urine Mucus Occasional Urine Opiates Screen Negative (NEGATIVE) Ur Oxycodone Screen Negative (NEGATIVE) Urine Methadone Screen Negative (NEGATIVE) Ur Propoxyphene Screen Negative (NEGATIVE) Ur Barbiturates Screen Negative (NEGATIVE) Ur Tricyclics Screen Negative (NEGATIVE) Ur Phencyclidine Scrn Negative (NEGATIVE) Ur Amphetamine Screen Negative (NEGATIVE) U Methamphetamines Scrn Negative (NEGATIVE) Urine MDMA Screen Negative (NEGATIVE) U Benzodiazepines Scrn Negative (NEGATIVE) U Cocaine Metab Screen Negative (NEGATIVE) U Marijuana (THC) Screen Negative (NEGATIVE) 06/25/20 Range/Units 05:38 WBC (4.5-11.0) K/uL RBC (4.30-5.90) M/uL Hgb (12.0-15.0) g/dL Hct (40.0-54.0) % MCV (80-98) fL MCH (27-31) pg MCHC (32-36) % Plt Count (150-400) K/uL Neut % (Auto) (36-66) % Lymph % (Auto) (24-44) % [place] % (Auto) (2-6) % Eos % (Auto) (2-4) % Baso % (Auto) (0-1) % Sodium 136 L (140-148) mmol/L Potassium 3.6 (3.6-5.2) mmol/L Chloride 99 L (100-108) mmol/L Carbon Dioxide 27 (21-32) mmol/L Anion Gap 13.6 (5.0-14.0) mmol/L BUN 11 (7-18) mg/dL Creatinine 0.8 (0.8-1.3) mg/dL Est Cr Clr Drug Dosing 105.33 mL/min Estimated GFR (MDRD) > 60 (>60) Glucose 92 (74-106) mg/dL Calcium 7.5 L (8.5-10.1) mg/dL Magnesium (1.8-2.4) mg/dL Total Bilirubin 1.5 H D (0.2-1.0) mg/dL AST 69 H (15-37) U/L ALT 36 (12-78) U/L Alkaline Phosphatase 119 H (46-116) U/L Total Protein 5.8 L (6.4-8.2) g/dL Albumin 2.9 L (3.4-5.0) g/dL Globulin 2.9 (2.3-3.5) g/dL Albumin/Globulin Ratio 1.0 L (1.2-2.2) Urine Color (YELLOW) Urine Appearance (CLEAR) Urine pH (5.0-8.0) Ur Specific [place] (1.008-1.030) Urine Protein (NEGATIVE) mg/dL Urine Glucose (UA) (NEGATIVE) mg/dL Urine Ketones (NEGATIVE) mg/dL Urine Occult Blood (NEGATIVE) Urine Nitrite (NEGATIVE) Urine Bilirubin (NEGATIVE) Urine Urobilinogen (0.2-1.0) EU/dL Ur Leukocyte Esterase (NEGATIVE) Urine RBC (0-5) Urine WBC (0-5) Ur Epithelial Cells Amorphous Sediment Urine Bacteria Urine Mucus Urine Opiates Screen (NEGATIVE) Ur Oxycodone Screen (NEGATIVE) Urine Methadone Screen (NEGATIVE) Ur Propoxyphene Screen (NEGATIVE) Ur Barbiturates Screen (NEGATIVE) Ur Tricyclics Screen (NEGATIVE) Ur Phencyclidine Scrn (NEGATIVE) Ur Amphetamine Screen (NEGATIVE) U Methamphetamines Scrn (NEGATIVE) Urine MDMA Screen (NEGATIVE) U Benzodiazepines Scrn (NEGATIVE) U Cocaine Metab Screen (NEGATIVE) U Marijuana (THC) Screen (NEGATIVE) Med Orders - Current: Current Medications Folic Acid (Folic Acid) 1 mg PO DAILY [facility] Last Admin: 06/25/20 08:13 Dose: 1 mg Documented by: Gabapentin (Neurontin) 400 mg PO Q8H [facility] Last Admin: 06/25/20 13:33 Dose: 400 mg Documented by: Sodium Chloride (Normal Saline) 1,000 mls @ 125 mls/hr IV ASDIRECTED [facility] Last Admin: 06/25/20 05:38 Dose: 125 mls/hr Documented by: Lorazepam (Ativan) 1 - 3 mg IV ASDIRECTED PRN; Protocol PRN Reason: [facility] PROTOCOL Last Admin: 06/25/20 05:34 Dose: 2 mg Documented by: Lorazepam (Ativan) 1 - 3 mg PO ASDIRECTED PRN; Protocol PRN Reason: [facility] PROTOCOL Last Admin: 06/25/20 11:31 Dose: 2 mg Documented by: Sodium Chloride (Saline Flush) 10 ml FLUSH ASDIRECTED PRN PRN Reason: Keep Vein Open Thiamine HCl (Vitamin B-1) 100 mg PO DAILY [facility] Last Admin: 06/25/20 08:13 Dose: 100 mg Documented by: Discontinued Medications Multivitamins/Minerals 10 ml/Thiamine HCl 100 mg/ Folic Acid 1 mg/ Magnesium Sulfate 3 gm/ Sodium Chloride 1,017.2 mls @ 500 mls/hr IV ASDIRECTED [facility] Last Admin: 06/24/20 19:29 Dose: 500 mls/hr Documented by: Lorazepam (Ativan) 1 mg PO ONETIME ONE Stop: 06/24/20 18:40 Last Admin: 06/24/20 19:08 Dose: 1 mg Documented by: Lorazepam (Ativan) 1 mg IV ASDIRECTED [facility]; Protocol Lorazepam (Ativan) 0 mg PO ASDIRECTED [facility]; Protocol Potassium Chloride (Klor-Con M20) 20 meq PO ONETIME ONE Stop: 06/24/20 19:30 Last Admin: 06/24/20 19:38 Dose: 20 meq Documented by: - Exam General: Mild Distress HEENT: Pupils Equal, Pupils Reactive, EOMI, Mucous Membr. Moist/[place] Neck: Supple Lungs: Clear to Auscultation, Normal Respiratory Effort Cardiovascular: Regular Rate, Regular Rhythm GI/Abdominal Exam: Normal Bowel Sounds, Soft, Other (Liver enlarged due to alc. consumption) (Male) Exam: Testicular Mass (right esticular mass) Peripheral Pulses: 1+: Radial (L), Radial (R) Skin: Warm, Dry, Intact Neurological: Cranial Nerves Intact Psy/Mental Status: Withdrawal Symptoms Sepsis Event Note - Evaluation Sepsis Screening Result: No Definite Risk - Focused Exam Vital Signs: Vital Signs Temp Pulse Resp BP Pulse Ox 06/25/20 12:00 97 F 12 152/85 H 99 06/25/20 10:00 12 172/92 H 99 06/25/20 08:00 98 F 16 147/90 H 99 06/25/20 06:00 98.2 F 103 H 14 169/88 H 97 06/25/20 04:00 99 16 182/95 H 97 06/25/20 02:00 97 16 177/94 H 98 - Problem List Review Problem List Initiated/Reviewed/Updated: Yes - My Orders Last 24 Hours: My Active Orders 06/24/20 21:06 Height and Weight [RC] DAILY Up With Assistance [RC] ASDIRECTED Sodium Chloride 0.9% [Saline Flush] 10 ml FLUSH ASDIRECTED PRN Peripheral IV Insertion Adult [OM.PC] Routine Resuscitation Status Routine 06/24/20 21:14 Patient Status [ADT] Routine Oxygen Therapy [RC] PRN Vital Signs [RC] Q2H 06/24/20 21:15 Sodium Chloride 0.9% [Normal Saline] 1,000 ml IV ASDIRECTED 06/24/20 21:16 Intake and Output [RC] QSHIFT 06/24/20 21:24 CIWAA Assessment [RC] Q1H Notify Provider [RC] PRN Seizure Precautions [OM.PC] Routine 06/24/20 22:00 Gabapentin [Neurontin] 400 mg PO Q8H LORazepam [Ativan] 1 - 3 mg IV ASDIRECTED PRN LORazepam [Ativan] 1 - 3 mg PO ASDIRECTED PRN 06/25/20 Breakfast Regular Diet [DIET] 06/25/20 09:00 Folic Acid 1 mg PO DAILY Thiamine [Vitamin B-1] 100 mg PO DAILY - Plan Plan:: Assessment/Plan: #1. Alcoholism: Will admitted for treatment of DT's. #2. 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 AST 69, ALT 36 normal. #3. Thrombocytopenia: Will monitor and treat as indicated. Dropped from 90 to 60 today. Hb dropped from 15.2 to 12.2 due to rehydration. #4. Nicotine dependence: #5. Swelling right testicle. Will get an ultrasound. I expect no acute problem other than epididymitis. #6. Dehydration: Resolved. #7. HTN bp 152/85. Will start meds for HTN.
[2020-06-25] MEDS: Lisinopril 10 MG Tab PO SCH (14:12)
--- NOTE | 2020-06-25 17:09 | CRLUS ---
Indication: Mass right testicular region. Technique: Grayscale got up ultrasound scrotum was performed. Comparison: April 17, 2016. Findings: The right testis measures 3.7 x 2.3 x 3.0 centimeters in size. The right testis is homogeneous in echotexture. Normal color flow is identified to the right testis. Right epididymis has numerous cysts within it. The 3 largest cysts measure 1.6 x 0.8 x 1.7 cm, 0.9 x 0.4 x 1.0 cm and 1.8 x 0.7 x 1.3 cm in size. Normal color flow is identified to the right epididymis. A small right-sided hydrocele is identified. The left testis measures 3.7 x 2.7 x 3.2 cm in size. No blood flow is identified to the left testis. A small left-sided hydrocele is identified. The left epididymis contains 2 cysts. One cyst measures 1.2 x 0.8 x 1.5 cm in size. The other cysts measure 0.8 x 1.0 x 0.8 centimeters in size. Layering debris is identified within the 2nd cyst. Normal flow was identified to the left epididymis. Impression: Bilateral epididymal cysts, some of which do contain debris. The patient is apparently feeling the epididymal cyst. Otherwise, normal ultrasound of the scrotum. Dictated by Bing Payne MD @ Jun 25 2020 5:05PM Signed by Dr. Bing Payne @ Jun 25 2020 5:08PM
[2020-06-26] MEDS: LORazepam 1 MG Tab PO PRN ×4 (04:35→21:46)
[2020-06-26] MEDS: Gabapentin 400 MG Cap PO SCH ×3 (05:26→21:45)
[2020-06-26] MEDS: Folic Acid 1 MG Tab PO SCH (08:08)
[2020-06-26] MEDS: Thiamine 100 MG Tab PO SCH (08:08)
[2020-06-26] MEDS: Lisinopril 10 MG Tab PO SCH (08:08)
--- NOTE | 2020-06-26 09:33 | CR ---
CHEST: 2 view CLINICAL HISTORY:Hemoptysis, smoker COMPARISON:2020 FINDINGS: The heart size, pulmonary vascularity and hilar structures are normal. No infiltrate effusion or pneumothorax is seen. IMPRESSION: No acute cardiopulmonary process.
--- NOTE | 2020-06-26 10:22 | PCM.PN ---
- General Info Date of Service: 06/26/20 - Review of Systems General: Reports: Weakness HEENT: Reports: No Symptoms Pulmonary: Reports: No Symptoms Cardiovascular: Reports: No Symptoms Gastrointestinal: Reports: No Symptoms Genitourinary: Reports: No Symptoms Musculoskeletal: Reports: No Symptoms Skin: Reports: No Symptoms Neurological: Reports: Difficulty Walking, Weakness Psychiatric: Reports: Anxiety - Patient Data Vitals - Most Recent: Last Vital Signs Temp 97.6 F 06/26/20 10:00 Pulse 80 06/26/20 10:00 Resp 12 06/26/20 10:00 BP 126/73 06/26/20 10:00 Pulse Ox 100 06/26/20 08:00 Weight - Most Recent: 146 lb I&O - Last 24 Hours: Intake & Output 06/25/20 06/26/20 06/26/20 22:59 06:59 14:59 Intake Total 600 840 340 Output Total 1750 1325 400 Balance -1150 -485 -60 Med Orders - Current: Current Medications Folic Acid (Folic Acid) 1 mg PO DAILY [facility] Last Admin: 06/26/20 08:08 Dose: 1 mg Documented by: Gabapentin (Neurontin) 400 mg PO Q8H [facility] Last Admin: 06/26/20 05:26 Dose: 400 mg Documented by: Lisinopril (Prinivil) 10 mg PO DAILY [facility] Last Admin: 06/26/20 08:08 Dose: 10 mg Documented by: Lorazepam (Ativan) 1 - 3 mg IV ASDIRECTED PRN; Protocol PRN Reason: [facility] PROTOCOL Last Admin: 06/25/20 05:34 Dose: 2 mg Documented by: Lorazepam (Ativan) 1 - 3 mg PO ASDIRECTED PRN; Protocol PRN Reason: [facility] PROTOCOL Last Admin: 06/26/20 08:50 Dose: 2 mg Documented by: Sodium Chloride (Saline Flush) 10 ml FLUSH ASDIRECTED PRN PRN Reason: Keep Vein Open Thiamine HCl (Vitamin B-1) 100 mg PO DAILY [facility] Last Admin: 06/26/20 08:08 Dose: 100 mg Documented by: Discontinued Medications Multivitamins/Minerals 10 ml/Thiamine HCl 100 mg/ Folic Acid 1 mg/ Magnesium Sulfate 3 gm/ Sodium Chloride 1,017.2 mls @ 500 mls/hr IV ASDIRECTED [facility] Last Admin: 06/24/20 19:29 Dose: 500 mls/hr Documented by: Sodium Chloride (Normal Saline) 1,000 mls @ 125 mls/hr IV ASDIRECTED [facility] Last Admin: 06/25/20 05:38 Dose: 125 mls/hr Documented by: Lorazepam (Ativan) 1 mg PO ONETIME ONE Stop: 06/24/20 18:40 Last Admin: 06/24/20 19:08 Dose: 1 mg Documented by: Lorazepam (Ativan) 1 mg IV ASDIRECTED [facility]; Protocol Lorazepam (Ativan) 0 mg PO ASDIRECTED [facility]; Protocol Potassium Chloride (Klor-Con M20) 20 meq PO ONETIME ONE Stop: 06/24/20 19:30 Last Admin: 06/24/20 19:38 Dose: 20 meq Documented by: - Exam General: Alert, Oriented, Cooperative, Mild Distress HEENT: Pupils Equal, Pupils Reactive, EOMI, Mucous Membr. Moist/[place] Neck: Supple Lungs: Clear to Auscultation, Normal Respiratory Effort Cardiovascular: Regular Rate, Regular Rhythm Back Exam: Normal Inspection, Full Range of Motion Extremities: Normal Inspection, Normal Range of Motion, Non-Tender, No Pedal Edema, Normal Capillary Refill Peripheral Pulses: 1+: Radial (L), Radial (R) Skin: Warm, Dry, Intact Neurological: No New Focal Deficit Psy/Mental Status: Alert, Normal Affect, Normal Mood Sepsis Event Note - Evaluation Sepsis Screening Result: No Definite Risk - Focused Exam Vital Signs: Vital Signs Temp Pulse Resp BP BP Pulse Ox 06/26/20 10:00 97.6 F 80 12 126/73 06/26/20 08:08 141/72 H 06/26/20 08:00 97.6 F 105 H 15 135/75 100 06/26/20 06:00 14 133/81 98 06/26/20 04:00 98.2 F 13 172/93 H 98 06/26/20 02:00 18 142/95 H 98 06/26/20 00:00 98.2 F 20 125/71 98 - Problem List Review Problem List Initiated/Reviewed/Updated: Yes - My Orders Last 24 Hours: My Active Orders 06/25/20 14:00 lisinopriL [Prinivil] 10 mg PO DAILY - Plan Plan:: Assessment/Plan: #1. Alcoholism: Admitted for treatment of DT's. #2. 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 Will repeat tomorrow. #3. Thrombocytopenia: Will repeat blood work tomorrow. #4. Nicotine dependence: #5. Swelling right testicle. Ultrasound showed cystic structures without an acute problem. #6. Dehydration: Resolved. #7. HTN bp 126/73. HTN good control.
[2020-06-26] MEDS: Nicotine 21 MG/24 Hr Patch TRDERM SCH (11:02)
[2020-06-27] MEDS: Gabapentin 400 MG Cap PO SCH (05:04)
[2020-06-27] MEDS: LORazepam 1 MG Tab PO PRN (05:04)
--- NOTE | 2020-06-27 08:13 | PCM.PN ---
- General Info Date of Service: 06/27/20 Functional Status: Reports: Pain Controlled - Review of Systems General: Reports: No Symptoms HEENT: Reports: No Symptoms Pulmonary: Reports: No Symptoms Cardiovascular: Reports: No Symptoms Gastrointestinal: Reports: No Symptoms Genitourinary: Reports: No Symptoms Musculoskeletal: Reports: No Symptoms Skin: Reports: No Symptoms Neurological: Reports: No Symptoms Psychiatric: Reports: No Symptoms - Patient Data Vitals - Most Recent: Last Vital Signs Temp 97.7 F 06/27/20 04:00 Pulse 67 06/27/20 02:00 Resp 13 06/27/20 06:00 BP 143/86 H 06/27/20 06:00 Pulse Ox 98 06/27/20 04:00 Weight - Most Recent: 145 lb 4.554 oz I&O - Last 24 Hours: Intake & Output 06/26/20 06/27/20 06/27/20 22:59 06:59 14:59 Intake Total 540 Output Total 1625 425 Balance -1625 115 Lab Results Last 24 Hours: Laboratory Results - last 24 hr 06/27/20 06/27/20 Range/Units 04:56 04:56 WBC 6.8 (4.5-11.0) K/uL RBC 4.20 L (4.30-5.90) M/uL Hgb 12.8 (12.0-15.0) g/dL Hct 38.8 L (40.0-54.0) % MCV 92 (80-98) fL MCH 31 (27-31) pg MCHC 33 (32-36) % Plt Count 87 L (150-400) K/uL Neut % (Auto) 70 H (36-66) % Lymph % (Auto) 20 L (24-44) % [place] % (Auto) 8 H (2-6) % Eos % (Auto) 1 L (2-4) % Baso % (Auto) 0 (0-1) % Sodium 136 L (140-148) mmol/L Potassium 3.4 L (3.6-5.2) mmol/L Chloride 100 (100-108) mmol/L Carbon Dioxide 28 (21-32) mmol/L Anion Gap 11.4 (5.0-14.0) mmol/L BUN 6 L (7-18) mg/dL Creatinine 0.8 (0.8-1.3) mg/dL Est Cr Clr Drug Dosing 104.11 mL/min Estimated GFR (MDRD) > 60 (>60) Glucose 113 H (74-106) mg/dL Calcium 8.7 D (8.5-10.1) mg/dL Total Bilirubin 0.4 D (0.2-1.0) mg/dL AST 47 H (15-37) U/L ALT 39 (12-78) U/L Alkaline Phosphatase 127 H (46-116) U/L Total Protein 6.5 (6.4-8.2) g/dL Albumin 3.1 L (3.4-5.0) g/dL Globulin 3.4 (2.3-3.5) g/dL Albumin/Globulin Ratio 0.9 L (1.2-2.2) Med Orders - Current: Current Medications Folic Acid (Folic Acid) 1 mg PO DAILY [facility] Last Admin: 06/26/20 08:08 Dose: 1 mg Documented by: Gabapentin (Neurontin) 400 mg PO Q8H [facility] Last Admin: 06/27/20 05:04 Dose: 400 mg Documented by: Lisinopril (Prinivil) 10 mg PO DAILY [facility] Last Admin: 06/26/20 08:08 Dose: 10 mg Documented by: Lorazepam (Ativan) 1 - 3 mg IV ASDIRECTED PRN; Protocol PRN Reason: [facility] PROTOCOL Last Admin: 06/25/20 05:34 Dose: 2 mg Documented by: Lorazepam (Ativan) 1 - 3 mg PO ASDIRECTED PRN; Protocol PRN Reason: [facility] PROTOCOL Last Admin: 06/27/20 05:04 Dose: 1 mg Documented by: Nicotine (Habitrol) 21 mg TRDERM DAILY [facility] Last Admin: 06/26/20 11:02 Dose: 21 mg Documented by: Sodium Chloride (Saline Flush) 10 ml FLUSH ASDIRECTED PRN PRN Reason: Keep Vein Open Thiamine HCl (Vitamin B-1) 100 mg PO DAILY [facility] Last Admin: 06/26/20 08:08 Dose: 100 mg Documented by: Discontinued Medications Multivitamins/Minerals 10 ml/Thiamine HCl 100 mg/ Folic Acid 1 mg/ Magnesium Sulfate 3 gm/ Sodium Chloride 1,017.2 mls @ 500 mls/hr IV ASDIRECTED [facility] Last Admin: 06/24/20 19:29 Dose: 500 mls/hr Documented by: Sodium Chloride (Normal Saline) 1,000 mls @ 125 mls/hr IV ASDIRECTED [facility] Last Admin: 06/25/20 05:38 Dose: 125 mls/hr Documented by: Lorazepam (Ativan) 1 mg PO ONETIME ONE Stop: 06/24/20 18:40 Last Admin: 06/24/20 19:08 Dose: 1 mg Documented by: Lorazepam (Ativan) 1 mg IV ASDIRECTED [facility]; Protocol Lorazepam (Ativan) 0 mg PO ASDIRECTED [facility]; Protocol Potassium Chloride (Klor-Con M20) 20 meq PO ONETIME ONE Stop: 06/24/20 19:30 Last Admin: 06/24/20 19:38 Dose: 20 meq Documented by: - Exam General: Alert, Oriented HEENT: Pupils Equal, Pupils Reactive, EOMI, Mucous Membr. Moist/[place] Neck: Supple Lungs: Clear to Auscultation, Normal Respiratory Effort Cardiovascular: Regular Rate, Regular Rhythm GI/Abdominal Exam: Normal Bowel Sounds, Soft, Non-Tender, No Organomegaly, No Distention, No Abnormal Bruit, No Mass, Pelvis Stable Back Exam: Normal Inspection, Full Range of Motion Extremities: Normal Inspection, Normal Range of Motion, Non-Tender, No Pedal Edema, Normal Capillary Refill Neurological: No New Focal Deficit Psy/Mental Status: Alert, Normal Affect, Normal Mood Sepsis Event Note - Evaluation Sepsis Screening Result: No Definite Risk - Focused Exam Vital Signs: Vital Signs Temp Pulse Resp BP Pulse Ox 06/27/20 06:00 13 143/86 H 06/27/20 04:00 97.7 F 14 133/74 98 06/27/20 02:00 67 13 121/69 98 06/27/20 00:00 98.2 F 13 144/85 H 98 06/26/20 22:00 84 14 131/90 - Problem List Review Problem List Initiated/Reviewed/Updated: Yes - My Orders Last 24 Hours: My Active Orders 06/26/20 11:00 Nicotine [Habitrol] 21 mg TRDERM DAILY - Plan Plan:: Assessment/Plan: #1. Alcoholism: Admitted for treatment of DT's and stable presently. DT's resolved. #2. 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 Improving. #3. Thrombocytopenia: 87,000. #4. Nicotine dependence: #5. Swelling right testicle. Ultrasound showed cystic structures without an acute problem. #6. Dehydration: Resolved. #7. HTN bp 143/86. HTN good control. Home today
[2020-06-27 08:28] VITALS: BP 139/89; PULSE 90
[2020-06-27] MEDS: Nicotine 21 MG/24 Hr Patch TRDERM SCH (08:34)
[2020-06-27] MEDS: Thiamine 100 MG Tab PO SCH (08:36)
[2020-06-27] MEDS: Lisinopril 10 MG Tab PO SCH (08:36)
[2020-06-27] MEDS: Folic Acid 1 MG Tab PO SCH (08:36)
--- NOTE | 2020-06-27 09:10 | PCM.DCSUM1 ---
Discharge Summary - Hospital Course Brief History: Admitted with a history of drinking alcohol and having N and Vomiting and unable to hold down food for liquid. Diagnosis: Stroke: No - Discharge Data Discharge Date: 06/27/20 Discharge Disposition: Home, Self-Care 01 Condition: Stable - Referral to Home Health Primary Care Physician: Damon Langley Sr, MD - Patient Summary/Data Hospital Course: Was given Ativan and Gabapentin and did well. U/S was done of the testicle which showed no acute pathology. - Patient Instructions Diet: Heart Healthy Diet Activity: As Tolerated - Discharge Plan *PRESCRIPTION DRUG MONITORING PROGRAM REVIEWED*: Not Applicable *COPY OF PRESCRIPTION DRUG MONITORING REPORT IN PATIENT CIRILO: Not Applicable Home Medications: Home Meds NK [No Known Home Meds] 06/24/20 [History] Forms: ED Department Discharge Referrals: Damon Langley Sr, MD [Primary Care Provider] - - Discharge Summary/Plan Comment DC Time >30 min.: Yes Discharge Summary/Plan Comment: Assessment/Plan: #1. Alcoholism: Admitted for treatment of DT's and stable presently. DT's resolved. #2. 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 Improving. #3. Thrombocytopenia: 87,000. #4. Nicotine dependence: #5. Swelling right testicle. Ultrasound showed cystic structures without an acute problem. #6. Dehydration: Resolved. #7. HTN bp 143/86. HTN good control. Home today - General Info Functional Status: Reports: Pain Controlled - Review of Systems General: Reports: No Symptoms HEENT: Reports: No Symptoms Pulmonary: Reports: No Symptoms Cardiovascular: Reports: No Symptoms Gastrointestinal: Reports: No Symptoms Genitourinary: Reports: No Symptoms Musculoskeletal: Reports: No Symptoms Skin: Reports: No Symptoms Neurological: Reports: No Symptoms Psychiatric: Reports: No Symptoms - Patient Data Vitals - Most Recent: Last Vital Signs Temp 97.3 F 06/27/20 08:00 Pulse 90 06/27/20 08:00 Resp 18 06/27/20 08:00 BP 139/89 06/27/20 08:36 Pulse Ox 99 06/27/20 08:00 Weight - Most Recent: 145 lb 4.554 oz I&O - Last 24 hours: Intake & Output 06/26/20 06/27/20 06/27/20 22:59 06:59 14:59 Intake Total 540 Output Total 1625 425 Balance -1625 115 Lab Results - Last 24 hrs: Laboratory Results - last 24 hr 06/27/20 06/27/20 Range/Units 04:56 04:56 WBC 6.8 (4.5-11.0) K/uL RBC 4.20 L (4.30-5.90) M/uL Hgb 12.8 (12.0-15.0) g/dL Hct 38.8 L (40.0-54.0) % MCV 92 (80-98) fL MCH 31 (27-31) pg MCHC 33 (32-36) % Plt Count 87 L (150-400) K/uL Neut % (Auto) 70 H (36-66) % Lymph % (Auto) 20 L (24-44) % Mineral % (Auto) 8 H (2-6) % Eos % (Auto) 1 L (2-4) % Baso % (Auto) 0 (0-1) % Sodium 136 L (140-148) mmol/L Potassium 3.4 L (3.6-5.2) mmol/L Chloride 100 (100-108) mmol/L Carbon Dioxide 28 (21-32) mmol/L Anion Gap 11.4 (5.0-14.0) mmol/L BUN 6 L (7-18) mg/dL Creatinine 0.8 (0.8-1.3) mg/dL Est Cr Clr Drug Dosing 104.11 mL/min Estimated GFR (MDRD) > 60 (>60) Glucose 113 H (74-106) mg/dL Calcium 8.7 D (8.5-10.1) mg/dL Total Bilirubin 0.4 D (0.2-1.0) mg/dL AST 47 H (15-37) U/L ALT 39 (12-78) U/L Alkaline Phosphatase 127 H (46-116) U/L Total Protein 6.5 (6.4-8.2) g/dL Albumin 3.1 L (3.4-5.0) g/dL Globulin 3.4 (2.3-3.5) g/dL Albumin/Globulin Ratio 0.9 L (1.2-2.2) Med Orders - Current: Current Medications Folic Acid (Folic Acid) 1 mg PO DAILY [facility] Last Admin: 06/27/20 08:36 Dose: 1 mg Documented by: Gabapentin (Neurontin) 400 mg PO Q8H [facility] Last Admin: 06/27/20 05:04 Dose: 400 mg Documented by: Lisinopril (Prinivil) 10 mg PO DAILY [facility] Last Admin: 06/27/20 08:36 Dose: 10 mg Documented by: Lorazepam (Ativan) 1 - 3 mg IV ASDIRECTED PRN; Protocol PRN Reason: [facility] PROTOCOL Last Admin: 06/25/20 05:34 Dose: 2 mg Documented by: Lorazepam (Ativan) 1 - 3 mg PO ASDIRECTED PRN; Protocol PRN Reason: [facility] PROTOCOL Last Admin: 06/27/20 05:04 Dose: 1 mg Documented by: Nicotine (Habitrol) 21 mg TRDERM DAILY [facility] Last Admin: 06/27/20 08:34 Dose: Not Given Documented by: Sodium Chloride (Saline Flush) 10 ml FLUSH ASDIRECTED PRN PRN Reason: Keep Vein Open Thiamine HCl (Vitamin B-1) 100 mg PO DAILY [facility] Last Admin: 06/27/20 08:36 Dose: 100 mg Documented by: Discontinued Medications Multivitamins/Minerals 10 ml/Thiamine HCl 100 mg/ Folic Acid 1 mg/ Magnesium Sulfate 3 gm/ Sodium Chloride 1,017.2 mls @ 500 mls/hr IV ASDIRECTED [facility] Last Admin: 06/24/20 19:29 Dose: 500 mls/hr Documented by: Sodium Chloride (Normal Saline) 1,000 mls @ 125 mls/hr IV ASDIRECTED [facility] Last Admin: 06/25/20 05:38 Dose: 125 mls/hr Documented by: Lorazepam (Ativan) 1 mg PO ONETIME ONE Stop: 06/24/20 18:40 Last Admin: 06/24/20 19:08 Dose: 1 mg Documented by: Lorazepam (Ativan) 1 mg IV ASDIRECTED [facility]; Protocol Lorazepam (Ativan) 0 mg PO ASDIRECTED [facility]; Protocol Potassium Chloride (Klor-Con M20) 20 meq PO ONETIME ONE Stop: 06/24/20 19:30 Last Admin: 06/24/20 19:38 Dose: 20 meq Documented by: - Exam General: Reports: Alert, Oriented HEENT: Reports: Pupils Equal, Pupils Reactive, EOMI, Mucous Membr. Moist/[place] Neck: Reports: Supple Lungs: Reports: Clear to Auscultation, Normal Respiratory Effort Cardiovascular: Reports: Regular Rate GI/Abdominal Exam: Normal Bowel Sounds, Soft, Non-Tender, No Organomegaly, No Distention, No Abnormal Bruit, No Mass, Pelvis Stable (Male) Exam: No Hernia, Normal Inspection, Normal Prostate, Circumcised Back Exam: Reports: Normal Inspection, Full Range of Motion Skin: Reports: Warm, Dry, Intact Neurological: Reports: No New Focal Deficit Psy/Mental Status: Reports: Alert, Normal Affect, Normal Mood
== END 2020-06-27 09:24 | disposition home or self-care (01) | DRG 897 ==
LOC: JP.ED 17:07 → JP.ICU 21:06
PROVIDERS: ADMIT Internal Medicine; ATTEND Internal Medicine
DX: F10.231 Alcohol dependence with withdrawal delirium (principal); K76.89 Other specified diseases of liver; D69.6 Thrombocytopenia, unspecified; F17.210 Nicotine dependence, cigarettes, uncomplicated; E86.0 Dehydration; I10 Essential (primary) hypertension; N50.89 Other specified disorders of the male genital organs; H54.7 Unspecified visual loss; K59.09 Other constipation; K52.9 Noninfective gastroenteritis and colitis, unspecified; F41.9 Anxiety disorder, unspecified; D64.9 Anemia, unspecified; Z90.49 Acquired absence of other specified parts of digestive tract
CPT/HCPCS: 36415; 71046; 71046-26; 76870; 80053; 80305-QW; 81001; 83735; 85025; 85027; 96365; 96366; 99284; 99285-25; A9270-GY; J2060; J3411; J3475; J3490; J7030

== ENCOUNTER 2020-09-18 08:38 | Emergency (ER) | payer MEDICAID, OTHER ==
[2020-09-18 09:10] VITALS: BP 145/74; PULSE 83
[2020-09-18] MEDS ORDERED: MVI, Adult with Vitamin K 10 ML, Thiamine 100 MG, Folic Acid 1 MG, Magnesium Sulfate 3 ... IV SCH ×5 (09:30)
--- NOTE | 2020-09-18 09:31 | EDM.PDOC ---
ED HPI GENERAL MEDICAL PROBLEM - General Chief Complaint: Drug or Alcohol Abuse Stated Complaint: DRUNK Time Seen by Provider: 09/18/20 09:15 Source of Information: Reports: Patient, Old Records History Limitations: Reports: No Limitations - History of Present Illness INITIAL COMMENTS - FREE TEXT/NARRATIVE: 50 yo male here with about 4 days of nausea, vomiting and abdominal pain. He his a chronic alcoholic and has drank recently. He does not recall having a hx of pancreas problems. No bleeding. He has not been to the clinic for this. Onset: Gradual Onset Date: 09/13/20 Duration: Day(s): (4-5), Getting Worse Location: Reports: Abdomen Quality: Reports: Ache Severity: Moderate Improves with: Reports: None Worsens with: Reports: Other (time) Context: Reports: Other (See HPI) Associated Symptoms: Reports: Nausea/Vomiting. 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: Reports: Other (see below) (none) Middle Abdomen Pain Score (Numeric/FACES): 7 - Related Data Allergies Allergy/AdvReac Type Severity Reaction Status Date / Time No Known Allergies Allergy Verified 09/18/20 09:10 Home Meds: Home Meds Ondansetron [Zofran ODT] 4 mg PO Q6H PRN #12 tab.dis 09/18/20 [Rx] Past Medical History HEENT History: Reports: Impaired Vision Respiratory History: Reports: Pneumothorax Other Respiratory History: pneumonia Gastrointestinal History: Reports: Chronic Constipation, Chronic Diarrhea, Cirrhosis, Other (See Below) Other Gastrointestinal History: diverticulitis Musculoskeletal History: Reports: Other (See Below) Other Musculoskeletal History: shaking unsteady Neurological History: Reports: Other (See Below) Other Neuro History: Past etoh withdrawal Psychiatric History: Reports: Addiction, Anxiety, Other (See Below) Other Psychiatric History: ineffective coping Hematologic History: Reports: Anemia Immunologic History: Reports: Other (See Below) Other Immunologic History: lymes - Infectious Disease History Infectious Disease History: Reports: Chicken Pox, Other (See Below) Other Infectious Disease History: alcoholic hepatitis - Past Surgical History Respiratory Surgical History: Reports: Other (See Below) Other Respiratory Surgeries/Procedures: nodule in one lung per patient report. GI Surgical History: Reports: Cholecystectomy Social & Family History - Tobacco Use Tobacco Use Status *Q: Heavy Tobacco User Years of Tobacco use: 35 Packs/Tins Daily: 0.7 - Caffeine Use Caffeine Use: Reports: Coffee - Alcohol Use Days Per Week of Alcohol Use: 7 Number of Drinks Per Day: 10 Total Drinks Per Week: 70 Date of Last Drink: 09/18/20 Time of Last Drink: 03:00 - Recreational Drug Use Recreational Drug Use: No ED ROS GENERAL - Review of Systems Review Of Systems: See Below Constitutional: Reports: No Symptoms HEENT: Reports: No Symptoms Respiratory: Reports: No Symptoms Cardiovascular: Reports: No Symptoms Endocrine: Reports: No Symptoms GI/Abdominal: Reports: Abdominal Pain, Decreased Appetite, Nausea, Vomiting. Denies: Black Stool, Bloody Stool, Constipation, Diarrhea, Distension, Hematemesis, Hematochezia, Melena : Reports: No Symptoms Musculoskeletal: Reports: No Symptoms Skin: Reports: No Symptoms Neurological: Reports: No Symptoms ED EXAM, GI/ABD - Physical Exam Exam: See Below Exam Limited By: No Limitations General Appearance: Alert, No Apparent Distress, Thin, Other (ETOH on breath) Eyes: Bilateral: Normal Appearance Ears: Normal External Exam, Normal Canal, Hearing Grossly Normal Nose: Normal Inspection, No Blood Throat/Mouth: Normal Inspection, Normal Lips, Normal Oropharynx, Normal Voice, No Airway Compromise Head: Atraumatic, Normocephalic Neck: Normal Inspection Respiratory/Chest: No Respiratory Distress, Lungs Clear, Normal Breath Sounds, No Accessory Muscle Use Cardiovascular: Regular Rate, Rhythm, No Edema GI/Abdominal Exam: Soft, No Distention, Tender (epigastrium). No: Non-Tender, Distended, Guarding, Rigid, Rebound Back Exam: Normal Inspection Extremities: Normal Inspection, Normal Range of Motion, Non-Tender, No Pedal Edema Neurological: Alert, Oriented, CN II-XII Intact, Normal Cognition, No Motor/Sensory Deficits Psychiatric: Normal Affect, Normal Mood Skin Exam: Warm, Dry, Intact, Normal Color, No Rash Course - Vital Signs Last Recorded V/S: Last Vital Signs Temp 36.5 C 09/18/20 09:08 Pulse 83 09/18/20 09:08 Resp 20 09/18/20 09:08 BP 145/74 H 09/18/20 09:08 Pulse Ox 96 09/18/20 09:08 - Orders/Labs/Meds Labs: Laboratory Tests 09/18/20 09/18/20 09/18/20 Range/Units 09:34 09:34 09:34 WBC 10.0 (4.5-11.0) K/uL RBC 4.99 (4.30-5.90) M/uL Hgb 15.0 D (12.0-15.0) g/dL Hct 43.0 (40.0-54.0) % MCV 86 (80-98) fL MCH 30 (27-31) pg MCHC 35 (32-36) % Plt Count 127 L (150-400) K/uL Sodium 141 (140-148) mmol/L Potassium 3.4 L (3.6-5.2) mmol/L Chloride 97 L (100-108) mmol/L Carbon Dioxide 28 (21-32) mmol/L Anion Gap 19.4 H (5.0-14.0) mmol/L BUN 10 D (7-18) mg/dL Creatinine 0.9 (0.8-1.3) mg/dL Est Cr Clr Drug Dosing 91.81 mL/min Estimated GFR (MDRD) > 60 (>60) Glucose 111 H (74-106) mg/dL Calcium 8.0 L (8.5-10.1) mg/dL Total Bilirubin 0.4 (0.2-1.0) mg/dL AST 109 H D (15-37) U/L ALT 53 (12-78) U/L Alkaline Phosphatase 123 H (46-116) U/L C-Reactive Protein (0.0-0.3) mg/dL Total Protein 6.4 (6.4-8.2) g/dL Albumin 3.3 L (3.4-5.0) g/dL Globulin 3.1 (2.3-3.5) g/dL Albumin/Globulin Ratio 1.1 L (1.2-2.2) Lipase 309 (73-393) U/L Ethyl Alcohol 401 mg/dL 09/18/20 Range/Units 10:12 WBC (4.5-11.0) K/uL RBC (4.30-5.90) M/uL Hgb (12.0-15.0) g/dL Hct (40.0-54.0) % MCV (80-98) fL MCH (27-31) pg MCHC (32-36) % Plt Count (150-400) K/uL Sodium (140-148) mmol/L Potassium (3.6-5.2) mmol/L Chloride (100-108) mmol/L Carbon Dioxide (21-32) mmol/L Anion Gap (5.0-14.0) mmol/L BUN (7-18) mg/dL Creatinine (0.8-1.3) mg/dL Est Cr Clr Drug Dosing mL/min Estimated GFR (MDRD) (>60) Glucose (74-106) mg/dL Calcium (8.5-10.1) mg/dL Total Bilirubin (0.2-1.0) mg/dL AST (15-37) U/L ALT (12-78) U/L Alkaline Phosphatase (46-116) U/L C-Reactive Protein 0.09 (0.0-0.3) mg/dL Total Protein (6.4-8.2) g/dL Albumin (3.4-5.0) g/dL Globulin (2.3-3.5) g/dL Albumin/Globulin Ratio (1.2-2.2) Lipase (73-393) U/L Ethyl Alcohol mg/dL Meds: Medications Discontinued Medications Generic Name Dose Route Start Last Admin Trade Name Freq PRN Reason Stop Dose Admin Al Hydroxide/Mg Hydroxide 15 0 ml 09/18/20 10:34 09/18/20 11:02 ml/ Lidocaine HCl 15 ml PO 09/18/20 10:35 30 ml ONETIME ONE Administration Hydromorphone HCl 0.5 mg 09/18/20 09:21 09/18/20 09:38 Hydromorphone 0.5 Mg/0.5 Ml Syringe IVPUSH 09/18/20 09:22 0.5 mg ONETIME ONE Administration Multivitamins/Minerals 10 ml/ 1,017.2 mls @ 500 mls/hr 09/18/20 09:45 09/18/20 10:21 Thiamine HCl 100 mg/ Folic IV 09/18/20 11:47 500 mls/hr Acid 1 mg/ Magnesium Sulfate 3 ASDIRECTED ONE Administration gm/ Sodium Chloride Ondansetron HCl 4 mg 09/18/20 12:30 Ondansetron 4 Mg/2 Ml Sdv IVPUSH 09/18/20 12:31 ONETIME ONE Ondansetron HCl 4 mg 09/18/20 12:37 09/18/20 12:52 Ondansetron 4 Mg Tab.Dis PO 09/18/20 12:38 4 mg ONETIME ONE Administration Potassium Chloride 40 meq 09/18/20 11:20 09/18/20 12:02 Potassium Chloride 20 Meq Tab.Er PO 09/18/20 11:21 40 meq ONETIME ONE Administration Prochlorperazine Edisylate 5 mg 09/18/20 09:22 09/18/20 09:36 Prochlorperazine 10 Mg/2 Ml Sdv IVPUSH 09/18/20 09:23 5 mg ONETIME ONE Administration - Re-Assessments/Exams Free Text/Narrative Re-Assessment/Exam: 09/18/20 11:18 not interested in going to [place], says he's only here due to vomiting. Free Text/Narrative Re-Assessment/Exam: 09/18/20 14:25 wants to go home, girlfriend will stay with him. Will obtain a clinic appt with Dr. Langley for him. Departure - Departure Time of Disposition: 14:35 Disposition: Home, Self-Care 01 Condition: Fair Clinical Impression: Mild dehydration, Hypokalemia, Chronic alcohol abuse Alcohol intoxication Qualifiers: Complication of substance-induced condition: with unspecified complication Qualified Code(s): F10.929 - Alcohol use, unspecified with intoxication, unspecified Nausea and vomiting Qualifiers: Vomiting type: unspecified Vomiting Intractability: non-intractable Qualified Code(s): R11.2 - Nausea with vomiting, unspecified - Discharge Information *PRESCRIPTION DRUG MONITORING PROGRAM REVIEWED*: Not Applicable *COPY OF PRESCRIPTION DRUG MONITORING REPORT IN PATIENT CIRILO: Not Applicable Prescriptions: Ondansetron [Zofran ODT] 4 mg PO Q6H PRN #12 tab.dis PRN Reason: Nausea Instructions: Alcohol Use Disorder, Alcohol Intoxication, [id number] Referrals: Damon Langley Sr, MD [Primary Care Provider] - Forms: ED Department Discharge Additional Instructions: Have someone stay with you today to prevent injury from falling. No alcohol. F/U with Dr. Langley later this week, appt was made for you today. Take Zofran as needed for nausea control. Sepsis Event Note (ED) - Evaluation Sepsis Screening Result: No Definite Risk - Focused Exam Vital Signs: Vital Signs Temp Pulse Resp BP Pulse Ox 09/18/20 09:08 36.5 C 83 20 145/74 H 96 09/18/20 09:05 81 145/74 H 94 L
[2020-09-18] MEDS: Prochlorperazine 10 MG/2 ML SDV IVPUSH ONE (09:36)
[2020-09-18] MEDS: HYDROmorphone 0.5 MG/0.5 ML Syringe IVPUSH ONE (09:38)
[2020-09-18] MEDS: MVI, Adult with Vitamin K 10 ML, Thiamine 100 MG, Folic Acid 1 MG, Magnesium Sulfate 3 ... IV ONE ×5 (10:21)
[2020-09-18] MEDS: Alum Hydrox/Mag Hydrox/Simeth 15 ML, Lidocaine 2% 15 ML PO ONE ×2 (11:02)
[2020-09-18] MEDS: Potassium Chloride 20 MEQ Tab.ER PO ONE (12:02)
[2020-09-18] MEDS ORDERED: Ondansetron 4 MG/2 ML SDV IVPUSH ONE (12:30)
[2020-09-18] MEDS: Ondansetron 4 MG Tab.DIS PO ONE (12:52)
== END 2020-09-18 14:45 | disposition home or self-care (01) ==
LOC: JP.ED 08:38
DX: F10.129 Alcohol abuse with intoxication, unspecified (principal); R11.2 Nausea with vomiting, unspecified; E86.0 Dehydration; E87.6 Hypokalemia; Z72.0 Tobacco use; Y90.8 Blood alcohol level of 240 mg/100 ml or more
CPT/HCPCS: 36415; 80053; 80307; 83690; 85027; 86140; 96365; 96366; 96375; 99284; A9270; J0780; J1170; J3411; J3475; J7030; 99283; J3490

== ENCOUNTER 2020-09-22 10:54 | Inpatient (IN) | payer MEDICAID, OTHER ==
[2020-09-22] MEDS ORDERED: LORazepam 1 MG Tab PO ONE (13:00)
[2020-09-22] MEDS: Sodium Chloride 0.9% 1,000 ML IV SCH ×2 (14:08→21:19)
[2020-09-22] MEDS: LORazepam 2 MG/ML SDV IV SCH (15:02)
--- NOTE | 2020-09-22 16:16 | PCM.HP.2 ---
H&P History of Present Illness - General Date of Service: 09/22/20 Admit Problem/Dx: Admission Diagnosis/Problem Admission Diagnosis/Problem Alcoholism Source of Information: Patient, Family History Limitations: Reports: No Limitations - Related Data Allergies/Adverse Reactions: Allergies Allergy/AdvReac Type Severity Reaction Status Date / Time No Known Allergies Allergy Verified 09/18/20 09:10 Home Medications: Home Meds Ondansetron [Zofran ODT] 4 mg PO Q6H PRN #12 tab.dis 09/18/20 [Rx] Past Medical History HEENT History: Reports: Impaired Vision Respiratory History: Reports: Pneumothorax Other Respiratory History: pneumonia Gastrointestinal History: Reports: Chronic Constipation, Chronic Diarrhea, Cirrhosis, Other (See Below) Other Gastrointestinal History: diverticulitis Musculoskeletal History: Reports: Other (See Below) Other Musculoskeletal History: shaking unsteady Neurological History: Reports: Other (See Below) Other Neuro History: Past etoh withdrawal Psychiatric History: Reports: Addiction, Anxiety, Other (See Below) Other Psychiatric History: ineffective coping Hematologic History: Reports: Anemia Immunologic History: Reports: Other (See Below) Other Immunologic History: lymes - Infectious Disease History Infectious Disease History: Reports: Chicken Pox, Other (See Below) Other Infectious Disease History: alcoholic hepatitis - Past Surgical History HEENT Surgical History: Reports: None Respiratory Surgical History: Reports: Other (See Below) Other Respiratory Surgeries/Procedures: nodule in one lung per patient report. GI Surgical History: Reports: Cholecystectomy Social & Family History - Tobacco Use Tobacco Use Status *Q: Current Every Day Tobacco User Years of Tobacco use: 37 Packs/Tins Daily: 0.5 - Caffeine Use Caffeine Use: Reports: Coffee - Alcohol Use Days Per Week of Alcohol Use: 7 Number of Drinks Per Day: 12 Total Drinks Per Week: 84 Date of Last Drink: 09/22/20 - Recreational Drug Use Recreational Drug Use: No H&P Review of Systems - Review of Systems: Review Of Systems: See Below Free Text/Narrative: Begun drinking again and having N and Vomiting. This has been a recurrent condition. General: Reports: Weakness HEENT: Reports: No Symptoms Pulmonary: Reports: No Symptoms Cardiovascular: Reports: No Symptoms Gastrointestinal: Reports: Nausea, Vomiting Genitourinary: Reports: No Symptoms Musculoskeletal: Reports: No Symptoms Skin: Reports: No Symptoms Psychiatric: Reports: Anxiety Neurological: Reports: Weakness, Gait Disturbance Hematologic/Lymphatic: Reports: No Symptoms Immunologic: Reports: No Symptoms Exam - Exam Exam: See Below - Vital Signs Vital Signs: Last Vital Signs Temp 98.2 F 09/22/20 11:50 Pulse 80 09/22/20 11:50 Resp 18 09/22/20 11:50 BP 147/66 H 09/22/20 11:50 Pulse Ox Weight: 135 lb - Exam General: Oriented, Cooperative, Mild Distress HEENT: PERRLA, Hearing Intact, Mucosa Moist & [place], Nares Patent, Normal Nasal Septum, Posterior Pharynx Clear, Conjunctiva Clear, EOMI, EACs Clear, TMs Clear Neck: Supple, Trachea Midline, 2 Lungs: Clear to Auscultation, Normal Respiratory Effort Cardiovascular: Regular Rate, Regular Rhythm GI/Abdominal Exam: Normal Bowel Sounds, Soft, Non-Tender, No Organomegaly, No Distention, No Abnormal Bruit, No Mass, Pelvis Stable Back Exam: Normal Inspection, Full Range of Motion, NT Extremities: Normal Inspection Peripheral Pulses: 1+: Radial (L), Radial (R) Skin: Warm, Dry Neurological: Cranial Nerves Intact, Reflexes Equal Bilateral Neuro Extensive - Mental Status: Alert, Oriented x3, Normal Mood/Affect DTR: 1+: Bicep (L), Bicep (R) Psychiatric: Withdrawal Symptoms - Patient Data Result Diagrams: 09/22/20 16:28 09/22/20 16:28 Sepsis Event Note - Evaluation Sepsis Screening Result: No Definite Risk - Focused Exam Vital Signs: Vital Signs Temp Pulse Resp BP 09/22/20 11:50 98.2 F 80 18 147/66 H Problem List Initiated/Reviewed/Updated: Yes Orders Last 24hrs: Active Orders 24 hr Category Date Time Status Patient Status [ADT] Routine ADT 09/22/20 16:08 Ordered Ambulate [RC] QID Care 09/22/20 16:08 Ordered CIWAA Assessment [RC] Q1H Care 09/22/20 13:39 Active Height and Weight [RC] DAILY Care 09/22/20 16:08 Ordered Intake and Output [RC] QSHIFT Care 09/22/20 16:10 Ordered Notify Provider [RC] PRN Care 09/22/20 13:39 Active Oxygen Therapy [RC] PRN Care 09/22/20 16:08 Ordered VTE/DVT Education [RC] Per Unit Routine Care 09/22/20 16:08 Ordered Vital Signs [RC] Q4H Care 09/22/20 16:08 Ordered Regular Diet [DIET] Diet 09/22/20 Dinner Active LORazepam [Ativan] Med 09/22/20 13:45 Active See Protocol IV ASDIRECTED LORazepam [Ativan] Med 09/22/20 13:45 Active See Protocol PO ASDIRECTED Sodium Chloride 0.9% [Normal Saline] 1,000 ml Med 09/22/20 13:45 Active IV ASDIRECTED Resuscitation Status Routine Resus Stat 09/22/20 16:08 Ordered Medication Orders Sodium Chloride (Normal Saline) 1,000 mls @ 125 mls/hr IV ASDIRECTED [facility] Last Admin: 09/22/20 14:08 Dose: 125 mls/hr Documented by: MARYLOU Lorazepam (Lorazepam 2 Mg/Ml Sdv) 0 mg IV ASDIRECTED [facility]; Protocol Last Admin: 09/22/20 15:02 Dose: 2 mg Documented by: MARYLOU Lorazepam (Lorazepam 1 Mg Tab) 0 mg PO ASDIRECTED [facility]; Protocol Assessment/Plan Comment:: Assessment/Plan: #1. Alcoholism with impending DT's: Will start on alc. protocol - Ativan. Will give Haldol if needed. Blood work pending. #2. HTN: Will monitor and give meds if needed. #3. Alc. Liver disease:
[2020-09-22] MEDS: LORazepam 1 MG Tab PO SCH ×6 (17:25→22:57)
[2020-09-22] MEDS ORDERED: Ondansetron 4 MG/2 ML SDV IVPUSH PRN (19:51)
[2020-09-23] MEDS: LORazepam 1 MG Tab PO SCH ×3 (00:13→20:16)
[2020-09-23] MEDS: LORazepam 2 MG/ML SDV IV SCH ×6 (01:45→11:19)
[2020-09-23] MEDS: Sodium Chloride 0.9% 1,000 ML IV SCH (07:30)
[2020-09-23] MEDS ORDERED: Sodium Chloride 0.9% 1,000 ML IV SCH (07:45)
[2020-09-23] MEDS: Haloperidol Lactate 5 MG/ML SDV IVPUSH PRN ×3 (09:52→17:14)
[2020-09-23] MEDS: Potassium Chloride 20 MEQ Tab.ER PO SCH (09:59)
--- NOTE | 2020-09-23 22:01 | PCM.PN ---
- General Info Date of Service: 09/23/20 Admission Dx/Problem (Free Text): He is having a difficult time and wanted to go home as he said he didn't get any sleep last night and is very shaky and unsteady when he walks. Functional Status: Reports: Pain Controlled - Review of Systems General: Reports: Weakness, Fatigue, Other (He is in for treatment of DTs which has progressed.) HEENT: Reports: No Symptoms Pulmonary: Reports: No Symptoms Cardiovascular: Reports: No Symptoms Gastrointestinal: Reports: No Symptoms Genitourinary: Reports: No Symptoms Musculoskeletal: Reports: Other (generalized weakness) Neurological: Reports: Difficulty Walking, Weakness, Change in Speech, Gait Disturbance Psychiatric: Reports: Mood Lability, Anxiety, Hallucinations - Patient Data Vitals - Most Recent: Last Vital Signs Temp 98.1 F 09/23/20 20:00 Pulse 87 09/23/20 17:40 Resp 12 09/23/20 20:00 BP 124/84 09/23/20 20:00 Pulse Ox 97 09/23/20 20:00 Weight - Most Recent: 134 lb 7.712 oz I&O - Last 24 Hours: Intake & Output 09/23/20 09/23/20 09/23/20 06:59 14:59 22:59 Intake Total 4 800 800 Output Total 9592 2550 600 Balance -798 -1750 200 Med Orders - Current: Current Medications Haloperidol Lactate (Haloperidol Lactate 5 Mg/Ml Sdv) 5 mg IVPUSH Q4H PRN PRN Reason: Agitation Last Admin: 09/23/20 17:14 Dose: 5 mg Documented by: Sodium Chloride (Normal Saline) 1,000 mls @ 0 mls/hr IV ASDIRECTED [facility] Lorazepam (Lorazepam 2 Mg/Ml Sdv) 0 mg IV ASDIRECTED [facility]; Protocol Last Admin: 09/23/20 11:19 Dose: 2 mg Documented by: Lorazepam (Lorazepam 1 Mg Tab) 0 mg PO ASDIRECTED [facility]; Protocol Last Admin: 09/23/20 20:16 Dose: 2 mg Documented by: Ondansetron HCl (Ondansetron 4 Mg/2 Ml Sdv) 4 mg IVPUSH Q6H PRN PRN Reason: Nausea/Vomiting Last Admin: 09/22/20 20:03 Dose: 4 mg Documented by: Potassium Chloride (Potassium Chloride 20 Meq Tab.Er) 20 meq PO DAILY [facility] Last Admin: 09/23/20 09:59 Dose: 20 meq Documented by: Discontinued Medications Sodium Chloride (Normal Saline) 1,000 mls @ 125 mls/hr IV ASDIRECTED [facility] Last Admin: 09/23/20 07:30 Dose: 125 mls/hr Documented by: Lorazepam (Lorazepam 1 Mg Tab) 2 mg PO ONETIME ONE Stop: 09/22/20 13:01 Last Admin: 09/22/20 12:59 Dose: 2 mg Documented by: - Exam General: Alert, Oriented Neck: Supple Lungs: Clear to Auscultation, Normal Respiratory Effort Cardiovascular: Regular Rate, Regular Rhythm GI/Abdominal Exam: Normal Bowel Sounds, Soft, Non-Tender, No Organomegaly, No Distention, No Abnormal Bruit, No Mass, Pelvis Stable Extremities: Normal Inspection Peripheral Pulses: 1+: Radial (L), Radial (R) Skin: Warm Psy/Mental Status: Anxious, Agitated, Hallucinations, Withdrawal Symptoms - Patient Data Result Diagrams: 09/22/20 16:28 09/22/20 16:28 Sepsis Event Note - Evaluation Sepsis Screening Result: No Definite Risk - Focused Exam Vital Signs: Vital Signs Temp Pulse Resp BP Pulse Ox 09/23/20 20:00 98.1 F 12 124/84 97 09/23/20 17:40 98.6 F 87 18 138/77 09/23/20 13:49 90 10 L 153/95 H 94 L 09/23/20 10:00 86 - Problem List Review Problem List Initiated/Reviewed/Updated: Yes - My Orders Last 24 Hours: My Active Orders 09/23/20 07:45 Sodium Chloride 0.9% [Normal Saline] 1,000 ml IV ASDIRECTED 09/23/20 09:47 Haloperidol Lactate [Haldol] 5 mg IVPUSH Q4H PRN 09/23/20 10:00 Potassium Chloride [Klor-Con M20] 20 meq PO DAILY - Plan Plan:: Assessment/Plan: #1. Alcoholism with DT's: I have started him on Haldol will start at 5 mg every 4 hours as needed for delirium tremors and will continue with Ativan as needed per protocol. Alcohol level upon admission was over 200. #2. HTN: Will monitor and give meds if needed. Blood pressure 124/84 at present time. #3. Alc. Liver disease: His AST is elevated of significance but should come down once he is off the wall. Repeat blood work is pending tomorrow morning.
[2020-09-24] MEDS: LORazepam 1 MG Tab PO SCH ×10 (00:59→22:14)
[2020-09-24] MEDS: Potassium Chloride 20 MEQ Tab.ER PO SCH (09:40)
--- NOTE | 2020-09-24 12:03 | PCM.PN ---
- General Info Date of Service: 09/24/20 Subjective Update: Continues to need a lot of medicine and still unstable. Functional Status: Reports: Pain Controlled - Review of Systems General: Reports: Weakness, Fatigue HEENT: Reports: No Symptoms Pulmonary: Reports: No Symptoms Cardiovascular: Reports: No Symptoms Gastrointestinal: Reports: No Symptoms Genitourinary: Reports: No Symptoms Musculoskeletal: Reports: No Symptoms Skin: Reports: No Symptoms Neurological: Reports: Trouble Speaking, Difficulty Walking, Weakness, Gait Disturbance Psychiatric: Reports: Hallucinations - Patient Data Vitals - Most Recent: Last Vital Signs Temp 98.2 F 09/24/20 08:00 Pulse 109 H 09/24/20 08:00 Resp 18 09/24/20 08:00 BP 134/87 09/24/20 08:00 Pulse Ox 94 L 09/24/20 08:00 Weight - Most Recent: 134 lb 7.712 oz I&O - Last 24 Hours: Intake & Output 09/23/20 09/24/20 09/24/20 22:59 06:59 14:59 Intake Total 800 500 Output Total 600 125 Balance 200 375 Med Orders - Current: Current Medications Haloperidol Lactate (Haloperidol Lactate 5 Mg/Ml Sdv) 5 mg IVPUSH Q4H PRN PRN Reason: Agitation Last Admin: 09/23/20 17:14 Dose: 5 mg Documented by: Sodium Chloride (Normal Saline) 1,000 mls @ 0 mls/hr IV ASDIRECTED GREYSON Lorazepam (Lorazepam 2 Mg/Ml Sdv) 0 mg IV ASDIRECTED GREYSON; Protocol Last Admin: 09/23/20 11:19 Dose: 2 mg Documented by: Lorazepam (Lorazepam 1 Mg Tab) 0 mg PO ASDIRECTED GREYSON; Protocol Last Admin: 09/24/20 10:47 Dose: 1 mg Documented by: Ondansetron HCl (Ondansetron 4 Mg/2 Ml Sdv) 4 mg IVPUSH Q6H PRN PRN Reason: Nausea/Vomiting Last Admin: 09/22/20 20:03 Dose: 4 mg Documented by: Potassium Chloride (Potassium Chloride 20 Meq Tab.Er) 20 meq PO DAILY GREYSON Last Admin: 09/24/20 09:40 Dose: 20 meq Documented by: Discontinued Medications Sodium Chloride (Normal Saline) 1,000 mls @ 125 mls/hr IV ASDIRECTED GREYSON Last Admin: 09/23/20 07:30 Dose: 125 mls/hr Documented by: Lorazepam (Lorazepam 1 Mg Tab) 2 mg PO ONETIME ONE Stop: 09/22/20 13:01 Last Admin: 09/22/20 12:59 Dose: 2 mg Documented by: - Exam General: Oriented, Cooperative, Mild Distress HEENT: Pupils Equal, Pupils Reactive, EOMI, Mucous Membr. Moist/[employer] Neck: Supple Lungs: Clear to Auscultation, Normal Respiratory Effort Cardiovascular: Regular Rate, Regular Rhythm GI/Abdominal Exam: Normal Bowel Sounds, Soft, Non-Tender, No Organomegaly, No Distention, No Abnormal Bruit, No Mass, Pelvis Stable Back Exam: Normal Inspection, Full Range of Motion Extremities: Normal Inspection Peripheral Pulses: 1+: Radial (L), Radial (R) Skin: Warm, Dry, Intact Neurological: Sensation Intact Psy/Mental Status: Anxious, Withdrawal Symptoms - Patient Data Result Diagrams: 09/22/20 16:28 09/22/20 16:28 Sepsis Event Note - Evaluation Sepsis Screening Result: No Definite Risk - Focused Exam Vital Signs: Vital Signs Temp Pulse Resp BP Pulse Ox 09/24/20 08:00 98.2 F 109 H 18 134/87 94 L 09/24/20 04:00 97.9 F 11 L 123/85 98 09/24/20 00:00 98.1 F 12 134/84 96 - Problem List Review Problem List Initiated/Reviewed/Updated: Yes - Plan Plan:: Assessment/Plan: #1. Alcoholism with DT's: Will continue with Haldol for delirium tremors and will continue with Ativan as needed per protocol. #2. HTN: Will monitor and give meds if needed. Blood pressure 134/87 at present time. #3. Alc. Liver disease: His AST is elevated of significance but should come down once he is off the alcohol. Repeat blood work is pending tomorrow morning.
[2020-09-24] MEDS: Haloperidol Lactate 5 MG/ML SDV IVPUSH PRN (23:41)
[2020-09-25 05:17] VITALS: PULSE 84
[2020-09-25 07:29] VITALS: BP 148/78
[2020-09-25] MEDS: Potassium Chloride 20 MEQ Tab.ER PO SCH (08:19)
--- NOTE | 2020-09-25 10:00 | PCM.PN ---
- General Info Date of Service: 09/25/20 Functional Status: Reports: Pain Controlled - Review of Systems General: Reports: No Symptoms HEENT: Reports: No Symptoms Pulmonary: Reports: No Symptoms Cardiovascular: Reports: No Symptoms Gastrointestinal: Reports: No Symptoms Genitourinary: Reports: No Symptoms Musculoskeletal: Reports: No Symptoms Skin: Reports: No Symptoms Neurological: Reports: No Symptoms Psychiatric: Reports: No Symptoms - Patient Data Vitals - Most Recent: Last Vital Signs Temp 98.1 F 09/25/20 07:00 Pulse 84 09/25/20 03:00 Resp 11 L 09/25/20 07:00 BP 148/78 H 09/25/20 07:00 Pulse Ox 97 09/25/20 07:00 Weight - Most Recent: 139 lb 9.6 oz I&O - Last 24 Hours: Intake & Output 09/24/20 09/25/20 09/25/20 22:59 06:59 14:59 Intake Total 1700 Output Total 750 800 100 Balance 950 -800 -100 Lab Results Last 24 Hours: Laboratory Results - last 24 hr 09/25/20 09/25/20 Range/Units 05:41 05:41 WBC 6.2 (4.5-11.0) K/uL RBC 3.99 L (4.30-5.90) M/uL Hgb 12.5 (12.0-15.0) g/dL Hct 37.2 L (40.0-54.0) % MCV 93 (80-98) fL MCH 31 (27-31) pg MCHC 34 (32-36) % Plt Count 111 L (150-400) K/uL Neut % (Auto) 67 H (36-66) % Lymph % (Auto) 23 L (24-44) % [place] % (Auto) 7 H (2-6) % Eos % (Auto) 2 (2-4) % Baso % (Auto) 1 (0-1) % Sodium 140 (140-148) mmol/L Potassium 4.0 (3.6-5.2) mmol/L Chloride 102 (100-108) mmol/L Carbon Dioxide 28 (21-32) mmol/L Anion Gap 10.5 (5.0-14.0) mmol/L BUN 9 (7-18) mg/dL Creatinine 0.8 (0.8-1.3) mg/dL Est Cr Clr Drug Dosing 95.31 mL/min Estimated GFR (MDRD) > 60 (>60) Glucose 142 H (74-106) mg/dL Calcium 8.8 D (8.5-10.1) mg/dL Total Bilirubin 0.4 (0.2-1.0) mg/dL AST 36 (15-37) U/L ALT 43 (12-78) U/L Alkaline Phosphatase 121 H (46-116) U/L Total Protein 6.1 L (6.4-8.2) g/dL Albumin 2.8 L (3.4-5.0) g/dL Globulin 3.3 (2.3-3.5) g/dL Albumin/Globulin Ratio 0.9 L (1.2-2.2) Med Orders - Current: Current Medications Haloperidol Lactate (Haloperidol Lactate 5 Mg/Ml Sdv) 5 mg IVPUSH Q4H PRN PRN Reason: Agitation Last Admin: 09/24/20 23:41 Dose: 5 mg Documented by: Sodium Chloride (Normal Saline) 1,000 mls @ 0 mls/hr IV ASDIRECTED GREYSON Lorazepam (Lorazepam 2 Mg/Ml Sdv) 0 mg IV ASDIRECTED GREYSON; Protocol Last Admin: 09/23/20 11:19 Dose: 2 mg Documented by: Lorazepam (Lorazepam 1 Mg Tab) 0 mg PO ASDIRECTED GREYSON; Protocol Last Admin: 09/24/20 22:14 Dose: 2 mg Documented by: Ondansetron HCl (Ondansetron 4 Mg/2 Ml Sdv) 4 mg IVPUSH Q6H PRN PRN Reason: Nausea/Vomiting Last Admin: 09/22/20 20:03 Dose: 4 mg Documented by: Potassium Chloride (Potassium Chloride 20 Meq Tab.Er) 20 meq PO DAILY GREYSON Last Admin: 09/25/20 08:19 Dose: 20 meq Documented by: Discontinued Medications Sodium Chloride (Normal Saline) 1,000 mls @ 125 mls/hr IV ASDIRECTED GREYSON Last Admin: 09/23/20 07:30 Dose: 125 mls/hr Documented by: Lorazepam (Lorazepam 1 Mg Tab) 2 mg PO ONETIME ONE Stop: 09/22/20 13:01 Last Admin: 09/22/20 12:59 Dose: 2 mg Documented by: - Exam General: Alert, Oriented HEENT: Pupils Equal, Pupils Reactive, EOMI, Mucous Membr. Moist/[place] Neck: Supple Lungs: Clear to Auscultation, Normal Respiratory Effort Cardiovascular: Regular Rate, Regular Rhythm GI/Abdominal Exam: Normal Bowel Sounds, Soft, Non-Tender, No Organomegaly, No Distention, No Abnormal Bruit, No Mass, Pelvis Stable Back Exam: Normal Inspection, Full Range of Motion Extremities: Normal Inspection, Normal Range of Motion, Non-Tender, No Pedal Edema, Normal Capillary Refill Peripheral Pulses: 1+: Radial (L), Radial (R) Skin: Warm, Dry, Intact Neurological: No New Focal Deficit Psy/Mental Status: Alert, Normal Affect - Patient Data Lab Results Last 24 hrs: Laboratory Results - last 24 hr 09/25/20 09/25/20 Range/Units 05:41 05:41 WBC 6.2 (4.5-11.0) K/uL RBC 3.99 L (4.30-5.90) M/uL Hgb 12.5 (12.0-15.0) g/dL Hct 37.2 L (40.0-54.0) % MCV 93 (80-98) fL MCH 31 (27-31) pg MCHC 34 (32-36) % Plt Count 111 L (150-400) K/uL Neut % (Auto) 67 H (36-66) % Lymph % (Auto) 23 L (24-44) % Early % (Auto) 7 H (2-6) % Eos % (Auto) 2 (2-4) % Baso % (Auto) 1 (0-1) % Sodium 140 (140-148) mmol/L Potassium 4.0 (3.6-5.2) mmol/L Chloride 102 (100-108) mmol/L Carbon Dioxide 28 (21-32) mmol/L Anion Gap 10.5 (5.0-14.0) mmol/L BUN 9 (7-18) mg/dL Creatinine 0.8 (0.8-1.3) mg/dL Est Cr Clr Drug Dosing 95.31 mL/min Estimated GFR (MDRD) > 60 (>60) Glucose 142 H (74-106) mg/dL Calcium 8.8 D (8.5-10.1) mg/dL Total Bilirubin 0.4 (0.2-1.0) mg/dL AST 36 (15-37) U/L ALT 43 (12-78) U/L Alkaline Phosphatase 121 H (46-116) U/L Total Protein 6.1 L (6.4-8.2) g/dL Albumin 2.8 L (3.4-5.0) g/dL Globulin 3.3 (2.3-3.5) g/dL Albumin/Globulin Ratio 0.9 L (1.2-2.2) Result Diagrams: 09/25/20 05:41 09/25/20 05:41 Sepsis Event Note - Evaluation Sepsis Screening Result: No Definite Risk - Focused Exam Vital Signs: Vital Signs Temp Pulse Resp BP Pulse Ox 09/25/20 07:00 98.1 F 11 L 148/78 H 97 09/25/20 03:00 97.4 F 84 14 09/24/20 22:33 97.8 F 88 13 154/89 H 97 - Problem List Review Problem List Initiated/Reviewed/Updated: Yes - My Orders Last 24 Hours: My Active Orders 09/25/20 09:55 Ready for Discharge [RC] PER UNIT ROUTINE - Plan Plan:: Assessment/Plan: #1. Alcoholism with DT's: Stable will discharge home this morning . #2. HTN: Will monitor and give meds if needed. Blood pressure 148/78 at present time. #3. Alc. Liver disease: normal AST and ALT. Plan discharge home.
--- NOTE | 2020-09-25 13:43 | CR ---
CHEST: 2 view CLINICAL HISTORY:Hemoptysis, smoker COMPARISON:06/24/2020 FINDINGS: Lungs are mildly hyperaerated. The heart size, pulmonary vascularity and hilar structures are normal. No infiltrate effusion or pneumothorax is seen. IMPRESSION: No acute cardiopulmonary process
== END 2020-09-25 10:12 | disposition home or self-care (01) | DRG 897 ==
LOC: JP.SDSSCHI 10:54 → JP.ICU 10:55
PROVIDERS: ADMIT Internal Medicine; ATTEND Internal Medicine
DX: F10.231 Alcohol dependence with withdrawal delirium (principal); I10 Essential (primary) hypertension; K70.9 Alcoholic liver disease, unspecified; H54.7 Unspecified visual loss; K59.09 Other constipation; F17.210 Nicotine dependence, cigarettes, uncomplicated; K52.9 Noninfective gastroenteritis and colitis, unspecified; F41.9 Anxiety disorder, unspecified; D64.9 Anemia, unspecified; Z90.49 Acquired absence of other specified parts of digestive tract; Z87.01 Personal history of pneumonia (recurrent); Y90.7 Blood alcohol level of 200-239 mg/100 ml
CPT/HCPCS: 36415; 71046; 71046-26; 80053; 80307; 81001; 85025; A9270-GY; J1630; J2060; J2405; J7030

== ENCOUNTER 2020-11-12 04:02 | Inpatient (IN) | payer BC, MEDICAID ==
[2020-11-12] MEDS ORDERED: Sodium Chloride 0.9% 10 ML Syringe FLUSH PRN (04:11)
[2020-11-12] MEDS ORDERED: MVI, Adult with Vitamin K 10 ML, Thiamine 100 MG, Folic Acid 1 MG, Magnesium Sulfate 2 ... IV ONE ×5 (04:12)
--- NOTE | 2020-11-12 04:27 | EDM.PDOCBH ---
ED HPI GENERAL MEDICAL PROBLEM - General Chief Complaint: Drug or Alcohol Abuse Stated Complaint: EVALUATION / DT Time Seen by Provider: 11/12/20 04:07 Source of Information: Reports: Patient, Significant Other History Limitations: Reports: Intoxication - History of Present Illness INITIAL COMMENTS - FREE TEXT/NARRATIVE: Armaan is a 50-year-old male who is well-known to us with a longstanding history of alcohol dependency and alcohol abuse, who presents tonight for withdrawal from alcohol. The patient's last drink was reportedly 10 hours ago. But when asked he states his last drink was at 2300 hrs. tonight. He presents to the ED with his significant other quite tremulous. He is a patient of Dr. Damon Langley's and has been admitted multiple times to the ICU for alcohol withdrawal. The patient did not attempt to contact Dr. Langley prior to coming to the ED. He denies any history seizures with withdrawal in the past. He does get quite confused though with withdrawal. - Related Data Allergies Allergy/AdvReac Type Severity Reaction Status Date / Time No Known Allergies Allergy Verified 09/18/20 09:10 Past Medical History HEENT History: Reports: Impaired Vision Respiratory History: Reports: Pneumothorax Other Respiratory History: pneumonia Gastrointestinal History: Reports: Chronic Constipation, Chronic Diarrhea, Cirrhosis, Other (See Below) Other Gastrointestinal History: diverticulitis Musculoskeletal History: Reports: Other (See Below) Other Musculoskeletal History: shaking unsteady Neurological History: Reports: Other (See Below) Other Neuro History: Past etoh withdrawal Psychiatric History: Reports: Addiction, Anxiety, Other (See Below) Other Psychiatric History: ineffective coping Hematologic History: Reports: Anemia Immunologic History: Reports: Other (See Below) Other Immunologic History: lymes - Infectious Disease History Infectious Disease History: Reports: Chicken Pox, Other (See Below) Other Infectious Disease History: alcoholic hepatitis - Past Surgical History HEENT Surgical History: Reports: None Respiratory Surgical History: Reports: Other (See Below) Other Respiratory Surgeries/Procedures: nodule in one lung per patient report. GI Surgical History: Reports: Cholecystectomy Social & Family History - Caffeine Use Caffeine Use: Reports: Coffee ED ROS GENERAL - Review of Systems Review Of Systems: See Below Constitutional: Reports: No Symptoms HEENT: Reports: No Symptoms Respiratory: Reports: No Symptoms Cardiovascular: Reports: No Symptoms Endocrine: Reports: No Symptoms GI/Abdominal: Reports: Decreased Appetite, Nausea, Vomiting : Reports: No Symptoms Musculoskeletal: Reports: No Symptoms Skin: Reports: No Symptoms Neurological: Reports: Tremors (Patient was very tremulous), Change in Speech (Slurring of the speech) Psychiatric: Reports: Anxiety, Other (Heavy daily alcohol user. He reports drinking a 750 mL of vodka a day. Occasionally he will also add fireball whiskey to that. His girlfriend is his enabler going to the liquor store for him. He prides himself on not drinking and driving.) Hematologic/Lymphatic: Reports: No Symptoms Immunologic: Reports: No Symptoms ED EXAM, BEHAVIORAL HEALTH - Physical Exam Exam: See Below Exam Limited By: No Limitations General Appearance: Alert, Anxious, Moderate Distress, Other (Tremulous) Eye Exam: Bilateral Eye: Conjunctival Injection, EOMI, PERRL Throat/Mouth: Normal Voice, No Airway Compromise, Other (Dry mucous membranes) Head: Atraumatic, Normocephalic Neck: Normal Inspection, Supple, Non-Tender, Full Range of Motion Respiratory/Chest: No Respiratory Distress, Lungs Clear, Normal Breath Sounds, No Accessory Muscle Use, Chest Non-Tender Cardiovascular: Normal Peripheral Pulses, Regular Rate, Rhythm, No Murmur GI/Abdominal: Normal Bowel Sounds, Soft, Non-Tender Back Exam: Normal Inspection, Full Range of Motion Extremities: Normal Inspection, Normal Range of Motion, Normal Capillary Refill Neurological: Alert, CN II-XII Intact, Normal Cognition, No Motor/Sensory Deficits, Oriented x 3, Tremor, Other (Slurring of his words) Psychiatric: Depressed Mood, Restless Skin Exam: Diaphoretic COURSE, BEHAVIORAL HEALTH COMP - Course Orders, Labs, Meds: Active Orders 24 hr Category Date Time Status Patient Status [ADT] Routine ADT 11/12/20 05:08 Ordered Assess Neurological Status [RC] ASDIRECTED Care 11/12/20 04:12 Active CIWAA Assessment [RC] Q30M Care 11/12/20 04:13 Active Height and Weight [RC] DAILY Care 11/12/20 05:07 Ordered Intake and Output [RC] QSHIFT Care 11/12/20 05:10 Ordered Notify Provider [RC] PRN Care 11/12/20 04:12 Active Oxygen Therapy [RC] PRN Care 11/12/20 05:08 Ordered Pulse Oximetry [RC] CONTINUOUS Care 11/12/20 04:13 Active Up to Chair [RC] QID Care 11/12/20 05:07 Ordered VTE/DVT Education [RC] Per Unit Routine Care 11/12/20 05:08 Ordered Vital Signs [RC] Q4H Care 11/12/20 05:08 Ordered Regular Diet [DIET] Diet 11/12/20 Breakfast Ordered DRUG SCREEN, URINE [URCHEM] Stat Lab 11/12/20 04:12 Ordered LORazepam [Ativan] Med 11/12/20 04:15 Active See Protocol IV ASDIRECTED MVI, Adult with Vitamin K [Infuvite Adult] 10 ml Med 11/12/20 04:12 Active Thiamine [Vitamin B-1] 100 mg Folic Acid 1 mg Magnesium Sulfate [Magnesium Sulfate 50%] 2 gm Sodium Chloride 0.9% [Normal Saline] 1,000 ml IV ONETIME Ondansetron [Zofran] Med 11/12/20 05:07 Ordered 4 mg IV Q4H PRN Sodium Chloride 0.9% @ 125 MLS/HR (1000ml) Med 11/12/20 05:15 Ordered Sodium Chloride 0.9% [Normal Saline] 1,000 ml IV ASDIRECTED Sodium Chloride 0.9% [Saline Flush] Med 11/12/20 04:11 Active 10 ml FLUSH ASDIRECTED PRN Saline Lock Insert [OM.PC] Routine Oth 11/12/20 04:11 Ordered Seizure Precautions [OM.PC] Routine Oth 11/12/20 04:12 Ordered Resuscitation Status Routine Resus Stat 11/12/20 05:07 Ordered Medication Orders Multivitamins/Minerals 10 ml/Thiamine HCl 100 mg/ Folic Acid 1 mg/ Magnesium Sulfate 2 gm/ Sodium Chloride 1,015.2 mls @ 500 mls/hr IV ONETIME ONE Stop: 11/12/20 06:13 Last Admin: 11/12/20 04:55 Dose: 500 mls/hr Documented by: PERRI Lorazepam (Lorazepam 2 Mg/Ml Sdv) 0 mg IV ASDIRECTED GREYSON; Protocol Last Admin: 11/12/20 04:31 Dose: 2 mg Documented by: PERRI Sodium Chloride (Sodium Chloride 0.9% 10 Ml Syringe) 10 ml FLUSH ASDIRECTED PRN PRN Reason: Keep Vein Open Last Admin: 11/12/20 04:34 Dose: 10 ml Documented by: PERRI Laboratory Tests 11/12/20 11/12/20 11/12/20 Range/Units 04:15 04:15 04:15 WBC 5.6 (4.5-11.0) K/uL RBC 4.91 (4.30-5.90) M/uL Hgb 15.0 D (12.0-15.0) g/dL Hct 43.8 (40.0-54.0) % MCV 89 (80-98) fL MCH 31 (27-31) pg MCHC 34 (32-36) % Plt Count 226 (150-400) K/uL Neut % (Auto) 75.1 H (36-66) % Lymph % (Auto) 18.9 L (24-44) % [place] % (Auto) 4.9 (2-6) % Eos % (Auto) 0.2 L (2-4) % Baso % (Auto) 0.9 (0-1) % PT (9.5-12.0) sec INR (0.80-1.20) APTT (27.0-36.0) sec ABG Hemoglobin 15.4 (13.5-18.0) g/dL ABG Oxyhemoglobin 83.5 % ABG Carboxyhemoglobin 4.8 H (0.0-1.6) % ABG Methemoglobin 0.9 % VBG pH 7.479 H (7.350-7.450) VBG pCO2 30.8 mm/Hg VBG pO2 57.3 mm/Hg VBG HCO3 22.6 mmol/L VBG Total CO2 19.2 mmol/L VBG O2 Saturation 88.6 VBG O2 Content 18.1 %vol VBG Base Excess 0.5 mm/L O2 Delivery Device Room air Sodium 142 (140-148) mmol/L Potassium 4.0 (3.6-5.2) mmol/L Chloride 97 L (100-108) mmol/L Carbon Dioxide 26 (21-32) mmol/L Anion Gap 23.0 H (5.0-14.0) mmol/L BUN 11 (7-18) mg/dL Creatinine 1.3 D (0.8-1.3) mg/dL Est Cr Clr Drug Dosing TNP Estimated GFR (MDRD) 58 L (>60) Glucose 97 (74-106) mg/dL Calcium 8.4 L (8.5-10.1) mg/dL Phosphorus 4.3 (2.5-4.9) mg/dL Magnesium 1.7 L (1.8-2.4) mg/dL Total Bilirubin 0.8 D (0.2-1.0) mg/dL AST 118 H D (15-37) U/L ALT 72 (12-78) U/L Alkaline Phosphatase 128 H (46-116) U/L Ammonia (11-32) umol/L Total Protein 6.9 (6.4-8.2) g/dL Albumin 3.5 (3.4-5.0) g/dL Globulin 3.4 (2.3-3.5) g/dL Albumin/Globulin Ratio 1.0 L (1.2-2.2) Ethyl Alcohol mg/dL 11/12/20 11/12/20 11/12/20 Range/Units 04:15 04:15 04:15 WBC (4.5-11.0) K/uL RBC (4.30-5.90) M/uL Hgb (12.0-15.0) g/dL Hct (40.0-54.0) % MCV (80-98) fL MCH (27-31) pg MCHC (32-36) % Plt Count (150-400) K/uL Neut % (Auto) (36-66) % Lymph % (Auto) (24-44) % [place] % (Auto) (2-6) % Eos % (Auto) (2-4) % Baso % (Auto) (0-1) % PT 11.2 (9.5-12.0) sec INR 1.03 (0.80-1.20) APTT 24.4 L (27.0-36.0) sec ABG Hemoglobin (13.5-18.0) g/dL ABG Oxyhemoglobin % ABG Carboxyhemoglobin (0.0-1.6) % ABG Methemoglobin % VBG pH (7.350-7.450) VBG pCO2 mm/Hg VBG pO2 mm/Hg VBG HCO3 mmol/L VBG Total CO2 mmol/L VBG O2 Saturation VBG O2 Content %vol VBG Base Excess mm/L O2 Delivery Device Sodium (140-148) mmol/L Potassium (3.6-5.2) mmol/L Chloride (100-108) mmol/L Carbon Dioxide (21-32) mmol/L Anion Gap (5.0-14.0) mmol/L BUN (7-18) mg/dL Creatinine (0.8-1.3) mg/dL Est Cr Clr Drug Dosing Estimated GFR (MDRD) (>60) Glucose (74-106) mg/dL Calcium (8.5-10.1) mg/dL Phosphorus (2.5-4.9) mg/dL Magnesium (1.8-2.4) mg/dL Total Bilirubin (0.2-1.0) mg/dL AST (15-37) U/L ALT (12-78) U/L Alkaline Phosphatase (46-116) U/L Ammonia 21 (11-32) umol/L Total Protein (6.4-8.2) g/dL Albumin (3.4-5.0) g/dL Globulin (2.3-3.5) g/dL Albumin/Globulin Ratio (1.2-2.2) Ethyl Alcohol 307 mg/dL Medications Generic Name Dose Route Start Last Admin Trade Name Freq PRN Reason Stop Dose Admin Multivitamins/Minerals 10 ml/ 1,015.2 mls @ 500 mls/hr 11/12/20 04:12 11/12/20 04:55 Thiamine HCl 100 mg/ Folic IV 11/12/20 06:13 500 mls/hr Acid 1 mg/ Magnesium Sulfate 2 ONETIME ONE Administration gm/ Sodium Chloride Lorazepam 0 mg 11/12/20 04:15 11/12/20 04:31 Lorazepam 2 Mg/Ml Sdv IV 2 mg ASDIRECTED GREYSON Administration Protocol Sodium Chloride 10 ml 11/12/20 04:11 11/12/20 04:34 Sodium Chloride 0.9% 10 Ml Syringe FLUSH 10 ml ASDIRECTED PRN Administration Keep Vein Open Re-Assessment/Re-Exam: Discussed the case with Dr. Damon Langley who is his primary provider who will come in and arrange for the ICU admission for alcohol withdrawal. Labs are currently pending including a CBC, comprehensive metabolic profile, venous blood gas, ammonia, magnesium, phosphorus, lipase, PT and PTT, and ethanol level. We are also getting a urinalysis and urine drug screen. We initiated the CIWA protocol for alcohol withdrawal. Reviewed the patient's labs showing a CBC with a leukocyte count of 5.6, hemoglobin 13.0, hematocrit of 43.8, and platelet count of 226,000. Patient's comprehensive metabolic panel is unremarkable except for a creatinine of 1.3. His venous blood gas shows a pH of 7.48, venous PCO2 of 30.8, venous PO2 of 57.3, and venous bicarbonate of 22.6. Patient does have a widened anion gap of 24. The patient's ammonia is 21. Patient's coagulation studies are normal. The patient's ethanol level is 307 making it virtually impossible for him to be actively going through withdrawal at this time. Departure - Departure Time of Disposition: 05:14 Disposition: Admitted As Inpatient 66 Clinical Impression: Alcohol withdrawal delirium, acute, mixed level of activity, Alcoholism, chronic, Tobacco dependence syndrome, Mild dehydration Cirrhosis of liver Qualifiers: Hepatic cirrhosis type: alcoholic cirrhosis Ascites presence: without ascites Qualified Code(s): K70.30 - Alcoholic cirrhosis of liver without ascites Nausea and vomiting Qualifiers: Vomiting type: unspecified Vomiting Intractability: intractable Qualified Code(s): R11.2 - Nausea with vomiting, unspecified - Discharge Information Referrals: Damon Langley Sr, MD [Primary Care Provider] - Forms: ED Department Discharge - My Orders Last 24 Hours: My Active Orders 11/12/20 04:11 Sodium Chloride 0.9% [Saline Flush] 10 ml FLUSH ASDIRECTED PRN Saline Lock Insert [OM.PC] Routine 11/12/20 04:12 Assess Neurological Status [RC] ASDIRECTED Notify Provider [RC] PRN DRUG SCREEN, URINE [URCHEM] Stat MVI, Adult with Vitamin K [Infuvite Adult] 10 ml Thiamine [Vitamin B-1] 100 mg Folic Acid 1 mg Magnesium Sulfate [Magnesium Sulfate 50%] 2 gm Sodium Chloride 0.9% [Normal Saline] 1,000 ml IV ONETIME Seizure Precautions [OM.PC] Routine 11/12/20 04:13 CIWAA Assessment [RC] Q30M Pulse Oximetry [RC] CONTINUOUS 11/12/20 04:15 LORazepam [Ativan] See Protocol IV ASDIRECTED - Assessment/Plan Last 24 Hours: My Active Orders 11/12/20 04:11 Sodium Chloride 0.9% [Saline Flush] 10 ml FLUSH ASDIRECTED PRN Saline Lock Insert [OM.PC] Routine 11/12/20 04:12 Assess Neurological Status [RC] ASDIRECTED Notify Provider [RC] PRN DRUG SCREEN, URINE [URCHEM] Stat MVI, Adult with Vitamin K [Infuvite Adult] 10 ml Thiamine [Vitamin B-1] 100 mg Folic Acid 1 mg Magnesium Sulfate [Magnesium Sulfate 50%] 2 gm Sodium Chloride 0.9% [Normal Saline] 1,000 ml IV ONETIME Seizure Precautions [OM.PC] Routine 11/12/20 04:13 CIWAA Assessment [RC] Q30M Pulse Oximetry [RC] CONTINUOUS 11/12/20 04:15 LORazepam [Ativan] See Protocol IV ASDIRECTED
[2020-11-12] MEDS: LORazepam 2 MG/ML SDV IV SCH ×3 (04:31→21:58)
[2020-11-12] MEDS ORDERED: Ondansetron 4 MG/2 ML SDV IV PRN (05:07)
[2020-11-12] MEDS ORDERED: Sodium Chloride 0.9% 1,000 ML IV SCH (05:15)
--- NOTE | 2020-11-12 06:18 | PCM.HP.2 ---
H&P History of Present Illness - General Date of Service: 11/12/20 Admit Problem/Dx: Admission Diagnosis/Problem Admission Diagnosis/Problem Alcoholism Source of Information: Patient, Family - History of Present Illness Initial Comments - Free Text/Narative: He started consuming alcohol again and the family encouraged him to come in for alcohol treatment. This has been a recurrent problem for him and he has had multiple admissions in the last year for alcoholism/DTs. - Related Data Allergies/Adverse Reactions: Allergies Allergy/AdvReac Type Severity Reaction Status Date / Time No Known Allergies Allergy Verified 11/12/20 07:03 Home Medications: Home Meds NK [No Known Home Meds] 11/12/20 [History] Past Medical History HEENT History: Reports: Impaired Vision Respiratory History: Reports: Pneumothorax Other Respiratory History: pneumonia Gastrointestinal History: Reports: Chronic Constipation, Chronic Diarrhea, Cirrhosis, Other (See Below) Other Gastrointestinal History: diverticulitis Musculoskeletal History: Reports: Other (See Below) Other Musculoskeletal History: shaking unsteady Neurological History: Reports: Other (See Below) Other Neuro History: Past etoh withdrawal Psychiatric History: Reports: Addiction, Anxiety, Other (See Below) Other Psychiatric History: ineffective coping Hematologic History: Reports: Anemia Immunologic History: Reports: Other (See Below) Other Immunologic History: lymes - Infectious Disease History Infectious Disease History: Reports: Chicken Pox, Other (See Below) Other Infectious Disease History: alcoholic hepatitis - Past Surgical History HEENT Surgical History: Reports: None Respiratory Surgical History: Reports: Other (See Below) Other Respiratory Surgeries/Procedures: nodule in one lung per patient report. GI Surgical History: Reports: Cholecystectomy Social & Family History - Family History Family Medical History: Unobtainable - Tobacco Use Tobacco Use Status *Q: Current Every Day Tobacco User Years of Tobacco use: 37 Packs/Tins Daily: 1 - Caffeine Use Caffeine Use: Reports: Soda - Alcohol Use Days Per Week of Alcohol Use: 7 Number of Drinks Per Day: 10 Total Drinks Per Week: 70 - Recreational Drug Use Recreational Drug Use: No H&P Review of Systems - Review of Systems: Review Of Systems: See Below General: Reports: Weakness HEENT: Reports: No Symptoms Pulmonary: Reports: No Symptoms Cardiovascular: Reports: No Symptoms Gastrointestinal: Reports: Nausea Genitourinary: Reports: No Symptoms Musculoskeletal: Reports: No Symptoms Skin: Reports: No Symptoms Psychiatric: Reports: Anxiety Neurological: Reports: Gait Disturbance Exam - Exam Exam: See Below - Vital Signs Vital Signs: Last Vital Signs Temp 98.0 F 11/12/20 04:28 Pulse Resp 13 11/12/20 05:28 BP 154/72 H 11/12/20 05:28 Pulse Ox 96 11/12/20 05:28 Weight: 144 lb 2.917 oz - Exam General: Alert, Oriented, 4 HEENT: PERRLA, Hearing Intact, Mucosa Moist & [place], Nares Patent, Normal Nasal Septum, Posterior Pharynx Clear, Conjunctiva Clear, EOMI, EACs Clear, TMs Clear Neck: Supple, Trachea Midline, 2 Lungs: Clear to Auscultation, Normal Respiratory Effort Cardiovascular: Regular Rate, Regular Rhythm GI/Abdominal Exam: Other (liver enlargement to palpation and percussion) Back Exam: Normal Inspection Extremities: Normal Inspection, No Pedal Edema Neuro Extensive - Mental Status: Oriented x3 Psychiatric: Anxious, Withdrawal Symptoms - Patient Data Lab Results Last 24 hrs: Laboratory Results - last 24 hr 11/12/20 11/12/20 11/12/20 Range/Units 04:15 04:15 04:15 WBC 5.6 (4.5-11.0) K/uL RBC 4.91 (4.30-5.90) M/uL Hgb 15.0 D (12.0-15.0) g/dL Hct 43.8 (40.0-54.0) % MCV 89 (80-98) fL MCH 31 (27-31) pg MCHC 34 (32-36) % Plt Count 226 (150-400) K/uL Neut % (Auto) 75.1 H (36-66) % Lymph % (Auto) 18.9 L (24-44) % Toole % (Auto) 4.9 (2-6) % Eos % (Auto) 0.2 L (2-4) % Baso % (Auto) 0.9 (0-1) % PT (9.5-12.0) sec INR (0.80-1.20) APTT (27.0-36.0) sec ABG Hemoglobin 15.4 (13.5-18.0) g/dL ABG Oxyhemoglobin 83.5 % ABG Carboxyhemoglobin 4.8 H (0.0-1.6) % ABG Methemoglobin 0.9 % VBG pH 7.479 H (7.350-7.450) VBG pCO2 30.8 mm/Hg VBG pO2 57.3 mm/Hg VBG HCO3 22.6 mmol/L VBG Total CO2 19.2 mmol/L VBG O2 Saturation 88.6 VBG O2 Content 18.1 %vol VBG Base Excess 0.5 mm/L O2 Delivery Device Room air Sodium 142 (140-148) mmol/L Potassium 4.0 (3.6-5.2) mmol/L Chloride 97 L (100-108) mmol/L Carbon Dioxide 26 (21-32) mmol/L Anion Gap 23.0 H (5.0-14.0) mmol/L BUN 11 (7-18) mg/dL Creatinine 1.3 D (0.8-1.3) mg/dL Est Cr Clr Drug Dosing TNP Estimated GFR (MDRD) 58 L (>60) Glucose 97 (74-106) mg/dL Calcium 8.4 L (8.5-10.1) mg/dL Phosphorus 4.3 (2.5-4.9) mg/dL Magnesium 1.7 L (1.8-2.4) mg/dL Total Bilirubin 0.8 D (0.2-1.0) mg/dL AST 118 H D (15-37) U/L ALT 72 (12-78) U/L Alkaline Phosphatase 128 H (46-116) U/L Ammonia (11-32) umol/L Total Protein 6.9 (6.4-8.2) g/dL Albumin 3.5 (3.4-5.0) g/dL Globulin 3.4 (2.3-3.5) g/dL Albumin/Globulin Ratio 1.0 L (1.2-2.2) Ethyl Alcohol mg/dL 11/12/20 11/12/20 11/12/20 Range/Units 04:15 04:15 04:15 WBC (4.5-11.0) K/uL RBC (4.30-5.90) M/uL Hgb (12.0-15.0) g/dL Hct (40.0-54.0) % MCV (80-98) fL MCH (27-31) pg MCHC (32-36) % Plt Count (150-400) K/uL Neut % (Auto) (36-66) % Lymph % (Auto) (24-44) % Toole % (Auto) (2-6) % Eos % (Auto) (2-4) % Baso % (Auto) (0-1) % PT 11.2 (9.5-12.0) sec INR 1.03 (0.80-1.20) APTT 24.4 L (27.0-36.0) sec ABG Hemoglobin (13.5-18.0) g/dL ABG Oxyhemoglobin % ABG Carboxyhemoglobin (0.0-1.6) % ABG Methemoglobin % VBG pH (7.350-7.450) VBG pCO2 mm/Hg VBG pO2 mm/Hg VBG HCO3 mmol/L VBG Total CO2 mmol/L VBG O2 Saturation VBG O2 Content %vol VBG Base Excess mm/L O2 Delivery Device Sodium (140-148) mmol/L Potassium (3.6-5.2) mmol/L Chloride (100-108) mmol/L Carbon Dioxide (21-32) mmol/L Anion Gap (5.0-14.0) mmol/L BUN (7-18) mg/dL Creatinine (0.8-1.3) mg/dL Est Cr Clr Drug Dosing Estimated GFR (MDRD) (>60) Glucose (74-106) mg/dL Calcium (8.5-10.1) mg/dL Phosphorus (2.5-4.9) mg/dL Magnesium (1.8-2.4) mg/dL Total Bilirubin (0.2-1.0) mg/dL AST (15-37) U/L ALT (12-78) U/L Alkaline Phosphatase (46-116) U/L Ammonia 21 (11-32) umol/L Total Protein (6.4-8.2) g/dL Albumin (3.4-5.0) g/dL Globulin (2.3-3.5) g/dL Albumin/Globulin Ratio (1.2-2.2) Ethyl Alcohol 307 mg/dL Result Diagrams: 11/12/20 04:15 11/12/20 04:15 Sepsis Event Note - Evaluation Sepsis Screening Result: No Definite Risk - Focused Exam Vital Signs: Vital Signs Temp Resp BP Pulse Ox 11/12/20 05:28 13 154/72 H 96 11/12/20 04:57 19 147/79 H 93 L 11/12/20 04:28 98.0 F 13 140/70 98 11/12/20 04:05 98.0 F 13 154/72 H 96 Problem List Initiated/Reviewed/Updated: Yes Orders Last 24hrs: Active Orders 24 hr Category Date Time Status Patient Status [ADT] Routine ADT 11/12/20 05:08 Active CIWAA Assessment [RC] Q1HR Care 11/12/20 04:13 Active Height and Weight [RC] DAILY Care 11/12/20 05:07 Active Intake and Output [RC] QSHIFT Care 11/12/20 05:10 Active Notify Provider [RC] PRN Care 11/12/20 04:12 Active Oxygen Therapy [RC] PRN Care 11/12/20 05:08 Active Pulse Oximetry [RC] CONTINUOUS Care 11/12/20 04:13 Active Up to Chair [RC] QID Care 11/12/20 05:07 Active VTE/DVT Education [RC] Per Unit Routine Care 11/12/20 05:08 Active Vital Signs [RC] Q1H Care 11/12/20 05:08 Active Regular Diet [DIET] Diet 11/12/20 Breakfast Active DRUG SCREEN, URINE [URCHEM] Stat Lab 11/12/20 04:12 Ordered Gabapentin [Neurontin] Med 11/12/20 05:45 Active 400 mg PO Q8H LORazepam [Ativan] Med 11/12/20 04:15 Active See Protocol IV ASDIRECTED MVI, Adult with Vitamin K [Infuvite Adult] 10 ml Med 11/12/20 04:12 Active Thiamine [Vitamin B-1] 100 mg Folic Acid 1 mg Magnesium Sulfate [Magnesium Sulfate 50%] 2 gm Sodium Chloride 0.9% [Normal Saline] 1,000 ml IV ONETIME Ondansetron [Zofran] Med 11/12/20 05:07 Active 4 mg IV Q4H PRN Sodium Chloride 0.9% [Normal Saline] 1,000 ml Med 11/12/20 05:15 Active IV ASDIRECTED Sodium Chloride 0.9% [Saline Flush] Med 11/12/20 04:11 Active 10 ml FLUSH ASDIRECTED PRN Saline Lock Insert [OM.PC] Routine Oth 11/12/20 04:11 Ordered Seizure Precautions [OM.PC] Routine Oth 11/12/20 04:12 Ordered Resuscitation Status Routine Resus Stat 11/12/20 05:07 Ordered Medication Orders Gabapentin (Gabapentin 400 Mg Cap) 400 mg PO Q8H GREYSON Stop: 11/16/20 05:46 Multivitamins/Minerals 10 ml/Thiamine HCl 100 mg/ Folic Acid 1 mg/ Magnesium Sulfate 2 gm/ Sodium Chloride 1,015.2 mls @ 500 mls/hr IV ONETIME ONE Stop: 11/12/20 06:13 Last Admin: 11/12/20 04:55 Dose: 500 mls/hr Documented by: PERRI Sodium Chloride (Normal Saline) 1,000 mls @ 125 mls/hr IV ASDIRECTED GREYSON Lorazepam (Lorazepam 2 Mg/Ml Sdv) 0 mg IV ASDIRECTED GREYSON; Protocol Last Admin: 11/12/20 04:31 Dose: 2 mg Documented by: PERRI Ondansetron HCl (Ondansetron 4 Mg/2 Ml Sdv) 4 mg IV Q4H PRN PRN Reason: Nausea/Vomiting Sodium Chloride (Sodium Chloride 0.9% 10 Ml Syringe) 10 ml FLUSH ASDIRECTED PRN PRN Reason: Keep Vein Open Last Admin: 11/12/20 04:34 Dose: 10 ml Documented by: PERRI Assessment/Plan Comment:: Assessment/Plan: #1. Alcoholism/delirium tremors:His blood alcohol of 307 and will start medication per protocol. #2. Nicotine addiction: will start nicotine patch if needed. #3. Hypertension: Will monitor and treat as needed #4. Alcoholic liver disease: He is aware of the seriousness of his liver disease. - Mortality Measure Prognosis:: Good
[2020-11-12] MEDS: Gabapentin 400 MG Cap PO SCH ×3 (06:31→21:58)
[2020-11-13] MEDS: Gabapentin 400 MG Cap PO SCH ×3 (05:42→22:16)
[2020-11-14] MEDS: Gabapentin 400 MG Cap PO SCH (06:38)
[2020-11-14 08:45] VITALS: BP 158/88; PULSE 85
--- NOTE | 2020-11-14 09:27 | PCM.PN ---
- General Info Date of Service: 11/13/20 - Review of Systems General: Reports: Weakness HEENT: Reports: No Symptoms Pulmonary: Reports: No Symptoms Cardiovascular: Reports: No Symptoms Gastrointestinal: Reports: Nausea Genitourinary: Reports: No Symptoms Musculoskeletal: Reports: No Symptoms Skin: Reports: No Symptoms Neurological: Reports: Difficulty Walking, Weakness Psychiatric: Reports: Anxiety - Patient Data Vitals - Most Recent: Last Vital Signs Temp 98 F 11/14/20 08:00 Pulse 85 11/14/20 08:00 Resp 14 11/14/20 08:00 BP 158/88 H 11/14/20 08:00 Pulse Ox 97 11/14/20 08:00 Weight - Most Recent: 140 lb I&O - Last 24 Hours: Intake & Output 11/13/20 11/14/20 11/14/20 22:59 06:59 14:59 Intake Total 240 500 470 Output Total 575 400 Balance -335 100 470 Med Orders - Current: Current Medications Gabapentin (Gabapentin 400 Mg Cap) 400 mg PO Q8H GREYSON Stop: 11/16/20 05:46 Last Admin: 11/14/20 06:38 Dose: 400 mg Documented by: Lorazepam (Lorazepam 2 Mg/Ml Sdv) 0 mg IV ASDIRECTED GREYSON; Protocol Last Admin: 11/12/20 21:58 Dose: 2 mg Documented by: Ondansetron HCl (Ondansetron 4 Mg/2 Ml Sdv) 4 mg IV Q4H PRN PRN Reason: Nausea/Vomiting Sodium Chloride (Sodium Chloride 0.9% 10 Ml Syringe) 10 ml FLUSH ASDIRECTED PRN PRN Reason: Keep Vein Open Last Admin: 11/12/20 04:34 Dose: 10 ml Documented by: Discontinued Medications Multivitamins/Minerals 10 ml/Thiamine HCl 100 mg/ Folic Acid 1 mg/ Magnesium Sulfate 2 gm/ Sodium Chloride 1,015.2 mls @ 500 mls/hr IV ONETIME ONE Stop: 11/12/20 06:13 Last Admin: 11/12/20 04:55 Dose: 500 mls/hr Documented by: Sodium Chloride (Normal Saline) 1,000 mls @ 75 mls/hr IV ASDIRECTED GREYSON Last Admin: 11/12/20 06:50 Dose: 125 mls/hr Documented by: - Exam General: Oriented, Cooperative HEENT: Pupils Equal, Pupils Reactive, EOMI, Mucous Membr. Moist/[place] Neck: Supple Lungs: Clear to Auscultation, Normal Respiratory Effort Cardiovascular: Regular Rate, Regular Rhythm GI/Abdominal Exam: Hepatomegaly Back Exam: Normal Inspection, Full Range of Motion Extremities: Normal Inspection, Normal Range of Motion, Non-Tender, No Pedal Edema, Normal Capillary Refill Peripheral Pulses: 1+: Radial (L), Radial (R) Skin: Warm, Dry, Intact Neurological: Other Psy/Mental Status: Withdrawal Symptoms - Patient Data Result Diagrams: 11/12/20 04:15 11/12/20 04:15 Sepsis Event Note - Evaluation Sepsis Screening Result: No Definite Risk - Focused Exam Vital Signs: Vital Signs Temp Pulse Resp BP Pulse Ox 11/14/20 08:00 98 F 85 14 158/88 H 97 11/14/20 06:00 78 10 L 134/86 97 11/14/20 04:00 97.8 F 14 169/92 H 98 11/14/20 02:00 16 165/88 H 11/14/20 00:00 97.4 F 17 152/94 H 98 11/13/20 22:00 27 H 153/95 H - Problem List Review Problem List Initiated/Reviewed/Updated: Yes - Plan Plan:: Assessment/Plan: #1. Alcoholism/delirium tremors:His blood alcohol of 307 and will will continue with medication per protocol. #2. Nicotine addiction: #3. Hypertension: Will monitor and treat as needed #4. Alcoholic liver disease: He is aware of the seriousness of his liver disease. He claims I gave him Ativan but no record at the pharmacy from me or anybody else.
--- NOTE | 2020-11-14 09:32 | PCM.PN ---
- General Info Date of Service: 11/14/20 Subjective Update: Still unsteady on his feet and shaking but has had no Ativan in over 24 hrs. - Review of Systems General: Reports: Weakness HEENT: Reports: No Symptoms Pulmonary: Reports: No Symptoms Cardiovascular: Reports: No Symptoms Gastrointestinal: Reports: No Symptoms Genitourinary: Reports: No Symptoms Musculoskeletal: Reports: No Symptoms Skin: Reports: No Symptoms Neurological: Reports: Difficulty Walking, Weakness, Gait Disturbance Psychiatric: Reports: Anxiety - Patient Data Vitals - Most Recent: Last Vital Signs Temp 98 F 11/14/20 08:00 Pulse 85 11/14/20 08:00 Resp 14 11/14/20 08:00 BP 158/88 H 11/14/20 08:00 Pulse Ox 97 11/14/20 08:00 Weight - Most Recent: 140 lb I&O - Last 24 Hours: Intake & Output 11/13/20 11/14/20 11/14/20 22:59 06:59 14:59 Intake Total 240 500 470 Output Total 575 400 Balance -335 100 470 Med Orders - Current: Current Medications Gabapentin (Gabapentin 400 Mg Cap) 400 mg PO Q8H GREYSON Stop: 11/16/20 05:46 Last Admin: 11/14/20 06:38 Dose: 400 mg Documented by: Lorazepam (Lorazepam 2 Mg/Ml Sdv) 0 mg IV ASDIRECTED GREYSON; Protocol Last Admin: 11/12/20 21:58 Dose: 2 mg Documented by: Ondansetron HCl (Ondansetron 4 Mg/2 Ml Sdv) 4 mg IV Q4H PRN PRN Reason: Nausea/Vomiting Sodium Chloride (Sodium Chloride 0.9% 10 Ml Syringe) 10 ml FLUSH ASDIRECTED PRN PRN Reason: Keep Vein Open Last Admin: 11/12/20 04:34 Dose: 10 ml Documented by: Discontinued Medications Multivitamins/Minerals 10 ml/Thiamine HCl 100 mg/ Folic Acid 1 mg/ Magnesium Sulfate 2 gm/ Sodium Chloride 1,015.2 mls @ 500 mls/hr IV ONETIME ONE Stop: 11/12/20 06:13 Last Admin: 11/12/20 04:55 Dose: 500 mls/hr Documented by: Sodium Chloride (Normal Saline) 1,000 mls @ 75 mls/hr IV ASDIRECTED GREYSON Last Admin: 11/12/20 06:50 Dose: 125 mls/hr Documented by: - Exam General: Alert, Oriented HEENT: Pupils Equal, Pupils Reactive, EOMI, Mucous Membr. Moist/[place] Neck: Supple Lungs: Clear to Auscultation, Normal Respiratory Effort Cardiovascular: Regular Rate, Regular Rhythm GI/Abdominal Exam: Normal Bowel Sounds, Soft, Non-Tender, No Organomegaly, No Distention, No Abnormal Bruit, No Mass, Pelvis Stable Back Exam: Normal Inspection, Full Range of Motion Extremities: Normal Inspection, Normal Range of Motion, Non-Tender, No Pedal Edema, Normal Capillary Refill Peripheral Pulses: 1+: Radial (L), Radial (R) Skin: Warm, Dry, Intact Neurological: Cranial Nerves Intact Psy/Mental Status: Alert, Anxious, Other (shaking in the legs and arms mild ) - Patient Data Result Diagrams: 11/12/20 04:15 11/12/20 04:15 Sepsis Event Note - Evaluation Sepsis Screening Result: No Definite Risk - Focused Exam Vital Signs: Vital Signs Temp Pulse Resp BP Pulse Ox 11/14/20 08:00 98 F 85 14 158/88 H 97 11/14/20 06:00 78 10 L 134/86 97 11/14/20 04:00 97.8 F 14 169/92 H 98 11/14/20 02:00 16 165/88 H 11/14/20 00:00 97.4 F 17 152/94 H 98 11/13/20 22:00 27 H 153/95 H - Problem List Review Problem List Initiated/Reviewed/Updated: Yes - Plan Plan:: Assessment/Plan: #1. Alcoholism/delirium tremors:His blood alcohol of 307 and will discharge home today as he has had no Ativan for >24 hrs. #2. Nicotine addiction: #3. Hypertension: Will monitor and treat as needed #4. Alcoholic liver disease: He is aware of the seriousness of his liver disease.
--- NOTE | 2020-11-14 09:35 | PCM.DCSUM1 ---
Discharge Summary - Hospital Course HPI Initial Comments: Admitted because of alcoholism and having DT's which has been a recurrent problem. Diagnosis: Stroke: No - Discharge Data Discharge Date: 11/14/20 Discharge Disposition: Home, Self-Care 01 Condition: Good - Referral to Home Health Primary Care Physician: Damon Langley Sr, MD - Patient Summary/Data Hospital Course: Was given Ativan and Gabapentin for DT's and responded well. - Patient Instructions Diet: Heart Healthy Diet Activity: As Tolerated - Discharge Plan Home Medications: Home Meds NK [No Known Home Meds] 11/12/20 [History] Forms: ED Department Discharge Referrals: Damon Langley Sr, MD [Primary Care Provider] - - Discharge Summary/Plan Comment DC Time >30 min.: Yes - Patient Data Vitals - Most Recent: Last Vital Signs Temp 98 F 11/14/20 08:00 Pulse 85 11/14/20 08:00 Resp 14 11/14/20 08:00 BP 158/88 H 11/14/20 08:00 Pulse Ox 97 11/14/20 08:00 Weight - Most Recent: 140 lb I&O - Last 24 hours: Intake & Output 11/13/20 11/14/20 11/14/20 22:59 06:59 14:59 Intake Total 240 500 470 Output Total 575 400 Balance -335 100 470 Med Orders - Current: Current Medications Gabapentin (Gabapentin 400 Mg Cap) 400 mg PO Q8H GREYSON Stop: 11/16/20 05:46 Last Admin: 11/14/20 06:38 Dose: 400 mg Documented by: Lorazepam (Lorazepam 2 Mg/Ml Sdv) 0 mg IV ASDIRECTED GREYSON; Protocol Last Admin: 11/12/20 21:58 Dose: 2 mg Documented by: Ondansetron HCl (Ondansetron 4 Mg/2 Ml Sdv) 4 mg IV Q4H PRN PRN Reason: Nausea/Vomiting Sodium Chloride (Sodium Chloride 0.9% 10 Ml Syringe) 10 ml FLUSH ASDIRECTED PRN PRN Reason: Keep Vein Open Last Admin: 11/12/20 04:34 Dose: 10 ml Documented by: Discontinued Medications Multivitamins/Minerals 10 ml/Thiamine HCl 100 mg/ Folic Acid 1 mg/ Magnesium Sulfate 2 gm/ Sodium Chloride 1,015.2 mls @ 500 mls/hr IV ONETIME ONE Stop: 11/12/20 06:13 Last Admin: 11/12/20 04:55 Dose: 500 mls/hr Documented by: Sodium Chloride (Normal Saline) 1,000 mls @ 75 mls/hr IV ASDIRECTED REPLACED BY [facility] Last Admin: 11/12/20 06:50 Dose: 125 mls/hr Documented by:
== END 2020-11-14 09:40 | disposition home or self-care (01) | DRG 897 ==
LOC: JP.ED 04:02 → JP.ICU 05:08
PROVIDERS: ADMIT Internal Medicine; ATTEND Internal Medicine
DX: F10.231 Alcohol dependence with withdrawal delirium (principal); K70.30 Alcoholic cirrhosis of liver without ascites; Y90.8 Blood alcohol level of 240 mg/100 ml or more; F17.200 Nicotine dependence, unspecified, uncomplicated; I10 Essential (primary) hypertension; F10.288 Alcohol dependence with other alcohol-induced disorder; H54.7 Unspecified visual loss; K59.09 Other constipation; F41.9 Anxiety disorder, unspecified; D64.9 Anemia, unspecified; Z90.49 Acquired absence of other specified parts of digestive tract; Z87.01 Personal history of pneumonia (recurrent)
CPT/HCPCS: 36415; 80053; 80305-QW; 80307; 82140; 82803; 83735; 84100; 85025; 85610; 85730; 96374; 99284; 99285-25; A9270-GY; J2060; J3411; J3475; J3490; J7030

== ENCOUNTER 2021-01-24 06:28 | Emergency (ER) | payer MEDICAID ==
[2021-01-24] MEDS ORDERED: Ondansetron 4 MG/2 ML SDV IVPUSH ONE (07:38)
[2021-01-24] MEDS ORDERED: fentaNYL 100 MCG/2 ML SDV IVPUSH ONE (07:38)
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
[2021-01-24] MEDS: Sodium Chloride 0.9% 10 ML Syringe FLUSH PRN ×2 (07:50→08:35)
[2021-01-24] MEDS ORDERED: Iopamidol 612 MG/ML 500 ML Multipack Bottle IV ONE (08:03)
[2021-01-24] MEDS ORDERED: Sodium Chloride 0.9% 1,000 ML IV SCH (08:30)
[2021-01-24 08:54] VITALS: BP 111/58; PULSE 74
--- NOTE | 2021-01-24 10:36 | CRLCT ---
For Patients: As a result of the 21st Century Cures Act, medical imaging exams and procedure reports are released immediately into your electronic medical record. You may view this report before your referring provider. If you have questions, please contact your health care provider. Indication: Right-sided neck mass, history of prior cervical fusion Technique: Volumetric multidetector CT images of the cervical soft tissues were obtained after the administration of low osmolar intravenous contrast. 100 cc Isovue-300 low osmolar intravenous contrast Comparison: None available. Findings: The partially visualized brain parenchyma is normal in attenuation without evidence of abnormal enhancement. The orbits and their contents are within normal limits. The paranasal sinuses are clear. The mastoid air cells are clear. The nasopharynx is unremarkable. The fossae of Rosenmuller are clear. The oropharynx is unremarkable. The hypopharynx is clear. There is demonstration of a small lipoma corresponding to the area of palpable concern near the angle of the mandible on the right subcutaneous soft tissues measuring 1.6 x 1.0 centimeters. There is a heterogeneous appearance of the adjacent parotid gland which could represent minimal inflammatory changes. The vocal folds are nonthickened with symmetrical appearance. The thyroid gland is normal in attenuation. There are likely reactive right-sided cervical lymph nodes. The jugular veins are patent. The carotid arteries demonstrate no significant atherosclerotic narrowing. The lung apices demonstrate biapical pleural thickening with paraseptal parenchymal scarring. There is a spiculated nodule in the medial right upper lobe measuring 9.1 millimeters in greatest dimension. The cervical vertebral body heights are grossly maintained. There is straightening of the normal cervical lordosis with extensive posterior instrumented fusion from the occiput through the C5 level. There is progression of solid osseous fusion. Postoperative changes of the mandible status post internal fixation at the symphysis and right base of the mandibular condyle are appreciated with persistent somewhat nonunion appearance. Impression: Demonstration of a 1.6 centimeter subcutaneous lipoma corresponding to the area palpable concern. There is additional mild heterogeneous, bulky appearance of the right parotid gland with associated reactive lymph nodes which could represent mild parotiditis changes. Extensive postoperative changes of the cervical spine and mandible status post instrumented fusion changes and internal fixation without obvious hardware failure. Please note that all CT scans at this facility use dose modulation, iterative reconstruction, and/or weight-based dosing when appropriate to reduce radiation dose to as low as reasonably achievable. Dictated by Carlos Canseco MD @ 01/24/2021 10:34:24 AM (Electronically Signed)
== END 2021-01-24 11:06 | disposition home or self-care (01) ==
LOC: JP.ED 06:28
DX: D17.0 Benign lipomatous neoplasm of skin and subcutaneous tissue of head, face and neck (principal); F17.200 Nicotine dependence, unspecified, uncomplicated; Z79.82 Long term (current) use of aspirin; Z79.899 Other long term (current) drug therapy
CPT/HCPCS: 36415; 70491; 80053; 83605; 85025; 86140; 96374; 96375; 99284; J2405; J3010; J7030; Q9967

== ENCOUNTER 2024-03-24 19:10 | Emergency (ER) | payer SELFPAY ==
[2024-03-24 19:31] VITALS: BP 100/67; PULSE 84
== END 2024-03-24 20:15 | disposition home or self-care (01) ==
LOC: JP.ED 19:10
DX: F10.10 Alcohol abuse, uncomplicated (principal); F17.210 Nicotine dependence, cigarettes, uncomplicated
CPT/HCPCS: 99282; 99284

== ENCOUNTER 2024-05-06 23:37 | Emergency (ER) | payer SELFPAY ==
[2024-05-07 01:23] VITALS: BP 140/64; PULSE 102
== END 2024-05-07 01:04 | disposition left against medical advice (07) ==
LOC: JP.ED 23:37
DX: Z53.21 Procedure and treatment not carried out due to patient leaving prior to being seen by health care provider (principal)